=== PATIENT | male | born 1940 | race Caucasian/White ===

== ENCOUNTER 2018-01-15 20:20 | Inpatient (IN) ==
[2018-01-15] MEDS ORDERED: LIDOCAINE JEL 2% 1 TUBE 30GM TOPICAL ONE (20:27)
--- NOTE | 2018-01-15 20:41 | Emergency Department Note ---
Male Urogenital HPI - General Chief complaint: Urogenital-Male Stated complaint: catheter problem Time Seen by Provider: 01/15/18 20:39 Source: patient Mode of arrival: wheelchair Limitations: no limitations - History of Present Illness HPI Narrative: This patient has cystoscopy yesterday this morning he was plugged up with blood in his catheter and Dr. Jama irrigated him for an hour. He cleared up at this evening he is plugged up again. Patient has been taking Xarelto which he did not stop. Dr. Jama is asked us to put in a three-way catheter and admit him to the hospital for Dr. Jama. - Related Data Home Medications Medication Instructions Recorded Confirmed albuterol sulfate HFA 90 180 mcg INHALATION Q4H PRN g 09/13/14 01/15/18 mcg/actuation aerosol inhaler ascorbic acid (vitamin C) ER 500 500 mg PO BID cap 09/13/14 01/15/18 mg capsule,extended release trazodone 100 mg tablet 100 mg PO QDAY PRN tab 09/13/14 01/15/18 alendronate 70 mg tablet 70 mg PO QWEEK 07/28/17 01/15/18 furosemide 20 mg tablet 20 mg PO QDAY 07/28/17 01/15/18 atorvastatin 80 mg tablet 80 mg PO QDAY 11/24/17 01/15/18 metoprolol succinate ER 100 mg 25 mg PO QDAY 11/24/17 01/15/18 tablet,extended release 24 hr rivaroxaban 20 mg tablet 20 mg PO QDAY 11/24/17 01/15/18 Albuterol Sulfate [Proair Hfa] 8.5 gm IH DAILY 01/07/18 01/15/18 Previous Rx's Medication Instructions Recorded terazosin 2 mg capsule 2 mg PO QDAY #90 cap 08/18/17 levothyroxine 112 mcg capsule 112 mcg PO QDAY #90 cap 08/25/17 fosinopril 40 mg tablet 20 mg PO QDAY #45 tab 12/31/17 omeprazole 20 mg capsule,delayed 20 mg PO QDAY #60 cap 12/31/17 release Allergies Allergy/AdvReac Type Severity Reaction Status Date / Time No Known Drug Allergies Allergy Unknown Unknown Verified 01/15/18 20:23 Review of Systems All systems ED: reviewed and negative except as stated. Past Medical History - Past Medical History PMFSH Narrative: Medical History (Last Reviewed 01/15/18 @ 10:01 by Silvia Shoemaker CMA) History of tobacco use (Acute) Spinal stenosis of lumbar region (Acute) Shoulder pain, left (Acute 05/26/14) Chronic renal insufficiency (Acute) Renal calculi (Acute) Peripheral vascular disease (Acute) Osteoporosis (Acute) Mitral valve disorder (Acute) Leg pain (Acute 05/26/14) Hypothyroidism (acquired) (Acute) Hypertension (Acute) Hyperlipemia (Acute) Gastroesophageal reflux (Acute) Edema (Acute) Degenerative joint disease (Acute) Coronary atherosclerosis (Acute) CAD (coronary artery disease) (Acute) Bladder neck obstruction (Acute) Past Surgical History (Last Reviewed 01/15/18 @ 10:01 by Silvia Shoemaker [facility]) Nail avulsion of toe (Acute) History of total right knee replacement (Acute) History of shoulder surgery (Acute) History of open heart surgery (Acute) History of inguinal hernia repair (Acute) History of carpal tunnel repair (Acute) History of coronary artery bypass graft x 3 (Acute) History of arthroscopy of left knee (Acute) Family History (Last Reviewed 01/15/18 @ 10:01 by Silvia Shoemaker CMA) Mother Malignant neoplasm of uterus - Social History smoking status: Current some day smoker Alcohol use: Reports: Occasionally Drug use: Reports: none Physical Exam Limitations: no limitations General appearance: alert, in no apparent distress Head: atraumatic Eye: Present: normal appearance Abdominal: Present: soft, distention, tenderness Abdominal tenderness: Present: suprapubic, mild Neurological: Present: alert Psychiatric: Present: normal affect, normal mood Skin: Present: warm, dry, intact Course Vital Signs Temperature 97.5 F 01/15/18 20:21 Pulse Rate 118 H 01/15/18 20:21 Respiratory Rate 18 01/15/18 20:21 Blood Pressure 84/54 01/15/18 20:21 Pulse Oximetry (%) 96 01/15/18 20:21 Temperature 97.5 F 01/15/18 20:21 Pulse Rate 118 H 01/15/18 20:21 Respiratory Rate 18 01/15/18 20:21 Blood Pressure 84/54 01/15/18 20:21 Pulse Oximetry (%) 96 01/15/18 20:21 Disposition Pt seen by BEHAVIORIST/PA only: No Clinical Impression: Acute retention of urine Disposition: Xfer As Outpt/Obs ([facility]) Condition: Good Referrals: Raudel Murphy MD [Primary Care Provider] - Time of Disposition: 20:41
[2018-01-15 22:15] LABS: Basophils # (Auto) 0 K/mcL (0.0-0.3); Basophils % (Auto) 0.1 % (0.0-2.0); Eosinophils # (Auto) 0.1 K/mcL (0.0-0.7); Eosinophils % (Auto) 0.6 % (0.0-7.0); Granulocytes % (Auto) 83.8 % (38.0-78.0); Lymphocytes # (Auto) 0.9 K/mcL (1.5-4.8); Lymphocytes % (Auto) 9.1 % (15.5-49.0); Mean Cell Volume 93.8 fL (80.0-100.0); Mean Corpuscular HGB Conc 32.8 g/dL (31.0-36.0); Mean Corpuscular Hemoglobin 30.7 pg (26.0-34.0); Monocytes # (Auto) 0.7 K/mcL (0.1-0.9); Monocytes % (Auto) 6.4 % (1.0-12.0); Platelet Count 199 K/mcL (140-440); RBC 2.85 M/mcL (4.50-5.90); Red Cell Distribution Width 19.4 % (11.5-14.5)
[2018-01-15] MEDS: LACTATED RINGERS 1,000 ML IV SCH (22:25)
[2018-01-16] MEDS ORDERED: FUROSEMIDE 20 MG/2 ML VIAL IV ONE (01:29)
[2018-01-16] MEDS ORDERED: 0.9 % SODIUM CHLORIDE 250 ML IV SCH ×2 (02:00→10:50)
[2018-01-16] MEDS: LACTATED RINGERS 1,000 ML IV SCH ×2 (08:57→16:44)
[2018-01-16] MEDS ORDERED: traZODone HCL 100 MG TABLET PO PRN (09:43)
[2018-01-16] MEDS ORDERED: ALBUTEROL SULFATE INHALATION PRN (09:43)
[2018-01-16] MEDS ORDERED: ALBUTEROL SULFATE 1 PUFF INHALER INH PRN (09:55)
[2018-01-16 10:19] LABS: Basophils # (Auto) 0 K/mcL (0.0-0.3); Basophils % (Auto) 0.2 % (0.0-2.0); Eosinophils # (Auto) 0.1 K/mcL (0.0-0.7); Eosinophils % (Auto) 2.1 % (0.0-7.0); Granulocytes % (Auto) 78.4 % (38.0-78.0); Lymphocytes # (Auto) 0.9 K/mcL (1.5-4.8); Lymphocytes % (Auto) 12.7 % (15.5-49.0); Mean Cell Volume 92.5 fL (80.0-100.0); Mean Corpuscular Hemoglobin 30.5 pg (26.0-34.0); Monocytes # (Auto) 0.5 K/mcL (0.1-0.9); Monocytes % (Auto) 6.6 % (1.0-12.0); Platelet Count 158 K/mcL (140-440); RBC 2.83 M/mcL (4.50-5.90); Red Cell Distribution Width 18.5 % (11.5-14.5)
[2018-01-16] MEDS ORDERED: LACTATED RINGERS 1,000 ML IV ONE (11:13)
[2018-01-16] MEDS ORDERED: LACTATED RINGERS 500 ML IV ONE ×2 (11:19→18:44)
--- NOTE | 2018-01-16 11:22 | History and Physical Report ---
DATE OF ADMISSION: 01/15/2018 HISTORY OF PRESENT ILLNESS: Mr. Randle is a 77-year-old gentleman who has been admitted to the hospital recently for urinary sepsis. It was noted that he had stones in his kidney and also in his bladder. On 01/14, he was taken to the operating room where the stones were removed and ureteral stent was placed. He did have bleeding afterwards because he was on Xarelto. The next day he did clot off his catheter which was left in and we irrigated this copiously. Last night, he was again having clots, was seen in the emergency room and Dr. Rowe kindly admitted the patient for observation. The patient states that he is having some pain. It mostly is because of the bleeding. We did irrigate him copiously the day before and his urine was clear. There is no evidence of prostate cancer. He is on Xarelto because of atrial fibrillation. PAST MEDICAL HISTORY: Significant for spinal stenosis, shoulder pain, renal insufficiency, kidney stones, osteoporosis, mitral valve with repair, hypertension, edema, coronary artery disease. PAST SURGICAL HISTORY: Total knee replacement, shoulder surgery, mitral valve repair, carpal tunnel repair and a 3-vessel CABG. FAMILY HISTORY: Positive for cancer. SOCIAL HISTORY: Does smoke, no alcohol. CURRENT MEDICATIONS: Albuterol, Fosamax, Lipitor, fosinopril, Lasix, omeprazole, Xarelto and terazosin. ALLERGIES: None. REVIEW OF SYSTEMS: CARDIAC: Denies any current chest pain. RESPIRATORY: No wheezing, coughing but does have asthma. PSYCHOLOGICAL: No depression or mood swings. The rest of a 12-point review of systems is negative. PHYSICAL EXAMINATION: GENERAL: This is a pleasant gentleman in slight distress. VITAL SIGNS: As listed per nurse's notes. HEENT: Atraumatic, normocephalic. Extraocular movements are intact. Pupils equal, reactive to light and accommodation. No thyromegaly is noted. NECK: Supple. Trachea is in the midline. HEART: Does have irregular rhythm. LUNGS: Clear to auscultation. ABDOMEN: Soft, nontender. GENITOURINARY: Scrotum without lesion. Epididymides without cysts. Testes normal size and consistency. Meatus is at the end of his penis. Penis is circumcised without plaques. Prostate 40 grams, asymmetrical. Seminal vesicles are nontender. Anus and perineum are normal. Rectum has good sphincter tone. LYMPHATIC: No adenopathy in neck or groin. SKIN: Without rashes, lesions, ulcers. PSYCHOLOGICAL: Alert and oriented x3. IMPRESSION: 1. Clot retention. This is probably secondary to Xarelto. He has been on continuous irrigation and his bladder is clearing. I have instructed the nurses to irrigate every 2 hours and then to watch his continuous bladder irrigation. 2. Decreased hematocrit. This is secondary to his bleeding. He did receive 2 units of blood and would continue to watch this. 3. Decreased blood pressure. This may be secondary to anemia. He is physically stable, but his diastolics are in the 60s to 70s at times. We will continue hydration. I have gone over this with the patient and he understands. We will follow up as an observation. HUE:moira Job ID: [id number] Doc ID: [id number] Tejas Jama MD
--- NOTE | 2018-01-16 11:48 | Internal Medicine Consult Note ---
Medical - CN: [facility] - Data of Consult Consult date: 01/16/18 Requesting Physician: Tejas Jama Primary Care Provider: Raudel Murphy Family Provider: Raudel Murphy - Consult Narrative History of present illness: Mr. Randle is a 77 year old M With a recent history of sepsis from urinary tract infection found to have nephrolithiasis as well as bladder stones. On the he had a cystoscopy with removal of the stones and ureteral stents placed. did have bleeding afterwards which is expected, and patient also noted to be on Xarelto. The following day he clotted off his catheter and that was irrigated with resolution. However the last night he began have more clots which blocked his catheter again and thus patient was admitted after three-way catheter for bladder irrigation was placed. He has had significant to gross hematuria. Since admission was noted to be hypotensive and tachycardic. He did get several units of blood over the past 24 hours. 2 more scheduled today. Does complain of some dizziness on occasion but says that is not unusual for him and denies any chest pain or shortness of breath. Review of Systems: Occasional dizziness hematuria. denies headache/fever/chills/nausea/vomiting/ chest or abdominal pain/cough/dyspnea/diarrhea. Remaining 10 point review of systems reviewed negative. CC: Tejas Jama Medical - CN: [facility] Medical history: Medical History (Last Reviewed 01/15/18 @ 10:01 by Silvia Shoemaker BAGGAGEMAN) History of tobacco use (Acute) Spinal stenosis of lumbar region (Acute) Shoulder pain, left (Acute 05/26/14) Chronic renal insufficiency (Acute) Renal calculi (Acute) Peripheral vascular disease (Acute) Osteoporosis (Acute) Mitral valve disorder (Acute) Leg pain (Acute 05/26/14) Hypothyroidism (acquired) (Acute) Hypertension (Acute) Hyperlipemia (Acute) Gastroesophageal reflux (Acute) Edema (Acute) Degenerative joint disease (Acute) Coronary atherosclerosis (Acute) CAD (coronary artery disease) (Acute) Bladder neck obstruction (Acute) CKD stage III Tobacco abuse Atrial flutter CAD with CABG in 1991 Hypertension next line BPH Hypothyroidism GERD Past Surgical History (Last Reviewed 01/15/18 @ 10:01 by Silvia Shoemaker, BAGGAGEMAN) Nail avulsion of toe (Acute) History of total right knee replacement (Acute) History of shoulder surgery (Acute) History of open heart surgery (Acute) History of inguinal hernia repair (Acute) History of carpal tunnel repair (Acute) History of coronary artery bypass graft x 3 (Acute) History of arthroscopy of left knee (Acute) Family History (Last Reviewed 01/15/18 @ 10:01 by Silvia Shoemaker CMA) Mother Malignant neoplasm of uterus Social History (Last Updated 01/15/18 @ 12:02 by Tejas Jama MD) Quit smoking 3-4 months ago 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 alcohol 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 Medical - CN: Meds Home Medications Medication Instructions Recorded Confirmed Type albuterol sulfate HFA 90 180 mcg INHALATION Q4H PRN g 09/13/14 01/15/18 History mcg/actuation aerosol inhaler ascorbic acid (vitamin C) ER 500 500 mg PO BID cap 09/13/14 01/15/18 History mg capsule,extended release trazodone 100 mg tablet 100 mg PO QDAY PRN tab 09/13/14 01/15/18 History alendronate 70 mg tablet 70 mg PO QWEEK 07/28/17 01/15/18 History furosemide 20 mg tablet 20 mg PO QDAY 07/28/17 01/15/18 History terazosin 2 mg capsule 2 mg PO QDAY #90 cap 08/18/17 01/15/18 Rx levothyroxine 112 mcg capsule 112 mcg PO QDAY #90 cap 08/25/17 01/15/18 Rx atorvastatin 80 mg tablet 80 mg PO QDAY 11/24/17 01/15/18 History metoprolol succinate ER 100 mg 25 mg PO QDAY 11/24/17 01/15/18 History tablet,extended release 24 hr rivaroxaban 20 mg tablet 20 mg PO QDAY 11/24/17 01/15/18 History fosinopril 40 mg tablet 20 mg PO QDAY #45 tab 12/31/17 01/15/18 Rx omeprazole 20 mg capsule,delayed 20 mg PO QDAY #60 cap 12/31/17 01/15/18 Rx release Albuterol Sulfate [Proair Hfa] 8.5 gm IH DAILY 01/07/18 01/15/18 History Allergies Allergy/AdvReac Type Severity Reaction Status Date / Time No Known Drug Allergies Allergy Unknown Unknown Verified 01/15/18 20:23 Medical - CN: Exam - Constitutional Vitals: Temp Pulse Resp BP Pulse Ox 99.1 F H 114 H 20 92/54 94 01/16/18 10:20 01/16/18 10:20 01/16/18 11:34 01/16/18 11:34 01/16/18 11:34 Exam: General: Alert, Awake, No acute Distress HEENT: EOMI, pupils equal round reactive light, normocephalic atraumatic CV: Regular at this time, 2/6 sm, normal s1/s2 Pulm: Clear b/l, no wheezing/rhonchi/rales Abd: soft, nontender, +BS x4 Ext: no clubbing/cyanosis/edema Neuro: Alert, no focal deficits, moves all extremities Skin: warm/dry Medical - CN: Result - Labs CBC & Chem 7: 01/16/18 09:30 Labs: Short CBC 01/15/18 01/16/18 Range/Units 21:21 09:30 WBC 10.3 6.8 (4.5-11.0) K/mcL Hgb 8.8 L 8.6 L (13.5-16.5) g/dL Hct 26.7 L 26.2 L (41.0-55.0) % Plt Count 199 158 (140-440) K/mcL Medical - CN: A/P - Narrative A/P Narrative: A: *Hypertension/tachycardia: Secondary to volume loss, hemorrhagic: *Gross hematuria: Status post cystoscopy for nephrolithiasis and bladder stones *Acute blood loss anemia: -2 units PRBCs given so far *Atrial flutter: Started on Xarelto in the recent past and is also on Toprol *CAD with history of CABG in 1991 *CKD stage III *Hypertension: Is on VONDA inhibitor and Toprol *Hypothyroidism: Continue levothyroxine P: -Bladder irrigation per Dr. Jama -Lactated Ringer bolus -2 units of PRBCs already ordered -Monitor H&H -Hold blood pressure medications for low BP at this time -Xarelto held -ppx:scd
[2018-01-16 13:03] LABS: Blood Urea Nitrogen 56 mg/dl (8-23)
[2018-01-16] MEDS ORDERED: DEXAMETHASONE 10 MG/ML VIAL IV ONE (18:18)
[2018-01-16 19:18] LABS: Basophils # (Auto) 0 K/mcL (0.0-0.3); Basophils % (Auto) 0 % (0.0-2.0); Eosinophils # (Auto) 0.2 K/mcL (0.0-0.7); Eosinophils % (Auto) 2.8 % (0.0-7.0); Granulocytes % (Auto) 70.2 % (38.0-78.0); Lymphocytes # (Auto) 1.4 K/mcL (1.5-4.8); Lymphocytes % (Auto) 18.9 % (15.5-49.0); Mean Cell Volume 92.1 fL (80.0-100.0); Mean Corpuscular HGB Conc 34.1 g/dL (31.0-36.0); Mean Corpuscular Hemoglobin 31.4 pg (26.0-34.0); Monocytes # (Auto) 0.6 K/mcL (0.1-0.9); Monocytes % (Auto) 8.1 % (1.0-12.0); Platelet Count 157 K/mcL (140-440); RBC 3.37 M/mcL (4.50-5.90)
[2018-01-16 19:45] LABS: ALT/SGPT < 5 U/l (0-40); Albumin/Globulin Ratio 0.9 (1.0-2.3); Alkaline Phosphatase 57 U/L (39-117); Bilirubin,Direct < 0.2 mg/dL (0.0-0.3); Blood Urea Nitrogen 55 mg/dl (8-23); Gamma Glutamyl Transpeptidase 14 U/L (8-61); Uric Acid 9.3 mg/dL (2.5-8.0)
[2018-01-16] MEDS ORDERED: ALBUMIN HUMAN 12.5 GM/50 ML BAG IV ONE ×2 (20:03→21:25)
[2018-01-16] MEDS: ATORVASTATIN 20 MG TABLET PO SCH (20:17)
[2018-01-16] MEDS: TAMSULOSIN 0.4 MG CAPSULE PO SCH (20:18)
[2018-01-16] MEDS: CIPROFLOXACIN 500 MG TABLET PO SCH (20:18)
[2018-01-17] MEDS: LACTATED RINGERS 1,000 ML IV SCH ×4 (00:34→21:38)
[2018-01-17] MEDS: ONDANSETRON 4 MG/2 ML VIAL IV PRN (01:00)
[2018-01-17 05:44] LABS: Basophils # (Auto) 0 K/mcL (0.0-0.3); Basophils % (Auto) 0 % (0.0-2.0); Eosinophils # (Auto) 0 K/mcL (0.0-0.7); Eosinophils % (Auto) 0.1 % (0.0-7.0); Granulocytes % (Auto) 91.1 % (38.0-78.0); Lymphocytes # (Auto) 0.4 K/mcL (1.5-4.8); Lymphocytes % (Auto) 5.5 % (15.5-49.0); Mean Cell Volume 93.4 fL (80.0-100.0); Mean Corpuscular HGB Conc 33.1 g/dL (31.0-36.0); Mean Corpuscular Hemoglobin 30.9 pg (26.0-34.0); Monocytes # (Auto) 0.3 K/mcL (0.1-0.9); Monocytes % (Auto) 3.3 % (1.0-12.0); Platelet Count 150 K/mcL (140-440); RBC 3.19 M/mcL (4.50-5.90); Red Cell Distribution Width 18.1 % (11.5-14.5)
[2018-01-17 06:29] LABS: Blood Urea Nitrogen 56 mg/dl (8-23)
[2018-01-17] MEDS ORDERED: COSYNTROPIN 0.25 MG VIAL IV ONE (07:07)
--- NOTE | 2018-01-17 07:12 | Internal Med Progress Note ---
Medical - PN: Subj Patient information: Note initiated : 01/17/18 at 7:00 am Service Date, if different from initiated Date: [] Patient: Abhi Randle a 77 y/o M admitted on 01/15/18 for catheter problem. Chief Complaint: [] Interval history: Mr. Randle is a 77 year old M With a recent history of sepsis from urinary tract infection found to have nephrolithiasis as well as bladder stones. On the he had a cystoscopy with removal of the stones and ureteral stents placed. did have bleeding afterwards which is expected, and patient also noted to be on Xarelto. The following day he clotted off his catheter and that was irrigated with resolution. However the last night he began have more clots which blocked his catheter again and thus patient was admitted after three-way catheter for bladder irrigation was placed. He has had significant to gross hematuria. Since admission was noted to be hypotensive and tachycardic. He did get several units of blood over the past 24 hours. 2 more scheduled today. Does complain of some dizziness on occasion but says that is not unusual for him and denies any chest pain or shortness of breath. 01/17 No issues overnight, no new complaints. Better blood pressure overnight. Morning cortisol found to be mildly low, ACTH stimulation test pending. Review of Systems: denies headache/fever/chills/nausea/vomiting/chest or abdominal pain/cough/ dyspnea/diarrhea. Otherwise see above. - Constitutional Vitals: Vital Signs Temp Pulse Resp BP Pulse Ox 98.2 F 112 H 18 97/57 92 01/17/18 03:53 01/17/18 03:53 01/17/18 03:53 01/17/18 03:53 01/17/18 03:53 Period Temp Pulse Resp BP Sys/Sagastume Pulse Ox Last 24 Hr 97.9 F-99.8 F 107-116 18-22 64-100/31-64 91-95 Intake and Output 01/16/18 01/17/18 01/17/18 21:59 05:59 13:59 Intake Total 38624 / 32278 25810 / 22286 Output Total 73681 / 25284 86019 / 78229 Balance -475 / -475 -592 / -592 Weight 98.883 kg Intake & Output: Intake & Output 01/16/18 01/17/1801/17/18 21:59 05:59 13:59 Intake Total 13247 / 35032 79409 / 34345 Output Total / 09208 75506 / 50780 Balance -475 / -475 -592 / -592 Weight 98.883 kg Intake: IV 833 / 833 Lactated Ringers 1,000 ml @ 100 783 / 783 mls/hr IV .Q10H [facility] Rx#: [id number] Oral 350 / 350 600 / 600 Blood Product 600 / 600 CBI Fluid 19306 / 31656 91829 / 91285 Output: CBI Fluid / 67980 88062 / 37010 Other: Urine Appearance Small Blood Clots Small Blood Clots Uretheral (Virgen) Small Blood Clots Small Blood Clots Urine Color Dark Red Bright Red Bright Red Florin Blood Tinged Uretheral (Virgen) Florin Florin Urine Odor Normal Uretheral (Virgen) Normal Net CBI 0 125 Exam: General: Alert, Awake, No acute Distress HEENT: EOMI, neck supple CV: Regular at this time, 2/6 sm, normal s1/s2 Pulm: Clear b/l, no wheezing/rhonchi/rales Abd: soft, nontender, +BS x4 Ext: no clubbing/cyanosis/edema Neuro: Alert, no focal deficits, moves all extremities Skin: warm/dry Medical - PN: Obj Da - Labs CBC & Chem 7: 01/17/18 04:24 01/17/18 04:24 Labs: Abnormal Lab Results 01/17/18 01/17/18 01/17/18 04:24 04:24 04:24 RBC 3.19 L Hgb 9.9 L Hct 29.8 L RDW 18.1 H Gran % 91.1 H Lymph % (Auto) 5.5 L Gran # Lymph # (Auto) 0.4 L Potassium 5.2 H BUN 56 H Creatinine 2.5 H Glucose 138 H Uric Acid Calcium Phosphorus Albumin Albumin/Globulin Ratio Cortisol AM Sample 5.0 L 01/16/18 01/16/18 01/16/18 18:22 18:22 11:41 RBC 3.37 L Hgb 10.6 L Hct 31.0 L RDW 18.0 H Gran % Lymph % (Auto) Gran # Lymph # (Auto) 1.4 L Potassium BUN 55 H 56 H Creatinine 2.7 H 3.0 H Glucose 111 H Uric Acid 9.3 H Calcium 8.4 L Phosphorus 4.7 H Albumin 3.0 L Albumin/Globulin Ratio 0.9 L Cortisol AM Sample 01/16/18 01/15/18 09:30 21:21 RBC 2.83 L 2.85 L Hgb 8.6 L 8.8 L Hct 26.2 L 26.7 L RDW 18.5 H 19.4 H Gran % 78.4 H 83.8 H Lymph % (Auto) 12.7 L 9.1 L Gran # 8.7 H Lymph # (Auto) 0.9 L 0.9 L Potassium BUN Creatinine Glucose Uric Acid Calcium Phosphorus Albumin Albumin/Globulin Ratio Cortisol AM Sample Meds: Medications Albuterol Sulfate (Ventolin) 1 puff INH Q4HP PRN PRN Reason: Shortness Of Breath Alendronate Sodium (Fosamax) 70 mg PO QWEEK [facility] Atorvastatin Calcium (Lipitor) 80 mg PO [facility] Last Admin: 01/16/18 20:17 Dose: 80 mg Ciprofloxacin (Cipro) 500 mg PO BID [facility] Last Admin: 01/16/18 20:18 Dose: 500 mg Lactated Ringer's (Lactated Ringers) 1,000 mls @ 100 mls/hr IV .Q10H [facility] Last Admin: 01/17/18 05:25 Dose: Not Given Levothyroxine Sodium (Synthroid) 112 mcg PO QAMAC [facility] Morphine Sulfate (Morphine) 2 - 4 mg IV Q2HP PRN PRN Reason: PAIN LEVEL > 6 Omeprazole (Prilosec) 20 mg PO QAMAC [facility] Ondansetron HCl (Zofran) 4 mg IV Q4HP PRN PRN Reason: Nausea And Vomiting Last Admin: 01/17/18 01:00 Dose: 4 mg Pneumococcal Polyvalent Vaccine (Pneumovax 23) 0.5 ml IM .ONCE ONE Stop: 01/17/18 10:01 Tamsulosin HCl (Flomax) 0.4 mg PO [facility] Last Admin: 01/16/18 20:18 Dose: 0.4 mg Trazodone HCl (Desyrel) 100 mg PO HSP PRN PRN Reason: insomnia Medical - PN: A/P - Time Spent With Patient Total time spent is greater than 50% in coordination of care (as documented) at patient's floor/unit and/or counseling patient: - Narrative A/P Narrative: A: *Hypotension/tachycardia: Secondary to volume loss, hemorrhagic. +/- ?adrenal insufficiency: -cortisol mild low - *Gross hematuria: Status post cystoscopy for nephrolithiasis and bladder stones *Acute blood loss anemia: -4 PRBCs given over first 24 hours, stable at this time *Atrial flutter: Started on Xarelto in the recent past and is also on Toprol *CAD with history of CABG in 1991 *LARRY on CKD stage III: likely ATN from hypotension -improving *Hypertension: Is on VONDA inhibitor and Toprol *Hypothyroidism: Continue levothyroxine P: -Bladder irrigation per Dr. Jama -IVF's -Monitor H&H and renal fxn -Hold blood pressure medications for low BP at this time -ACTH stim test -Xarelto held -cont levothyroxine -ppx:scd Medical - PN: Qual - Stroke Symptom Onset Unknown: No - VTE Deep Vein Thrombosis/Pulmonary Embolism Present on Admission: No
[2018-01-17] MEDS: OMEPRAZOLE 20 MG CAPSULE PO SCH (07:38)
[2018-01-17] MEDS: LEVOTHYROXINE SODIUM 112 MCG TABLET PO SCH (07:39)
--- NOTE | 2018-01-17 09:39 | General Surgery Progress Note ---
Subjective Patient reports: feels better Narrative: Note initiated : 01/17/18 at 9:37 am Service Date, if different from initiated Date: [] Patient: Abhi Randle 77 y/o M admitted on 01/15/18 for catheter problem. Chief Complaint: [] hematuria patient improved hct stable, appreciate help by hospitalist and nurses. irrigated and is now clot free. will remove catheter to day and observe. Objective Temp Pulse Resp BP Pulse Ox 98.6 F 112 H 14 109/66 94 01/17/18 07:50 01/17/18 08:00 01/17/18 08:00 01/17/18 07:50 01/17/18 07:50 - Additional Data Intake & Output - Last 24 hours: Intake & Output 01/15/18 01/16/18 01/17/18 01/18/18 05:59 05:59 05:59 05:59 Intake Total 40064 / 13009 59544 / 66168 Output Total 58379 / 64864 60425 / 03061 3650 / 3650 Balance -1735 / -1735 308 / 308 -3640 / -3640 Weight 205 lb 8 oz 218 lb - Labs 01/17/18 04:24 01/17/18 04:24 Diabetes panel 01/16/18 01/16/18 01/17/18 Range/Units 11:41 18:22 04:24 Sodium 138 138 138 (133-145) mmol/L Potassium 4.9 4.9 5.2 H (3.3-5.1) mmol/L Chloride 100 100 100 (96-108) mmol/L Carbon Dioxide 27 24 25 (22-30) mmol/L BUN 56 H 55 H 56 H (8-23) mg/dl Creatinine 3.0 H 2.7 H 2.5 H (0.7-1.2) mg/dl Glucose 89 111 H 138 H (70-105) mg/dL Calcium 8.4 L 8.6 8.7 (8.6-10.4) mg/dl AST 12 (0-37) U/l ALT < 5 (0-40) U/l Alkaline Phosphatase 57 (39-117) U/L Total Protein 6.2 (5.9-8.4) gm/dL Albumin 3.0 L (3.2-5.2) gm/dL Triglycerides 93 (<150) mg/dl Thyroid panel 01/17/18 Range/Units 07:21 TSH 4.48 (0.27-5.01) uIU/ml Calcium panel 01/16/18 01/16/18 01/17/18 Range/Units 11:41 18:22 04:24 Calcium 8.4 L 8.6 8.7 (8.6-10.4) mg/dl Phosphorus 4.7 H (2.7-4.5) mg/dL Albumin 3.0 L (3.2-5.2) gm/dL Pituitary panel 01/16/18 01/16/18 01/17/18 Range/Units 11:41 18:22 04:24 Sodium 138 138 138 (133-145) mmol/L Potassium 4.9 4.9 5.2 H (3.3-5.1) mmol/L Chloride 100 100 100 (96-108) mmol/L Carbon Dioxide 27 24 25 (22-30) mmol/L BUN 56 H 55 H 56 H (8-23) mg/dl Creatinine 3.0 H 2.7 H 2.5 H (0.7-1.2) mg/dl Glucose 89 111 H 138 H (70-105) mg/dL Calcium 8.4 L 8.6 8.7 (8.6-10.4) mg/dl TSH (0.27-5.01) uIU/ml 01/17/18 Range/Units 07:21 Sodium (133-145) mmol/L Potassium (3.3-5.1) mmol/L Chloride (96-108) mmol/L Carbon Dioxide (22-30) mmol/L BUN (8-23) mg/dl Creatinine (0.7-1.2) mg/dl Glucose (70-105) mg/dL Calcium (8.6-10.4) mg/dl TSH 4.48 (0.27-5.01) uIU/ml Adrenal panel 01/16/18 01/16/18 01/17/18 Range/Units 11:41 18:22 04:24 Sodium 138 138 138 (133-145) mmol/L Potassium 4.9 4.9 5.2 H (3.3-5.1) mmol/L Chloride 100 100 100 (96-108) mmol/L Carbon Dioxide 27 24 25 (22-30) mmol/L BUN 56 H 55 H 56 H (8-23) mg/dl Creatinine 3.0 H 2.7 H 2.5 H (0.7-1.2) mg/dl Glucose 89 111 H 138 H (70-105) mg/dL Calcium 8.4 L 8.6 8.7 (8.6-10.4) mg/dl Total Bilirubin 0.5 (0.0-1.0) mg/dL AST 12 (0-37) U/l ALT < 5 (0-40) U/l Alkaline Phosphatase 57 (39-117) U/L Total Protein 6.2 (5.9-8.4) gm/dL Albumin 3.0 L (3.2-5.2) gm/dL Assessment and Plan - Time Spent With Patient Total time spent is greater than 50% in coordination of care (as documented) at patient's floor/unit and/or counseling patient:
[2018-01-17] MEDS: CIPROFLOXACIN 500 MG TABLET PO SCH ×2 (09:50→20:45)
[2018-01-17] MEDS ORDERED: PNEUMOCOCCAL 23-VAL P-SAC VAC 0.5 ML VIAL IM ONE (10:00)
[2018-01-17] MEDS: TAMSULOSIN 0.4 MG CAPSULE PO SCH (20:45)
[2018-01-17] MEDS: ATORVASTATIN 20 MG TABLET PO SCH (20:45)
[2018-01-17] MEDS ORDERED: BISACODYL 10 MG SUPP.RECT PR PRN (23:32)
[2018-01-17] MEDS ORDERED: BISACODYL 10 MG SUPP.RECT PR ONE (23:45)
[2018-01-18] MEDS: ONDANSETRON 4 MG/2 ML VIAL IV PRN (00:51)
[2018-01-18 06:01] LABS: ALT/SGPT < 5 U/l (0-40); Albumin 3.1 gm/dL (3.2-5.2); Albumin/Globulin Ratio 1.2 (1.0-2.3); Alkaline Phosphatase 44 U/L (39-117); Bilirubin,Direct < 0.2 mg/dL (0.0-0.3); Blood Urea Nitrogen 46 mg/dl (8-23); Gamma Glutamyl Transpeptidase 12 U/L (8-61); Uric Acid 8.1 mg/dL (2.5-8.0)
--- NOTE | 2018-01-18 06:59 | Internal Med Progress Note ---
Medical - PN: Subj Patient information: Note initiated : 01/18/18 at 6:54 am Service Date, if different from initiated Date: [] Patient: Abhi Randle a 77 y/o M admitted on 01/17/18 for catheter problem. Chief Complaint: [] Interval history: Mr. Randle is a 77 year old M With a recent history of sepsis from urinary tract infection found to have nephrolithiasis as well as bladder stones. On the he had a cystoscopy with removal of the stones and ureteral stents placed. did have bleeding afterwards which is expected, and patient also noted to be on Xarelto. The following day he clotted off his catheter and that was irrigated with resolution. However the last night he began have more clots which blocked his catheter again and thus patient was admitted after three-way catheter for bladder irrigation was placed. He has had significant to gross hematuria. Since admission was noted to be hypotensive and tachycardic. He did get several units of blood over the past 24 hours. 2 more scheduled today. Does complain of some dizziness on occasion but says that is not unusual for him and denies any chest pain or shortness of breath. 01/17 No issues overnight, no new complaints. Better blood pressure overnight. Morning cortisol found to be mildly low, ACTH stimulation test pending. 01/18 Was straight cathed several times overnight shift. Patient this morning says he will typically go up to 10 hours anyway before he urinates. He otherwise feels better no new complaints. Review of Systems: denies dizzy/lightheadedness/headache/fever/chills/nausea/vomiting/chest or abdominal pain/cough/dyspnea/diarrhea. Otherwise see above. - Constitutional Vitals: Vital Signs Temp Pulse Resp BP Pulse Ox 98.1 F 112 H 18 102/62 94 01/18/18 03:02 01/18/18 03:02 01/18/18 03:02 01/18/18 03:02 01/18/18 03:02 Period Temp Pulse Resp BP Sys/Sagastume Pulse Ox Last 24 Hr 98.1 F-99.3 F 111-113 12-19 92-109/52-66 93-95 Intake and Output 01/17/18 01/18/18 01/18/18 21:59 05:59 13:59 Intake Total 1340 / 1340 200 / 200 Output Total 550 / 550 1100 / 1100 Balance 790 / 790 -900 / -900 Weight 97.976 kg Intake & Output: Intake & Output 01/17/18 01/18/18 01/18/18 21:59 05:59 13:59 Intake Total 1340 / 1340 200 / 200 Output Total 550 / 550 1100 / 1100 Balance 790 / 790 -900 / -900 Weight 97.976 kg Intake: IV 1000 / 1000 Lactated Ringers 1,000 ml @ 100 1000 / 1000 mls/hr IV .Q10H [facility] Rx#: [id number] Oral 340 / 340 200 / 200 Output: Urine Catheter Amount 550 / 550 1100 / 1100 Straight 550 / 550 1100 / 1100 Other: Meal Dinner Percent of Meal Consumed 25% Feeding Ability Independent Urine Appearance Straight Small Blood Clots Small Blood Clots Urine Color Straight Dark Red Dark Red Urine Odor Straight Strong Stool Size Small Moderate Stool Color Brown Brown Stool Consistency Formed Formed # Bowel Movements 1 1 Exam: General: Alert, Awake, No acute Distress HEENT: EOMI, neck supple CV: Regular at this time, 1/6 sm, normal s1/s2 Pulm: Clear b/l, no wheezing/rhonchi/rales Abd: soft, nontender, +BS x4 Ext: no clubbing/cyanosis, trace b/l LE edema Neuro: Alert, no focal deficits, moves all extremities Skin: warm/dry Medical - PN: Obj Da - Labs CBC & Chem 7: 01/18/18 04:40 01/18/18 04:40 Labs: Abnormal Lab Results 01/18/18 01/18/18 01/17/18 04:40 04:40 04:24 RBC Hgb 9.0 L Hct 27.1 L RDW Gran % Lymph % (Auto) Gran # Lymph # (Auto) Potassium BUN 46 H Creatinine 1.7 H Glucose Uric Acid 8.1 H Calcium 8.3 L Phosphorus 2.5 L Total Protein 5.7 L Albumin 3.1 L Albumin/Globulin Ratio Cortisol AM Sample 5.0 L 01/17/18 01/17/18 01/16/18 04:24 04:24 18:22 RBC 3.19 L Hgb 9.9 L Hct 29.8 L RDW 18.1 H Gran % 91.1 H Lymph % (Auto) 5.5 L Gran # Lymph # (Auto) 0.4 L Potassium 5.2 H BUN 56 H 55 H Creatinine 2.5 H 2.7 H Glucose 138 H 111 H Uric Acid 9.3 H Calcium Phosphorus 4.7 H Total Protein Albumin 3.0 L Albumin/Globulin Ratio 0.9 L Cortisol AM Sample 01/16/18 01/16/18 01/16/18 18:22 11:41 09:30 RBC 3.37 L 2.83 L Hgb 10.6 L 8.6 L Hct 31.0 L 26.2 L RDW 18.0 H 18.5 H Gran % 78.4 H Lymph % (Auto) 12.7 L Gran # Lymph # (Auto) 1.4 L 0.9 L Potassium BUN 56 H Creatinine 3.0 H Glucose Uric Acid Calcium 8.4 L Phosphorus Total Protein Albumin Albumin/Globulin Ratio Cortisol AM Sample 01/15/18 21:21 RBC 2.85 L Hgb 8.8 L Hct 26.7 L RDW 19.4 H Gran % 83.8 H Lymph % (Auto) 9.1 L Gran # 8.7 H Lymph # (Auto) 0.9 L Potassium BUN Creatinine Glucose Uric Acid Calcium Phosphorus Total Protein Albumin Albumin/Globulin Ratio Cortisol AM Sample Meds: Medications Albuterol Sulfate (Ventolin) 1 puff INH Q4HP PRN PRN Reason: Shortness Of Breath Alendronate Sodium (Fosamax) 70 mg PO QWEEK [facility] Atorvastatin Calcium (Lipitor) 80 mg PO [facility] Last Admin: 01/17/18 20:45 Dose: 80 mg Bisacodyl (Dulcolax) 10 mg [place] Q2-3DAYS PRN PRN Reason: Constipation Ciprofloxacin (Cipro) 500 mg PO BID [facility] Last Admin: 01/17/18 20:45 Dose: 500 mg Docusate Sodium (Colace) 100 mg PO BID [facility] Lactated Ringer's (Lactated Ringers) 1,000 mls @ 100 mls/hr IV .Q10H [facility] Last Admin: 01/17/18 21:38 Dose: 100 mls/hr Levothyroxine Sodium (Synthroid) 112 mcg PO [facility] Last Admin: 01/17/18 07:39 Dose: 112 mcg Morphine Sulfate (Morphine) 2 - 4 mg IV Q2HP PRN PRN Reason: PAIN LEVEL > 6 Omeprazole (Prilosec) 20 mg PO [facility] Last Admin: 01/17/18 07:38 Dose: 20 mg Ondansetron HCl (Zofran) 4 mg IV Q4HP PRN PRN Reason: Nausea And Vomiting Last Admin: 01/18/18 00:51 Dose: 4 mg Tamsulosin HCl (Flomax) 0.4 mg PO HS [facility] Last Admin: 01/17/18 20:45 Dose: 0.4 mg Trazodone HCl (Desyrel) 100 mg PO HSP PRN PRN Reason: insomnia Medical - PN: A/P - Time Spent With Patient Total time spent is greater than 50% in coordination of care (as documented) at patient's floor/unit and/or counseling patient: - Narrative A/P Narrative: A: *Hypotension/tachycardia: Secondary to volume loss, hemorrhagic: -cortisol mild low but good response to acth stim test, no adrenal suppression -Improved *Gross hematuria: Status post cystoscopy for nephrolithiasis and bladder stones *Acute blood loss anemia: -4 PRBCs given over first 24 hours, stable at this time -9.0<9.9< *Atrial flutter: Started on Xarelto in the recent past and is also on Toprol *CAD w/CABG in 1991: *LARRY on CKD stage III: likely ATN from hypotension -1.7<<3.0, improved *Hypertension: Is on VONDA inhibitor and Toprol *Hypothyroidism: Continue levothyroxine P: - per Dr. Jama -IVF's -Monitor H&H -Monitor Renal fxn -restart toprol lower dose and hold ACEI upon d/c, f/u BP's -Xarelto held -cont levothyroxine -ppx:scd Medical - PN: Qual - Stroke Symptom Onset Unknown: No - VTE Deep Vein Thrombosis/Pulmonary Embolism Present on Admission: No
[2018-01-18] MEDS: LEVOTHYROXINE SODIUM 112 MCG TABLET PO SCH (07:19)
[2018-01-18] MEDS: OMEPRAZOLE 20 MG CAPSULE PO SCH (07:19)
--- NOTE | 2018-01-18 07:24 | General Surgery Progress Note ---
Subjective Patient reports: feels better Narrative: Note initiated : 01/18/18 at 7:21 am Service Date, if different from initiated Date: [] Patient: Abhi Randle 77 y/o M admitted on 01/17/18 for catheter problem. Chief Complaint: hematuria Catheter removed yesterday and was unable to urinate. straight cath X2. no discomfort. HCT stable will change catheter to prn. increase flomax. Objective Temp Pulse Resp BP Pulse Ox 98.1 F 112 H 18 102/62 94 01/18/18 03:02 01/18/18 03:02 01/18/18 03:02 01/18/18 03:02 01/18/18 03:02 - Additional Data Intake & Output - Last 24 hours: Intake & Output 01/16/18 01/17/18 01/18/18 01/19/18 05:59 05:59 05:59 05:59 Intake Total 04162 / 95848 27665 / 32034 5550 / 5550 Output Total 00400 / 63652 13479 / 80625 94451 / 01006 Balance -1735 / -1735 308 / 308 -7700 / -7700 Weight 205 lb 8 oz 218 lb 216 lb - Labs 01/18/18 04:40 01/18/18 04:40 Diabetes panel 01/18/18 Range/Units 04:40 Sodium 142 (133-145) mmol/L Potassium 4.4 (3.3-5.1) mmol/L Chloride 105 (96-108) mmol/L Carbon Dioxide 28 (22-30) mmol/L BUN 46 H (8-23) mg/dl Creatinine 1.7 H (0.7-1.2) mg/dl Glucose 94 (70-105) mg/dL Calcium 8.3 L (8.6-10.4) mg/dl AST 10 (0-37) U/l ALT < 5 (0-40) U/l Alkaline Phosphatase 44 (39-117) U/L Total Protein 5.7 L (5.9-8.4) gm/dL Albumin 3.1 L (3.2-5.2) gm/dL Triglycerides 55 (<150) mg/dl Thyroid panel 01/17/18 Range/Units 07:21 TSH 4.48 (0.27-5.01) uIU/ml Calcium panel 01/18/18 Range/Units 04:40 Calcium 8.3 L (8.6-10.4) mg/dl Phosphorus 2.5 L (2.7-4.5) mg/dL Albumin 3.1 L (3.2-5.2) gm/dL Pituitary panel 01/17/18 01/18/18 Range/Units 07:21 04:40 Sodium 142 (133-145) mmol/L Potassium 4.4 (3.3-5.1) mmol/L Chloride 105 (96-108) mmol/L Carbon Dioxide 28 (22-30) mmol/L BUN 46 H (8-23) mg/dl Creatinine 1.7 H (0.7-1.2) mg/dl Glucose 94 (70-105) mg/dL Calcium 8.3 L (8.6-10.4) mg/dl TSH 4.48 (0.27-5.01) uIU/ml Adrenal panel 01/17/18 01/17/18 01/18/18 Range/Units 09:04 10:00 04:40 Sodium 142 (133-145) mmol/L Potassium 4.4 (3.3-5.1) mmol/L Chloride 105 (96-108) mmol/L Carbon Dioxide 28 (22-30) mmol/L BUN 46 H (8-23) mg/dl Creatinine 1.7 H (0.7-1.2) mg/dl Glucose 94 (70-105) mg/dL Calcium 8.3 L (8.6-10.4) mg/dl Total Bilirubin 0.4 (0.0-1.0) mg/dL AST 10 (0-37) U/l ALT < 5 (0-40) U/l Alkaline Phosphatase 44 (39-117) U/L Total Protein 5.7 L (5.9-8.4) gm/dL Albumin 3.1 L (3.2-5.2) gm/dL Cortisol Resp 30 Min 23.7 ug/dl Cortisol Resp 60 Min 29.7 ug/dl Assessment and Plan - Time Spent With Patient Total time spent is greater than 50% in coordination of care (as documented) at patient's floor/unit and/or counseling patient:
[2018-01-18] MEDS: METOPROLOL SUCCINATE 25 MG TAB.XL.24H PO SCH (09:58)
[2018-01-18] MEDS: CIPROFLOXACIN 500 MG TABLET PO SCH ×2 (09:59→20:06)
[2018-01-18] MEDS: TAMSULOSIN 0.4 MG CAPSULE PO SCH ×2 (10:00→20:05)
[2018-01-18] MEDS: DOCUSATE SODIUM 100 MG CAPSULE PO SCH ×2 (10:00→20:06)
[2018-01-18] MEDS: LACTATED RINGERS 1,000 ML IV SCH ×2 (10:01→20:09)
[2018-01-18] MEDS: ATORVASTATIN 20 MG TABLET PO SCH (20:06)
[2018-01-19] MEDS: LACTATED RINGERS 1,000 ML IV SCH (05:47)
--- NOTE | 2018-01-19 06:51 | Internal Med Progress Note ---
Medical - PN: Subj Patient information: Note initiated : 01/19/18 at 6:48 am Service Date, if different from initiated Date: [] Patient: Abhi Randle a 77 y/o M admitted on 01/17/18 for Catheter Problem. Chief Complaint: [] Interval history: Mr. Randle is a 77 year old M With a recent history of sepsis from urinary tract infection found to have nephrolithiasis as well as bladder stones. On the he had a cystoscopy with removal of the stones and ureteral stents placed. did have bleeding afterwards which is expected, and patient also noted to be on Xarelto. The following day he clotted off his catheter and that was irrigated with resolution. However the last night he began have more clots which blocked his catheter again and thus patient was admitted after three-way catheter for bladder irrigation was placed. He has had significant to gross hematuria. Since admission was noted to be hypotensive and tachycardic. He did get several units of blood over the past 24 hours. 2 more scheduled today. Does complain of some dizziness on occasion but says that is not unusual for him and denies any chest pain or shortness of breath. 01/17 No issues overnight, no new complaints. Better blood pressure overnight. Morning cortisol found to be mildly low, ACTH stimulation test pending. 01/18 Was straight cathed several times overnight shift. Patient this morning says he will typically go up to 10 hours anyway before he urinates. He otherwise feels better no new complaints. 01/19 Has upset stomach this morning and having bladder spasms, feels feverish/ nauseous. bladder scanned for 800+ this AM, Ruth being placed. Review of Systems: denies dizzy/lightheadedness/headache/chills/vomiting/chest or abdominal pain/ cough/dyspnea/diarrhea. Otherwise see above. - Constitutional Vitals: Vital Signs Temp Pulse Resp BP Pulse Ox 98.2 F 116 H 20 137/69 96 01/19/18 04:43 01/19/18 04:43 01/19/18 04:43 01/19/18 04:43 01/18/18 23:13 Period Temp Pulse Resp BP Sys/Sagastume Pulse Ox Last 24 Hr 97.9 F-98.6 F 110-116 18-20 99-137/60-69 95-96 Intake and Output 01/18/18 01/19/18 01/19/18 21:59 05:59 13:59 Intake Total 1168 / 1168 1113 / 1113 Output Total 700 / 700 Balance 1143 / 1143 413 / 413 Weight 98.203 kg Intake & Output: Intake & Output 01/18/18 01/19/18 01/19/18 21:59 05:59 13:59 Intake Total 1168 / 1168 1113 / 1113 Output Total 700 / 700 Balance 1143 / 1143 413 / 413 Weight 98.203 kg Intake: IV 1000 / 1000 963 / 963 Lactated Ringers 1,000 ml @ 100 1000 / 1000 963 / 963 mls/hr IV .Q10H [facility] Rx#: [id number] Oral 168 / 168 150 / 150 Output: Urine Catheter Amount 700 / 700 Straight 700 / 700 Void Amount 0 / 0 Other: Meal Ice Cream Percent of Meal Consumed 75% Feeding Ability Independent Urine Appearance Hematuria Straight Hematuria Urine Color Straight Red Brown Dark Red Stool Size Small Stool Color Brown Stool Consistency Formed # Bowel Movements 1 Exam: General: Alert, Awake, No acute Distress HEENT: EOMI, neck supple CV: Regular at this time, 1/6 sm, normal s1/s2 Pulm: Clear b/l, no wheezing/rhonchi/rales Abd: soft, nontender, +BS x4 Ext: no clubbing/cyanosis, trace b/l LE edema Neuro: Alert, no focal deficits, moves all extremities Skin: warm/dry Medical - PN: Obj Da - Labs CBC & Chem 7: 01/18/18 04:40 01/18/18 04:40 Labs: Abnormal Lab Results 01/18/18 01/18/18 01/17/18 04:40 04:40 04:24 RBC Hgb 9.0 L Hct 27.1 L RDW Gran % Lymph % (Auto) Lymph # (Auto) Potassium BUN 46 H Creatinine 1.7 H Glucose Uric Acid 8.1 H Calcium 8.3 L Phosphorus 2.5 L Total Protein 5.7 L Albumin 3.1 L Albumin/Globulin Ratio Cortisol AM Sample 5.0 L 01/17/18 01/17/18 01/16/18 04:24 04:24 18:22 RBC 3.19 L Hgb 9.9 L Hct 29.8 L RDW 18.1 H Gran % 91.1 H Lymph % (Auto) 5.5 L Lymph # (Auto) 0.4 L Potassium 5.2 H BUN 56 H 55 H Creatinine 2.5 H 2.7 H Glucose 138 H 111 H Uric Acid 9.3 H Calcium Phosphorus 4.7 H Total Protein Albumin 3.0 L Albumin/Globulin Ratio 0.9 L Cortisol AM Sample 01/16/18 01/16/18 01/16/18 18:22 11:41 09:30 RBC 3.37 L 2.83 L Hgb 10.6 L 8.6 L Hct 31.0 L 26.2 L RDW 18.0 H 18.5 H Gran % 78.4 H Lymph % (Auto) 12.7 L Lymph # (Auto) 1.4 L 0.9 L Potassium BUN 56 H Creatinine 3.0 H Glucose Uric Acid Calcium 8.4 L Phosphorus Total Protein Albumin Albumin/Globulin Ratio Cortisol AM Sample Meds: Medications Albuterol Sulfate (Ventolin) 1 puff INH Q4HP PRN PRN Reason: Shortness Of Breath Alendronate Sodium (Fosamax) 70 mg PO QWEEK [facility] Atorvastatin Calcium (Lipitor) 80 mg PO HS [facility] Last Admin: 01/18/18 20:06 Dose: 80 mg Bisacodyl (Dulcolax) 10 mg [place] Q2-3DAYS PRN PRN Reason: Constipation Ciprofloxacin (Cipro) 500 mg PO BID [facility] Last Admin: 01/18/18 20:06 Dose: 500 mg Docusate Sodium (Colace) 100 mg PO BID [facility] Last Admin: 01/18/18 20:06 Dose: 100 mg Lactated Ringer's (Lactated Ringers) 1,000 mls @ 100 mls/hr IV .Q10H [facility] Last Admin: 01/19/18 05:47 Dose: 100 mls/hr Levothyroxine Sodium (Synthroid) 112 mcg PO QAMAC [facility] Last Admin: 01/18/18 07:19 Dose: 112 mcg Metoprolol Succinate (Toprol Xl) 12.5 mg PO DAILY [facility] Last Admin: 01/18/18 09:58 Dose: 12.5 mg Morphine Sulfate (Morphine) 2 - 4 mg IV Q2HP PRN PRN Reason: PAIN LEVEL > 6 Last Admin: 01/18/18 22:40 Dose: 2 mg Omeprazole (Prilosec) 20 mg PO QAMAC [facility] Last Admin: 01/18/18 07:19 Dose: 20 mg Ondansetron HCl (Zofran) 4 mg IV Q4HP PRN PRN Reason: Nausea And Vomiting Last Admin: 01/18/18 00:51 Dose: 4 mg Tamsulosin HCl (Flomax) 0.4 mg PO BID [facility] Last Admin: 01/18/18 20:05 Dose: 0.4 mg Trazodone HCl (Desyrel) 100 mg PO HSP PRN PRN Reason: insomnia Medical - PN: A/P - Time Spent With Patient Total time spent is greater than 50% in coordination of care (as documented) at patient's floor/unit and/or counseling patient: - Narrative A/P Narrative: A: *Hypotension/tachycardia: Secondary to volume loss, hemorrhagic: Improved -cortisol mild low but good response to acth stim test, no adrenal suppression -Improved *Gross hematuria: Status post cystoscopy for nephrolithiasis and bladder stones -unable to void w/o ruth *Acute blood loss anemia: -4 PRBCs given over first 24 hours, stable at this time -<9.0<9.9< *Atrial flutter: Started on Xarelto in the recent past and is also on Toprol *CAD w/CABG in 1991: *LARRY on CKD stage III: likely ATN from hypotension -<1.7<<3.0, improved *Hypertension: Is on VONDA inhibitor and Toprol *Hypothyroidism: Continue levothyroxine P: - per Dr. Jama, ruth being placed back in -IVF's -Monitor H&H -Monitor Renal fxn -restarted at toprol lower dose and hold ACEI upon d/c for low BP's -Xarelto held -cont levothyroxine -ppx:scd Medical - PN: Qual - Stroke Symptom Onset Unknown: No - VTE Deep Vein Thrombosis/Pulmonary Embolism Present on Admission: No
[2018-01-19] MEDS: OMEPRAZOLE 20 MG CAPSULE PO SCH (07:31)
[2018-01-19] MEDS: LEVOTHYROXINE SODIUM 112 MCG TABLET PO SCH (07:31)
[2018-01-19 07:56] LABS: Blood Urea Nitrogen 35 mg/dl (8-23)
[2018-01-19] MEDS: CIPROFLOXACIN 500 MG TABLET PO SCH (09:17)
[2018-01-19] MEDS: DOCUSATE SODIUM 100 MG CAPSULE PO SCH (09:17)
[2018-01-19] MEDS: METOPROLOL SUCCINATE 25 MG TAB.XL.24H PO SCH (09:17)
[2018-01-19] MEDS: TAMSULOSIN 0.4 MG CAPSULE PO SCH (09:17)
--- NOTE | 2018-01-19 12:34 | General Surgery Progress Note ---
Subjective Patient reports: feels better Narrative: Note initiated : 01/19/18 at 12:33 pm Service Date, if different from initiated Date: [] Patient: Abhi Randle 77 y/o M admitted on 01/17/18 for Catheter Problem. Chief Complaint: [] PATIENT STILL UNABLE TO URINATE. MAGANA CATHETER PLACED. WILL D/C TO HOME AND SCHEDULE SURGERY OF . Objective Temp Pulse Resp BP Pulse Ox 98.6 F 107 H 20 112/80 96 01/19/18 09:25 01/19/18 07:25 01/19/18 07:25 01/19/18 07:22 01/19/18 07:25 - Additional Data Intake & Output - Last 24 hours: Intake & Output 01/17/18 01/18/18 01/19/18 01/20/18 05:59 05:59 05:59 05:59 Intake Total 37479 / 75774 5550 / 5550 3731 / 3731 400 / 400 Output Total 19070 / 65844 35808 / 59025 1400 / 1400 800 / 800 Balance 308 / 308 -7700 / -7700 2331 / 2331 -400 / -400 Weight 218 lb 216 lb 216 lb 8 oz - Labs 01/19/18 08:05 01/19/18 07:13 Diabetes panel 01/19/18 Range/Units 07:13 Sodium 141 (133-145) mmol/L Potassium 5.1 (3.3-5.1) mmol/L Chloride 105 (96-108) mmol/L Carbon Dioxide 26 (22-30) mmol/L BUN 35 H (8-23) mg/dl Creatinine 1.5 H (0.7-1.2) mg/dl Glucose 83 (70-105) mg/dL Calcium 8.4 L (8.6-10.4) mg/dl Calcium panel 01/19/18 Range/Units 07:13 Calcium 8.4 L (8.6-10.4) mg/dl Pituitary panel 01/19/18 Range/Units 07:13 Sodium 141 (133-145) mmol/L Potassium 5.1 (3.3-5.1) mmol/L Chloride 105 (96-108) mmol/L Carbon Dioxide 26 (22-30) mmol/L BUN 35 H (8-23) mg/dl Creatinine 1.5 H (0.7-1.2) mg/dl Glucose 83 (70-105) mg/dL Calcium 8.4 L (8.6-10.4) mg/dl Adrenal panel 01/19/18 Range/Units 07:13 Sodium 141 (133-145) mmol/L Potassium 5.1 (3.3-5.1) mmol/L Chloride 105 (96-108) mmol/L Carbon Dioxide 26 (22-30) mmol/L BUN 35 H (8-23) mg/dl Creatinine 1.5 H (0.7-1.2) mg/dl Glucose 83 (70-105) mg/dL Calcium 8.4 L (8.6-10.4) mg/dl Assessment and Plan - Time Spent With Patient Total time spent is greater than 50% in coordination of care (as documented) at patient's floor/unit and/or counseling patient:
--- NOTE | 2018-01-19 12:36 | Discharge Plan ---
Discharge Plan - Patient/Caregiver Discharge Instructions Activity: increase activity as tolerated Diet: Regular Diet - Follow up Plan Follow up with: Raudel Murphy MD [Primary Care Provider] - Disposition: Home, Self-Care Prognosis: Good Rehab Potential: Good Overall status at discharge: patient is back to baseline
--- NOTE | 2018-01-19 13:20 | Discharge Summary ---
DATE OF ADMISSION: 01/17/2018 DATE OF DISCHARGE: 01/19/18 PREOPERATIVE DIAGNOSIS: Hematuria. POSTOPERATIVE DIAGNOSIS: Hypotension, anemia and BPH with obstruction. SURGEON: Tejas Jama MD CONSULTING PHYSICIAN: Kiran Angelo DO HISTORY OF PRESENT ILLNESS: The patient is a 77-year-old gentleman who I operated on last on 01/14/2018. This was for bladder stones and also for renal stones. A stent was placed and postoperatively he had a jemma course. He had hematuria, had to be irrigated in the office copiously and then went home. That afternoon he was having more pain and the catheter was clotted off. He was seen in the emergency room and was admitted for clot retention. HOSPITAL COURSE: The patient was irrigated throughout this hospital stay and his urine did clear. One day prior to discharge we removed his catheter and he has not been able to urinate. He has tried multiple times and is still in retention. His urine is bloody, but this is all old blood and he is not forming clots. His Xarelto has been stopped. Therefore, because he is not able to urinate and is currently off his Xarelto, we have decided to do surgery and this will be scheduled in the future. Because of low blood pressure, Dr. Angelo was consulted and I appreciate his help. We held all his blood pressure medications and with transfusions he did get back into a normal range of his blood pressure. He did receive a total of 4 units of packed red blood cells. He was otherwise stable throughout the course. He was able to have a bowel movement. At this time, this patient is ready for discharge to home. He does have a Virgen catheter in place and we will schedule him for surgery on to do a photovaporization of the prostate. He is on Cipro for an antibiotic. We are holding his Xarelto as mentioned above. Otherwise, he is doing well and will follow up with surgery. HUE:[email or web address] Job ID: [id number] Doc ID: [id number] Tejas Jama MD [facility]
[2018-01-23] MEDS ORDERED: ALENDRONATE SODIUM 70 MG TABLET PO SCH (09:00)
== END 2018-01-19 15:00 | disposition home or self-care (01) ==
LOC: MEDSUR 20:20 → ED 20:20 → MEDSUR 22:11
CPT/HCPCS: 99220; 99231; 99238; A4340; A4346; A6248; G0378; J0834; J1100; J2405; J7050; J7120; P9047

== ENCOUNTER 2020-11-06 08:27 | Inpatient (IN) ==
--- NOTE | 2020-11-06 08:57 | Emergency Department Note ---
Lower Extremity Injury HPI General Chief Complaint: Extremity Injury, Lower Stated Complaint: right leg swelling Time Seen by Provider: 11/06/20 08:30 Source: patient, family, RN notes reviewed, old records reviewed and other (Sen at Dr Lauren MCKAY) Mode of arrival: EMS Limitations: no limitations History of Present Illness HPI Narrative: Narrative: 80-year-old male according to caregivers fell 2 weeks ago onto his right calf. Over the last 3 days has been having increasing swelling erythema redness and tenderness to palpation of his right calf. Denies any fevers or chills complains of increasing pain pain with range of motion pain with transfers. Has chronic stasis changes to bilateral lower extremities MD complaint: leg injury Onset (ago): week(s) (2) Type of Injury: unknown Place: home Severity: moderate Improves with: immobilization Worsens with: weight bearing, movement and palpation Context: fall Associated symptoms: Reports swelling; Denies snap/pop sensation, tingling, unable to bear weight, ambulatory and locking Treatments prior to arrival: heat therapy Related Data Home Medications Medication Instructions Recorded Confirmed albuterol sulfate 90 mcg/actuation 180 mcg INHALATION Q4H PRN g 09/13/14 10/26/20 aerosol inhaler ascorbic acid (vitamin C) 500 mg 500 mg PO BID cap 09/13/14 10/26/20 capsule,extended release trazodone 100 mg tablet 100 mg PO QDAY PRN tab 09/13/14 10/26/20 furosemide 20 mg tablet 20 mg PO QDAY 07/28/17 10/26/20 atorvastatin 80 mg tablet 40 mg PO QDAY tab 05/25/18 10/26/20 digoxin 125 mcg (0.125 mg) tablet 0.125 mg PO QDAY 05/25/18 10/26/20 fosinopril 20 mg tablet 10 mg PO QDAY tab 05/25/18 10/26/20 metoprolol succinate 25 mg 50 mg PO QDAY tab 05/25/18 10/26/20 tablet,extended release 24 hr omeprazole 20 mg capsule,delayed 20 mg PO BID cap 05/25/18 10/26/20 release rivaroxaban 15 mg tablet 15 mg PO QDAY tab 05/25/18 10/26/20 gabapentin 300 mg capsule 300 mg PO QHS 08/28/20 10/26/20 Previous Rx's Medication Instructions Recorded terazosin 2 mg capsule 2 mg PO QDAY #90 cap 08/18/17 levothyroxine 112 mcg capsule 112 mcg PO QDAY #90 cap 08/25/17 metformin 500 mg tablet,extended 500 mg PO QDAY #90 tab 01/05/20 release 24 hr Bilateral knee high velcro #1 ea 08/28/20 compression stockings Manual wheelchair #1 ea 10/26/20 cephalexin 750 mg capsule 500 mg PO TID 7 Days #21 cap 11/02/20 Allergies Allergy/AdvReac Type Severity Reaction Status Date / Time No Known Drug Allergies Allergy Unknown Unknown Verified 11/06/20 08:30 Review of Systems ROS ROS Narrative: Narrative: All systems ED: reviewed and negative except as stated. [facility] Narrative Patient History Narrative: Narrative: Medical/Surgical/Family History All Active Problems (Updated 11/06/20 @ 11:52 by Jack Cartagena MD) Hematoma of right lower leg (Acute) Acute dehydration (Acute) Lower extremity weakness (Acute) Weight gain (Acute) Diarrhea (Acute) Senile purpura (Acute) Purpura (Acute) Toe pain, left (Acute) Sprain of toe, fifth, left (Acute) Acute chest wall pain (Acute) Cough (Acute) Lab test positive for detection of COVID-19 virus (Acute) Intermittent diarrhea (Acute) DMII (diabetes mellitus, type 2) (Acute) [place]-forme dermatosis (Acute) Atrial fibrillation (Acute) High risk medication use (Acute) Anemia (Acute) Hematuria (Acute) Stasis dermatitis of both legs (Chronic) History of tobacco use (Acute) Spinal stenosis of lumbar region (Acute) Shoulder pain, left (Acute 05/26/14) Chronic renal insufficiency (Acute) Renal calculi (Acute) Peripheral vascular disease (Acute) Osteoporosis (Acute) Mitral valve disorder (Acute) Leg pain (Acute 05/26/14) Hypothyroidism (acquired) (Acute) Hypertension (Acute) Hyperlipemia (Acute) Gastroesophageal reflux (Acute) Edema (Acute) Degenerative joint disease (Acute) Coronary atherosclerosis (Acute) CAD (coronary artery disease) (Acute) Bladder neck obstruction (Acute) Medical History Acute renal failure Acute retention of urine Atrial fibrillation Bladder neck obstruction CAD (coronary artery disease) Post CABG Chronic renal insufficiency 02/02/2014 [facility] Coronary atherosclerosis Post CABG Degenerative joint disease Osteoarthrosis NOS 02/02/2014 [facility] Diarrhea DMII (diabetes mellitus, type 2) Edema Gastroesophageal reflux High risk medication use History of tobacco use 02/13/2012- [facility] Hyperlipemia Hypertension Essential Hypothyroidism (acquired) Intermittent diarrhea Leg pain (05/26/14) Leg Lower extremity weakness Mitral valve disorder With Repair Osteoporosis Peripheral vascular disease Unspecified Purpura Renal calculi Rhabdomyolysis Senile purpura Sepsis Shoulder pain, left (05/26/14) Left Spinal stenosis of lumbar region Lumbar Spine Sprain of toe, fifth, left [place]-forme dermatosis Toe pain, left Weight gain Surgical History History of arthroscopy of left knee History of carpal tunnel repair Bilateral History of coronary artery bypass graft x 3 3 Vessel History of inguinal hernia repair History of open heart surgery Mitral Valve Repair History of shoulder surgery Bilateral, rt redo 4 months History of total right knee replacement Nail avulsion of toe Family History Mother Malignant neoplasm of uterus Social History Smoking Status: Current every day smoker Alcohol Intake Frequency: does not drink Substance Use: does not use Exam Narrative Narrative: Narrative: General Limitations: no limitations General appearance: Present alert and in no apparent distress Head Head: Present atraumatic and normocephalic Eye Eye: Present normal appearance, PERRL and EOMI; Absent scleral icterus and conjunctival injection ENT ENT: Present normal oropharynx and mucous membranes dry Neck Neck: Present normal inspection, full ROM and trachea midline; Absent lymp hadenopathy and thyromegaly Chest Chest: Present normal inspection and symmetric chest wall rise Respiratory Respiratory: Present wheezes; Absent respiratory distress, stridor, accessory muscle use and prolonged expiratory phase Cardiovascular Cardiovascular: Present regular rate, normal rhythm and systolic murmur; Absent diastolic murmur Adbominal Abdominal: Present soft; Absent distention, tenderness, guarding, rebound, rigidity, organomegaly and mass Extremities Extremities: Present tenderness, pedal edema, pretibial edema, calf tenderness (Right calf with marked swelling erythema and tenderness palpation with a large hematoma on the lateral surface of the right) and cyanosis; Absent normal capillary refill Back Back: Absent CVA tenderness (R), CVA tenderness (L) and spinous process tenderness Neurological Neurological: Present alert and oriented X3 Psychiatric Psychiatric: Present normal affect and normal mood Skin Skin: Present warm (WNL) and dry Course Vital Signs Vital signs: Vital Signs Temperature 97.7 F 11/06/20 08:28 Pulse Rate 99 H 11/06/20 08:28 Respiratory Rate 16 11/06/20 08:28 Blood Pressure 83/44 11/06/20 08:28 Pulse Oximetry (%) 91 11/06/20 08:28 Temperature 97.7 F 11/06/20 08:28 Pulse Rate 84 11/06/20 10:27 Respiratory Rate 16 11/06/20 09:05 Blood Pressure 96/59 11/06/20 11:38 Pulse Oximetry (%) 93 11/06/20 11:38 MDM MDM Narrative Medical decision making narrative: Narrative: 80-year-old male with a large hematoma erythematous area. CT scan shows a large subcutaneous hematoma. I did not feel this patient would benefit from a I&D in the emergency and I think he should have this done in the OR. I discussed patient with Dr. Scottie Yung of general surgery who graciously agreed to evaluate patient in the emergency department. Differential Diagnosis Differential Diagnosis: Hematoma, abscess, cellulitis, DVT, Medical Records Medical records reviewed: Yes I reviewed the patient's medical records. Lab Data Lab results reviewed: Yes I reviewed the patient's lab results. Result diagrams: 11/06/20 10:24 11/06/20 09:08 Labs: Lab Results 11/06/20 11/06/20 11/06/20 Range/Units 09:08 10:10 10:24 WBC 9.0 (4.5-11.0) K/mcL RBC 3.14 L (4.50-5.90) M/mcL Hgb 9.9 L (13.5-16.5) g/dL Hct 31.7 L (41.0-55.0) % MCV 101.0 H (80.0-100.0) fL MCH 31.5 (26.0-34.0) pg MCHC 31.2 (31.0-36.0) g/dL RDW 14.4 (11.5-14.5) % Plt Count 169 (140-440) K/mcL MPV 11.1 H (7.4-10.4) fL Neut % (Auto) 76.5 (38.0-78.0) % Lymph % (Auto) 8.5 L (15.0-49.0) % Lane % (Auto) 10.6 (1.0-12.0) % Eos % (Auto) 4.2 (0.0-7.0) % Baso % (Auto) 0.2 (0.0-2.0) % Lymph # (Auto) 0.76 L (1.50-4.80) K/mcL Lane # (Auto) 0.95 H (0.10-0.90) K/mcL Eos # (Auto) 0.38 (0.00-0.70) K/mcL Baso # (Auto) 0.02 (0.00-0.20) K/mcL Absolute Neutrophils 6.85 (1.80-8.00) K/mcL Sodium 140 (133-145) mmol/L Potassium 4.2 (3.3-5.1) mmol/L Chloride 100 (96-108) mmol/L Carbon Dioxide 29 (22-30) mmol/L Anion Gap 11.0 (8.0-16.0) BUN 44 H (8-23) mg/dL Creatinine 2.9 H (0.7-1.2) mg/dL POC Creatinine 3.3 H (0.6-1.2) mg/dL GFR Calculation 19 Glucose 100 (70-105) mg/dL Calcium 8.8 (8.6-10.4) mg/dL Total Bilirubin 0.7 (0.1-1.0) mg/dL AST 12 (<40) U/L ALT 7 (<40) U/L Alkaline Phosphatase 71 (39-117) U/L Total Protein 6.4 (5.9-8.4) gm/dL Albumin 3.4 (3.2-5.2) gm/dL Globulin 3.0 (2.2-3.7) gm/dL Albumin/Globulin Ratio 1.1 (1.0-2.3) Urine Color Jonna Urine Appearance Cloudy A (Clear) Urine pH 5.0 (5.0-9.0) Ur Specific [place] 1.014 (1.000-1.035) Urine Protein Negative (Negative) mg/dL Urine Glucose (UA) Negative (Negative) mg/dL Urine Ketones Negative (Negative) mg/dL Urine Occult Blood 0.20 (Negative) mg/dL Urine Nitrate Negative (Negative) Urine Bilirubin Negative (Negative) mg/dL Urine Urobilinogen 2.0 A mg/dL Ur Leukocyte Esterase 250 A (Negative) /ug Urine RBC 87 H (0-3) /hpf Urine WBC 20 H (0-4) /hpf Ur Squamous Epith Cells 8 H (0-4) /hpf Ur Transition Epith Cell < 1 (0-2) /hpf Urine Bacteria Few A (0) /hpf Hyaline Casts 45 H (0-2) /lph Urine Mucus Mod A (None) /hpf Ur Culture Indicated? No Radiology Data Radiology results reviewed: Yes I reviewed the patient's radiology results. Radiology results narrative: Right lower extremity CT IMPRESSION: 1. Findings consistent with soft tissue hematoma superficial to the musculature of the lateral aspects of the right calf 2. No soft tissue gas bubbles to indicate abscess 3. Deep musculature appears intact. Interpreted and Authenticated by: Da Shanks 11/06/20 Pulse Oximetry Data Pulse Ox %: 93 Interpretation: 93 within normal limits for this patient Discharge Plan Patient/Caregiver Discharge Instructions Pt seen by DIETITIAN/PA only: No Clinical Impression: Hematoma of right lower leg Activity: resume usual activities as tolerated Patient Disposition: Xfer As Inpt ([facility]) Follow up with: Raudel Murphy MD [Primary Care Provider] - Prescriptions: No Action levothyroxine 112 mcg capsule 112 mcg PO QDAY Qty: 90 RF: 1 metformin 500 mg tablet extended release 24 hr 500 mg PO QDAY Qty: 90 RF: 1 trazodone 100 mg tablet 100 mg PO QDAY PRN (Reason: insomnia) RF: 0 ascorbic acid (vitamin C) 500 mg capsule, extended release 500 mg PO BID RF: 0 albuterol sulfate 90 mcg/actuation HFA aerosol inhaler 180 mcg INHALATION Q4H PRN (Reason: shortness of breath) RF: 0 terazosin 2 mg capsule 2 mg PO QDAY Qty: 90 RF: 1 furosemide [Lasix] 20 mg tablet 20 mg PO QDAY RF: 0 atorvastatin [Lipitor] 80 mg tablet 40 mg PO QDAY RF: 0 metoprolol succinate 25 mg tablet extended release 24 hr 50 mg PO QDAY RF: 0 digoxin 125 mcg tablet 0.125 mg PO QDAY RF: 0 fosinopril 20 mg tablet 10 mg PO QDAY RF: 0 omeprazole 20 mg capsule,delayed release(DR/EC) 20 mg PO BID RF: 0 rivaroxaban 15 mg tablet 15 mg PO QDAY RF: 0 gabapentin 300 mg capsule 300 mg PO QHS RF: 0 (DME) Bilateral knee high velcro compression stockings See Rx Instructions .Route .MEDSUPPLY Qty: 1 RF: 0 (DME) Manual wheelchair See Rx Instructions .Route .MEDSUPPLY Qty: 1 RF: 0 cephalexin [Keflex] 750 mg capsule 500 mg PO TID 7 Days Qty: 21 RF: 0
--- NOTE | 2020-11-06 09:15 | XRay Report ---
INDICATION: Pain and swelling TECHNIQUE: AP and lateral right tibia and fibula COMPARISON: None. FINDINGS: Surgical clips in the soft tissues of the right calf consistent with previous vascular surgery. Previous right total knee arthroplasty. There is vascular calcification consistent with atherosclerotic disease. No soft tissue gas. Degenerative joint disease in the right tibiotalar joint. There is flattening of the right talus and degenerative disease in the subtalar joints. No acute fracture. No cortical destruction or periosteal new bone formation. No evidence for osteomyelitis. IMPRESSION: 1. Postsurgical change and degenerative joint disease as above 2. Atherosclerotic disease consistent with diabetes 3. No acute abnormality. No soft tissue gas. No acute fracture or evidence for osteomyelitis Interpreted and Authenticated by: Da Shanks 11/06/20
[2020-11-06 09:26] LABS: POC Creatinine 3.3 mg/dL (0.6-1.2)
--- NOTE | 2020-11-06 10:11 | Cat Scan Report ---
INDICATION: Swelling TECHNIQUE: Axial noncontrast enhanced images through the right leg. Sagittal and coronal reformatted images. Intravenous contrast material was not administered. COMPARISON: Previous right tibia and fibula dated 11/06/2020. Previous right lower extremity ultrasound dated 11/02/2020 FINDINGS: Previous right total knee arthroplasty. No evidence for significant infection or loosening. There is degenerative disease at the tibiotalar joint. There is no acute fracture. No lytic lesion. No evidence for osteomyelitis. There is a crescentic shaped soft tissue abnormality superficial to the musculature of the right leg. This measures approximately 10 cm in AP dimension, 2 cm in mediolateral dimension, and 9 cm in craniocaudal dimension.. This is homogeneous with TIANA values of approximately 70. This probably represents a hematoma. There is no deep fluid collection. No focal intramuscular abnormality. There is mild associated subcutaneous edema. No soft tissue gas bubbles. Appearance is not considered typical for abscess. IMPRESSION: 1. Findings consistent with soft tissue hematoma superficial to the musculature of the lateral aspects of the right calf 2. No soft tissue gas bubbles to indicate abscess 3. Deep musculature appears intact. Interpreted and Authenticated by: Da Shanks 11/06/20
[2020-11-06 10:28] LABS: ALT/SGPT 7 U/L (<40); AST/SGOT 12 U/L (<40); Albumin 3.4 gm/dL (3.2-5.2); Albumin/Globulin Ratio 1.1 (1.0-2.3); Alkaline Phosphatase 71 U/L (39-117); Bilirubin,Total 0.7 mg/dL (0.1-1.0); Blood Urea Nitrogen 44 mg/dL (8-23); Calcium 8.8 mg/dL (8.6-10.4); Carbon Dioxide 29 mmol/L (22-30); Chloride 100 mmol/L (96-108); Glomerular Filtration Rate 19; Glucose 100 mg/dL (70-105)
[2020-11-06] MEDS ORDERED: 0.9 % SODIUM CHLORIDE 500 ML IV ONE ×2 (10:28→16:09)
[2020-11-06 10:58] LABS: Appearance,Urine CLOUDY (Clear); Bacteria,Urine FEW /hpf (0); Bilirubin,Urine Negative (Negative); Color,Urine AMBER; Culture Indicated,Urine No; Glucose,Urine (UA) Negative (Negative); Ketones,Urine Negative (Negative); Leukocyte Esterase,Urine 250 /ug (Negative); Mucus,Urine MOD /hpf; Nitrate,Urine Negative (Negative); Protein,Urine Negative (Negative); Specific Gravity,Urine 1.014 (1.000-1.035); Urine Hyaline Cast 45 /lph (0-2); Urine RBC 87 /hpf (0-3); Urine Squamous Epithelial Cell 8 /hpf (0-4); Urine Transitional Epi Cells < 1 /hpf (0-2); Urine WBC 20 /hpf (0-4)
[2020-11-06 11:12] LABS: Basophils # (Auto) 0.02 K/mcL (0.00-0.20); Basophils % (Auto) 0.2 % (0.0-2.0); Eosinophils # (Auto) 0.38 K/mcL (0.00-0.70); Eosinophils % (Auto) 4.2 % (0.0-7.0); Hematocrit 31.7 % (41.0-55.0); Hemoglobin 9.9 g/dL (13.5-16.5); Lymphocytes # (Auto) 0.76 K/mcL (1.50-4.80); Lymphocytes % (Auto) 8.5 % (15.0-49.0); Mean Corpuscular HGB Conc 31.2 g/dL (31.0-36.0); Mean Platelet Volume 11.1 fL (7.4-10.4); Monocytes # (Auto) 0.95 K/mcL (0.10-0.90); Monocytes % (Auto) 10.6 % (1.0-12.0); Neutrophils % (Auto) 76.5 % (38.0-78.0); Platelet Count 169 K/mcL (140-440); RBC 3.14 M/mcL (4.50-5.90); Red Cell Distribution Width 14.4 % (11.5-14.5)
[2020-11-06] MEDS ORDERED: ONDANSETRON 4 MG/2 ML VIAL IV PRN (13:37)
[2020-11-06] MEDS ORDERED: HYDROmorphone 0.5 MG/0.5 ML SYRINGE IV PRN (13:42)
[2020-11-06] MEDS ORDERED: 0.9 % SODIUM CHLORIDE 1,000 ML IV SCH (13:45)
[2020-11-06] MEDS ORDERED: PIPERACILLIN SODIUM/TAZOBACTAM 3.375 GM in DEXTROSE 5% IN WATER 50 ML IV SCH (13:45)
[2020-11-06] MEDS ORDERED: DEXTROSE 31 GM ORAL.SUSP PO PRN (13:46)
[2020-11-06] MEDS ORDERED: DEXTROSE 50% 50 ML VIAL IV PRN (13:46)
[2020-11-06] MEDS ORDERED: oxyCODONE HCL 5 MG TABLET PO PRN (13:52)
[2020-11-06] MEDS ORDERED: VANCOMYCIN 1,000 MG in 0.9 % SODIUM CHLORIDE 250 ML IV SCH (14:00)
--- NOTE | 2020-11-06 14:11 | XRay Report ---
INDICATION: preop evaluation TECHNIQUE: AP portable upright chest x-ray COMPARISON: Previous examinations dated 10/14/2020, 01/30/2020, 12/03/2017 FINDINGS:Previous median sternotomy. 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 No focal pulmonary parenchymal infiltrate or mass Heart, vascular: There is cardiomegaly, unchanged. Pulmonary vascularity is normal. No pulmonary edema or pulmonary congestion Mediastinum, nikki:No mediastinal widening. No hilar mass Pleura:No pleural fluid. No pleural-based mass or calcification Skeletal:Negative. Findings consistent with bilateral Ras procedure. There is an anchor in the left humeral head from rotator cuff repair IMPRESSION: 1. Previous chest surgery with prosthetic cardiac valve. Cardiomegaly without congestive heart failure. This is unchanged 2. No acute abnormality Interpreted and Authenticated by: Da Shanks 11/06/20
[2020-11-06] MEDS ORDERED: VANCOMYCIN PER PHARMACY IV SCH (14:15)
[2020-11-06] MEDS ORDERED: ALBUTEROL SULFATE 200 PUFF INHALER INH PRN (14:32)
--- NOTE | 2020-11-06 14:32 | General Surg History&Physical ---
HPI History of Present Illness Patient information: Note initiated : 11/06/20 at 2:17 pm Service Date, if different from initiated Date: [] Patient: Abhi Randle 80 y/o M admitted on for Rt Leg Swelling. Chief Complaint: [] Chief complaint: swelling of right lower extremity History of present illness: Mr. Randle is a 80 year old M who was admitted with major cellulitis and possible hematoma or infected hematoma of the right lower extremity. Patient fell 2 weeks ago at home and injured his right leg. He did not have immediate swelling however he is on rivaroxaban. He noted increased swelling redness and pain over the past 3 days and now has constant pain and diffuse redness and swelling of the entire leg. He has a history of chronic edema due to stasis changes of both legs. After the fall he had x-rays of the b [place] structure of his legs and he had ultrasound which did not reveal any evidence of DVT and no evidence of fracture. Patient states that he has not been febrile. Constitutional Constitutional: Present fatigue, frequent falls, malaise, weakness and weight gain EENT Ears: Present decreased hearing Nose, mouth and throat: Present abnormal hearing, disequilibrium and dizziness Cardiovascular Cardiovascular: Present leg edema, lightheadedness and pedal edema; Absent chest pain and claudication Respiratory Respiratory: Absent wheezing Gastrointestinal Gastrointestinal: Present change in bowel habits, diarrhea and fecal incontinence; Absent abdominal pain and cramping Genitourinary Genitourinary: change in urinary stream, difficulty urinating, urinary hesitancy and urinary urgency Musculoskeletal Musculoskeletal: Present abnormal gait, arthralgias, muscle weakness and myalgias Neurological Neurological: Present abnormal gait, abnormal hearing, dizziness, focal weakness and frequent falls Psychiatric Psychiatric: Present depression Endocrine Endocrine: Present fatigue Hematologic/Lymphatic Hematologic/Lymphatic: Present easy bleeding and easy bruising; Absent lymphadenopathy Allergic/Immunologic Allergic/Immunologic: Absent tongue swelling, throat swelling, uticaria, wheezing and lip swelling PFSH PFSH All Active Problems (Updated 11/06/20 @ 11:52 by Jack Cartagena MD) Hematoma of right lower leg (Acute) Acute dehydration (Acute) Lower extremity weakness (Acute) Weight gain (Acute) Diarrhea (Acute) Senile purpura (Acute) Purpura (Acute) Toe pain, left (Acute) Sprain of toe, fifth, left (Acute) Acute chest wall pain (Acute) Cough (Acute) Lab test positive for detection of COVID-19 virus (Acute) Intermittent diarrhea (Acute) DMII (diabetes mellitus, type 2) (Acute) [place]-forme dermatosis (Acute) Atrial fibrillation (Acute) High risk medication use (Acute) Anemia (Acute) Hematuria (Acute) Stasis dermatitis of both legs (Chronic) History of tobacco use (Acute) Spinal stenosis of lumbar region (Acute) Shoulder pain, left (Acute 05/26/14) Chronic renal insufficiency (Acute) Renal calculi (Acute) Peripheral vascular disease (Acute) Osteoporosis (Acute) Mitral valve disorder (Acute) Leg pain (Acute 05/26/14) Hypothyroidism (acquired) (Acute) Hypertension (Acute) Hyperlipemia (Acute) Gastroesophageal reflux (Acute) Edema (Acute) Degenerative joint disease (Acute) Coronary atherosclerosis (Acute) CAD (coronary artery disease) (Acute) Bladder neck obstruction (Acute) Medical History Acute renal failure Acute retention of urine Atrial fibrillation Bladder neck obstruction CAD (coronary artery disease) Post CABG Chronic renal insufficiency 02/02/2014 [facility] H&P Coronary atherosclerosis Post CABG Degenerative joint disease Osteoarthrosis NOS 02/02/2014 [facility] H&P Diarrhea DMII (diabetes mellitus, type 2) Edema Gastroesophageal reflux High risk medication use History of tobacco use 02/13/2012- Pipe Hyperlipemia Hypertension Essential Hypothyroidism (acquired) Intermittent diarrhea Leg pain (05/26/14) Leg Lower extremity weakness Mitral valve disorder With Repair Osteoporosis Peripheral vascular disease Unspecified Purpura Renal calculi Rhabdomyolysis Senile purpura Sepsis Shoulder pain, left (05/26/14) Left Spinal stenosis of lumbar region Lumbar Spine Sprain of toe, fifth, left [place]-forme dermatosis Toe pain, left Weight gain Surgical History History of arthroscopy of left knee History of carpal tunnel repair Bilateral History of coronary artery bypass graft x 3 3 Vessel History of inguinal hernia repair History of open heart surgery Mitral Valve Repair History of shoulder surgery Bilateral, rt redo 4 months History of total right knee replacement Nail avulsion of toe Family History Mother Malignant neoplasm of uterus Social History household members: other marital status: education level: high school occupational status: retired other: 3 Children/ 4 Grandchildren alcohol intake frequency: does not drink substance use type: does not use MEDS/ALLERGIES Home Medications and Allergies Home Medications Medication Instructions Recorded Confirmed Type albuterol sulfate 90 mcg/actuation 180 mcg INHALATION Q4H PRN g 09/13/14 10/26/20 History aerosol inhaler ascorbic acid (vitamin C) 500 mg 500 mg PO BID cap 09/13/14 10/26/20 History capsule,extended release trazodone 100 mg tablet 100 mg PO QDAY PRN tab 09/13/14 10/26/20 History furosemide 20 mg tablet 20 mg PO QDAY 07/28/17 10/26/20 History terazosin 2 mg capsule 2 mg PO QDAY #90 cap 08/18/17 10/26/20 Rx levothyroxine 112 mcg capsule 112 mcg PO QDAY #90 cap 08/25/17 10/26/20 Rx atorvastatin 80 mg tablet 40 mg PO QDAY tab 05/25/18 10/26/20 History digoxin 125 mcg (0.125 mg) tablet 0.125 mg PO QDAY 05/25/18 10/26/20 History fosinopril 20 mg tablet 10 mg PO QDAY tab 05/25/18 10/26/20 History metoprolol succinate 25 mg 50 mg PO QDAY tab 05/25/18 10/26/20 History tablet,extended release 24 hr omeprazole 20 mg capsule,delayed 20 mg PO BID cap 05/25/18 10/26/20 History release rivaroxaban 15 mg tablet 15 mg PO QDAY tab 05/25/18 10/26/20 History metformin 500 mg tablet,extended 500 mg PO QDAY #90 tab 01/05/20 10/26/20 Rx release 24 hr Bilateral knee high velcro #1 ea 08/28/20 10/26/20 Rx compression stockings gabapentin 300 mg capsule 300 mg PO QHS 08/28/20 10/26/20 History Manual wheelchair #1 ea 10/26/20 10/26/20 Rx cephalexin 750 mg capsule 500 mg PO TID 7 Days #21 cap 11/02/20 11/02/20 Rx Allergies Allergy/AdvReac Type Severity Reaction Status Date / Time No Known Drug Allergies Allergy Unknown Unknown Verified 11/06/20 08:30 Physical Examination Vital Signs Vital signs: Temp Pulse Resp BP Pulse Ox 97.7 F 72 16 95/81 90 11/06/20 08:28 11/06/20 13:15 11/06/20 13:15 11/06/20 13:30 11/06/20 13:30 General physical appearance General physical exam: no distress, moderate pain, chronically ill and obese Eyes Eye exam: PERRL and normal ocular movement ENT ENT exam: normal mucosa, decreased hearing, poor prison and dentures Head Head exam IM: Present atraumatic, normal inspection and normocephalic Neck Neck exam: no masses, no bruits, trachea midline, no lymphadenopathy and no venous distension Cardiovascular Cardiovascular exam IM: Present normal rate and rhythm, RRR, +S1 and +S2; Absent JVD Respiratory Respiratory exam: normal expansion, normal respiratory effort and clear to auscultation Abdomen Abdomen: Present soft, non tender and bowel sounds (present); Absent guarding Integumentary Integumentary: Present no rash, no growths and no abnormal pigmentation Neurologic Neurologic: Present normal coordination, normal sensation, disoriented and other (Patient has altered speech) Musculoskeletal Musculoskeletal: Present normal gait and normal posture Psychiatric Psychiatric: Present oriented to time, oriented to person, oriented to place, speech is normal and memory intact Results Labs Result diagrams: 11/06/20 10:24 11/06/20 09:08 Labs: Abnormal lab results 11/06/20 11/06/20 11/06/20 Range/Units 09:08 10:10 10:24 RBC 3.14 L (4.50-5.90) M/mcL Hgb 9.9 L (13.5-16.5) g/dL Hct 31.7 L (41.0-55.0) % MCV 101.0 H (80.0-100.0) fL MPV 11.1 H (7.4-10.4) fL Lymph % (Auto) 8.5 L (15.0-49.0) % Lymph # (Auto) 0.76 L (1.50-4.80) K/mcL [place] # (Auto) 0.95 H (0.10-0.90) K/mcL BUN 44 H (8-23) mg/dL Creatinine 2.9 H (0.7-1.2) mg/dL POC Creatinine 3.3 H (0.6-1.2) mg/dL Urine Appearance Cloudy A (Clear) Urine Urobilinogen 2.0 A mg/dL Ur Leukocyte Esterase 250 A (Negative) /ug Urine RBC 87 H (0-3) /hpf Urine WBC 20 H (0-4) /hpf Ur Squamous Epith Cells 8 H (0-4) /hpf Urine Bacteria Few A (0) /hpf Hyaline Casts 45 H (0-2) /lph Urine Mucus Mod A (None) /hpf Diabetes panel 11/06/20 Range/Units 09:08 Sodium 140 (133-145) mmol/L Potassium 4.2 (3.3-5.1) mmol/L Chloride 100 (96-108) mmol/L Carbon Dioxide 29 (22-30) mmol/L BUN 44 H (8-23) mg/dL Creatinine 2.9 H (0.7-1.2) mg/dL Glucose 100 (70-105) mg/dL Calcium 8.8 (8.6-10.4) mg/dL AST 12 (<40) U/L ALT 7 (<40) U/L Alkaline Phosphatase 71 (39-117) U/L Total Protein 6.4 (5.9-8.4) gm/dL Albumin 3.4 (3.2-5.2) gm/dL Calcium panel 11/06/20 Range/Units 09:08 Calcium 8.8 (8.6-10.4) mg/dL Albumin 3.4 (3.2-5.2) gm/dL Pituitary panel 11/06/20 Range/Units 09:08 Sodium 140 (133-145) mmol/L Potassium 4.2 (3.3-5.1) mmol/L Chloride 100 (96-108) mmol/L Carbon Dioxide 29 (22-30) mmol/L BUN 44 H (8-23) mg/dL Creatinine 2.9 H (0.7-1.2) mg/dL Glucose 100 (70-105) mg/dL Calcium 8.8 (8.6-10.4) mg/dL Adrenal panel 11/06/20 Range/Units 09:08 Sodium 140 (133-145) mmol/L Potassium 4.2 (3.3-5.1) mmol/L Chloride 100 (96-108) mmol/L Carbon Dioxide 29 (22-30) mmol/L BUN 44 H (8-23) mg/dL Creatinine 2.9 H (0.7-1.2) mg/dL Glucose 100 (70-105) mg/dL Calcium 8.8 (8.6-10.4) mg/dL Total Bilirubin 0.7 (0.1-1.0) mg/dL AST 12 (<40) U/L ALT 7 (<40) U/L Alkaline Phosphatase 71 (39-117) U/L Total Protein 6.4 (5.9-8.4) gm/dL Albumin 3.4 (3.2-5.2) gm/dL All other labs normal. A/P Assessment and plan (1) Hematoma of right lower leg: Status: Acute (2) DMII (diabetes mellitus, type 2): Status: Acute (3) Atrial fibrillation: Status: Acute (4) Stasis dermatitis of both legs: Status: Chronic (5) Gastroesophageal reflux: Status: Acute Narrative A/P Narrative: Zosyn 3.375 g IV every 6 Vancomycin to be dosed by pharmacy Hold anticoagulants Consented for drainage of possible infected hematoma right lower extremity in the morning Time Spent With Patient Time: Total time spent is greater than 50% in coordination of care (as documented) at patient's floor/unit and/or counseling patient:
[2020-11-06] MEDS: 0.9 % SODIUM CHLORIDE 10 ML SYRINGE IV SCH ×2 (14:58→20:36)
[2020-11-06] MEDS ORDERED: VANCOMYCIN 1,500 MG in 0.9 % SODIUM CHLORIDE 500 ML IV ONE (15:00)
[2020-11-06] MEDS: PIPERACILLIN SODIUM/TAZOBACTAM 2.25 GM in DEXTROSE 5% IN WATER 50 ML IV SCH ×2 (15:12→19:18)
[2020-11-06] MEDS ORDERED: ALBUMIN HUMAN 25 GM/100 ML BAG IV ONE (16:07)
[2020-11-06] MEDS: 0.9 % SODIUM CHLORIDE 1,000 ML IV SCH (17:00)
--- NOTE | 2020-11-06 17:34 | EKG ---
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 Measurements Intervals [place] Rate: 95 P: [place]: QRS: 83 QRSD: 104 T: -8 QT: 336 QTc: 423 Interpretive Statements A-FLUTTER W/ PREDOM 2:1 AV BLOCK, A-RATE 205 CONSIDER RVH W/ SECONDARY REPOL ABNORMALITY BORDERLINE ST DEPRESSION, KIRAN-LATERAL LEADS Since previous ECG of 10-14-2020, ST DEPRESSION Electronically Signed On 11-06-2020 17:34:10 PDT by Luke Raygoza M.D. /store/[email or web address]/[id number]
[2020-11-06] MEDS: INSULIN LISPRO 1 UNIT/0.01 ML UNIT SQ SCH ×2 (17:41→20:36)
[2020-11-06] MEDS ORDERED: GABAPENTIN 300 MG CAPSULE PO SCH (21:00)
[2020-11-06] MEDS ORDERED: SENNOSIDES 1 TABLET PO SCH (21:00)
[2020-11-06] MEDS ORDERED: traZODone HCL 100 MG TABLET PO PRN (21:00)
[2020-11-06] MEDS ORDERED: ZOLPIDEM 5 MG TABLET PO PRN (21:00)
[2020-11-06] MEDS: DOCUSATE SODIUM 100 MG CAPSULE PO SCH (21:25)
[2020-11-07] MEDS: PIPERACILLIN SODIUM/TAZOBACTAM 2.25 GM in DEXTROSE 5% IN WATER 50 ML IV SCH ×5 (00:22→17:41)
[2020-11-07] MEDS: 0.9 % SODIUM CHLORIDE 1,000 ML IV SCH ×2 (03:56→10:42)
[2020-11-07] MEDS: 0.9 % SODIUM CHLORIDE 10 ML SYRINGE IV SCH ×3 (05:42→21:40)
[2020-11-07 06:44] LABS: Hematocrit 28.8 % (41.0-55.0); Mean Cell Volume 101.8 fL (80.0-100.0); Mean Corpuscular HGB Conc 31.3 g/dL (31.0-36.0); Mean Platelet Volume 10.9 fL (7.4-10.4); Platelet Count 153 K/mcL (140-440); RBC 2.83 M/mcL (4.50-5.90); Red Cell Distribution Width 14.2 % (11.5-14.5); WBC 7.4 K/mcL (4.5-11.0)
[2020-11-07 06:53] LABS: Vancomycin,Random 12.2 ug/mL
[2020-11-07 06:53] LABS: Digoxin 1.6 ng/mL
[2020-11-07 07:10] LABS: ALT/SGPT 7 U/L (<40); AST/SGOT 13 U/L (<40); Alkaline Phosphatase 68 U/L (39-117); Bilirubin,Direct 0.4 mg/dL (<0.3); Bilirubin,Total 0.8 mg/dL (0.1-1.0); Blood Urea Nitrogen 44 mg/dL (8-23); Calcium 8.5 mg/dL (8.6-10.4); Carbon Dioxide 23 mmol/L (22-30); Chloride 102 mmol/L (96-108); Globulin 2.9 gm/dL (2.2-3.7); Glomerular Filtration Rate 26; Glucose 79 mg/dL (70-105); Lactate Dehydrogenase 186 U/L (135-225); Phosphorous 3.5 mg/dL (2.5-4.5); Triglycerides 88 mg/dL (<150); Uric Acid 9.2 mg/dL (2.5-8.0)
[2020-11-07] MEDS ORDERED: PANTOPRAZOLE 40 MG TABLET PO SCH (07:30)
[2020-11-07] MEDS ORDERED: LEVOTHYROXINE SODIUM 112 MCG TABLET PO SCH (07:30)
[2020-11-07] MEDS: INSULIN LISPRO 1 UNIT/0.01 ML UNIT SQ SCH ×4 (07:51→21:10)
[2020-11-07] MEDS ORDERED: IPRATROPIUM/ALBUTEROL 3 ML AMPUL.NEB NEB PRN ×3 (07:53→13:52)
[2020-11-07 08:34] LABS: Band Neutrophils % 3 % (0-10); Eosinophils % (Manual) 3 % (0-7); Lymphocytes % 16 % (15-49); Monocytes % (Manual) 9 % (1-12); Platelet Estimate NORMAL (Normal); RBC Morphology NORMAL (Normal); Segmented Neutrophils % 69 % (38-78)
[2020-11-07] MEDS ORDERED: LISINOPRIL 5 MG TABLET PO SCH (09:00)
[2020-11-07] MEDS ORDERED: METOPROLOL SUCCINATE 25 MG TAB.XL.24H PO SCH (09:00)
[2020-11-07] MEDS ORDERED: TERAZOSIN 1 MG CAPSULE PO SCH (09:00)
[2020-11-07] MEDS: DOCUSATE SODIUM 100 MG CAPSULE PO SCH ×2 (10:42→21:10)
[2020-11-07 10:50] LABS: INR 1.3 (0.9-1.1); Prothrombin Time 17.3 sec (11.9-14.5)
[2020-11-07] MEDS ORDERED: KETAMINE 50 MG/ML Syringe (ANEST) ONE (11:54)
[2020-11-07] MEDS ORDERED: MAGNESIUM SULFATE 2 GM/50 ML BAG IV ONE (11:54)
[2020-11-07] MEDS ORDERED: GLYCOPYRROLATE 0.2 MG/ML VIAL IV ONE (11:54)
[2020-11-07] MEDS ORDERED: LIDOCAINE HCL/PF 100 MG/5 ML SYRINGE IV ONE (11:54)
[2020-11-07] MEDS ORDERED: fentaNYL 100 MCG/2 ML VIAL IV ONE ×2 (11:54→12:35)
[2020-11-07] MEDS ORDERED: PROPOFOL 200 MG/20 ML VIAL IV ONE (11:54)
[2020-11-07] MEDS ORDERED: ONDANSETRON 4 MG/2 ML VIAL ONE (11:54)
[2020-11-07] MEDS ORDERED: DEXAMETHASONE 10 MG/ML VIAL ONE (11:54)
[2020-11-07] MEDS ORDERED: VANCOMYCIN 1,000 MG in 0.9 % SODIUM CHLORIDE 250 ML IV ONE ×2 (12:00→14:00)
[2020-11-07] MEDS ORDERED: NALOXONE HCL 0.4 MG/ML VIAL IV PRN ×2 (12:25→13:52)
[2020-11-07] MEDS ORDERED: ACETAMINOPHEN 1,000 MG/100 ML BAG IV ONE (12:25)
[2020-11-07] MEDS ORDERED: LACTATED RINGERS 250 ML IV PRN (12:25)
[2020-11-07] MEDS ORDERED: METOPROLOL TARTRATE 5 MG/5 ML VIAL IV PRN ×4 (12:25→13:52)
[2020-11-07] MEDS ORDERED: MEPERIDINE 25 MG/ML VIAL IV PRN ×2 (12:25→13:52)
[2020-11-07] MEDS ORDERED: diphenhydrAMINE 50 MG/ML VIAL IV PRN ×2 (12:25→13:52)
[2020-11-07] MEDS ORDERED: PROMETHAZINE 25 MG/ML VIAL IV PRN ×2 (12:25→13:52)
[2020-11-07] MEDS ORDERED: ONDANSETRON 4 MG/2 ML VIAL IV PRN ×3 (12:25→13:52)
--- NOTE | 2020-11-07 12:25 | Brief Operative Note ---
Brief Operative Note Date of procedure: 11/07/20 Pre-op diagnosis: hematoma right leg with cellulitis Post-op diagnosis: other (hematoma right leg with cellulitis) Procedure: drainage and evacuation of hematoma right calf Grafts/Implants: No (packed with aquacel gauze) Anesthesia: GLMA Findings: thick hematoma of right calf with prabable purulence Complications: other Complications Description: patient had SVT WITH HR OF 180 DURING PROCEDURE Surgeon: Paige Yung Specimens Removed/Pathology: other (LIQUIFIED CLOT) Condition: other (UNSTABLE ) Disposition: PACU
[2020-11-07] MEDS ORDERED: LACTATED RINGERS 1,000 ML IV SCH (12:30)
[2020-11-07] MEDS: fentaNYL 100 MCG/2 ML VIAL IV PRN ×4 (12:33→13:18)
--- NOTE | 2020-11-07 12:57 | EKG ---
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 Measurements Intervals [place] Rate: 95 P: 237 MA: 192 QRS: 86 QRSD: 104 T: -84 QT: 304 QTc: 382 Interpretive Statements POSSIBLE ATRIAL ARRHYTHMIA, A-RATE 203 BORDERLINE RIGHT AXIS DEVIATION REPOL ABNRM SUGGESTS ISCHEMIA, DIFFUSE LEADS Since previous ECG of 11-06-2020, 1433, PROBABLE A-FLUTTER, ABNORMAL ECG Electronically Signed On 11-07-2020 12:57:07 PDT by Luke Raygoza M.D. /store/[email or web address]/[id number]
[2020-11-07] MEDS ORDERED: GABAPENTIN 300 MG CAPSULE PO ONE (13:14)
--- NOTE | 2020-11-07 13:16 | Internal Medicine Consult Note ---
HPI Data of Consult Consult date: 11/07/20 Primary Care Provider: Raudel Murphy MD Consult Narrative Patient Information: Note initiated : 11/07/20 at 1:13 pm Service Date, if different from initiated Date: [] Patient: Abhi Randle 80 y/o M admitted on 11/06/20 for Rt Leg Swelling. Chief Complaint: [] cc:: CC: Paige Yung MD Patient presented to the ED yesterday for right leg swelling pain after a fall several weeks ago. Work-up revealed what was felt to be a infected hematoma. Over the past 3 days has become increasingly red and painful and swollen. Blood pressures have been soft since he arrived in the ED and systolics in the 80s. Looks like he is commonly a low will looking at old in the 80s and 90s looking at old blood pressure trends. May need oxygen upon discharge t patient had an I&D today and during the episode his heart rate went to 180 and he had a drop in blood pressure. He was given IV esmolol which resolved the tachycardia. Patient is now in the PACU and denies any chest pain shortness of breath. Systolic blood pressure in around 100. Heart rate 90. Review of Systems: denies headache/fever/chills/nausea/vomiting/chest or abdominal pain/cough/dyspnea/diarrhea. Otherwise see above. PFSH PFSH All Active Problems (Updated 11/06/20 @ 11:52 by Jack Cartagena MD) Hematoma of right lower leg (Acute) Acute dehydration (Acute) Lower extremity weakness (Acute) Weight gain (Acute) Diarrhea (Acute) Senile purpura (Acute) Purpura (Acute) Toe pain, left (Acute) Sprain of toe, fifth, left (Acute) Acute chest wall pain (Acute) Cough (Acute) Lab test positive for detection of COVID-19 virus (Acute) Intermittent diarrhea (Acute) DMII (diabetes mellitus, type 2) (Acute) [place]ra firma-forme dermatosis (Acute) Atrial fibrillation (Acute) High risk medication use (Acute) Anemia (Acute) Hematuria (Acute) Stasis dermatitis of both legs (Chronic) History of tobacco use (Acute) Spinal stenosis of lumbar region (Acute) Shoulder pain, left (Acute 05/26/14) Chronic renal insufficiency (Acute) Renal calculi (Acute) Peripheral vascular disease (Acute) Osteoporosis (Acute) Mitral valve disorder (Acute) Leg pain (Acute 05/26/14) Hypothyroidism (acquired) (Acute) Hypertension (Acute) Hyperlipemia (Acute) Gastroesophageal reflux (Acute) Edema (Acute) Degenerative joint disease (Acute) Coronary atherosclerosis (Acute) CAD (coronary artery disease) (Acute) Bladder neck obstruction (Acute) Medical History Acute renal failure Acute retention of urine Atrial fibrillation Bladder neck obstruction CAD (coronary artery disease) Post CABG Chronic renal insufficiency 02/02/2014 [facility] H&P Coronary atherosclerosis Post CABG Degenerative joint disease Osteoarthrosis NOS 02/02/2014 [facility] H&P Diarrhea DMII (diabetes mellitus, type 2) Edema Gastroesophageal reflux High risk medication use History of tobacco use 02/13/2012- Pipe Hyperlipemia Hypertension Essential Hypothyroidism (acquired) Intermittent diarrhea Leg pain (05/26/14) Leg Lower extremity weakness Mitral valve disorder With Repair Osteoporosis Peripheral vascular disease Unspecified Purpura Renal calculi Rhabdomyolysis Senile purpura Sepsis Shoulder pain, left (05/26/14) Left Spinal stenosis of lumbar region Lumbar Spine Sprain of toe, fifth, left [place]ra firma-forme dermatosis Toe pain, left Weight gain Surgical History History of arthroscopy of left knee History of carpal tunnel repair Bilateral History of coronary artery bypass graft x 3 3 Vessel History of inguinal hernia repair History of open heart surgery Mitral Valve Repair History of shoulder surgery Bilateral, rt redo 4 months History of total right knee replacement Nail avulsion of toe Family History Mother Malignant neoplasm of uterus Social History household members: other marital status: education level: high school occupational status: retired other: 3 Children/ 4 Grandchildren alcohol intake frequency: does not drink substance use type: does not use MEDS/ALLERGIES Home Medications and Allergies Home Medications Medication Instructions Recorded Confirmed Type albuterol sulfate 90 mcg/actuation 180 mcg INHALATION Q4H PRN g 09/13/14 11/07/20 History aerosol inhaler ascorbic acid (vitamin C) 500 mg 500 mg PO BID cap 09/13/14 11/07/20 History capsule,extended release trazodone 100 mg tablet 100 mg PO QDAY PRN tab 09/13/14 11/07/20 History furosemide 20 mg tablet 20 mg PO QDAY 07/28/17 11/07/20 History terazosin 2 mg capsule 2 mg PO QDAY #90 cap 08/18/17 11/07/20 Rx levothyroxine 112 mcg capsule 112 mcg PO QDAY #90 cap 08/25/17 11/07/20 Rx atorvastatin 80 mg tablet 40 mg PO QDAY tab 05/25/18 11/07/20 History digoxin 125 mcg (0.125 mg) tablet 0.125 mg PO QDAY 05/25/18 11/07/20 History fosinopril 20 mg tablet 10 mg PO QDAY tab 05/25/18 11/07/20 History metoprolol succinate 25 mg 50 mg PO QDAY tab 05/25/18 11/07/20 History tablet,extended release 24 hr omeprazole 20 mg capsule,delayed 20 mg PO BID cap 05/25/18 11/07/20 History release rivaroxaban 15 mg tablet 15 mg PO QDAY tab 05/25/18 11/07/20 History metformin 500 mg tablet,extended 500 mg PO QDAY #90 tab 01/05/20 11/07/20 Rx release 24 hr Bilateral knee high velcro #1 ea 08/28/20 11/06/20 Rx compression stockings gabapentin 300 mg capsule 300 mg PO QHS 08/28/20 11/07/20 History Manual wheelchair #1 ea 10/26/20 11/07/20 Rx cephalexin 750 mg capsule 500 mg PO TID 7 Days #21 cap 11/02/20 11/07/20 Rx Allergies Allergy/AdvReac Type Severity Reaction Status Date / Time No Known Drug Allergies Allergy Unknown Unknown Verified 11/06/20 08:30 EXAM Constitutional Vitals: Temp Pulse Resp BP Pulse Ox 98.5 F 95 H 16 85/46 99 11/07/20 12:56 11/07/20 07:43 11/07/20 07:43 11/07/20 07:43 11/07/20 07:43 Exam: General: Alert, Awake, No acute Distress Eyes/N/T: EOMI, Head/Neck: neck supple, n CV: Mildly tacky but regular, No murmurs, normal s1/s2 Pulm: Clear b/l, no wheezing/rhonchi/rales Abd: soft, nontender, +BS x4 Ext: no clubbing/cyanosis/edema. RLE in dressings Neuro: Alert, no focal deficits, moves all extremities, Skin: warm/dry DATA Data Completed and Pending Labs: Labs from last 24 hours 11/07/20 11/07/20 11/07/20 12:51 08:14 05:47 WBC RBC Hgb Hct MCV MCH MCHC RDW Plt Count MPV Seg Neutrophils % Band Neutrophils % Lymphocytes % Monocytes % (Manual) Eosinophils % (Manual) Platelet Estimate RBC Morphology PT 17.3 H INR 1.3 H Sodium Potassium Chloride Carbon Dioxide Anion Gap BUN Creatinine GFR Calculation Glucose Uric Acid Calcium Phosphorus Magnesium Total Bilirubin Direct Bilirubin GGT AST ALT Alkaline Phosphatase Lactate Dehydrogenase Troponin T Pending C-Reactive Protein Total Protein Albumin Globulin Albumin/Globulin Ratio Triglycerides Random Vancomycin 12.2 Digoxin 11/07/20 11/07/20 11/07/20 05:47 05:47 05:46 WBC 7.4 RBC 2.83 L Hgb 9.0 L Hct 28.8 L MCV 101.8 H MCH 31.8 MCHC 31.3 RDW 14.2 Plt Count 153 MPV 10.9 H Seg Neutrophils % 69 Band Neutrophils % 3 Lymphocytes % 16 Monocytes % (Manual) 9 Eosinophils % (Manual) 3 Platelet Estimate Normal RBC Morphology Normal PT INR Sodium 139 Potassium 4.7 Chloride 102 Carbon Dioxide 23 Anion Gap 14.0 BUN 44 H Creatinine 2.3 H GFR Calculation 26 Glucose 79 Uric Acid 9.2 H Calcium 8.5 L Phosphorus 3.5 Magnesium 1.6 Total Bilirubin 0.8 Direct Bilirubin 0.4 H GGT 21 AST 13 ALT 7 Alkaline Phosphatase 68 Lactate Dehydrogenase 186 Troponin T C-Reactive Protein Total Protein 5.9 Albumin 3.0 L Globulin 2.9 Albumin/Globulin Ratio 1.0 Triglycerides 88 Random Vancomycin Digoxin 1.6 11/06/20 09:08 WBC RBC Hgb Hct MCV MCH MCHC RDW Plt Count MPV Seg Neutrophils % Band Neutrophils % Lymphocytes % Monocytes % (Manual) Eosinophils % (Manual) Platelet Estimate RBC Morphology PT INR Sodium Potassium Chloride Carbon Dioxide Anion Gap BUN Creatinine GFR Calculation Glucose Uric Acid Calcium Phosphorus Magnesium Total Bilirubin Direct Bilirubin GGT AST ALT Alkaline Phosphatase Lactate Dehydrogenase Troponin T C-Reactive Protein 6.80 H Total Protein Albumin Globulin Albumin/Globulin Ratio Triglycerides Random Vancomycin Digoxin A/P Narrative A/P Narrative: A: *Aflutter w/RVR vs SVT: -pt takes digoxin and toprol at home *infected RLE hematoma w/cellulitis: *Hypotension: pt typically runs low per BP reading history *CAD w/CABG in 1991: *h/o dCHF: *CKD IV: *Anemia, chronic: *HTN: on BB/ACEI/lasix *Hypothyroidism: Continue levothyroxine *DM: *GERD: P: -monitor in pcu tonight -restart home metoprolol, cont digoxin. hold ACEI/lasix for low bp for now -abx per surgery -d/c ivf soon given h/o chf, monitor i/o's -holding xaralto for hematoma -SSI - -pt/ot -ppx: scd to left leg / home ppi Time Spent With Patient Time: Total time spent is greater than 50% in coordination of care (as documented) at patient's floor/unit and/or counseling patient:
[2020-11-07] MEDS ORDERED: VANCOMYCIN PER PHARMACY IV SCH (13:52)
[2020-11-07] MEDS ORDERED: DEXTROSE 50% 50 ML VIAL IV PRN (13:52)
[2020-11-07] MEDS ORDERED: DEXTROSE 31 GM ORAL.SUSP PO PRN (13:52)
[2020-11-07] MEDS ORDERED: HYDROmorphone 0.5 MG/0.5 ML SYRINGE IV PRN (13:52)
[2020-11-07] MEDS ORDERED: traZODone HCL 100 MG TABLET PO PRN (13:52)
[2020-11-07] MEDS ORDERED: oxyCODONE HCL 5 MG TABLET PO PRN (13:52)
[2020-11-07] MEDS ORDERED: ALBUTEROL SULFATE 200 PUFF INHALER INH PRN (13:52)
[2020-11-07] MEDS ORDERED: 0.9 % SODIUM CHLORIDE 1,000 ML IV SCH (13:52)
[2020-11-07] MEDS ORDERED: fentaNYL 100 MCG/2 ML VIAL IV PRN (13:52)
[2020-11-07] MEDS ORDERED: DIGOXIN 125 MCG TABLET PO SCH ×2 (14:00)
[2020-11-07] MEDS ORDERED: POLYETHYLENE GLYCOL 3350 17 GM PACKET PO PRN (17:37)
[2020-11-07] MEDS ORDERED: SENNOSIDES 1 TABLET PO SCH (21:00)
[2020-11-07] MEDS ORDERED: METOPROLOL TARTRATE 25 MG TABLET PO SCH (21:00)
[2020-11-07] MEDS ORDERED: GABAPENTIN 300 MG CAPSULE PO SCH (21:00)
[2020-11-07] MEDS: GABAPENTIN 300 MG CAPSULE PO SCH (21:40)
[2020-11-08] MEDS: PIPERACILLIN SODIUM/TAZOBACTAM 2.25 GM in DEXTROSE 5% IN WATER 50 ML IV SCH ×5 (00:34→23:52)
[2020-11-08] MEDS: 0.9 % SODIUM CHLORIDE 10 ML SYRINGE IV SCH ×3 (05:43→21:08)
[2020-11-08 07:08] LABS: Vancomycin,Random 15.3 ug/mL
[2020-11-08] MEDS ORDERED: PANTOPRAZOLE 40 MG TABLET PO SCH (07:30)
[2020-11-08] MEDS ORDERED: LEVOTHYROXINE SODIUM 112 MCG TABLET PO SCH (07:30)
[2020-11-08] MEDS: INSULIN LISPRO 1 UNIT/0.01 ML UNIT SQ SCH ×4 (07:49→21:07)
--- NOTE | 2020-11-08 08:08 | Internal Med Progress Note ---
SUBJECTIVE Subjective Patient information: Note initiated : 11/08/20 at 8:04 am Service Date, if different from initiated Date: [] Patient: Abhi Randle 80 y/o M admitted on 11/06/20 for Rt Leg Swelling. Chief Complaint: [] Interval history: Patient presented to the ED yesterday for right leg swelling pain after a fall several weeks ago. Work-up revealed what was felt to be a infected hematoma. Over the past 3 days has become increasingly red and painful and swollen. Blood pressures have been soft since he arrived in the ED and systolics in the 80s. Looks like he is commonly a low will looking at old in the 80s and 90s looking at old blood pressure trends. May need oxygen upon discharge t patient had an I&D today and during the episode his heart rate went to 180 and he had a drop in blood pressure. He was given IV esmolol which resolved the tachycardia. Patient is now in the PACU and denies any chest pain shortness of breath. Systolic blood pressure in around 100. Heart rate 90. 8/5 Patient feeling a lot better today. Heart rate stable. No new complaints overnight events. Review of Systems: denies headache/fever/chills/nausea/vomiting/chest or abdominal pain/cough/dyspnea/diarrhea. Otherwise see above. Constitutional Vitals: Vital Signs Temp Pulse Resp BP Pulse Ox 97.7 F 97 H 17 97/62 94 11/08/20 07:00 11/08/20 07:00 11/08/20 07:00 11/08/20 07:00 11/08/20 07:00 Period Temp Pulse Resp BP Sys/Sagastume Pulse Ox Last 24 Hr 97.3 F-99.1 F 29-98 9-31 79-136/50-117 76-99 Intake and Output 11/07/20 11/08/20 11/08/20 21:59 05:59 13:59 Intake Total 410 50 50 Output Total 100 650 Balance 310 -600 50 Weight 106.413 kg Intake & Output: Intake & Output 11/07/20 11/08/20 11/08/20 21:59 05:59 13:59 Intake Total 410 50 50 Output Total 100 650 Balance 310 -600 50 Weight 106.413 kg Intake: IV 350 50 50 Zosyn 2.25 gm In Dextrose 5% in 100 50 50 Water 50 ml @ 100 mls/hr IV Q6H [facility] Rx#:[id number] Vancomycin 1,000 mg In Sodium 250 Chloride 0.9% 250 ml @ 250 mls/ hr IV ONCE@1400 [facility] Rx#: [id number] Oral 60 Output: Urine Catheter Amount 0 Void Amount 100 650 Other: Meal Dinner Percent of Meal Consumed 50% Feeding Ability Assist with Tray Set Up Urine Appearance Clear Urine Color Bright Yellow Light Jonna Urine Odor Normal Normal Exam: General: Alert, Awake, No acute Distress Eyes/N/T: EOMI, Head/Neck: neck supple, CV: Mildly tacky but regular with occasional irregularity, No murmurs, Pulm: Clear b/l, no wheezing/rhonchi/rales Abd: soft, nontender, +BS x4 Ext: no clubbing/cyanosis/edema. RLE in dressings Neuro: Alert, no focal deficits, moves all extremities, Skin: warm/dry OBJ DATA Labs CBC & Chem 7: 11/08/20 08:31 11/07/20 05:47 Labs: Abnormal Lab Results 11/07/20 11/07/20 11/07/20 12:51 08:14 05:47 RBC Hgb Hct MCV MPV Lymph % (Auto) Lymph # (Auto) [place] # (Auto) PT 17.3 H INR 1.3 H BUN 44 H Creatinine 2.3 H POC Creatinine Uric Acid 9.2 H Calcium 8.5 L Direct Bilirubin 0.4 H Troponin T 0.06 H* C-Reactive Protein Albumin 3.0 L Urine Appearance Urine Urobilinogen Ur Leukocyte Esterase Urine RBC Urine WBC Ur Squamous Epith Cells Urine Bacteria Hyaline Casts Urine Mucus 11/07/20 11/06/20 11/06/20 05:47 10:24 10:10 RBC 2.83 L 3.14 L Hgb 9.0 L 9.9 L Hct 28.8 L 31.7 L MCV 101.8 H 101.0 H MPV 10.9 H 11.1 H Lymph % (Auto) 8.5 L Lymph # (Auto) 0.76 L [place] # (Auto) 0.95 H PT INR BUN Creatinine POC Creatinine Uric Acid Calcium Direct Bilirubin Troponin T C-Reactive Protein Albumin Urine Appearance Cloudy A Urine Urobilinogen 2.0 A Ur Leukocyte Esterase 250 A Urine RBC 87 H Urine WBC 20 H Ur Squamous Epith Cells 8 H Urine Bacteria Few A Hyaline Casts 45 H Urine Mucus Mod A 11/06/20 11/06/20 09:08 09:08 RBC Hgb Hct MCV MPV Lymph % (Auto) Lymph # (Auto) [place] # (Auto) PT INR BUN 44 H Creatinine 2.9 H POC Creatinine 3.3 H Uric Acid Calcium Direct Bilirubin Troponin T C-Reactive Protein 6.80 H Albumin Urine Appearance Urine Urobilinogen Ur Leukocyte Esterase Urine RBC Urine WBC Ur Squamous Epith Cells Urine Bacteria Hyaline Casts Urine Mucus Meds: Medications Albuterol Sulfate (Albuterol Sulfate 200 Puff Inhaler) 1 puff INH Q4HP PRN PRN Reason: shortness of breath Dextrose (Dextrose 50% 50 Ml Vial) 0 ml IV UD PRN PRN Reason: Hypoglycemia Diagnostic Test (Pha) (Accu-Chek 1 Each Strip) 1 each [facility] Last Admin: 11/08/20 07:49 Dose: 1 each Documented by: Digoxin (Digoxin 125 Mcg Tablet) 125 mcg PO DAILY@1400 [facility] Last Admin: 11/07/20 14:36 Dose: 125 mcg Documented by: Docusate Sodium (Docusate Sodium 100 Mg Capsule) 100 mg PO BID [facility] Last Admin: 11/07/20 21:10 Dose: Not Given Documented by: Gabapentin (Gabapentin 300 Mg Capsule) 300 mg PO BID [facility] Last Admin: 11/07/20 21:40 Dose: 300 mg Documented by: Glucose (Dextrose 31 Gm Oral.Susp) 15 gm PO PRN PRN PRN Reason: Hypoglycemia Hydromorphone HCl (Hydromorphone 0.5 Mg/0.5 Ml Syringe) 0.5 mg IV Q2HP PRN; Protocol PRN Reason: Per Pain Protocol Piperacillin Sod/Tazobactam (Sod 2.25 gm/ Dextrose) 50 mls @ 100 mls/hr IV Q6H [facility] Last Infusion: 11/08/20 06:18 Dose: Infused Documented by: Insulin Human Lispro (Insulin Lispro 1 Unit/0.01 Ml Unit) 0 unit SQ [facility]; Protocol Last Admin: 11/08/20 07:49 Dose: Not Given Documented by: Levothyroxine Sodium (Levothyroxine Sodium 112 Mcg Tablet) 112 mcg PO QACOX [facility] Metoprolol Tartrate (Metoprolol Tartrate 5 Mg/5 Ml Vial) 5 mg IV Q2HP PRN PRN Reason: Tachyarrhythmias HR>110 Metoprolol Tartrate (Metoprolol Tartrate 25 Mg Tablet) 12.5 mg PO BID [facility] Last Admin: 11/07/20 21:40 Dose: 12.5 mg Documented by: Ondansetron HCl (Ondansetron 4 Mg/2 Ml Vial) 4 mg IV Q6HP PRN PRN Reason: Nausea And Vomiting Oxycodone HCl (Oxycodone Hcl 5 Mg Tablet) 10 mg PO Q4HP PRN; Protocol PRN Reason: Per Pain Protocol Pantoprazole Sodium (Pantoprazole 40 Mg Tablet) 40 mg PO QAMAC [facility] Last Admin: 11/08/20 07:49 Dose: 40 mg Documented by: Polyethylene Glycol (Polyethylene Glycol 3350 17 Gm Packet) 17 gm PO DAILYP PRN PRN Reason: Constipation Senna (Sennosides 1 Tablet) 2 tab PO HS [facility] Last Admin: 11/07/20 21:10 Dose: Not Given Documented by: Sodium Chloride (0.9 % Sodium Chloride 10 Ml Syringe) 10 ml IV Q8 [facility] Last Admin: 11/08/20 05:43 Dose: 10 ml Documented by: Terazosin HCl (Terazosin 1 Mg Capsule) 2 mg PO QDAY [facility] Trazodone HCl (Trazodone Hcl 100 Mg Tablet) 100 mg PO HSP PRN PRN Reason: Insomnia Vancomycin HCl (Vancomycin Per Pharmacy) 1 order IV UD [facility] A/P Narrative A/P Narrative: A: *Aflutter w/RVR vs SVT: stable -pt takes digoxin and toprol at home *infected RLE hematoma w/cellulitis: *Hypotension: pt typically runs low per BP reading history and per pt *CAD w/CABG in 1991: *h/o dCHF: *CKD IV: *Anemia, chronic: *HTN: on BB/ACEI/lasix *Hypothyroidism: Continue levothyroxine *DM: *GERD: P: -restarted home metoprolol, cont digoxin. hold ACEI/lasix for low bp (chronically low) for now -abx per surgery -holding xaralto for hematoma -SSI --pt/ot -ppx: scd to left leg / home ppi Time Spent With Patient Time: Total time spent is greater than 50% in coordination of care (as documented) at patient's floor/unit and/or counseling patient: QUALITY VTE Deep Vein Thrombosis/Pulmonary Embolism Present on Admission: No
[2020-11-08] MEDS ORDERED: METOPROLOL TARTRATE 25 MG TABLET PO SCH (09:00)
[2020-11-08] MEDS ORDERED: TERAZOSIN 1 MG CAPSULE PO SCH (09:00)
--- NOTE | 2020-11-08 09:07 | XRay Report ---
INDICATION: hypoxia, h/o diastolic chf TECHNIQUE: AP portable semiupright chest x-ray COMPARISON: Previous chest x-rays dated 11/06/2020, 10/14/2020, 01/30/2020 FINDINGS:Previous median sternotomy. 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 Small focus of pneumonia is possible Heart, vascular:There is generalized cardiomegaly. Pulmonary vascularity is prominent. There is peribronchial thickening and probable interstitial edema. Mediastinum, nikki:No mediastinal widening. No hilar mass Pleura:No definite pleural effusion Skeletal:Negative. IMPRESSION: 1. Cardiomegaly and probable interstitial pulmonary edema 2. Mild left basilar parenchymal infiltrate. This may be volume loss or pneumonia Interpreted and Authenticated by: Da Shanks 11/08/20
[2020-11-08 09:08] LABS: Basophils # (Auto) 0.01 K/mcL (0.00-0.20); Basophils % (Auto) 0.1 % (0.0-2.0); Eosinophils # (Auto) 0 K/mcL (0.00-0.70); Eosinophils % (Auto) 0 % (0.0-7.0); Hemoglobin 9.2 g/dL (13.5-16.5); Lymphocytes # (Auto) 0.96 K/mcL (1.50-4.80); Lymphocytes % (Auto) 9.9 % (15.0-49.0); Mean Cell Volume 100.3 fL (80.0-100.0); Mean Corpuscular HGB Conc 31.7 g/dL (31.0-36.0); Mean Platelet Volume 11.1 fL (7.4-10.4); Monocytes # (Auto) 0.76 K/mcL (0.10-0.90); Monocytes % (Auto) 7.9 % (1.0-12.0); Neutrophils % (Auto) 82.1 % (38.0-78.0); Platelet Count 166 K/mcL (140-440); RBC 2.89 M/mcL (4.50-5.90); Red Cell Distribution Width 13.6 % (11.5-14.5); WBC 9.7 K/mcL (4.5-11.0)
[2020-11-08] MEDS: DOCUSATE SODIUM 100 MG CAPSULE PO SCH ×2 (09:19→21:06)
[2020-11-08] MEDS: GABAPENTIN 300 MG CAPSULE PO SCH ×2 (09:20→21:06)
[2020-11-08 09:32] LABS: ALT/SGPT 9 U/L (<40); AST/SGOT 13 U/L (<40); Albumin 3.3 gm/dL (3.2-5.2); Albumin/Globulin Ratio 1.1 (1.0-2.3); Alkaline Phosphatase 70 U/L (39-117); Bilirubin,Direct 0.3 mg/dL (<0.3); Bilirubin,Total 0.7 mg/dL (0.1-1.0); Blood Urea Nitrogen 41 mg/dL (8-23); Calcium 8.3 mg/dL (8.6-10.4); Carbon Dioxide 26 mmol/L (22-30); Chloride 104 mmol/L (96-108); Glomerular Filtration Rate 37; Glucose 105 mg/dL (70-105); Lactate Dehydrogenase 217 U/L (135-225); Phosphorous 2.8 mg/dL (2.5-4.5); Triglycerides 70 mg/dL (<150); Uric Acid 7.8 mg/dL (2.5-8.0)
[2020-11-08] MEDS ORDERED: SODIUM POLYSTYRENE SULFONATE 15 GM/60 ML SUSPENSION PO ONE (10:00)
[2020-11-08] MEDS ORDERED: VANCOMYCIN 750 MG in 0.9 % SODIUM CHLORIDE 250 ML IV ONE (11:00)
[2020-11-08] MEDS ORDERED: KETAMINE 50 MG/ML Syringe (ANEST) ONE (11:07)
[2020-11-08] MEDS ORDERED: DEXTROSE 50% 50 ML VIAL IV PRN (11:07)
[2020-11-08] MEDS ORDERED: DEXAMETHASONE 10 MG/ML VIAL ONE (11:07)
[2020-11-08] MEDS ORDERED: LIDOCAINE HCL/PF 100 MG/5 ML SYRINGE IV ONE (11:07)
[2020-11-08] MEDS ORDERED: PROPOFOL 200 MG/20 ML VIAL IV ONE (11:07)
[2020-11-08] MEDS ORDERED: METOPROLOL TARTRATE 5 MG/5 ML VIAL IV PRN (11:07)
[2020-11-08] MEDS ORDERED: POLYETHYLENE GLYCOL 3350 17 GM PACKET PO PRN (11:07)
[2020-11-08] MEDS ORDERED: ONDANSETRON 4 MG/2 ML VIAL IV PRN (11:07)
[2020-11-08] MEDS ORDERED: DEXTROSE 31 GM ORAL.SUSP PO PRN (11:07)
[2020-11-08] MEDS ORDERED: ALBUTEROL SULFATE 200 PUFF INHALER INH PRN (11:07)
[2020-11-08] MEDS ORDERED: ONDANSETRON 4 MG/2 ML VIAL ONE (11:07)
[2020-11-08] MEDS ORDERED: VANCOMYCIN PER PHARMACY IV SCH (11:07)
[2020-11-08] MEDS ORDERED: MAGNESIUM SULFATE 2 GM/50 ML BAG IV ONE (11:07)
--- NOTE | 2020-11-08 12:40 | General Surgery Progress Note ---
SUBJECTIVE Subjective Patient information: Note initiated : 11/08/20 at 12:35 pm Service Date, if different from initiated Date: [] Patient: Abhi Randle 80 y/o M admitted on 11/06/20 for Rt Leg Swelling. Chief Complaint: [] Principal diagnosis: Hematoma right lower extremity Interval history: Patient is clinically stable. He did not have any arrhythmias last evening. He has not had any chest pain or shortness of breath. The lower extremity edema is improved. Constitutional Vitals: Vital Signs Temp Pulse Resp BP Pulse Ox 98.3 F 100 H 20 105/66 94 11/08/20 10:51 11/08/20 10:51 11/08/20 10:51 11/08/20 10:51 11/08/20 10:51 Period Temp Pulse Resp BP Sys/Sagastume Pulse Ox Last 24 Hr 97.3 F-98.7 F 29-100 9-31 79-136/50-117 76-99 Intake and Output 11/07/20 11/08/20 11/08/20 21:59 05:59 13:59 Intake Total 410 50 300 Output Total 100 650 Balance 310 -600 300 Weight 234 lb 9.6 oz 236 lb 6 oz Patient Weight 11/09/20 05:59 Weight 236 lb 6 oz Intake & Output: Intake & Output 11/07/20 11/08/20 11/08/20 21:59 05:59 13:59 Intake Total 410 50 300 Output Total 100 650 Balance 310 -600 300 Weight 234 lb 9.6 oz 236 lb 6 oz Intake: IV 350 50 50 Zosyn 2.25 gm In Dextrose 5% in 100 50 50 Water 50 ml @ 100 mls/hr IV Q6H [facility] Rx#:[id number] Vancomycin 1,000 mg In Sodium 250 Chloride 0.9% 250 ml @ 250 mls/ hr IV ONCE@1400 [facility] Rx#: [id number] Oral 60 250 Output: Urine Catheter Amount 0 Void Amount 100 650 Other: Meal Dinner Breakfast Percent of Meal Consumed 50% 100% Feeding Ability Assist with Tray Set Up Assist with Tray Set Up Urine Appearance Clear Urine Color Bright Yellow Light Jonna Urine Odor Normal Normal Eye Eye exam: Present EOMI Pupils: Present normal accommodation and PERRL ENT Additional comments: Poor dentition Neck Neck exam: Present full ROM and normal inspection; Absent tenderness Respiratory Respiratory exam: Present normal respiratory exam and CTAB; Absent rales, rhonchi and wheezes Cardiovascular Cardiovascular exam: Present normal rate and rhythm, +S1 and +S2; Absent tachycardia GI/Abdominal GI/Abdominal exam: Present normal bowel sounds and soft Extremities Exam Extremities exam: Present calf tenderness, joint swelling, pedal edema and tenderness Neurological Exam Neurological exam: Present abnormal gait (Needs 1-2 person assist and front wheel walker for ambulation) and alert Psychiatric Psychiatric exam: Present anxious Skin Additional comments: Moderately severe stasis edema and dermatitis bilateral lower extremities A/P Assessment and plan (1) Hematoma of right lower leg: Status: Acute (2) DMII (diabetes mellitus, type 2): Status: Acute (3) Atrial fibrillation: Status: Acute (4) Stasis dermatitis of both legs: Status: Chronic (5) Gastroesophageal reflux: Status: Acute Narrative A/P Narrative: Continue IV antibiotics Out of bed with assistance as needed Physical therapy and Occupational Therapy evaluation Consideration for transfer to correction facility post discharge Time Spent With Patient Time: Total time spent is greater than 50% in coordination of care (as documented) at patient's floor/unit and/or counseling patient:
[2020-11-08 13:06] LABS: Digoxin 1.4 ng/mL
[2020-11-08] MEDS ORDERED: DIGOXIN 125 MCG TABLET PO SCH (14:00)
[2020-11-08] MEDS: HYDROmorphone 0.5 MG/0.5 ML SYRINGE IV PRN (19:27)
[2020-11-08] MEDS: SENNOSIDES 1 TABLET PO SCH (21:06)
[2020-11-08] MEDS: METOPROLOL TARTRATE 25 MG TABLET PO SCH (21:08)
[2020-11-09] MEDS: oxyCODONE HCL 5 MG TABLET PO PRN ×2 (02:55→10:58)
[2020-11-09] MEDS: PIPERACILLIN SODIUM/TAZOBACTAM 2.25 GM in DEXTROSE 5% IN WATER 50 ML IV SCH ×3 (05:36→17:49)
[2020-11-09] MEDS: 0.9 % SODIUM CHLORIDE 10 ML SYRINGE IV SCH ×3 (05:39→21:50)
[2020-11-09 07:18] LABS: Basophils # (Auto) 0.03 K/mcL (0.00-0.20); Basophils % (Auto) 0.3 % (0.0-2.0); Eosinophils # (Auto) 0.15 K/mcL (0.00-0.70); Eosinophils % (Auto) 1.6 % (0.0-7.0); Hematocrit 28.2 % (41.0-55.0); Hemoglobin 8.5 g/dL (13.5-16.5); Lymphocytes # (Auto) 2.28 K/mcL (1.50-4.80); Mean Cell Volume 103.7 fL (80.0-100.0); Mean Corpuscular HGB Conc 30.1 g/dL (31.0-36.0); Mean Platelet Volume 11.2 fL (7.4-10.4); Monocytes # (Auto) 0.86 K/mcL (0.10-0.90); Monocytes % (Auto) 9.1 % (1.0-12.0); Platelet Count 174 K/mcL (140-440); RBC 2.72 M/mcL (4.50-5.90); WBC 9.5 K/mcL (4.5-11.0)
[2020-11-09 07:19] LABS: Vancomycin,Random 14.7 ug/mL
[2020-11-09 07:20] LABS: Digoxin 0.8 ng/mL
[2020-11-09] MEDS: INSULIN LISPRO 1 UNIT/0.01 ML UNIT SQ SCH ×4 (07:48→21:49)
[2020-11-09] MEDS: LEVOTHYROXINE SODIUM 112 MCG TABLET PO SCH (07:50)
[2020-11-09] MEDS: PANTOPRAZOLE 40 MG TABLET PO SCH (07:50)
--- NOTE | 2020-11-09 08:19 | Internal Med Progress Note ---
SUBJECTIVE Subjective Patient information: Note initiated : 11/09/20 at 8:17 am Service Date, if different from initiated Date: [] Patient: Abhi Randle 80 y/o M admitted on 11/06/20 for Rt Leg Swelling. Chief Complaint: [] Principal diagnosis: Hematoma right lower extremity Interval history: Patient presented to the ED yesterday for right leg swelling pain after a fall several weeks ago. Work-up revealed what was felt to be a infected hematoma. Over the past 3 days has become increasingly red and painful and swollen. Blood pressures have been soft since he arrived in the ED and systolics in the 80s. Looks like he is commonly a low will looking at old in the 80s and 90s looking at old blood pressure trends. May need oxygen upon discharge t patient had an I&D today and during the episode his heart rate went to 180 and he had a drop in blood pressure. He was given IV esmolol which resolved the tachycardia. Patient is now in the PACU and denies any chest pain shortness of breath. Systolic blood pressure in around 100. Heart rate 90. 8/5 Patient feeling a lot better today. Heart rate stable. No new complaints overnight events. 8/6 Feels well. No new complaints. No dizziness or lightheadedness. Heart rate stable. Review of Systems: denies headache/fever/chills/nausea/vomiting/chest or abdominal pain/cough/dyspnea/diarrhea. Otherwise see above. Constitutional Vitals: Vital Signs Temp Pulse Resp BP Pulse Ox 98.2 F 104 H 18 80/50 91 11/09/20 06:59 11/09/20 06:59 11/09/20 06:59 11/09/20 06:59 11/09/20 06:59 Period Temp Pulse Resp BP Sys/Sagastume Pulse Ox Last 24 Hr 97.0 F-98.7 F 61-105 16-26 80-108/48-69 91-97 Intake and Output 11/08/20 11/09/20 11/09/20 21:59 05:59 13:59 Intake Total 770 300 50 Output Total 500 150 280 Balance 270 150 -230 Weight 112.491 kg Intake & Output: Intake & Output 11/08/20 11/09/20 11/09/20 21:59 05:59 13:59 Intake Total 770 300 50 Output Total 500 150 280 Balance 270 150 -230 Weight 112.491 kg Intake: IV 50 50 50 Zosyn 2.25 gm In Dextrose 5% in 50 50 50 Water 50 ml @ 100 mls/hr IV Q6H [facility] Rx#:[id number] Oral 720 250 Output: Void Amount 500 150 280 Other: Meal Lunch Percent of Meal Consumed 100% Feeding Ability Assist with Tray Set Up Urine Appearance Clear Urine Color Bright Yellow Dark Yellow Dark Yellow Urine Odor Strong Normal Exam: General: Alert, Awake, No acute Distress Eyes/N/T: EOMI, Head/Neck: neck supple, CV: regular, No murmurs, Pulm: Clear b/l, no wheezing/rhonchi/rales Abd: soft, nontender, +BS x4 Ext: no clubbing/cyanosis/edema. RLE in dressings Neuro: Alert, no focal deficits, moves all extremities, Skin: warm/dry OBJ DATA Labs CBC & Chem 7: 11/09/20 05:16 11/08/20 08:31 Labs: Abnormal Lab Results 11/09/20 11/08/20 11/08/20 05:16 08:31 08:31 RBC 2.72 L 2.89 L Hgb 8.5 L 9.2 L Hct 28.2 L 29.0 L MCV 103.7 H 100.3 H MCHC 30.1 L MPV 11.2 H 11.1 H Neut % (Auto) 82.1 H Lymph % (Auto) 9.9 L Lymph # (Auto) 0.96 L [place] # (Auto) PT INR Potassium 5.2 H BUN 41 H Creatinine 1.7 H POC Creatinine Uric Acid Calcium 8.3 L Direct Bilirubin 0.3 H Troponin T C-Reactive Protein Albumin Urine Appearance Urine Urobilinogen Ur Leukocyte Esterase Urine RBC Urine WBC Ur Squamous Epith Cells Urine Bacteria Hyaline Casts Urine Mucus 11/07/20 11/07/20 11/07/20 12:51 08:14 05:47 RBC Hgb Hct MCV MCHC MPV Neut % (Auto) Lymph % (Auto) Lymph # (Auto) [place] # (Auto) PT 17.3 H INR 1.3 H Potassium BUN 44 H Creatinine 2.3 H POC Creatinine Uric Acid 9.2 H Calcium 8.5 L Direct Bilirubin 0.4 H Troponin T 0.06 H* C-Reactive Protein Albumin 3.0 L Urine Appearance Urine Urobilinogen Ur Leukocyte Esterase Urine RBC Urine WBC Ur Squamous Epith Cells Urine Bacteria Hyaline Casts Urine Mucus 11/07/20 11/06/20 11/06/20 05:47 10:24 10:10 RBC 2.83 L 3.14 L Hgb 9.0 L 9.9 L Hct 28.8 L 31.7 L MCV 101.8 H 101.0 H MCHC MPV 10.9 H 11.1 H Neut % (Auto) Lymph % (Auto) 8.5 L Lymph # (Auto) 0.76 L [place] # (Auto) 0.95 H PT INR Potassium BUN Creatinine POC Creatinine Uric Acid Calcium Direct Bilirubin Troponin T C-Reactive Protein Albumin Urine Appearance Cloudy A Urine Urobilinogen 2.0 A Ur Leukocyte Esterase 250 A Urine RBC 87 H Urine WBC 20 H Ur Squamous Epith Cells 8 H Urine Bacteria Few A Hyaline Casts 45 H Urine Mucus Mod A 11/06/20 11/06/20 09:08 09:08 RBC Hgb Hct MCV MCHC MPV Neut % (Auto) Lymph % (Auto) Lymph # (Auto) [place] # (Auto) PT INR Potassium BUN 44 H Creatinine 2.9 H POC Creatinine 3.3 H Uric Acid Calcium Direct Bilirubin Troponin T C-Reactive Protein 6.80 H Albumin Urine Appearance Urine Urobilinogen Ur Leukocyte Esterase Urine RBC Urine WBC Ur Squamous Epith Cells Urine Bacteria Hyaline Casts Urine Mucus Meds: Medications Albuterol Sulfate (Albuterol Sulfate 200 Puff Inhaler) 1 puff INH Q4HP PRN PRN Reason: shortness of breath Dextrose (Dextrose 50% 50 Ml Vial) 0 ml IV UD PRN PRN Reason: Hypoglycemia Diagnostic Test (Pha) (Accu-Chek 1 Each Strip) 1 each FS [facility] Last Admin: 11/09/20 07:43 Dose: 1 each Documented by: Digoxin (Digoxin 125 Mcg Tablet) 125 mcg PO DAILY@1400 [facility] Docusate Sodium (Docusate Sodium 100 Mg Capsule) 100 mg PO BID [facility] Last Admin: 11/08/20 21:06 Dose: 100 mg Documented by: Gabapentin (Gabapentin 300 Mg Capsule) 300 mg PO BID [facility] Last Admin: 11/08/20 21:06 Dose: 300 mg Documented by: Glucose (Dextrose 31 Gm Oral.Susp) 15 gm PO PRN PRN PRN Reason: Hypoglycemia Hydromorphone HCl (Hydromorphone 0.5 Mg/0.5 Ml Syringe) 0.5 mg IV Q2HP PRN; Protocol PRN Reason: Per Pain Protocol Last Admin: 11/08/20 19:27 Dose: 0.5 mg Documented by: Piperacillin Sod/Tazobactam (Sod 2.25 gm/ Dextrose) 50 mls @ 100 mls/hr IV Q6H [facility] Last Infusion: 11/09/20 06:10 Dose: Infused Documented by: Vancomycin HCl 1,000 mg/ (Sodium Chloride) 250 mls @ 250 mls/hr IV ONCE ONE Stop: 11/09/20 10:59 Insulin Human Lispro (Insulin Lispro 1 Unit/0.01 Ml Unit) 0 unit SQ [facility]; Protocol Last Admin: 11/09/20 07:48 Dose: Not Given Documented by: Levothyroxine Sodium (Levothyroxine Sodium 112 Mcg Tablet) 112 mcg PO [facility] Last Admin: 11/09/20 07:50 Dose: 112 mcg Documented by: Metoprolol Tartrate (Metoprolol Tartrate 25 Mg Tablet) 25 mg PO BID [facility] Last Admin: 11/08/20 21:08 Dose: Not Given Documented by: Metoprolol Tartrate (Metoprolol Tartrate 5 Mg/5 Ml Vial) 5 mg IV Q2HP PRN PRN Reason: Tachyarrhythmias HR>110 Ondansetron HCl (Ondansetron 4 Mg/2 Ml Vial) 4 mg IV Q6HP PRN PRN Reason: Nausea And Vomiting Oxycodone HCl (Oxycodone Hcl 5 Mg Tablet) 10 mg PO Q4HP PRN; Protocol PRN Reason: Per Pain Protocol Last Admin: 11/09/20 02:55 Dose: 10 mg Documented by: Pantoprazole Sodium ([facility] 40 Mg [facility]) [facility] Admin: 11/09/20 07:50 Dose: 40 mg Documented by: Polyethylene Glycol (Polyethylene Glycol 3350 17 Gm Packet) 17 gm PO DAILYP PRN PRN Reason: Constipation Senna (Sennosides 1 Tablet) 2 tab PO HS [facility] Last Admin: 11/08/20 21:06 Dose: 2 tab Documented by: Sodium Chloride (0.9 % Sodium Chloride 10 Ml Syringe) 10 ml IV Q8 [facility] Last Admin: 11/09/20 05:39 Dose: 10 ml Documented by: Terazosin HCl (Terazosin 1 Mg Capsule) 2 mg PO QDAY [facility] Trazodone HCl (Trazodone Hcl 100 Mg Tablet) 100 mg PO HSP PRN PRN Reason: Insomnia Vancomycin HCl (Vancomycin Per Pharmacy) 1 order IV UD [facility] A/P Narrative A/P Narrative: A: *Aflutter w/RVR vs SVT: stable -pt takes digoxin and toprol at home *infected RLE hematoma w/cellulitis: *Hypotension: pt typically runs low per BP reading history and per pt *CAD w/CABG in 1991: *h/o dCHF: *CKD IV: *Anemia, acute on chronic from blood loss - hematoma: *HTN: on BB/ACEI/lasix *Hypothyroidism: Continue levothyroxine *DM: *GERD: P: -cont lopressor, cont digoxin. hold ACEI/lasix for low bp (chronically low) and do not restart -abx per surgery -holding xaralto for hematoma/anemia -SSI -pt/ot -ppx: scd to left leg / home ppi Time Spent With Patient Time: Total time spent is greater than 50% in coordination of care (as documented) at patient's floor/unit and/or counseling patient: QUALITY VTE Deep Vein Thrombosis/Pulmonary Embolism Present on Admission: No
[2020-11-09] MEDS ORDERED: VANCOMYCIN 1,000 MG in 0.9 % SODIUM CHLORIDE 250 ML IV ONE (10:00)
[2020-11-09] MEDS: METOPROLOL TARTRATE 25 MG TABLET PO SCH ×2 (10:48→21:52)
[2020-11-09] MEDS: TERAZOSIN 1 MG CAPSULE PO SCH (10:49)
[2020-11-09] MEDS: DOCUSATE SODIUM 100 MG CAPSULE PO SCH ×2 (10:56→21:52)
[2020-11-09] MEDS: GABAPENTIN 300 MG CAPSULE PO SCH ×2 (10:56→21:52)
--- NOTE | 2020-11-09 12:06 | General Surgery Progress Note ---
SUBJECTIVE Subjective Patient information: Note initiated : 11/09/20 at 12:02 pm Service Date, if different from initiated Date: [] Patient: Abhi Randle 80 y/o M admitted on 11/06/20 for Rt Leg Swelling. Chief Complaint: [] Principal diagnosis: Hematoma right lower extremity Interval history: Patient is clinically stable. He did have some drop in his blood pressure in the 80s systolic range during the night but this is normal for him. His metoprolol has been withheld for the time being. He has been afebrile. His white blood count is 9.5 and hemoglobin 8.5. His leg edema is improved and the inflammatory changes are improved. The incision looks good. Constitutional Vitals: Vital Signs Temp Pulse Resp BP Pulse Ox 98.9 F 104 H 20 97/54 94 11/09/20 11:50 11/09/20 11:50 11/09/20 11:50 11/09/20 11:50 11/09/20 11:50 Period Temp Pulse Resp BP Sys/Sagastume Pulse Ox Last 24 Hr 97.7 F-98.9 F 77-105 16-20 80-97/48-57 91-95 Intake and Output 11/08/20 11/09/20 11/09/20 21:59 05:59 13:59 Intake Total 770 300 530 Output Total 500 150 280 Balance 270 150 250 Weight 248 lb Intake & Output: Intake & Output 11/08/20 11/09/20 11/09/20 21:59 05:59 13:59 Intake Total 770 300 530 Output Total 500 150 280 Balance 270 150 250 Weight 248 lb Intake: IV 50 50 50 Zosyn 2.25 gm In Dextrose 5% in 50 50 50 Water 50 ml @ 100 mls/hr IV Q6H [facility] Rx#:[id number] Oral 720 250 480 Output: Void Amount 500 150 280 Other: Meal Lunch Breakfast Percent of Meal Consumed 100% 25% Feeding Ability Assist with Tray Set Up Independent Urine Appearance Clear Urine Color Bright Yellow Dark Yellow Dark Yellow Urine Odor Strong Normal ENT Additional comments: Poor dentition Neck Neck exam: Present full ROM and normal inspection; Absent tenderness Respiratory Respiratory exam: Present normal respiratory exam and CTAB; Absent rales, rhonchi and wheezes Cardiovascular Cardiovascular exam: Present normal rate and rhythm, +S1 and +S2; Absent tachycardia GI/Abdominal GI/Abdominal exam: Present normal bowel sounds and soft Extremities Exam Extremities exam: Present calf tenderness, joint swelling, pedal edema and tenderness Neurological Exam Neurological exam: Present abnormal gait (Needs 1-2 person assist and front wheel walker for ambulation) and alert Psychiatric Psychiatric exam: Present anxious A/P Assessment and plan (1) Hematoma of right lower leg: Status: Acute (2) DMII (diabetes mellitus, type 2): Status: Acute (3) Atrial fibrillation: Status: Acute (4) 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
[2020-11-09] MEDS: DIGOXIN 125 MCG TABLET PO SCH (16:40)
[2020-11-09] MEDS: SENNOSIDES 1 TABLET PO SCH (21:51)
[2020-11-10] MEDS: PIPERACILLIN SODIUM/TAZOBACTAM 2.25 GM in DEXTROSE 5% IN WATER 50 ML IV SCH ×4 (00:29→17:50)
[2020-11-10] MEDS: traZODone HCL 100 MG TABLET PO PRN ×2 (02:53→22:51)
[2020-11-10] MEDS: 0.9 % SODIUM CHLORIDE 10 ML SYRINGE IV SCH ×3 (04:15→20:34)
[2020-11-10 07:06] LABS: Basophils # (Auto) 0.02 K/mcL (0.00-0.20); Basophils % (Auto) 0.2 % (0.0-2.0); Eosinophils # (Auto) 0.32 K/mcL (0.00-0.70); Eosinophils % (Auto) 3.4 % (0.0-7.0); Hematocrit 31.6 % (41.0-55.0); Hemoglobin 9.6 g/dL (13.5-16.5); Lymphocytes # (Auto) 2.25 K/mcL (1.50-4.80); Mean Cell Volume 102.6 fL (80.0-100.0); Mean Corpuscular HGB Conc 30.4 g/dL (31.0-36.0); Mean Platelet Volume 10.8 fL (7.4-10.4); Monocytes # (Auto) 0.95 K/mcL (0.10-0.90); Monocytes % (Auto) 10.1 % (1.0-12.0); Neutrophils % (Auto) 62.3 % (38.0-78.0); Platelet Count 179 K/mcL (140-440); RBC 3.08 M/mcL (4.50-5.90); Red Cell Distribution Width 14.1 % (11.5-14.5); WBC 9.4 K/mcL (4.5-11.0)
[2020-11-10] MEDS: LEVOTHYROXINE SODIUM 112 MCG TABLET PO SCH (07:18)
[2020-11-10] MEDS: PANTOPRAZOLE 40 MG TABLET PO SCH (07:18)
[2020-11-10] MEDS: INSULIN LISPRO 1 UNIT/0.01 ML UNIT SQ SCH ×4 (07:23→20:29)
--- NOTE | 2020-11-10 07:56 | Internal Med Progress Note ---
SUBJECTIVE Subjective Patient information: Note initiated : 11/10/20 at 7:55 am Service Date, if different from initiated Date: [] Patient: Abhi Randle 80 y/o M admitted on 11/06/20 for Rt Leg Swelling. Chief Complaint: [] Principal diagnosis: Hematoma right lower extremity Interval history: Patient presented to the ED yesterday for right leg swelling pain after a fall several weeks ago. Work-up revealed what was felt to be a infected hematoma. Over the past 3 days has become increasingly red and painful and swollen. Blood pressures have been soft since he arrived in the ED and systolics in the 80s. Looks like he is commonly a low will looking at old in the 80s and 90s looking at old blood pressure trends. May need oxygen upon discharge t patient had an I&D today and during the episode his heart rate went to 180 and he had a drop in blood pressure. He was given IV esmolol which resolved the tachycardia. Patient is now in the PACU and denies any chest pain shortness of breath. Systolic blood pressure in around 100. Heart rate 90. 8/5 Patient feeling a lot better today. Heart rate stable. No new complaints overnight events. 8/6 Feels well. No new complaints. No dizziness or lightheadedness. Heart rate stable. 8/7 Feeling well. No new complaints. H&H stable. Awaiting chemistry panel. Review of Systems: denies headache/fever/chills/nausea/vomiting/chest or abdominal pain/cough/dy spnea/diarrhea. Otherwise see above. Constitutional Vitals: Vital Signs Temp Pulse Resp BP Pulse Ox 98.7 F 108 H 18 121/73 92 11/10/20 03:14 11/10/20 07:27 11/10/20 03:14 11/10/20 03:14 11/10/20 03:14 Period Temp Pulse Resp BP Sys/Sagastume Pulse Ox Last 24 Hr 98.3 F-98.9 F 57-108 16-20 94-125/54-75 91-95 Intake and Output 11/09/20 11/10/20 11/10/20 21:59 05:59 13:59 Intake Total 100 530 Output Total 176 250 500 Balance -76 280 -500 Weight 113.086 kg Intake & Output: Intake & Output 11/09/20 11/10/20 11/10/20 21:59 05:59 13:59 Intake Total 100 530 Output Total 176 250 500 Balance -76 280 -500 Weight 113.086 kg Intake: IV 100 50 Zosyn 2.25 gm In Dextrose 5% in 100 50 Water 50 ml @ 100 mls/hr IV Q6H [facility] Rx#:[id number] Oral 480 Output: Void Amount 175 250 500 # of times incontinent of urine 1 Other: Meal Lunch Percent of Meal Consumed 0% Urine Appearance Clear Clear Urine Color Bright Yellow Dark Yellow Dark Yellow Urine Odor Strong # Voids 1 Exam: General: Alert, Awake, No acute Distress Eyes/N/T: EOMI, Head/Neck: neck supple, CV: regular with irregularity, 2/6 SM, Pulm: Clear b/l, no wheezing/rhonchi/rales Abd: soft, nontender, +BS x4 Ext: no clubbing/cyanosis/edema. RLE in dressings Neuro: Alert, no focal deficits, moves all extremities, Skin: warm/dry OBJ DATA Labs CBC & Chem 7: 11/10/20 05:17 11/08/20 08:31 Labs: Abnormal Lab Results 11/10/20 11/09/20 11/08/20 05:17 05:16 08:31 RBC 3.08 L 2.72 L 2.89 L Hgb 9.6 L 8.5 L 9.2 L Hct 31.6 L 28.2 L 29.0 L MCV 102.6 H 103.7 H 100.3 H MCHC 30.4 L 30.1 L MPV 10.8 H 11.2 H 11.1 H Neut % (Auto) 82.1 H Lymph % (Auto) 9.9 L Lymph # (Auto) 0.96 L Cherry # (Auto) 0.95 H PT INR Potassium BUN Creatinine Calcium Direct Bilirubin Troponin T 11/08/20 11/07/20 11/07/20 08:31 12:51 08:14 RBC Hgb Hct MCV MCHC MPV Neut % (Auto) Lymph % (Auto) Lymph # (Auto) Cherry # (Auto) PT 17.3 H INR 1.3 H Potassium 5.2 H BUN 41 H Creatinine 1.7 H Calcium 8.3 L Direct Bilirubin 0.3 H Troponin T 0.06 H* Meds: Medications Albuterol Sulfate (Albuterol Sulfate 200 Puff Inhaler) 1 puff INH Q4HP PRN PRN Reason: shortness of breath Dextrose (Dextrose 50% 50 Ml Vial) 0 ml IV UD PRN PRN Reason: Hypoglycemia Diagnostic Test (Pha) (Accu-Chek 1 Each Strip) 1 each FS [facility] Last Admin: 11/10/20 07:22 Dose: 1 each Documented by: Digoxin (Digoxin 125 Mcg Tablet) 125 mcg PO DAILY@1400 [facility] Last Admin: 11/09/20 16:40 Dose: Not Given Documented by: Docusate Sodium (Docusate Sodium 100 Mg Capsule) 100 mg PO BID [facility] Last Admin: 11/09/20 21:52 Dose: 100 mg Documented by: Gabapentin (Gabapentin 300 Mg Capsule) 300 mg PO BID [facility] Last Admin: 11/09/20 21:52 Dose: 300 mg Documented by: Glucose (Dextrose 31 Gm Oral.Susp) 15 gm PO PRN PRN PRN Reason: Hypoglycemia Hydromorphone HCl (Hydromorphone 0.5 Mg/0.5 Ml Syringe) 0.5 mg IV Q2HP PRN; Protocol PRN Reason: Per Pain Protocol Last Admin: 11/08/20 19:27 Dose: 0.5 mg Documented by: Piperacillin Sod/Tazobactam (Sod 2.25 gm/ Dextrose) 50 mls @ 100 mls/hr IV Q6H [facility] Last Admin: 11/10/20 05:52 Dose: 100 mls/hr Documented by: Insulin Human Lispro (Insulin Lispro 1 Unit/0.01 Ml Unit) 0 unit SQ [facility]; Protocol Last Admin: 11/10/20 07:23 Dose: Not Given Documented by: Levothyroxine Sodium (Levothyroxine Sodium 112 Mcg Tablet) [facility] Last Admin: 11/10/20 07:18 Dose: 112 mcg Documented by: Metoprolol Tartrate (Metoprolol Tartrate 25 Mg Tablet) 25 mg PO BID [facility] Last Admin: 11/09/20 21:52 Dose: 25 mg Documented by: Metoprolol Tartrate (Metoprolol Tartrate 5 Mg/5 Ml Vial) 5 mg IV Q2HP PRN PRN Reason: Tachyarrhythmias HR>110 Ondansetron HCl (Ondansetron 4 Mg/2 Ml Vial) 4 mg IV Q6HP PRN PRN Reason: Nausea And Vomiting Oxycodone HCl (Oxycodone Hcl 5 Mg Tablet) 10 mg PO Q4HP PRN; Protocol PRN Reason: Per Pain Protocol Last Admin: 11/09/20 10:58 Dose: 10 mg Documented by: Pantoprazole Sodium (Pantoprazole 40 Mg Tablet) 40 mg PO QAMAC [facility] Last Admin: 11/10/20 07:18 Dose: 40 mg Documented by: Polyethylene Glycol (Polyethylene Glycol 3350 17 Gm Packet) 17 gm PO DAILYP PRN PRN Reason: Constipation Last Admin: 11/09/20 17:05 Dose: 17 gm Documented by: Senna (Sennosides 1 Tablet) 2 tab PO HS [facility] Last Admin: 11/09/20 21:51 Dose: 2 tab Documented by: Sodium Chloride (0.9 % Sodium Chloride 10 Ml Syringe) 10 ml IV Q8 [facility] Last Admin: 11/10/20 04:15 Dose: 10 ml Documented by: Terazosin HCl (Terazosin 1 Mg Capsule) 2 mg PO QDAY [facility] Last Admin: 11/09/20 10:49 Dose: Not Given Documented by: Trazodone HCl (Trazodone Hcl 100 Mg Tablet) 100 mg PO HSP PRN PRN Reason: Insomnia Last Admin: 11/10/20 02:53 Dose: 100 mg Documented by: Vancomycin HCl (Vancomycin Per Pharmacy) 1 order IV UD [facility] A/P Narrative A/P Narrative: A: *Aflutter w/RVR vs SVT: stable -pt takes digoxin and toprol at home *infected RLE hematoma w/cellulitis: *Hypotension: pt typically runs low per BP reading history and per pt -improved *CAD w/CABG in 1991: *h/o dCHF: *CKD IV: *Anemia, acute on chronic from blood loss - hematoma: stable *HTN: on BB/ACEI/lasix *Hypothyroidism: Continue levothyroxine *DM: *GERD: P: -cont lopressor, cont digoxin. hold ACEI/lasix for low bp (chronically low), restart depending on BP prior to d/c -abx per surgery -xaralto for hematoma/anemia -SSI -pt/ot -ppx: scd to left leg / home ppi Time Spent With Patient Time: Total time spent is greater than 50% in coordination of care (as documented) at patient's floor/unit and/or counseling patient: QUALITY VTE Deep Vein Thrombosis/Pulmonary Embolism Present on Admission: No
[2020-11-10] MEDS: GABAPENTIN 300 MG CAPSULE PO SCH ×2 (08:43→20:35)
[2020-11-10] MEDS: TERAZOSIN 1 MG CAPSULE PO SCH (08:43)
[2020-11-10] MEDS: DOCUSATE SODIUM 100 MG CAPSULE PO SCH ×2 (08:43→20:35)
[2020-11-10] MEDS: METOPROLOL TARTRATE 25 MG TABLET PO SCH ×2 (08:43→20:35)
[2020-11-10 10:42] LABS: Blood Urea Nitrogen 32 mg/dL (8-23); Calcium 8.9 mg/dL (8.6-10.4); Carbon Dioxide 28 mmol/L (22-30); Chloride 106 mmol/L (96-108); Glomerular Filtration Rate 40; Glucose 87 mg/dL (70-105)
--- NOTE | 2020-11-10 11:13 | General Surgery Progress Note ---
SUBJECTIVE Subjective Patient information: Note initiated : 11/10/20 at 11:08 am Service Date, if different from initiated Date: [] Patient: Abhi Randle 80 y/o M admitted on 11/06/20 for Rt Leg Swelling. Chief Complaint: [] Principal diagnosis: Hematoma right lower extremity Interval history: Patient continues to do well. He is intermittently confused but this is his baseline. He is afebrile. White blood count is normal at 9.4. Hematocrit is stable. He denies chest pain or palpitations. The pain in his leg is improved Constitutional Vitals: Vital Signs Temp Pulse Resp BP Pulse Ox 97.0 F 108 H 20 121/67 94 11/10/20 07:57 11/10/20 07:57 11/10/20 07:57 11/10/20 07:57 11/10/20 07:57 Period Temp Pulse Resp BP Sys/Sagastume Pulse Ox Last 24 Hr 97.0 F-98.9 F 57-108 16-20 97-125/54-75 92-95 Intake and Output 11/09/20 11/10/20 11/10/20 21:59 05:59 13:59 Intake Total 100 530 Output Total 176 250 875 Balance -76 280 -875 Weight 249 lb 5 oz Intake & Output: Intake & Output 11/09/20 11/10/20 11/10/20 21:59 05:59 13:59 Intake Total 100 530 Output Total 176 250 875 Balance -76 280 -875 Weight 249 lb 5 oz Intake: IV 100 50 Zosyn 2.25 gm In Dextrose 5% in 100 50 Water 50 ml @ 100 mls/hr IV Q6H [facility] Rx#:[id number] Oral 480 Output: Void Amount 175 250 875 # of times incontinent of urine 1 Other: Meal Lunch Percent of Meal Consumed 0% Urine Appearance Clear Clear Urine Color Bright Yellow Dark Yellow Bright Yellow Urine Odor Strong Normal # Voids 1 ENT Additional comments: Poor dentition Neck Neck exam: Present full ROM and normal inspection; Absent tenderness Respiratory Respiratory exam: Present normal respiratory exam and CTAB; Absent rales, rhonchi and wheezes Cardiovascular Cardiovascular exam: Present normal rate and rhythm, +S1 and +S2; Absent tachycardia GI/Abdominal GI/Abdominal exam: Present normal bowel sounds and soft Extremities Exam Extremities exam: Present calf tenderness, joint swelling, pedal edema and tenderness Neurological Exam Neurological exam: Present abnormal gait (Needs 1-2 person assist and front wheel walker for ambulation) and alert Psychiatric Psychiatric exam: Present anxious A/P Assessment and plan (1) Hematoma of right lower leg: Status: Acute (2) Lower extremity weakness: Status: Acute (3) DMII (diabetes mellitus, type 2): Status: Acute (4) Atrial fibrillation: Status: Acute Narrative A/P Narrative: Discontinue vancomycin since cultures are negative Continue Zosyn Plan for transfer to [facility] hopefully on Thursday Time Spent With Patient Time: Total time spent is greater than 50% in coordination of care (as documented) at patient's floor/unit and/or counseling patient:
[2020-11-10] MEDS: DIGOXIN 125 MCG TABLET PO SCH (17:08)
[2020-11-10] MEDS: SENNOSIDES 1 TABLET PO SCH (20:35)
[2020-11-10] MEDS: oxyCODONE HCL 5 MG TABLET PO PRN (22:51)
[2020-11-11] MEDS: PIPERACILLIN SODIUM/TAZOBACTAM 2.25 GM in DEXTROSE 5% IN WATER 50 ML IV SCH ×4 (00:33→18:08)
[2020-11-11] MEDS: HYDROmorphone 0.5 MG/0.5 ML SYRINGE IV PRN (00:34)
[2020-11-11] MEDS: 0.9 % SODIUM CHLORIDE 10 ML SYRINGE IV SCH ×3 (05:33→20:48)
[2020-11-11] MEDS: LEVOTHYROXINE SODIUM 112 MCG TABLET PO SCH (07:15)
[2020-11-11] MEDS: PANTOPRAZOLE 40 MG TABLET PO SCH (07:15)
[2020-11-11] MEDS: INSULIN LISPRO 1 UNIT/0.01 ML UNIT SQ SCH ×4 (07:18→20:09)
[2020-11-11] MEDS: METOPROLOL TARTRATE 25 MG TABLET PO SCH ×2 (07:59→20:02)
[2020-11-11] MEDS: TERAZOSIN 1 MG CAPSULE PO SCH (07:59)
[2020-11-11] MEDS: DOCUSATE SODIUM 100 MG CAPSULE PO SCH ×2 (07:59→20:02)
[2020-11-11] MEDS: GABAPENTIN 300 MG CAPSULE PO SCH ×2 (07:59→20:03)
--- NOTE | 2020-11-11 08:21 | Internal Med Progress Note ---
SUBJECTIVE Subjective Patient information: Note initiated : 11/11/20 at 8:17 am Service Date, if different from initiated Date: [] Patient: Abhi Randle 80 y/o M admitted on 11/06/20 for Rt Leg Swelling. Chief Complaint: [] Principal diagnosis: Hematoma right lower extremity Interval history: Patient presented to the ED yesterday for right leg swelling pain after a fall several weeks ago. Work-up revealed what was felt to be a infected hematoma. Over the past 3 days has become increasingly red and painful and swollen. Blood pressures have been soft since he arrived in the ED and systolics in the 80s. Looks like he is commonly a low will looking at old in the 80s and 90s looking at old blood pressure trends. May need oxygen upon discharge t patient had an I&D today and during the episode his heart rate went to 180 and he had a drop in blood pressure. He was given IV esmolol which resolved the tachycardia. Patient is now in the PACU and denies any chest pain shortness of breath. Systolic blood pressure in around 100. Heart rate 90. 8/5 Patient feeling a lot better today. Heart rate stable. No new complaints overnight events. 8/6 Feels well. No new complaints. No dizziness or lightheadedness. Heart rate stable. 8/7 Feeling well. No new complaints. H&H stable. Awaiting chemistry panel. 11/11 No pains or complaints. Confusion overnight per nurse. Answering questions appropriately this morning to me. Review of Systems: denies headache/fever/chills/nausea/vomiting/chest or abdominal pain/cough/dyspnea/diarrhea. Otherwise see above. Constitutional Vitals: Vital Signs Temp Pulse Resp BP Pulse Ox 97.5 F 98 H 18 104/63 92 11/11/20 07:34 11/11/20 07:34 11/11/20 07:34 11/11/20 07:34 11/11/20 07:34 Period Temp Pulse Resp BP Sys/Sagastume Pulse Ox Last 24 Hr 97.5 F-100.0 F 95-107 18-20 104-145/62-74 91-94 Intake and Output 11/10/20 11/11/20 11/11/20 21:59 05:59 13:59 Intake Total 410 530 50 Output Total 903 550 Balance -493 -20 50 Weight 106.095 kg Intake & Output: Intake & Output 11/10/20 11/11/20 11/11/20 21:59 05:59 13:59 Intake Total 410 530 50 Output Total 903 550 Balance -493 -20 50 Weight 106.095 kg Intake: IV 50 50 50 Zosyn 2.25 gm In Dextrose 5% in 50 50 50 Water 50 ml @ 100 mls/hr IV Q6H [facility] Rx#:[id number] Oral 360 480 Output: Void Amount 900 550 # of times incontinent of urine 3 Other: Meal Dinner Percent of Meal Consumed 25% Feeding Ability Independent Urine Appearance Clear Urine Color Dark Yellow Dark Yellow Urine Odor Strong Strong Stool Size Large Stool Color Brown Stool Consistency Formed # Voids 2 # of times incontinent of 1 Bowels Exam: General: Alert, Awake, No acute Distress Eyes/N/T: EOMI, Head/Neck: neck supple, CV: regular with irregularity, 2/6 SM, Pulm: Clear b/l, no wheezing/rhonchi/rales Abd: soft, nontender, +BS x4 Ext: no clubbing/cyanosis/edema. RLE in dressings Neuro: Alert, no focal deficits, moves all extremities, Skin: warm/dry OBJ DATA Labs CBC & Chem 7: 11/10/20 05:17 11/10/20 05:17 Labs: Abnormal Lab Results 11/10/20 11/10/20 11/09/20 05:17 05:17 05:16 RBC 3.08 L 2.72 L Hgb 9.6 L 8.5 L Hct 31.6 L 28.2 L MCV 102.6 H 103.7 H MCHC 30.4 L 30.1 L MPV 10.8 H 11.2 H Neut % (Auto) Lymph % (Auto) Lymph # (Auto) Lynn # (Auto) 0.95 H Potassium Anion Gap 7.0 L BUN 32 H Creatinine 1.6 H Calcium Direct Bilirubin 11/08/20 11/08/20 08:31 08:31 RBC 2.89 L Hgb 9.2 L Hct 29.0 L MCV 100.3 H MCHC MPV 11.1 H Neut % (Auto) 82.1 H Lymph % (Auto) 9.9 L Lymph # (Auto) 0.96 L Lynn # (Auto) Potassium 5.2 H Anion Gap BUN 41 H Creatinine 1.7 H Calcium 8.3 L Direct Bilirubin 0.3 H Meds: Medications Albuterol Sulfate (Albuterol Sulfate 200 Puff Inhaler) 1 puff INH Q4HP PRN PRN Reason: shortness of breath Dextrose (Dextrose 50% 50 Ml Vial) 0 ml IV UD PRN PRN Reason: Hypoglycemia Diagnostic Test (Pha) (Accu-Chek 1 Each Strip) 1 each FS [facility] Last Admin: 11/11/20 07:18 Dose: 1 each Documented by: Digoxin (Digoxin 125 Mcg Tablet) 125 mcg PO DAILY@1400 [facility] Last Admin: 11/10/20 17:08 Dose: 125 mcg Documented by: Docusate Sodium (Docusate Sodium 100 Mg Capsule) 100 mg PO BID [facility] Last Admin: 11/11/20 07:59 Dose: 100 mg Documented by: Gabapentin (Gabapentin 300 Mg Capsule) 300 mg PO BID [facility] Last Admin: 11/11/20 07:59 Dose: 300 mg Documented by: Glucose (Dextrose 31 Gm Oral.Susp) 15 gm PO PRN PRN PRN Reason: Hypoglycemia Hydromorphone HCl (Hydromorphone 0.5 Mg/0.5 Ml Syringe) 0.5 mg IV Q2HP PRN; Protocol PRN Reason: Per Pain Protocol Last Admin: 11/11/20 00:34 Dose: 0.5 mg Documented by: Piperacillin Sod/Tazobactam (Sod 2.25 gm/ Dextrose) 50 mls @ 100 mls/hr IV Q6H [facility] Last Infusion: 11/11/20 06:09 Dose: Infused Documented by: Insulin Human Lispro (Insulin Lispro 1 Unit/0.01 Ml Unit) 0 unit SQ [facility]; Protocol Last Admin: 11/11/20 07:18 Dose: Not Given Documented by: Levothyroxine Sodium (Levothyroxine Sodium 112 Mcg Tablet) 112 mcg PO QAMAC [facility] Last Admin: 11/11/20 07:15 Dose: 112 mcg Documented by: Metoprolol Tartrate (Metoprolol Tartrate 25 Mg Tablet) 25 mg PO BID [facility] Last Admin: 11/11/20 07:59 Dose: 25 mg Documented by: Metoprolol Tartrate (Metoprolol Tartrate 5 Mg/5 Ml Vial) 5 mg IV Q2HP PRN PRN Reason: Tachyarrhythmias HR>110 Ondansetron HCl (Ondansetron 4 Mg/2 Ml Vial) 4 mg IV Q6HP PRN PRN Reason: Nausea And Vomiting Oxycodone HCl (Oxycodone Hcl 5 Mg Tablet) 10 mg PO Q4HP PRN; Protocol PRN Reason: Per Pain Protocol Last Admin: 11/10/20 22:51 Dose: 10 mg Documented by: Pantoprazole Sodium (Pantoprazole 40 Mg Tablet) 40 mg PO QAMAC [facility] Last Admin: 11/11/20 07:15 Dose: 40 mg Documented by: Polyethylene Glycol (Polyethylene Glycol 3350 17 Gm Packet) 17 gm PO DAILYP PRN PRN Reason: Constipation Last Admin: 11/09/20 17:05 Dose: 17 gm Documented by: Senna (Sennosides 1 Tablet) 2 tab PO HS [facility] Last Admin: 11/10/20 20:35 Dose: 2 tab Documented by: Sodium Chloride (0.9 % Sodium Chloride 10 Ml Syringe) 10 ml IV Q8 [facility] Last Admin: 11/11/20 05:33 Dose: 10 ml Documented by: Terazosin HCl (Terazosin 1 Mg Capsule) 2 mg PO QDAY [facility] Last Admin: 11/11/20 07:59 Dose: 2 mg Documented by: Trazodone HCl (Trazodone Hcl 100 Mg Tablet) 100 mg PO HSP PRN PRN Reason: Insomnia Last Admin: 11/10/20 22:51 Dose: 100 mg Documented by: A/P Narrative A/P Narrative: A: *Aflutter w/RVR vs SVT episode (no strips) intraop: stable -pt takes digoxin and toprol at home *infected RLE hematoma w/cellulitis: *Hypotension: pt typically runs low per BP reading history and per pt -improved *CAD w/CABG in 1991: *h/o dCHF: *CKD IV: *Anemia, acute on chronic from blood loss - hematoma: stable *HTN: on BB/ACEI/lasix *Hypothyroidism: Continue levothyroxine *DM: *GERD: P: -cont lopressor, cont digoxin. hold ACEI/lasix for low bp (chronically low), restart upon d/c if BP increases enough otherwise hold -abx per surgery -xaralto for hematoma/anemia -SSI -pt/ot -ppx: scd to left leg / home ppi Time Spent With Patient Time: Total time spent is greater than 50% in coordination of care (as documented) at patient's floor/unit and/or counseling patient: QUALITY VTE Deep Vein Thrombosis/Pulmonary Embolism Present on Admission: No
[2020-11-11 10:10] LABS: Basophils # (Auto) 0.03 K/mcL (0.00-0.20); Basophils % (Auto) 0.3 % (0.0-2.0); Eosinophils % (Auto) 3.5 % (0.0-7.0); Hematocrit 28.8 % (41.0-55.0); Hemoglobin 9.2 g/dL (13.5-16.5); Lymphocytes # (Auto) 2.19 K/mcL (1.50-4.80); Lymphocytes % (Auto) 25.4 % (15.0-49.0); Mean Corpuscular HGB Conc 31.9 g/dL (31.0-36.0); Mean Platelet Volume 11.4 fL (7.4-10.4); Monocytes # (Auto) 0.88 K/mcL (0.10-0.90); Monocytes % (Auto) 10.2 % (1.0-12.0); Neutrophils % (Auto) 60.6 % (38.0-78.0); Platelet Count 172 K/mcL (140-440); RBC 2.97 M/mcL (4.50-5.90); Red Cell Distribution Width 13.9 % (11.5-14.5); WBC 8.6 K/mcL (4.5-11.0)
--- NOTE | 2020-11-11 11:41 | General Surgery Progress Note ---
SUBJECTIVE Subjective Patient information: Note initiated : 11/11/20 at 11:36 am Service Date, if different from initiated Date: [] Patient: Abhi Randle 80 y/o M admitted on 11/06/20 for Rt Leg Swelling. Chief Complaint: [] Principal diagnosis: Hematoma right lower extremity Interval history: Patient continues to do well. He has less pain. There is decreased drainage from his leg incision. Edema of his extremities is significantly improved. White blood count 8.6, hemoglobin 9.2, hematocrit 28.8. Patient does not have any chest pain or shortness of breath. Discussed with him the plan to close his incision tomorrow with placement of the percutaneous drain to facilitate healing. Constitutional Vitals: Vital Signs Temp Pulse Resp BP Pulse Ox 97.5 F 98 H 18 104/63 92 11/11/20 07:34 11/11/20 07:34 11/11/20 07:34 11/11/20 07:34 11/11/20 07:34 Period Temp Pulse Resp BP Sys/Sagastume Pulse Ox Last 24 Hr 97.5 F-100.0 F 95-107 18-20 104-145/62-74 91-94 Intake and Output 11/10/20 11/11/20 11/11/20 21:59 05:59 13:59 Intake Total 410 530 170 Output Total 903 550 1 Balance -493 -20 169 Weight 233 lb 14.4 oz Intake & Output: Intake & Output 11/10/20 11/11/20 11/11/20 21:59 05:59 13:59 Intake Total 410 530 170 Output Total 903 550 1 Balance -493 -20 169 Weight 233 lb 14.4 oz Intake: IV 50 50 50 Zosyn 2.25 gm In Dextrose 5% in 50 50 50 Water 50 ml @ 100 mls/hr IV Q6H [facility] Rx#:[id number] Oral 360 480 120 Output: Void Amount 900 550 # of times incontinent of urine 3 1 Other: Meal Dinner Breakfast Percent of Meal Consumed 25% 100% Feeding Ability Independent Independent Urine Appearance Clear Urine Color Dark Yellow Dark Yellow Urine Odor Strong Strong Stool Size Large Smear Stool Color Brown Brown Stool Consistency Formed # Voids 2 1 # Bowel Movements 1 # of times incontinent of 1 Bowels Head Head exam: Present atraumatic, normal inspection and normocephalic Eye Eye exam: Present EOMI and PERRL Pupils: Present normal accommodation ENT Additional comments: Poor dentition Neck Neck exam: Present full ROM and normal inspection; Absent tenderness Respiratory Respiratory exam: Present normal respiratory exam and CTAB; Absent rales, rhonchi and wheezes Cardiovascular Cardiovascular exam: Present normal rate and rhythm, +S1 and +S2; Absent tachycardia GI/Abdominal GI/Abdominal exam: Present normal bowel sounds and soft Extremities Exam Extremities exam: Present calf tenderness, joint swelling, pedal edema and tenderness Additional comments: Incision lateral aspect of calf, right side is clean without significant drainage; edema and induration is significantly improved Neurological Exam Neurological exam: Present abnormal gait (Needs 1-2 person assist and front wheel walker for ambulation) and alert Psychiatric Psychiatric exam: Present flat affect Skin Additional comments: Moderately severe stasis edema and dermatitis bilateral lower extremities A/P Assessment and plan (1) Hematoma of right lower leg: Status: Acute (2) Lower extremity weakness: Status: Acute (3) DMII (diabetes mellitus, type 2): Status: Acute (4) Atrial fibrillation: Status: Acute Narrative A/P Narrative: Patient is clinically improved. Will make plans for secondary closure of his right leg wound in the morning Time Spent With Patient Time: Total time spent is greater than 50% in coordination of care (as documented) at patient's floor/unit and/or counseling patient:
[2020-11-11] MEDS: DIGOXIN 125 MCG TABLET PO SCH (15:14)
[2020-11-11] MEDS: oxyCODONE HCL 5 MG TABLET PO PRN (19:19)
[2020-11-11] MEDS: SENNOSIDES 1 TABLET PO SCH (20:02)
[2020-11-12] MEDS: PIPERACILLIN SODIUM/TAZOBACTAM 2.25 GM in DEXTROSE 5% IN WATER 50 ML IV SCH ×5 (00:07→21:01)
[2020-11-12] MEDS: oxyCODONE HCL 5 MG TABLET PO PRN (00:13)
[2020-11-12] MEDS: traZODone HCL 100 MG TABLET PO PRN ×2 (00:14→22:15)
[2020-11-12] MEDS: 0.9 % SODIUM CHLORIDE 10 ML SYRINGE IV SCH ×3 (05:52→21:45)
[2020-11-12] MEDS: GABAPENTIN 300 MG CAPSULE PO SCH ×2 (08:35→20:56)
[2020-11-12] MEDS: PANTOPRAZOLE 40 MG TABLET PO SCH (08:35)
[2020-11-12] MEDS: LEVOTHYROXINE SODIUM 112 MCG TABLET PO SCH (08:35)
[2020-11-12] MEDS: INSULIN LISPRO 1 UNIT/0.01 ML UNIT SQ SCH ×4 (09:04→21:01)
[2020-11-12] MEDS: DOCUSATE SODIUM 100 MG CAPSULE PO SCH ×2 (09:05→22:16)
[2020-11-12] MEDS: METOPROLOL TARTRATE 25 MG TABLET PO SCH ×2 (09:48→20:56)
[2020-11-12] MEDS: TERAZOSIN 1 MG CAPSULE PO SCH (09:49)
[2020-11-12] MEDS: HYDROmorphone 0.5 MG/0.5 ML SYRINGE IV PRN (11:21)
[2020-11-12] MEDS ORDERED: DEXAMETHASONE 10 MG/ML VIAL ONE ×2 (11:55→13:55)
[2020-11-12] MEDS ORDERED: KETAMINE 50 MG/ML Syringe (ANEST) ONE ×2 (11:55→13:55)
[2020-11-12] MEDS ORDERED: PHENYLephrine 1 MG/10 ML SYRINGE (ANEST) ONE (11:55)
[2020-11-12] MEDS ORDERED: ESMOLOL 100 MG/10 ML VIAL IV ONE (11:55)
[2020-11-12] MEDS ORDERED: fentaNYL 100 MCG/2 ML VIAL IV ONE (11:55)
[2020-11-12] MEDS ORDERED: ONDANSETRON 4 MG/2 ML VIAL ONE ×2 (11:55→13:55)
[2020-11-12] MEDS ORDERED: MAGNESIUM SULFATE 2 GM/50 ML BAG IV ONE ×2 (11:55→13:55)
[2020-11-12] MEDS ORDERED: LIDOCAINE HCL/PF 100 MG/5 ML SYRINGE IV ONE ×2 (11:55→13:55)
[2020-11-12] MEDS ORDERED: SCOPOLAMINE 1 PATCH PATCH TOPICAL PRN (12:00)
[2020-11-12] MEDS ORDERED: IPRATROPIUM/ALBUTEROL 3 ML AMPUL.NEB NEB PRN ×2 (12:00→12:50)
[2020-11-12] MEDS ORDERED: GENTAMICIN SULFATE 800 MG/20 ML VIAL IR ONE (12:20)
[2020-11-12] MEDS ORDERED: VANCOMYCIN 1 GM VIAL TOPICAL SCH (12:30)
--- NOTE | 2020-11-12 12:39 | Brief Operative Note ---
Brief Operative Note Date of procedure: 11/12/20 Pre-op diagnosis: infected hematoma right calf Post-op diagnosis: other (infected hematoma right leg ) Procedure: secondary closure of surgical incision of right calf 10 cm with drain Grafts/Implants: No (immanuel drain x1) Anesthesia: GLMA Complications: none Surgeon: Paige Yung Estimated blood loss (cc): 10 Specimens Removed/Pathology: none sent Condition: stable Disposition: PACU
[2020-11-12] MEDS ORDERED: VANCOMYCIN 1 GM VIAL TOPICAL ONE ×2 (12:45→13:55)
[2020-11-12] MEDS ORDERED: ePHEDrine 50 MG/ML AMPUL IV PRN (12:50)
[2020-11-12] MEDS ORDERED: MEPERIDINE 25 MG/ML VIAL IV PRN (12:50)
[2020-11-12] MEDS ORDERED: METHOCARBAMOL 1,000 MG/10 ML VIAL IV PRN (12:50)
[2020-11-12] MEDS ORDERED: diphenhydrAMINE 50 MG/ML VIAL IV PRN ×2 (12:50→18:37)
[2020-11-12] MEDS ORDERED: ATROPINE SULFATE 0.4 MG/ML VIAL IV PRN (12:50)
[2020-11-12] MEDS ORDERED: NALOXONE HCL 0.4 MG/ML VIAL IV PRN (12:50)
[2020-11-12] MEDS ORDERED: fentaNYL 100 MCG/2 ML VIAL IV PRN (12:50)
[2020-11-12] MEDS ORDERED: FLUMAZENIL 0.1 MG/ML ML IV PRN (12:50)
[2020-11-12] MEDS ORDERED: LACTATED RINGERS 1,000 ML IV SCH (13:00)
[2020-11-12] MEDS ORDERED: PROPOFOL 200 MG/20 ML VIAL IV ONE (13:55)
[2020-11-12] MEDS ORDERED: METOPROLOL TARTRATE 5 MG/5 ML VIAL IV PRN (13:55)
[2020-11-12] MEDS ORDERED: DEXTROSE 50% 50 ML VIAL IV PRN (13:55)
[2020-11-12] MEDS ORDERED: ONDANSETRON 4 MG/2 ML VIAL IV PRN (13:55)
[2020-11-12] MEDS ORDERED: ALBUTEROL SULFATE 200 PUFF INHALER INH PRN (13:55)
[2020-11-12] MEDS ORDERED: oxyCODONE HCL 5 MG TABLET PO PRN (13:55)
[2020-11-12] MEDS ORDERED: DEXTROSE 31 GM ORAL.SUSP PO PRN (13:55)
[2020-11-12] MEDS ORDERED: POLYETHYLENE GLYCOL 3350 17 GM PACKET PO PRN (13:55)
[2020-11-12] MEDS ORDERED: HYDROmorphone 0.5 MG/0.5 ML SYRINGE IV PRN (13:55)
[2020-11-12] MEDS: DIGOXIN 125 MCG TABLET PO SCH (15:44)
--- NOTE | 2020-11-12 16:09 | Operative Note ---
DATE OF OPERATION: 11/12/2020 PREOPERATIVE DIAGNOSIS: Infected hematoma, right calf. POSTOPERATIVE DIAGNOSIS: Infected hematoma, right calf. PROCEDURE: Secondary closure of surgical incision of right calf 10 cm with drain placement. SURGEON: Paige Yung M.D. FINDINGS: The patient had inflammatory granulation tissue with some organizing hematoma, but otherwise the wound appeared to be clean. DESCRIPTION OF PROCEDURE: The wound was copiously irrigated with vancomycin-gentamicin solution. A #7 Deon drain was placed in the deep subcutaneous tissue along the fascia. Subcutaneous tissue was closed with 2-0 Monocryl. The skin was closed with interrupted [id number] sutures of 2-0 Prolene. The drain was secured with 2-0 nylon. The patient tolerated the procedure well. Sterile dressing was placed. He was awakened, transferred to a bed, and taken to the postanesthetic care unit in satisfactory condition. LCS:bertha Job ID: [id number] Doc ID: [id number] Paige Yung M.D.
--- NOTE | 2020-11-12 17:10 | Internal Med Progress Note ---
SUBJECTIVE Subjective Patient information: Note initiated : 11/12/20 at 5:04 pm Service Date, if different from initiated Date: [] Patient: Abhi Randle 80 y/o M admitted on 11/06/20 for Rt Leg Swelling. Chief Complaint: [infected hematoma, right calf] Interval history: Patient presented to the ED yesterday for right leg swelling pain after a fall several weeks ago. Work-up revealed what was felt to be a infected hematoma. Over the past 3 days has become increasingly red and painful and swollen. Blood pressures have been soft since he arrived in the ED and systolics in the 80s. Looks like he is commonly a low will looking at old in the 80s and 90s looking at old blood pressure trends. May need oxygen upon discharge t patient had an I&D today and during the episode his heart rate went to 180 and he had a drop in blood pressure. He was given IV esmolol which resolved the tachycardia. Patient is now in the PACU and denies any chest pain shortness of breath. Systolic blood pressure in around 100. Heart rate 90. 8/5 Patient feeling a lot better today. Heart rate stable. No new complaints overnight events. 8/6 Feels well. No new complaints. No dizziness or lightheadedness. Heart rate stable. 8/7 Feeling well. No new complaints. H&H stable. Awaiting chemistry panel. 11/11 No pains or complaints. Confusion overnight per nurse. Answering questions appropriately this morning to me. 11/12: s/p secondary closure of the right knee with LAURYN drain placement by Dr. Yung earlier today. Afebrile overnight. Cannot get further subjective due to clinical situations. Principal diagnosis: Hematoma right lower extremity Constitutional Vitals: Vital Signs Temp Pulse Resp BP Pulse Ox 36.8 C 95 H 18 122/74 99 11/12/20 12:46 11/12/20 13:32 11/12/20 13:31 11/12/20 13:31 11/12/20 14:10 Period Temp Pulse Resp BP Sys/Sagastume Pulse Ox Last 24 Hr 36.7 C-37.5 C 94-105 9-34 84-122/51-79 89-100 Intake and Output 11/12/20 11/12/20 11/12/20 05:59 13:59 21:59 Intake Total 50 980 Output Total 300 360 300 Balance -250 620 -300 Weight 113.625 kg Patient Weight 11/13/20 05:59 Weight 113.625 kg Intake & Output: Intake & Output 11/12/20 11/12/20 11/12/20 05:59 13:59 21:59 Intake Total 50 980 Output Total 300 360 300 Balance -250 620 -300 Weight 113.625 kg Intake: IV 50 100 Zosyn 2.25 gm In Dextrose 5% in 50 100 Water 50 ml @ 100 mls/hr IV Q6H COUNTS INCLUDE 234 BEDS AT THE [facility] Rx#:[id number] Oral 480 IV - Manual Only 400 Output: Void Amount 300 360 300 Other: Urine Appearance Clear Urine Color Dark Yellow Bright Yellow Urine Odor Strong General appearance: cooperative and no acute distress Head Head exam: Present atraumatic and normocephalic Eye Eye exam: Present EOMI and PERRL ENT ENT exam: Present mucous membranes moist, normal exam and normal external ear exam Neck Neck exam: Present normal inspection; Absent lymphadenopathy, tenderness and thyromegaly Respiratory Respiratory exam: Absent accessory muscle use, respiratory distress and wheezes Cardiovascular Cardiovascular exam: Present normal rate and rhythm and irregular rhythm; Absent JVD GI/Abdominal GI/Abdominal exam: Present normal bowel sounds and soft; Absent organomegaly and tenderness Rectal Rectal exam: Present deferred Extremities Exam Extremities exam: Present normal capillary refill; Absent full ROM, normal inspection and tenderness Additional comments: Right knee covered by surgical wound with LAURYN drain in place Neurological Exam Neurological exam: Present alert, CN II-XII intact and oriented X3; Absent motor sensory deficit Psychiatric Psychiatric exam: Present normal affect and normal mood; Absent anxious and depressed Skin Skin exam: Present dry and intact OBJ DATA Labs CBC & Chem 7: 11/11/20 05:45 11/10/20 05:17 Labs: Abnormal Lab Results 11/11/20 11/10/20 11/10/20 05:45 05:17 05:17 RBC 2.97 L 3.08 L Hgb 9.2 L 9.6 L Hct 28.8 L 31.6 L MCV 102.6 H MCHC 30.4 L MPV 11.4 H 10.8 H Yuba # (Auto) 0.95 H Anion Gap 7.0 L BUN 32 H Creatinine 1.6 H Meds: Medications Albuterol Sulfate (Albuterol Sulfate 200 Puff Inhaler) 1 puff INH Q4HP PRN PRN Reason: shortness of breath Dextrose (Dextrose 50% 50 Ml Vial) 0 ml IV UD PRN PRN Reason: Hypoglycemia Diagnostic Test (Pha) (Accu-Chek 1 Each Strip) 1 each FS ACHS COUNTS INCLUDE 234 BEDS AT THE [facility] Digoxin (Digoxin 125 Mcg Tablet) 125 mcg PO DAILY@1400 COUNTS INCLUDE 234 BEDS AT THE [facility] Last Admin: 11/12/20 15:44 Dose: 125 mcg Documented by: Docusate Sodium (Docusate Sodium 100 Mg Capsule) 100 mg PO BID [facility] Gabapentin (Gabapentin 300 Mg Capsule) 300 mg PO BID [facility] Glucose (Dextrose 31 Gm Oral.Susp) 15 gm PO PRN PRN PRN Reason: Hypoglycemia Hydromorphone HCl (Hydromorphone 0.5 Mg/0.5 Ml Syringe) 0.5 mg IV Q2HP PRN; Protocol PRN Reason: Per Pain Protocol Piperacillin Sod/Tazobactam (Sod 2.25 gm/ Dextrose) 50 mls @ 100 mls/hr IV Q6H COUNTS INCLUDE 234 BEDS AT THE [facility] Insulin Human Lispro (Insulin Lispro 1 Unit/0.01 Ml Unit) 0 unit SQ ACHS COUNTS INCLUDE 234 BEDS AT THE [facility]; Protocol Levothyroxine Sodium (Levothyroxine Sodium 112 Mcg Tablet) 112 mcg PO QAMAC [facility] Metoprolol Tartrate (Metoprolol Tartrate 25 Mg Tablet) 25 mg PO BID [facility] Metoprolol Tartrate (Metoprolol Tartrate 5 Mg/5 Ml Vial) 5 mg IV Q2HP PRN PRN Reason: Tachyarrhythmias HR>110 Ondansetron HCl (Ondansetron 4 Mg/2 Ml Vial) 4 mg IV Q6HP PRN PRN Reason: Nausea And Vomiting Oxycodone HCl (Oxycodone Hcl 5 Mg Tablet) 10 mg PO Q4HP PRN; Protocol PRN Reason: Per Pain Protocol Pantoprazole Sodium (Pantoprazole 40 Mg Tablet) 40 mg PO QAMAC COUNTS INCLUDE 234 BEDS AT THE [facility] Polyethylene Glycol (Polyethylene Glycol 3350 17 Gm Packet) 17 gm PO DAILYP PRN PRN Reason: Constipation Senna (Sennosides 1 Tablet) 2 tab PO HS COUNTS INCLUDE 234 BEDS AT THE [facility] Sodium Chloride (0.9 % Sodium Chloride 10 Ml Syringe) 10 ml IV Q8 COUNTS INCLUDE 234 BEDS AT THE [facility] Last Admin: 11/12/20 15:47 Dose: 10 ml Documented by: Terazosin HCl (Terazosin 1 Mg Capsule) 2 mg PO QDAY [facility] Trazodone HCl (Trazodone Hcl 100 Mg Tablet) 100 mg PO HSP PRN PRN Reason: Insomnia A/P Assessment and plan (1) DMII (diabetes mellitus, type 2): Status: Acute (2) Hypothyroidism (acquired): Status: Acute (3) Hypertension: Status: Acute Comment: Essential (4) Hyperlipemia: Status: Acute (5) Gastroesophageal reflux: Status: Acute (6) CAD (coronary artery disease): Status: Acute Comment: Post CABG (7) Chronic renal insufficiency: Status: Acute Comment: 02/02/2014 [facility] H&P (8) Anemia: Status: Acute (9) Atrial fibrillation: Status: Acute Narrative A/P Narrative: Assessment and Plans: 1. Atrial fibrillation: Metoprolol tartrate 25mg PO BID Digoxin [id number] score of 5 Will resume Xarelto when cleared by surgery Dr. Yung 2. Infected hematoma of the right knee: s/p secondary closure and LAURYN drain placement by Dr. Dilshad Mancera Planning to discharge to SNF when cleared by Dr. Yung 3. Hypothyroidism: Continue thyroid replacement therapy 4. T2DM: Euglycemic currently Continue insulin therapy 5. GERD: Continue oral PPI GI ppx: Continue oral PPI DVT ppx: Will resume Xarelto when cleared by surgery Dr. Yung Code status: Full Prognosis: guarded Disposition: inpatient med surg; pending SNF placement Time Spent With Patient Time: Total time spent is greater than 50% in coordination of care (as documented) at patient's floor/unit and/or counseling patient: Total time spent with greater than 50% in coordination of care (as documented) at patient's floor/unit and/or counseling patient:: 15 - 24 minutes QUALITY VTE Deep Vein Thrombosis/Pulmonary Embolism Present on Admission: No
[2020-11-12] MEDS: SENNOSIDES 1 TABLET PO SCH (22:16)
[2020-11-13] MEDS: PIPERACILLIN SODIUM/TAZOBACTAM 2.25 GM in DEXTROSE 5% IN WATER 50 ML IV SCH ×4 (00:49→17:47)
[2020-11-13] MEDS: 0.9 % SODIUM CHLORIDE 10 ML SYRINGE IV SCH ×3 (06:16→18:30)
[2020-11-13] MEDS: INSULIN LISPRO 1 UNIT/0.01 ML UNIT SQ SCH ×4 (07:57→20:56)
[2020-11-13] MEDS: PANTOPRAZOLE 40 MG TABLET PO SCH (07:58)
[2020-11-13] MEDS: LEVOTHYROXINE SODIUM 112 MCG TABLET PO SCH (07:58)
[2020-11-13] MEDS: TERAZOSIN 1 MG CAPSULE PO SCH (08:58)
[2020-11-13] MEDS: GABAPENTIN 300 MG CAPSULE PO SCH ×2 (08:58→20:56)
[2020-11-13] MEDS: DOCUSATE SODIUM 100 MG CAPSULE PO SCH ×2 (08:59→20:56)
[2020-11-13] MEDS: METOPROLOL TARTRATE 25 MG TABLET PO SCH ×2 (08:59→20:56)
--- NOTE | 2020-11-13 11:39 | Internal Med Progress Note ---
SUBJECTIVE Subjective Patient information: Note initiated : 11/13/20 at 11:35 am Service Date, if different from initiated Date: [] Patient: Abhi Randle 80 y/o M admitted on 11/06/20 for Rt Leg Swelling. Chief Complaint: [right knee hematoma infection] Interval history: Patient presented to the ED yesterday for right leg swelling pain after a fall several weeks ago. Work-up revealed what was felt to be a infected hematoma. Over the past 3 days has become increasingly red and painful and swollen. Blood pressures have been soft since he arrived in the ED and systolics in the 80s. Looks like he is commonly a low will looking at old in the 80s and 90s looking at old blood pressure trends. May need oxygen upon discharge t patient had an I&D today and during the episode his heart rate went to 180 and he had a drop in blood pressure. He was given IV esmolol which resolved the tachycardia. Patient is now in the PACU and denies any chest pain shortness of breath. Systolic blood pressure in around 100. Heart rate 90. 8/5 Patient feeling a lot better today. Heart rate stable. No new complaints overnight events. 8/ Feels well. No new complaints. No dizziness or lightheadedness. Heart rate stable. 8/ Feeling well. No new complaints. H&H stable. Awaiting chemistry panel. 11/11 No pains or complaints. Confusion overnight per nurse. Answering questions appropriately this morning to me. 11/12: s/p secondary closure of the right knee with LAURYN drain placement by Dr. Yung earlier today. Afebrile overnight. Cannot get further subjective due to clinical situations. 11/13: Afebrile overnight. Cannot get further subjective due to clinical situations. Principal diagnosis: Hematoma right lower extremity Constitutional Vitals: Vital Signs Temp Pulse Resp BP Pulse Ox 36.4 C 100 H 18 115/68 90 11/13/20 08:00 11/13/20 08:00 11/13/20 08:00 11/13/20 08:00 11/13/20 08:00 Period Temp Pulse Resp BP Sys/Sagastume Pulse Ox Last 24 Hr 36.1 C-36.8 C 67-100 9-34 84-122/51-79 89-100 Intake and Output 11/12/20 11/13/20 11/13/20 21:59 05:59 13:59 Intake Total 50 287 50 Output Total 300 701 Balance -250 -414 50 Weight 113.852 kg Intake & Output: Intake & Output 11/12/20 11/13/20 11/13/20 21:59 05:59 13:59 Intake Total 50 287 50 Output Total 300 701 Balance -250 -414 50 Weight 113.852 kg Intake: Nourishment/Supplement quantity 237 (ml) IV 50 50 50 Zosyn 2.25 gm In Dextrose 5% in 50 50 50 Water 50 ml @ 100 mls/hr IV Q6H [facility] Rx#:[id number] Output: Void Amount 300 700 # of times incontinent of urine 1 Other: Meal Nourishment/Supplement Percent of Meal Consumed 100% Nourishment/Supplement name Glucerna Urine Appearance Clear Urine Color Dark Yellow Dark Yellow Urine Odor Strong General appearance: cooperative and no acute distress Head Head exam: Present atraumatic and normocephalic Eye Eye exam: Present EOMI and PERRL ENT ENT exam: Present mucous membranes moist, normal exam and normal external ear exam Neck Neck exam: Present normal inspection; Absent lymphadenopathy, tenderness and thyromegaly Respiratory Respiratory exam: Absent accessory muscle use, respiratory distress and wheezes Cardiovascular Cardiovascular exam: Present irregular rhythm; Absent JVD GI/Abdominal GI/Abdominal exam: Present normal bowel sounds and soft; Absent organomegaly and tenderness Rectal Rectal exam: Present deferred Extremities Exam Extremities exam: Present full ROM, normal capillary refill and normal inspe ction; Absent tenderness Additional comments: Right knee wrapped with surgical dressing with LAURYN drain in place Neurological Exam Neurological exam: Present alert, CN II-XII intact and oriented X3; Absent motor sensory deficit Psychiatric Psychiatric exam: Present normal affect and normal mood; Absent anxious and depressed Skin Skin exam: Present dry and intact OBJ DATA Labs CBC & Chem 7: 11/11/20 05:45 11/10/20 05:17 Labs: Abnormal Lab Results 11/11/20 05:45 RBC 2.97 L Hgb 9.2 L Hct 28.8 L MPV 11.4 H Meds: Medications Albuterol Sulfate (Albuterol Sulfate 200 Puff Inhaler) 1 puff INH Q4HP PRN PRN Reason: shortness of breath Dextrose (Dextrose 50% 50 Ml Vial) 0 ml IV UD PRN PRN Reason: Hypoglycemia Diagnostic Test (Pha) (Accu-Chek 1 Each Strip) 1 each FS [facility] Last Admin: 11/13/20 07:56 Dose: 1 each Documented by: Digoxin (Digoxin 125 Mcg Tablet) 125 mcg PO DAILY@1400 [facility] Last Admin: 11/12/20 15:44 Dose: 125 mcg Documented by: Diphenhydramine HCl (Diphenhydramine 50 Mg/Ml Vial) 50 mg IV Q4HP PRN PRN Reason: Agitation Docusate Sodium (Docusate Sodium 100 Mg Capsule) 100 mg PO BID [facility] Last Admin: 11/13/20 08:59 Dose: 100 mg Documented by: Gabapentin (Gabapentin 300 Mg Capsule) 300 mg PO BID [facility] Last Admin: 11/13/20 08:58 Dose: 300 mg Documented by: Glucose (Dextrose 31 Gm Oral.Susp) 15 gm PO PRN PRN PRN Reason: Hypoglycemia Hydromorphone HCl (Hydromorphone 0.5 Mg/0.5 Ml Syringe) 0.5 mg IV Q2HP PRN; Protocol PRN Reason: Per Pain Protocol Piperacillin Sod/Tazobactam (Sod 2.25 gm/ Dextrose) 50 mls @ 100 mls/hr IV Q6H [facility] Last Infusion: 11/13/20 09:03 Dose: Infused Documented by: Insulin Human Lispro (Insulin Lispro 1 Unit/0.01 Ml Unit) 0 unit SQ [facility]; Protocol Last Admin: 11/13/20 07:57 Dose: Not Given Documented by: Levothyroxine Sodium (Levothyroxine Sodium 112 Mcg Tablet) 112 mcg PO QAMAC [facility] Last Admin: 11/13/20 07:58 Dose: 112 mcg Documented by: Metoprolol Tartrate (Metoprolol Tartrate 25 Mg Tablet) 25 mg PO BID [facility] Last Admin: 11/13/20 08:59 Dose: 25 mg Documented by: Metoprolol Tartrate (Metoprolol Tartrate 5 Mg/5 Ml Vial) 5 mg IV Q2HP PRN PRN Reason: Tachyarrhythmias HR>110 Ondansetron HCl (Ondansetron 4 Mg/2 Ml Vial) 4 mg IV Q6HP PRN PRN Reason: Nausea And Vomiting Oxycodone HCl (Oxycodone Hcl 5 Mg Tablet) 10 mg PO Q4HP PRN; Protocol PRN Reason: Per Pain Protocol Pantoprazole Sodium (Pantoprazole 40 Mg Tablet) 40 mg PO QAMAC [facility] Last Admin: 11/13/20 07:58 Dose: 40 mg Documented by: Polyethylene Glycol (Polyethylene Glycol 3350 17 Gm Packet) 17 gm PO DAILYP PRN PRN Reason: Constipation Senna (Sennosides 1 Tablet) 2 tab PO HS [facility] Last Admin: 11/12/20 22:16 Dose: Not Given Documented by: Sodium Chloride (0.9 % Sodium Chloride 10 Ml Syringe) 10 ml IV Q8 [facility] Last Admin: 11/13/20 06:16 Dose: 10 ml Documented by: Terazosin HCl (Terazosin 1 Mg Capsule) 2 mg PO QDAY [facility] Last Admin: 11/13/20 08:58 Dose: 2 mg Documented by: Trazodone HCl (Trazodone Hcl 100 Mg Tablet) 100 mg PO HSP PRN PRN Reason: Insomnia Last Admin: 11/12/20 22:15 Dose: 100 mg Documented by: A/P Assessment and plan (1) DMII (diabetes mellitus, type 2): Status: Acute (2) Hypothyroidism (acquired): Status: Acute (3) Hypertension: Status: Acute Comment: Essential (4) Hyperlipemia: Status: Acute (5) Gastroesophageal reflux: Status: Acute (6) CAD (coronary artery disease): Status: Acute Comment: Post CABG (7) Chronic renal insufficiency: Status: Acute Comment: 02/02/2014 [facility] H&P (8) Anemia: Status: Acute (9) Atrial fibrillation: Status: Acute Narrative A/P Narrative: Assessment and Plans: 1. Atrial fibrillation: Metoprolol tartrate 25mg PO BID Digoxin [id number] score of 5 Will resume Xarelto when cleared by surgery Dr. Yung 2. Infected hematoma of the right knee: s/p secondary closure and LAURYN drain placement by Dr. Dilshad aMncera Planning to discharge to SNF, tentatively on 11/14 3. Hypothyroidism: Continue thyroid replacement therapy 4. T2DM: Euglycemic currently Continue insulin therapy 5. GERD: Continue oral PPI GI ppx: Continue oral PPI DVT ppx: Will resume Xarelto when cleared by surgery Dr. Yung Code status: Full Prognosis: guarded Disposition: inpatient med surg; pending SNF placement, , tentatively on 11/14 Time Spent With Patient Time: Total time spent is greater than 50% in coordination of care (as documented) at patient's floor/unit and/or counseling patient: QUALITY VTE Deep Vein Thrombosis/Pulmonary Embolism Present on Admission: No
--- NOTE | 2020-11-13 13:51 | General Surgery Progress Note ---
SUBJECTIVE Subjective Patient information: Note initiated : 11/13/20 at 1:44 pm Service Date, if different from initiated Date: [] Patient: Abhi Randle 80 y/o M admitted on 11/06/20 for Rt Leg Swelling. Chief Complaint: [] Principal diagnosis: Hematoma right lower extremity Interval history: Patient is doing well. He had some disorientation and agitation last evening but that has resolved. He is minimally alert at this time. His pain is controlled. He denies any chest discomfort or shortness of breath. He denies palpitations. Constitutional Vitals: Vital Signs Temp Pulse Resp BP Pulse Ox 97.5 F 100 H 18 115/68 90 11/13/20 08:00 11/13/20 08:00 11/13/20 08:00 11/13/20 08:00 11/13/20 08:00 Period Temp Pulse Resp BP Sys/Sagastume Pulse Ox Last 24 Hr 97.5 F-98.2 F 67-100 18-20 103-122/60-73 90-99 Intake and Output 11/12/20 11/13/20 11/13/20 21:59 05:59 13:59 Intake Total 50 287 100 Output Total 300 701 Balance -250 -414 100 Weight 251 lb Intake & Output: Intake & Output 11/12/20 11/13/20 11/13/20 21:59 05:59 13:59 Intake Total 50 287 100 Output Total 300 701 Balance -250 -414 100 Weight 251 lb Intake: Nourishment/Supplement quantity 237 (ml) IV 50 50 100 Zosyn 2.25 gm In Dextrose 5% in 50 50 100 Water 50 ml @ 100 mls/hr IV Q6H [facility] Rx#:[id number] Output: Void Amount 300 700 # of times incontinent of urine 1 Other: Meal Nourishment/Supplement Percent of Meal Consumed 100% Nourishment/Supplement name Glucerna Urine Appearance Clear Urine Color Dark Yellow Dark Yellow Urine Odor Strong Eye Eye exam: Present EOMI and PERRL Pupils: Present normal accommodation ENT Additional comments: Poor dentition Neck Neck exam: Present full ROM and normal inspection; Absent tenderness Respiratory Respiratory exam: Present normal respiratory exam and CTAB; Absent rales, rhonchi and wheezes Cardiovascular Cardiovascular exam: Present normal rate and rhythm, +S1 and +S2; Absent tachycardia GI/Abdominal GI/Abdominal exam: Present normal bowel sounds and soft Extremities Exam Extremities exam: Present calf tenderness, joint swelling, pedal edema and tenderness Additional comments: Incision lateral aspect of calf, right side is clean without significant drainage; edema and induration is significantly improved Neurological Exam Neurological exam: Present alert, CN II-XII intact and oriented X3; Absent motor sensory deficit Psychiatric Psychiatric exam: Present flat affect Skin Additional comments: Moderately severe stasis edema and dermatitis bilateral lower extremities A/P Assessment and plan (1) Hematoma of right lower leg: Status: Acute (2) DMII (diabetes mellitus, type 2): Status: Acute (3) Atrial fibrillation: Status: Acute (4) Hypertension: Status: Acute Comment: Essential (5) Gastroesophageal reflux: Status: Acute Narrative A/P Narrative: Patient is stable and will be discharged to care home facility in the morning. Drain will be left in place for 2weeks. Time Spent With Patient Time: Total time spent is greater than 50% in coordination of care (as documented) at patient's floor/unit and/or counseling patient:
--- NOTE | 2020-11-13 14:06 | Discharge Summary ---
Discharge Provider Provider Patient information: Note initiated : 11/13/20 at 1:54 pm Service Date, if different from initiated Date: [. 11/14/2020] Patient: Abhi Randle 80 y/o M admitted on 11/06/20 for Rt Leg Swelling. Chief Complaint: [] Date of admission: 11/06/20 14:48 Discharge date: 11/14/20 Primary care physician: Raudel Murphy MD Admitting clinician: Paige Yung Attending physician on admission: Paige Yung Consults: 11/06/20 11:01 Consult to Physician [CONS] Stat Comment: Consulting Provider: Paige Yung Reason For Exam: Physician to Consult 11/07/20 12:30 Consult to Physician [CONS] Routine Comment: H/O CAD WITH SVT AND HYPOTENSION DURING ANESTHESIA Consulting Provider: Kiran Angelo Reason For Exam: Physician to Consult Attending physician on discharge: Paige Yung Discharging clinician: Paige Yung COURSE Hospital Course Hospital course: 80-year-old male who was admitted with swelling and cellulitis of his right lower extremity. He had a fall about 3 days prior to admission and developed increasing pain and swelling. He was seen in the emergency room and was noted to have a large deep subcutaneous mass lesion of the lateral aspect of his right calf with associated swelling and edema. He had clinical evidence of cellulitis of the extremity. He underwent drainage and evacuation of what was stopped. To be an infected hematoma of the right calf on 07 November. He was treated with Zosyn and vancomycin. Cultures did not she had any growth so the vancomycin was discontinued. During the procedure for the initial patient developed operation supraventricular tachycardia with heart rate of 180. He had a prior history of atrial fibrillation and was on digoxin and metoprolol. Hospitalist service was consulted and they monitored him closely. He did have slight elevation of his troponin but no acute EKG changes. He was asymptomatic from a cardiac standpoint. That has been stable since the preoperative.. The patient also has type 2 diabetes which has been well controlled during this hospitalization. He was on Xarelto which was withheld but can now be restarted. His wound was closed on 12 November with placement of a 7 Deon drain. This will be continued for about 10 days and discontinued in the office. He had periods of intermittent mental confusion which cleared spontaneously. This may have been medication related. He is clinically stable at this time and is stable for discharge on 14 November 2020 Discharge diagnosis: Hematoma right calf Secondary discharge diagnosis: Cellulitis right lower extremity Atrial fibrillation with fast ventricular response Supraventricular tachycardia with hypotension Diabetes mellitus type 2 Long-term use of anticoagulant medication Hypertension Coronary artery disease Gastroesophageal reflux disease Peripheral vascular disease Reason for admission: Infected hematoma right lower extremity with cellulitis Procedures: Incision and evacuation of major hematoma right lower extremity Secondary closure of incision right lower extremity--- 10 cm Pertinent studies/significant findings: CT of lower extremities Complications: None Time Spent with Patient Time attestation: Total time spent providing and/or coordinating discharge services: Physical Examination Vital Signs Vital signs: Temp Pulse Resp BP Pulse Ox 97.5 F 100 H 18 115/68 90 11/13/20 08:00 11/13/20 08:00 11/13/20 08:00 11/13/20 08:00 11/13/20 08:00 General physical appearance General physical exam: well developed, well nourished, no distress, no pain, chronically ill and obese Eyes Eye exam: PERRL and normal ocular movement ENT ENT exam: normal mucosa, no hearing loss, no congestion and poor mcfp Head Head exam IM: Present atraumatic, normal inspection and normocephalic Neck Neck exam: no masses, no bruits, trachea midline, no lymphadenopathy and no venous distension Cardiovascular Cardiovascular exam IM: Present normal rate and rhythm, irregular rhythm, +S1 and +S2; Absent JVD Respiratory Respiratory exam: normal expansion, normal respiratory effort and clear to auscultation Abdomen Abdomen: Present soft and non tender; Absent organomegaly Integumentary Integumentary: Present no rash, no growths and other ( cellulitis and edema of bilateral lower extremities has significantly improved) Neurologic Neurologic: Present normal coordination, normal sensation, disoriented and other (Patient has altered speech) Musculoskeletal Musculoskeletal: Present normal gait, normal posture and other (Dressing on right lower extremity) Psychiatric Psychiatric: Present other (Patient is clinically alert at this time but he has episodes of disorientation) Discharge Plan Patient/Caregiver Discharge Instructions Activity: as per physical therapy and resume usual activities as tolerated Diet: Consistent Carbohydrate Instructions: Cellulitis (DC), Incision and Drainage (GEN) Prescriptions: New oxycodone-acetaminophen [Endocet] 10-325 mg Tablet 1 tab PO Q4H PRN (Reason: Pain) Qty: 30 RF: 0 Continued levothyroxine 112 mcg capsule 112 mcg PO QDAY Qty: 90 RF: 1 metformin 500 mg tablet extended release 24 hr 500 mg PO QDAY Qty: 90 RF: 1 trazodone 100 mg tablet 100 mg PO QDAY PRN (Reason: insomnia) RF: 0 ascorbic acid (vitamin C) 500 mg capsule, extended release 500 mg PO BID RF: 0 albuterol sulfate 90 mcg/actuation HFA aerosol inhaler 180 mcg INHALATION Q4H PRN (Reason: shortness of breath) RF: 0 terazosin 2 mg capsule 2 mg PO QDAY Qty: 90 RF: 1 furosemide [Lasix] 20 mg tablet 20 mg PO QDAY RF: 0 atorvastatin [Lipitor] 80 mg tablet 40 mg PO QDAY RF: 0 metoprolol succinate 25 mg tablet extended release 24 hr 50 mg PO QDAY RF: 0 digoxin 125 mcg tablet 0.125 mg PO QDAY RF: 0 fosinopril 20 mg tablet 10 mg PO QDAY RF: 0 omeprazole 20 mg capsule,delayed release(DR/EC) 20 mg PO BID RF: 0 rivaroxaban 15 mg tablet 15 mg PO QDAY RF: 0 gabapentin 300 mg capsule 300 mg PO QHS RF: 0 (DME) Bilateral knee high velcro compression stockings See Rx Instructions .Route .MEDSUPPLY Qty: 1 RF: 0 (DME) Transport Chair See Rx Instructions .Route .MEDSUPPLY Qty: 1 RF: 0 cephalexin [Keflex] 750 mg capsule 500 mg PO TID 7 Days Qty: 21 RF: 0 Other Ambulatory Orders: Wound Care/Dressings (Routine) Location: None Selected Ordered By: Paige Yung Follow Up Plan Follow up with: Paige Yung MD [Physician] - (Office appointment in 10 days, please call and schedule.) Raudel Murphy MD [Primary Care Provider] - (Please call and schedule a hospital follow up appointment.) Patient Disposition: Xfer SNF Plan of Treatment: Follow-up in the office in 10 days Prognosis: Good Rehab Potential: Good I certify that the patient requires SNF services: Yes Overall status at discharge: patient is not back to baseline Pending Pending Pending: Resuscitation Status Full Treatment Diet Consistent Carbohydrate Diet Start ThuNov 12 1510 Diagnostic Test (Pha) (Accu-Chek 1 Each Strip) 1 each FS ACHS [facility] Last Admin: 11/13/20 11:45 Dose: 1 each Documented by: Admin: 11/13/20 07:56 Dose: 1 each Documented by: Admin: 11/12/20 21:00 Dose: 1 each Documented by: Admin: 11/12/20 18:34 Dose: Not Given Documented by: [email or web address] Digoxin (Digoxin 125 Mcg Tablet) 125 mcg PO DAILY@1400 [facility] Last Admin: 11/12/20 15:44 Dose: 125 mcg Documented by: CAM Docusate Sodium (Docusate Sodium 100 Mg Capsule) 100 mg PO BID [facility] Last Admin: 11/13/20 08:59 Dose: 100 mg Documented by: Admin: 11/12/20 22:16 Dose: Not Given Documented by: JASON Gabapentin (Gabapentin 300 Mg Capsule) 300 mg PO BID [facility] Last Admin: 11/13/20 08:58 Dose: 300 mg Documented by: Admin: 11/12/20 20:56 Dose: 300 mg Documented by: JASON Piperacillin Sod/Tazobactam (Sod 2.25 gm/ Dextrose) 50 mls @ 100 mls/hr IV Q6H [facility] Last Infusion: 11/13/20 13:42 Dose: 0 mls/hr Documented by: Admin: 11/13/20 12:45 Dose: 100 mls/hr Documented by: Infusion: 11/13/20 09:03 Dose: 0 mls/hr Documented by: Admin: 11/13/20 06:15 Dose: 100 mls/hr Documented by: Infusion: 11/13/20 01:52 Dose: 0 mls/hr Documented by: Admin: 11/13/20 00:49 Dose: 100 mls/hr Documented by: Infusion: 11/12/20 21:31 Dose: 0 mls/hr Documented by: Admin: 11/12/20 21:01 Dose: 100 mls/hr Documented by: Admin: 11/12/20 20:13 Dose: Not Given Documented by: JASON Insulin Human Lispro (Insulin Lispro 1 Unit/0.01 Ml Unit) 0 unit SQ ACHS [facility]; Protocol Last Admin: 11/13/20 12:03 Dose: 2 unit Documented by: Admin: 11/13/20 07:57 Dose: Not Given Documented by: Admin: 11/12/20 21:01 Dose: Not Given Documented by: Admin: 11/12/20 18:35 Dose: Not Given Documented by: [email or web address] Levothyroxine Sodium (Levothyroxine Sodium 112 Mcg Tablet) [facility] Admin: 11/13/20 07:58 Dose: 112 mcg Documented by: CAM Metoprolol Tartrate (Metoprolol Tartrate 25 Mg Tablet) 25 mg PO BID [facility] Last Admin: 11/13/20 08:59 Dose: 25 mg Documented by: Admin: 11/12/20 20:56 Dose: 25 mg Documented by: JASON Pantoprazole Sodium (Pantoprazole 40 Mg Tablet) [facility] Admin: 11/13/20 07:58 Dose: 40 mg Documented by: CAM Senna (Sennosides 1 Tablet) 2 tab PO HS [facility] Last Admin: 11/12/20 22:16 Dose: Not Given Documented by: JASON Sodium Chloride (0.9 % Sodium Chloride 10 Ml Syringe) 10 ml IV Q8 [facility] Last Admin: 11/13/20 13:39 Dose: 10 ml Documented by: Admin: 11/13/20 06:16 Dose: 10 ml Documented by: Admin: 11/12/20 21:45 Dose: 10 ml Documented by: Admin: 11/12/20 15:47 Dose: 10 ml Documented by: CAM Terazosin HCl (Terazosin 1 Mg Capsule) 2 mg PO QDAY [facility] Last Admin: 11/13/20 08:58 Dose: 2 mg Documented by: CAM Trazodone HCl (Trazodone Hcl 100 Mg Tablet) 100 mg PO HSP PRN PRN Reason: Insomnia Last Admin: 11/12/20 22:15 Dose: 100 mg Documented by: JASON Shift Summary 11/12/20 16:27 Shift Summary by Jonathan Contreras pt was alert, oriented to person, showed forgetfulness and altered mental status after came back from surgery at 1400. pt was on 2L oxygen via NC, O2 sat was 99%, pt then took his oxygen off and refuse to put back. pt void 410ml by urinal during this shift. VONDA wrap at the surgical site, LAURYN drain on right calf with serosanguineous drainage, pt state "leave me alone" when checking his situation at 1620, he refused PRN pain medication but showed very sensitive to touch. Initialized on 11/12/20 16:27 - END OF NOTE
[2020-11-13] MEDS: DIGOXIN 125 MCG TABLET PO SCH (14:38)
[2020-11-13] MEDS: SENNOSIDES 1 TABLET PO SCH (20:59)
[2020-11-13] MEDS: traZODone HCL 100 MG TABLET PO PRN (21:03)
[2020-11-14] MEDS: 0.9 % SODIUM CHLORIDE 10 ML SYRINGE IV SCH ×5 (00:05→13:52)
[2020-11-14] MEDS: PIPERACILLIN SODIUM/TAZOBACTAM 2.25 GM in DEXTROSE 5% IN WATER 50 ML IV SCH ×3 (00:10→13:48)
[2020-11-14 07:29] LABS: Basophils # (Auto) 0.03 K/mcL (0.00-0.20); Basophils % (Auto) 0.4 % (0.0-2.0); Eosinophils # (Auto) 0.14 K/mcL (0.00-0.70); Eosinophils % (Auto) 1.7 % (0.0-7.0); Hematocrit 28.8 % (41.0-55.0); Lymphocytes # (Auto) 2.41 K/mcL (1.50-4.80); Lymphocytes % (Auto) 29.6 % (15.0-49.0); Mean Cell Volume 101.1 fL (80.0-100.0); Mean Corpuscular HGB Conc 31.3 g/dL (31.0-36.0); Mean Platelet Volume 10.3 fL (7.4-10.4); Monocytes % (Auto) 7.4 % (1.0-12.0); Neutrophils % (Auto) 60.9 % (38.0-78.0); Platelet Count 184 K/mcL (140-440); RBC 2.85 M/mcL (4.50-5.90); Red Cell Distribution Width 13.7 % (11.5-14.5); WBC 8.1 K/mcL (4.5-11.0)
[2020-11-14 07:50] LABS: ALT/SGPT 7 U/L (<40); AST/SGOT 11 U/L (<40); Alkaline Phosphatase 62 U/L (39-117); Bilirubin,Direct 0.3 mg/dL (<0.3); Bilirubin,Total 0.5 mg/dL (0.1-1.0); Blood Urea Nitrogen 21 mg/dL (8-23); Calcium 8.9 mg/dL (8.6-10.4); Carbon Dioxide 26 mmol/L (22-30); Chloride 104 mmol/L (96-108); Globulin 3.1 gm/dL (2.2-3.7); Glomerular Filtration Rate 62; Glucose 79 mg/dL (70-105); Lactate Dehydrogenase 187 U/L (135-225); Phosphorous 2.5 mg/dL (2.5-4.5); Triglycerides 109 mg/dL (<150); Uric Acid 4.3 mg/dL (2.5-8.0)
[2020-11-14] MEDS: GABAPENTIN 300 MG CAPSULE PO SCH (08:09)
[2020-11-14] MEDS: PANTOPRAZOLE 40 MG TABLET PO SCH (08:09)
[2020-11-14] MEDS: DOCUSATE SODIUM 100 MG CAPSULE PO SCH (08:10)
[2020-11-14] MEDS: LEVOTHYROXINE SODIUM 112 MCG TABLET PO SCH (08:10)
[2020-11-14] MEDS: INSULIN LISPRO 1 UNIT/0.01 ML UNIT SQ SCH ×2 (08:11→13:48)
[2020-11-14] MEDS: DIGOXIN 125 MCG TABLET PO SCH (13:48)
[2020-11-14] MEDS: TERAZOSIN 1 MG CAPSULE PO SCH (13:50)
[2020-11-14] MEDS: METOPROLOL TARTRATE 25 MG TABLET PO SCH (13:50)
--- NOTE | 2020-12-26 14:33 | Operative Note ---
DATE OF OPERATION: 11/07/2020 PREOPERATIVE DIAGNOSIS: Hematoma, right leg with cellulitis. POSTOPERATIVE DIAGNOSIS: Hematoma, right leg with cellulitis. PROCEDURE: Drainage and evacuation of hematoma, right calf. SURGEON: Paige Yung M.D. FINDINGS: A thick hematoma with partially-liquified clot right calf with a suggestion of the purulence. DESCRIPTION OF PROCEDURE: Under general anesthesia, the patient's right lower extremity was prepped and draped in a sterile field. During the initiation of the procedure, the patient developed supraventricular tachycardia with a heart rate of 180. This was treated appropriately by Anesthesia, and he reverted to sinus rhythm with a stable blood pressure. The leg was prepped and draped in a sterile field. Incision was made over the large, bulging hematoma lateral aspect of the right calf. In the deep subcutaneous tissue, a partially-liquified, organizing clot was encountered. The incision was extended and then using compression all of the liquified clot was removed. Some was sent for culture and sensitivity. Copious irrigation of the large cavity was carried out. This was continued until the fluid was slightly pink-tinged. Large forceps were used to explore the area to make sure that no clot was remaining. Once this was thoroughly evacuated, the cavity was packed with multiple sheets of Aquacel AG gauze. A compression dressing of 4 x 4s, Kerlix, and Coban was placed. The patient was awakened, extubated, and transferred to the postanesthetic care unit. LCS:bertha Job ID: [id number] Doc ID: [id number] Paige Yung M.D.
== END 2020-11-14 14:15 | DRG 580 ==
LOC: ED 08:27 → MEDSUR 14:44 → ICU 11-07 13:44 → MEDSUR 11-08 10:25
PROVIDERS: ADMIT Family Medicine Adult Medicine; ATTEND Family Medicine Adult Medicine

== ENCOUNTER 2021-05-27 07:45 | Inpatient (IN) ==
[2021-05-27] MEDS ORDERED: 0.9 % SODIUM CHLORIDE 1,000 ML IV ONE ×3 (08:06→09:12)
[2021-05-27] MEDS ORDERED: cefTRIAXone 2 GM in DEXTROSE 5% IN WATER 50 ML IV ONE (08:06)
--- NOTE | 2021-05-27 08:13 | Emergency Department Note ---
HPI General Chief complaint: Syncope Stated complaint: syncopal episode Time Seen by Provider: 05/27/21 07:47 Source: patient Mode of arrival: EMS Limitations: altered mental status History of Present Illness HPI Narrative: Narrative: 81 yo M w/ h/o CKD, DM2, AF, CAD s/p CABG, HTN, HLD, p/w syncope and hypotension . Little information is available but per EMS they were called out for syncope that developed when pt was on the toilet. They found him to be altered and hypotensive w/ SBP in the 60s. They started IVF and transported him here for further evaluation. Pt is awake but sluggish to respond to questions. He denies CP or SOB, but does report some abd pain. However further details are not forthcoming. When asked if he would want resuscitation and life saving interventions he responded "it would be nice". Related Data Home Medications Medication Instructions Recorded Confirmed albuterol sulfate 90 mcg/actuation 180 mcg INHALATION Q4H PRN g 09/13/14 05/27/21 aerosol inhaler ascorbic acid (vitamin C) 500 mg 500 mg PO BID cap 09/13/14 05/27/21 capsule,extended release trazodone 100 mg tablet 100 mg PO QDAY PRN tab 09/13/14 05/27/21 furosemide 20 mg tablet (Lasix) 20 mg PO QDAY 07/28/17 05/27/21 atorvastatin 80 mg tablet (Lipitor) 220 mg PO QDAY tab 05/25/18 05/27/21 digoxin 125 mcg (0.125 mg) tablet 0.125 mg PO QDAY 05/25/18 05/27/21 fosinopril 20 mg tablet 10 mg PO QDAY tab 05/25/18 05/27/21 metoprolol succinate 25 mg 50 mg PO QDAY tab 05/25/18 05/27/21 tablet,extended release 24 hr omeprazole 20 mg capsule,delayed 20 mg PO BID cap 05/25/18 05/27/21 release rivaroxaban 15 mg tablet 15 mg PO QDAY tab 05/25/18 05/27/21 gabapentin 300 mg capsule 300 mg PO QHS 08/28/20 05/27/21 Previous Rx's Medication Instructions Recorded terazosin 2 mg capsule 2 mg PO QDAY #90 cap 08/18/17 metformin 500 mg tablet,extended 500 mg PO QDAY #90 tab 01/05/20 release 24 hr Bilateral knee high velcro #1 ea 08/28/20 compression stockings Transport Chair #1 ea 11/21/20 levothyroxine 125 mcg capsule 112 mcg PO QDAY #90 cap 11/28/20 Allergies Allergy/AdvReac Type Severity Reaction Status Date / Time No Known Drug Allergies Allergy Unknown Unknown Verified 04/19/21 13:45 Review of Systems ROS ROS Narrative: Narrative: Limitations: ROS unobtainable due to patients medical condition [facility] Narrative Patient History Narrative: Narrative: Medical/Surgical/Family History All Active Problems (Updated 05/27/21 @ 14:06 by Indra Cruz MD) Anemia of chronic renal failure, stage 2 (mild) (Acute) Troponin level elevated (Acute) Chronic kidney disease (CKD) stage G2/A1, mildly decreased glomerular filtration rate (GFR) between 60-89 mL/min/1.73 square meter and albuminuria creatinine ratio less than 30 mg/g (Acute) Stage 2 acute kidney injury (Acute) Septic shock (Acute) Syncope (Acute) Sepsis (Acute) COVID-19 (Acute) Hypovolemic shock (Acute) Acute kidney injury (Acute) Annual physical exam (Acute) Medicare annual wellness visit, initial (Acute) Hematoma of right lower leg (Acute) Acute dehydration (Acute) Lower extremity weakness (Acute) Weight gain (Acute) Diarrhea (Acute) Senile purpura (Acute) Purpura (Acute) Toe pain, left (Acute) Sprain of toe, fifth, left (Acute) Acute chest wall pain (Acute) Cough (Acute) Lab test positive for detection of COVID-19 virus (Acute) Intermittent diarrhea (Acute) DMII (diabetes mellitus, type 2) (Acute) [place]ma-forme dermatosis (Acute) Atrial fibrillation (Acute) High risk medication use (Acute) Anemia (Acute) Hematuria (Acute) Stasis dermatitis of both legs (Chronic) History of tobacco use (Acute) Spinal stenosis of lumbar region (Acute) Shoulder pain, left (Acute 05/26/14) Chronic renal insufficiency (Acute) Renal calculi (Acute) Peripheral vascular disease (Acute) Osteoporosis (Acute) Mitral valve disorder (Acute) Leg pain (Acute 05/26/14) Hypothyroidism (acquired) (Acute) Hypertension (Acute) Hyperlipemia (Acute) Gastroesophageal reflux (Acute) Edema (Acute) Degenerative joint disease (Acute) Coronary atherosclerosis (Acute) CAD (coronary artery disease) (Acute) Bladder neck obstruction (Acute) Medical History Acute kidney injury Acute renal failure Acute retention of urine Annual physical exam Atrial fibrillation Bladder neck obstruction CAD (coronary artery disease) Post CABG Chronic renal insufficiency 02/02/2014 [facility] H&P Coronary atherosclerosis Post CABG Degenerative joint disease Osteoarthrosis NOS 02/02/2014 [facility] H&P Diarrhea DMII (diabetes mellitus, type 2) Edema Gastroesophageal reflux High risk medication use History of tobacco use 02/13/2012- [facility] Hyperlipemia Hypertension Essential Hypothyroidism (acquired) Intermittent diarrhea Leg pain (05/26/14) Leg Lower extremity weakness Medicare annual wellness visit, initial Mitral valve disorder With Repair Osteoporosis Peripheral vascular disease Unspecified Purpura Renal calculi Rhabdomyolysis Senile purpura Sepsis Shoulder pain, left (05/26/14) Left Spinal stenosis of lumbar region Lumbar Spine Sprain of toe, fifth, left [place]ra firma-forme dermatosis Toe pain, left Weight gain Surgical History History of arthroscopy of left knee History of carpal tunnel repair Bilateral History of coronary artery bypass graft x 3 3 Vessel History of evacuation of hematoma 11/07/2020-drainage and evacuation of hematoma right calf History of inguinal hernia repair History of open heart surgery Mitral Valve Repair History of shoulder surgery Bilateral, rt redo 4 months History of surgery 11/12/2020-secondary closure of surgical incisiona of right calf with drain placement History of total right knee replacement Nail avulsion of toe Family History Mother Malignant neoplasm of uterus Social History Smoking Status: Current every day smoker Alcohol Intake Frequency: does not drink Substance Use: does not use Exam Narrative Narrative: Narrative: General Limitations: altered mental status General appearance: Present alert and other (drowsy but arousable, ill appearing) Head Head: Present atraumatic and normocephalic Eye Eye: Present other (squeezes his eyes shut when attempting examination) ENT ENT: Present normal oropharynx and mucous membranes dry Chest Chest: Present normal inspection and symmetric chest wall rise Respiratory Respiratory: Present normal lung sounds bilaterally; Absent accessory muscle use or decreased breath sounds Cardiovascular Cardiovascular: Present regular rate, normal rhythm, +S1, +S2 and other (2+ B/L radial pulses. 1+ B/L DP pulses. Extremities WWP. CR 2 sec B/L great toes); Absent systolic murmur or diastolic murmur Adbominal Abdominal: Present soft, tenderness (diffuse) and normal bowel sounds; Absent distention, guarding, rebound or rigidity Extremities Extremities: Absent pedal edema Neurological Neurological: Present alert and other (knows the year, doesn't respond to location or month) Skin Skin: Present warm (WNL) and dry Course Vital Signs Vital signs: Vital Signs Temperature 97.3 F 05/27/21 07:50 Pulse Rate 103 H 05/27/21 07:50 Respiratory Rate 16 05/27/21 07:50 Blood Pressure 59/47 05/27/21 07:50 Pulse Oximetry (%) 89 L 05/27/21 07:50 Temperature 97.3 F 05/27/21 07:50 Pulse Rate 100 H 05/27/21 15:44 Respiratory Rate 23 H 05/27/21 15:44 Blood Pressure 106/58 05/27/21 15:44 Pulse Oximetry (%) 93 05/27/21 15:44 MDM MDM Narrative Medical decision making narrative: Narrative: 81 yo M w/ h/o CKD, DM2, AF, CAD s/p CABG, HTN, HLD, p/w syncope and hypotension. DDx - sepsis, hemorrhagic shock, CVA, seizure, aortic pathology, pericardial tamponade, ACS, PE, PTX, peritonitis, metabolic/electrolyte d/o, endocrine d/o, arrhythmia, substance abuse/medication effect 08:12. Pt arrives hypotensive and altered but maintaining airway, GCS 13 (confusion, eyes closed). SBP in the high 50s w/ HR in the low 100s. Mild hypoxia noted (88% RA) and he was started on 2L NC. FS 140. Bedside US shows no PTX, no pericardial effusion/tamponade, no RV dilation (however cardiac views very limited), no abd free fluid, normal caliber aorta but limited visualization cannot r/o flap, collapsing IVC w/ deep inspiration. We are starting IVF via pressure bag and this is improving his BP up to the 70s now, MAP nearly 65. EKG shows no ischemia, no arrhythmia other than his known AF w/ mild tachycardia, which seems compensatory. Rate and rhythm control are not indicated. Strong dale spicion of sepsis, will start empiric abx. Will send broad labs and check CTA chest/abd/pelvis out of an abundance of caution. NFD noted, CVA including SAH unlikely, CT head not indicated at this point. 08:25. Pts BP trending back down to SBP 60s, MAP in the high 50s. Will start levophed at this point and run peripherally, hopefully will be able to titrate off once further IVF are in. Pt has PIV x3, no need for central line immediately. Pts leave specialist has arrived and notes that pt has been in his usual state of health other than some occasional vague c/o abd pain over the past few days. He has not had F/C, CP/SOB, N/V/D. Manager Materials Management noted him to be too quiet in the bathroom this AM and found him slumped over. He reports pt was unresponsive for about 5 minutes. The presentation doesn't really suggest opiates but will give narcan empirically. 08:46. COVID+. Will start decadron given hypoxia. Will continue w/ W/U as planned however. 09:29. Have d/w radiology. Dr Esqueda wishes to proceed w/ CT chest/abd/pelvis w/o contrast for now d/t pts POC Cr. If pt fails to improve he would then be open to CTA. Will order this now. Currently pt is normotensive on levo at 10mcg/min. 10:45. Pts mental status has improved and SBP is up to 130. Will have RNs begin titrating levo down. He and leave specialist have consented verbally to a central line but will hold off for now and see if we can titrate off levo entirely. Labs thus far are unremarkable other than elevated BUN and Cr. The ratio is about 15. Could be a combination of pre-renal and intrinsic. CT w/o contrast negative for any clear pathology. 11:51. Pts BP dropped shortly after titrating levo down. Have increased back to 10 and placed central line. Pt adamantly refuses ruth and even straight cath. At this point his evaluation is suggestive of sepsis although w/ an unclear source. COVID19 is present as well but does not likely explain his hypotension. He has had some liquid diarrhea x2 in the ED and this could contribute to his hypovolemic state although if it was dehydration alone I would expect a better response to IVF. We have NS running at 150/hr at this point. I see no evidence of bleeding, CVA, seizure. Aortic pathology seems less likely at this point. Troponin is 0.05, and EKG shows no ischemia. Doubt ACS. Cardiogenic shock is also not likely based on bedside US, lack of pulmonary edema. PE is less likely w/ no increased WOB, no SOB. PTX not seen on imaging. No surgical process on imaging albeit limited by lack of contrast. CMP shows no serious abnormality other than BUN and Cr elevation. No risk factors for adrenal crisis. TSH is high and T4 is low but T4 is only minimally low, doubt that this explains presentaion. Will admit to hospitalist at this point. 12:58. Have d/w Dr Cruz who accepts pt for admission. Lab Data Result diagrams: 05/27/21 08:50 05/27/21 08:50 Labs: Lab Results 05/27/21 05/27/21 05/27/21 Range/Units 08:06 08:13 08:50 WBC 9.0 (4.5-11.0) K/mcL RBC 3.77 L (4.63-6.08) M/mcL Hgb 11.9 L (13.7-17.5) g/dL Hct 36.8 L (40.1-51.0) % MCV 97.6 (80.0-100.0) fL MCH 31.6 (26.0-34.0) pg MCHC 32.3 (31.0-36.0) g/dL RDW 14.6 H (11.5-14.5) % Plt Count 216 (140-440) K/mcL MPV 9.9 (7.4-10.4) fL Neut % (Auto) 61.2 (38.0-78.0) % Lymph % (Auto) 27.5 (15.5-49.0) % [place]ancock % (Auto) 7.0 (1.0-12.0) % Eos % (Auto) 3.9 (0.0-7.0) % Baso % (Auto) 0.4 (0.0-2.0) % Lymph # (Auto) 2.46 (1.50-4.80) K/mcL [place] # (Auto) 0.63 (0.10-0.90) K/mcL Eos # (Auto) 0.35 (0.00-0.70) K/mcL Baso # (Auto) 0.04 (0.00-0.30) K/mcL Absolute Neutrophils 5.47 (1.80-8.00) K/mcL VBG Lactic Acid (0.5-2.0) mmol/L Sodium (133-145) mmol/L Potassium (3.3-5.1) mmol/L Chloride (96-108) mmol/L Carbon Dioxide (22-30) mmol/L Anion Gap (8.0-16.0) BUN (8-23) mg/dL Creatinine (0.7-1.2) mg/dL POC Creatinine (0.6-1.2) mg/dL GFR Calculation Glucose (70-105) mg/dL Calcium (8.6-10.4) mg/dL Total Bilirubin (0.1-1.0) mg/dL AST (<40) U/L ALT (<40) U/L Alkaline Phosphatase (39-117) U/L Total Creatine Kinase (24-195) U/L CK-MB (CK-2) (<6.7) ng/mL Troponin T 0.05 H* (<0.03) ng/mL Total Protein (5.9-8.4) gm/dL Albumin (3.2-5.2) gm/dL Globulin (2.2-3.7) gm/dL Albumin/Globulin Ratio (1.0-2.3) TSH (0.27-5.01) uIU/mL Thyroxine (T4) (5.0-12.0) ug/dl Urine Color Urine Appearance (Clear) Urine pH (5.0-9.0) Ur Specific [place] (1.000-1.035) Urine Protein (Negative) mg/dL Urine Glucose (UA) (Negative) mg/dL Urine Ketones (Negative) mg/dL Urine Occult Blood (Negative) michelle/mcL Urine Nitrate (Negative) Urine Bilirubin (Negative) mg/dL Urine Urobilinogen mg/dL Ur Leukocyte Esterase (Negative) /uL Urine RBC (0-3) /hpf Urine WBC (0-4) /hpf Ur Squamous Epith Cells (0-4) /hpf Ur Transition Epith Cell (0-2) /hpf Urine Bacteria (0) /hpf Hyaline Casts (0-2) /lph Urine Mucus (None) /hpf Ur Culture Indicated? Digoxin < 0.3 ng/mL 05/27/21 05/27/21 Range/Units 08:50 12:25 WBC (4.5-11.0) K/mcL RBC (4.63-6.08) M/mcL Hgb (13.7-17.5) g/dL Hct (40.1-51.0) % MCV (80.0-100.0) fL MCH (26.0-34.0) pg MCHC (31.0-36.0) g/dL RDW (11.5-14.5) % Plt Count (140-440) K/mcL MPV (7.4-10.4) fL Neut % (Auto) (38.0-78.0) % Lymph % (Auto) (15.5-49.0) % Hancock % (Auto) (1.0-12.0) % Eos % (Auto) (0.0-7.0) % Baso % (Auto) (0.0-2.0) % Lymph # (Auto) (1.50-4.80) K/mcL Hancock # (Auto) (0.10-0.90) K/mcL Eos # (Auto) (0.00-0.70) K/mcL Baso # (Auto) (0.00-0.30) K/mcL Absolute Neutrophils (1.80-8.00) K/mcL VBG Lactic Acid 1.8 (0.5-2.0) mmol/L Sodium 140 (133-145) mmol/L Potassium 3.9 (3.3-5.1) mmol/L Chloride 102 (96-108) mmol/L Carbon Dioxide 21 L (22-30) mmol/L Anion Gap 17.0 H (8.0-16.0) BUN 38 H (8-23) mg/dL Creatinine 2.5 H (0.7-1.2) mg/dL POC Creatinine 2.3 H (0.6-1.2) mg/dL GFR Calculation 23 Glucose 126 H (70-105) mg/dL Calcium 9.7 (8.6-10.4) mg/dL Total Bilirubin 0.3 (0.1-1.0) mg/dL AST 15 (<40) U/L ALT 11 (<40) U/L Alkaline Phosphatase 61 (39-117) U/L Total Creatine Kinase 71 (24-195) U/L CK-MB (CK-2) 3.1 (<6.7) ng/mL Troponin T (<0.03) ng/mL Total Protein 6.6 (5.9-8.4) gm/dL Albumin 3.3 (3.2-5.2) gm/dL Globulin 3.3 (2.2-3.7) gm/dL Albumin/Globulin Ratio 1.0 (1.0-2.3) TSH 28.35 H (0.27-5.01) uIU/mL Thyroxine (T4) 3.3 L (5.0-12.0) ug/dl Urine Color Yellow Urine Appearance Slightly cloudy A (Clear) Urine pH 5.5 (5.0-9.0) Ur Specific [place] 1.025 (1.000-1.035) Urine Protein 30 mg/dl A (Negative) mg/dL Urine Glucose (UA) Negative (Negative) mg/dL Urine Ketones Trace A (Negative) mg/dL Urine Occult Blood Small A (Negative) michelle/mcL Urine Nitrate Positive A (Negative) Urine Bilirubin Negative (Negative) mg/dL Urine Urobilinogen Normal mg/dL Ur Leukocyte Esterase Moderate A (Negative) /uL Urine RBC 14 H (0-3) /hpf Urine WBC > 182 H (0-4) /hpf Ur Squamous Epith Cells 4 (0-4) /hpf Ur Transition Epith Cell < 1 (0-2) /hpf Urine Bacteria Many A (0) /hpf Hyaline Casts 13 H (0-2) /lph Urine Mucus Few A (None) /hpf Ur Culture Indicated? yes Digoxin ng/mL ED POC Tests ED POC Tests: YEHUDA - Influenza A Negative YEHUDA - Influenza B Negative YEHUDA - SARS Antigen Positive EKG Data EKG #1: EKG attestation: Yes I reviewed and interpreted this EKG. and Yes There are no EKG findings of acute coronary syndrome EKG results narrative: A fib vs a flutter w/ 2:1. More likely A fib. Normal QRS, QT/QTc intervals No STEMI Similar to previous EKG Procedures Other Procedure: Central line placement I explained the R/B/A to pt and his leave specialist and they gave verbal consent for the procedure. The pt was prepped and draped in the usual sterile manner. I used US to visualize the R IJ (having identified it as the best site using pre-procedure US). I gave 4ml lidocaine 1% w/o epi, aspirating before injecting, and using US to ensure I was properly placed. I then infiltrated the skin as well. I then used US to visualize the central line needle moving through the SQ tissue to the IJ. I entered the IJ and had return of venous blood. I then threaded the wire through the needle. I then visualized the wire in the center of the IJ using transverse and longitudinal views. I then nicked the skin (x3, there was initially some resistance) and dilated. I then placed the catheter over the wire and withdrew the wire. All ports flushed and aspirated well. There was no ectopy. I sutured the line in place, having placed a biopatch already, and the RN then placed the dressing. Pt tolerated procedure well w/o complication. CC TIME Critical Care Time Attestation: Approximately 110 minutes of critical care time was used in order to assess and manage the high probability of imminent or life threatening deterioration to cardiovascular, pulmonary, renal system which required my highest level of preparedness and interventions with frequent patient assessments. This time is excluding time spent on separately billable procedures. Discharge Plan Patient/Caregiver Discharge Instructions Pt seen by CAMPAIGN ANALYST/PA only: No Clinical Impression: Syncope, Sepsis, COVID-19, Hypovolemic shock Patient Disposition: Xfer As Inpt ([facility]) Condition: Critical Follow up with: Raudel Murphy MD [Primary Care Provider] - Prescriptions: No Action metformin 500 mg tablet extended release 24 hr 500 mg PO QDAY Qty: 90 [place] [place] Chair See Rx Instructions .Route .MEDSUPPLY Qty: 1 0RF Rx Instructions: As directed trazodone 100 mg tablet 100 mg PO QDAY PRN (Reason: insomnia) 0RF Label Comments: At bedtime ascorbic acid (vitamin C) 500 mg capsule, extended release 500 mg PO BID 0RF albuterol sulfate 90 mcg/actuation HFA aerosol inhaler 180 mcg INHALATION Q4H PRN (Reason: shortness of breath) 0RF Rx Instructions: administer with spacer terazosin 2 mg capsule 2 mg PO QDAY Qty: 90 1RF furosemide [Lasix] 20 mg tablet 20 mg PO QDAY 0RF atorvastatin [Lipitor] 80 mg tablet 220 mg PO QDAY 0RF metoprolol succinate 25 mg tablet extended release 24 hr 50 mg PO QDAY 0RF digoxin 125 mcg tablet 0.125 mg PO QDAY 0RF fosinopril 20 mg tablet 10 mg PO QDAY 0RF omeprazole 20 mg capsule,delayed release(DR/EC) 20 mg PO BID 0RF rivaroxaban 15 mg tablet 15 mg PO QDAY 0RF gabapentin 300 mg capsule 300 mg PO QHS 0RF (DME) Bilateral knee high velcro compression stockings See Rx Instructions .Route .MEDSUPPLY Qty: 1 0RF Rx Instructions: As directed levothyroxine 125 mcg capsule 112 mcg PO QDAY Qty: 90 1RF
[2021-05-27] MEDS ORDERED: NALOXONE HCL 0.4 MG/ML VIAL IV ONE (08:24)
[2021-05-27] MEDS ORDERED: DEXAMETHASONE 10 MG/ML VIAL IV ONE (08:46)
[2021-05-27] MEDS: NOREPINEPHRINE BITARTRATE 8 MG in 0.9 % SODIUM CHLORIDE 242 ML IV SCH (08:52)
[2021-05-27 09:04] LABS: POC Creatinine 2.3 mg/dL (0.6-1.2)
[2021-05-27 09:49] LABS: Basophils # (Auto) 0.04 K/mcL (0.00-0.30); Basophils % (Auto) 0.4 % (0.0-2.0); Eosinophils # (Auto) 0.35 K/mcL (0.00-0.70); Eosinophils % (Auto) 3.9 % (0.0-7.0); Hematocrit 36.8 % (40.1-51.0); Hemoglobin 11.9 g/dL (13.7-17.5); Lymphocytes # (Auto) 2.46 K/mcL (1.50-4.80); Lymphocytes % (Auto) 27.5 % (15.5-49.0); Mean Cell Volume 97.6 fL (80.0-100.0); Mean Corpuscular HGB Conc 32.3 g/dL (31.0-36.0); Mean Platelet Volume 9.9 fL (7.4-10.4); Monocytes # (Auto) 0.63 K/mcL (0.10-0.90); Neutrophils % (Auto) 61.2 % (38.0-78.0); Platelet Count 216 K/mcL (140-440); RBC 3.77 M/mcL (4.63-6.08); Red Cell Distribution Width 14.6 % (11.5-14.5)
[2021-05-27 10:18] LABS: Digoxin < 0.3 ng/mL
[2021-05-27] MEDS: 0.9 % SODIUM CHLORIDE 250 ML IV SCH (10:27)
--- NOTE | 2021-05-27 10:28 | Cat Scan Report ---
CLINICAL INFORMATION: Hypotension and abdominal and chest pain evaluate for aortic aneurysm rupture COMPARISON: Chest CT without contrast 05/14/2016 and noncontrast abdomen and pelvic CT 12/03/2017 TECHNIQUE: 0.625 mm helical slices were obtained from the lung apices through the subtrochanteric regions of the femurs. Following reconstruction, 2.5 mm sagittal, coronal and axial reformatted images were processed and reviewed at multiple windows and levels. 7 mm MIP reconstructions were obtained through the lungs to optimize nodule detection.The exam was performed using radiation dose optimization techniques including, but not limited to, automated exposure control, adjustment of the mA and/or kV according to patient size and use of iterative reconstruction technique. FINDINGS: Pulmonary parenchymal windows show subsegmental atelectasis in both posterior lower lobes. There are no infiltrates.. Pleural spaces are unremarkable-no effusions. Mediastinal windows show the heart is moderately enlarged with heavy calcific plaque in the coronary arteries and coronary bypass grafts.. Mitral valve prostheses noted. Calcification in the region aortic valve. The thoracic and abdominal aorta are normal in diameter with scattered calcific plaque. There is no evidence of aneurysmal enlargement, dissection or periaortic hemorrhage. There is no adenopathy in the mediastinal, hilar or axillary region. The pulmonary arteries are normal in diameter. Moderate mucus within trachea and the right bronchus. Right and left bronchi and the lobar bronchi are diminutive as previously seen. Esophagus is grossly normal. Thyroid is diminutive. Abdominal images show the gallbladder is surgically absent. The noncontrasted liver, both adrenal glands, spleen, and pancreas are normal in size and figuration attenuation without focal lesion. 8 mm nonobstructing stone is seen within the inferior calyx of the right kidney. Bilateral renal cysts are stable. There is no free air, free fluid or adenopathy. Pelvic images show mild prostate enlargement with prostatic calcifications as previously seen. There is mild wall thickening of the urinary bladder suggesting chronic bladder outlet narrowing. The stomach, small bowel, panics region and large bowel grossly normal. Bone window show grade 1 L4-5 spondylolisthesis with large broad disc protrusion and facet arthropathy resulting in severe central canal bilateral lateral recess and IV foraminal narrowing. There is impingement of the exiting L4 and descending L5 nerve roots. At L2-3 moderate broad disc protrusion and facet arthropathy result in moderate central canal and severe bilateral lateral recess IV foraminal narrowing. There are no focal osseous lesions. IMPRESSION: 1. The noncontrast thoracic and abdominal aorta are normal in diameter with scattered atherosclerotic plaque. There is no evidence of periaortic hemorrhage, dissection or aneurysm. 2. Heavy calcific plaque in the coronary arteries and coronary bypass grafts. Mitral valve prostheses. 3. Minor bibasilar atelectasis. No evidence of covid pneumonia. 4. 8 mm nonobstructing stone inferior calyx right kidney stable scattered cysts in both kidneys stable. 5. Mild prostate enlargement with calcification-stable. 6. At L4-5: Grade 1 spondylolisthesis broad disc protrusion with severe facet hypertrophy resulting in severe central canal, bilateral lateral recess and bilateral IV foraminal narrowing. There is impingement of the exiting L4 and L5 nerve roots. No change Interpreted and Authenticated by: Da Allen 05/27/21
[2021-05-27 10:41] LABS: ALT/SGPT 11 U/L (<40); AST/SGOT 15 U/L (<40); Albumin 3.3 gm/dL (3.2-5.2); Alkaline Phosphatase 61 U/L (39-117); Bilirubin,Total 0.3 mg/dL (0.1-1.0); Blood Urea Nitrogen 38 mg/dL (8-23); Calcium 9.7 mg/dL (8.6-10.4); Carbon Dioxide 21 mmol/L (22-30); Chloride 102 mmol/L (96-108); Creatine Kinase 71 U/L (24-195); Creatine Kinase MB 3.1 ng/mL (<6.7); Globulin 3.3 gm/dL (2.2-3.7); Glomerular Filtration Rate 23; Glucose 126 mg/dL (70-105); T4 (Thyroxine) 3.3 ug/dl (5.0-12.0); Thyroid Stimulating Hormone 28.35 uIU/mL (0.27-5.01)
--- NOTE | 2021-05-27 12:20 | XRay Report ---
CLINICAL INFORMATION: Central line placement COMPARISON: 11/08/2020 TECHNIQUE: Portable FINDINGS: The heart is mildly enlarged but unchanged. Mitral valve annuloplasty remains in stable position. Sternotomy changes noted. The mediastinum is otherwise normal. The pulmonary vessels are mildly distended. No edema. Lungs are clear. No effusions. Right IJ central line has been placed tip overlies the SVC azygos junction. IMPRESSION: Borderline CHF. New right IJ line in satisfactory position without pneumothorax or other complication. Interpreted and Authenticated by: Da Allen 05/27/21
--- NOTE | 2021-05-27 12:41 | EKG ---
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
[2021-05-27] MEDS ORDERED: ALBUTEROL SULFATE 200 PUFF INHALER INH PRN (13:27)
--- NOTE | 2021-05-27 13:45 | Internal Med History&Physical ---
HPI History of Present Illness Patient information: Note initiated : 05/27/21 at 1:43 pm Service Date, if different from initiated Date: [] Patient: Abhi Randle 81 y/o M admitted on for Syncopal Episode. Chief Complaint: [syncope] Chief complaint: syncope History of present illness: Mr. Randle is a 81 year old M multiple past medical history including atrial fibrillation's on Xarelto, CAD, type 2 diabetes mellitus, essential hypertension, mixed dyslipidemia, chronic kidney disease stage II, hypothyroidism on thyroid replacement therapy, GERD, presenting with syncope. History limited by the patient's clinical situation as well as the lack of any family or caregiver at the bedside. Patient does not remember what happened but it was reported that earlier today patient's had a syncopal episode when he was in the bathroom. In addition, it was reported that the housekeeper child care noted that patient is took longer than usual in the bathroom and he went in and saw the patient passed out for about 5 minutes before consciousness was regained. EMS was called and sent patient to our ED for further evaluations. Patient is currently denies any symptoms or complaints such as dizziness, lightheadedness, vertigo, chest pain, shortness of breath, or headaches. He denies any confusions or lethargy. He denies any limb shaking, tongue biting, or incontinence's. He is complaining of productive cough with brown sputum. He denies any urinary symptoms such as dysuria or change in urinary frequency or urgency. Currently denies any diarrhea or abdominal pain. He was tested positive for Covid pneumonia in the ED. Vital signs initially showing severe hypertension's with systolic blood pressure in the 50s as well as oxygen desaturating to the high 80s on room air. As a result, fluid boluses as well as supplemental oxygen therapy were initiated. Patient was subsequently titrated off the oxygen's. After 4 L of IV fluid boluses was given, he was being placed on central line with initiations of pressor Levophed. Labs remarkable for lack of leukocytosis with WBC 9.0. Serum lactic acid pending. Procalcitonin level also pending. Urinalysis pending. Serum troponin 0 0.05. TSH severely elevated to 28.35. T4 depressed at 3.3. Again, patient was being tested positive for Covid pneumonia.CT chest abdomen pelvis without contrast did not show any acute pathologies. CT of the chest did not show any infiltrates. Constitutional Constitutional: Absent chills, excessive sweating, fatigue, fever(s) or weakness EENT Eyes: Absent blurry vision, change in vision, loss of vision or other visual disturbances Ears: Absent decreased hearing or tinnitus Nose, mouth and throat: Absent abnormal hearing, dry mouth, headache(s), nasal congestion or sore throat Cardiovascular Cardiovascular: Absent chest pain, chest pain at rest, edema, irregular heart rhythm or palpatations Respiratory Respiratory: Absent cough, dyspnea or wheezing Gastrointestinal Gastrointestinal: Absent abdominal pain, constipation, diarrhea, nausea or vomiting Musculoskeletal Musculoskeletal: Absent back pain, deformity, limited range of motion, muscle cramps, muscle weakness or numbness Integumentary Integumentary: Absent lesions, rash or wounds Neurological Neurological: Absent focal weakness, headache(s) or numbness Psychiatric Psychiatric: Absent anxiety, depression or hallucinations PFSH PFSH All Active Problems (Updated 05/27/21 @ 14:06 by Indra Cruz MD) Anemia of chronic renal failure, stage 2 (mild) (Acute) Troponin level elevated (Acute) Chronic kidney disease (CKD) stage G2/A1, mildly decreased glomerular filtration rate (GFR) between 60-89 mL/min/1.73 square meter and albuminuria creatinine ratio less than 30 mg/g (Acute) Stage 2 acute kidney injury (Acute) Septic shock (Acute) Syncope (Acute) Sepsis (Acute) COVID-19 (Acute) Hypovolemic shock (Acute) Acute kidney injury (Acute) Annual physical exam (Acute) Medicare annual wellness visit, initial (Acute) Hematoma of right lower leg (Acute) Acute dehydration (Acute) Lower extremity weakness (Acute) Weight gain (Acute) Diarrhea (Acute) Senile purpura (Acute) Purpura (Acute) Toe pain, left (Acute) Sprain of toe, fifth, left (Acute) Acute chest wall pain (Acute) Cough (Acute) Lab test positive for detection of COVID-19 virus (Acute) Intermittent diarrhea (Acute) DMII (diabetes mellitus, type 2) (Acute) [place]-forme dermatosis (Acute) Atrial fibrillation (Acute) High risk medication use (Acute) Anemia (Acute) Hematuria (Acute) Stasis dermatitis of both legs (Chronic) History of tobacco use (Acute) Spinal stenosis of lumbar region (Acute) Shoulder pain, left (Acute 05/26/14) Chronic renal insufficiency (Acute) Renal calculi (Acute) Peripheral vascular disease (Acute) Osteoporosis (Acute) Mitral valve disorder (Acute) Leg pain (Acute 05/26/14) Hypothyroidism (acquired) (Acute) Hypertension (Acute) Hyperlipemia (Acute) Gastroesophageal reflux (Acute) Edema (Acute) Degenerative joint disease (Acute) Coronary atherosclerosis (Acute) CAD (coronary artery disease) (Acute) Bladder neck obstruction (Acute) Medical History Acute kidney injury Acute renal failure Acute retention of urine Annual physical exam Atrial fibrillation Bladder neck obstruction CAD (coronary artery disease) Post CABG Chronic renal insufficiency 02/02/2014 [facility] H&P Coronary atherosclerosis Post CABG Degenerative joint disease Osteoarthrosis NOS 02/02/2014 [facility] H&P Diarrhea DMII (diabetes mellitus, type 2) Edema Gastroesophageal reflux High risk medication use History of tobacco use 02/13/2012- Pipe Hyperlipemia Hypertension Essential Hypothyroidism (acquired) Intermittent diarrhea Leg pain (05/26/14) Leg Lower extremity weakness Medicare annual wellness visit, initial Mitral valve disorder With Repair Osteoporosis Peripheral vascular disease Unspecified Purpura Renal calculi Rhabdomyolysis Senile purpura Sepsis Shoulder pain, left (05/26/14) Left Spinal stenosis of lumbar region Lumbar Spine Sprain of toe, fifth, left [place]-forme dermatosis Toe pain, left Weight gain Surgical History History of arthroscopy of left knee History of carpal tunnel repair Bilateral History of coronary artery bypass graft x 3 3 Vessel History of evacuation of hematoma 11/07/2020-drainage and evacuation of hematoma right calf History of inguinal hernia repair History of open heart surgery Mitral Valve Repair History of shoulder surgery Bilateral, rt redo 4 months History of surgery 11/12/2020-secondary closure of surgical incisiona of right calf with drain placement History of total right knee replacement Nail avulsion of toe Family History Mother Malignant neoplasm of uterus Social History (Updated 12/12/20 @ 09:57 by Fallon Randhawa CMA) household members: other marital status: education level: high school occupational status: retired smoking status: Current every day smoker tobacco type: pipe other: a few pipefulls per day alcohol intake frequency: does not drink substance use type: does not use MEDS/ALLERGIES Home Medications and Allergies Home Medications Medication Instructions Recorded Confirmed Type albuterol sulfate 90 mcg/actuation 180 mcg INHALATION Q4H PRN g 09/13/14 05/27/21 History aerosol inhaler ascorbic acid (vitamin C) 500 mg 500 mg PO BID cap 09/13/14 05/27/21 History capsule,extended release trazodone 100 mg tablet 100 mg PO QDAY PRN tab 09/13/14 05/27/21 History furosemide 20 mg tablet (Lasix) 20 mg PO QDAY 07/28/17 05/27/21 History terazosin 2 mg capsule 2 mg PO QDAY #90 cap 08/18/17 05/27/21 Rx atorvastatin 80 mg tablet (Lipitor) 220 mg PO QDAY tab 05/25/18 05/27/21 History digoxin 125 mcg (0.125 mg) tablet 0.125 mg PO QDAY 05/25/18 05/27/21 History fosinopril 20 mg tablet 10 mg PO QDAY tab 05/25/18 05/27/21 History metoprolol succinate 25 mg 50 mg PO QDAY tab 05/25/18 05/27/21 History tablet,extended release 24 hr omeprazole 20 mg capsule,delayed 20 mg PO BID cap 05/25/18 05/27/21 History release rivaroxaban 15 mg tablet 15 mg PO QDAY tab 05/25/18 05/27/21 History metformin 500 mg tablet,extended 500 mg PO QDAY #90 tab 01/05/20 05/27/21 Rx release 24 hr Bilateral knee high velcro #1 ea 08/28/20 05/27/21 Rx compression stockings gabapentin 300 mg capsule 300 mg PO QHS 08/28/20 05/27/21 History Transport Chair #1 ea 11/21/20 05/27/21 Rx levothyroxine 125 mcg capsule 112 mcg PO QDAY #90 cap 11/28/20 05/27/21 Rx Allergies Allergy/AdvReac Type Severity Reaction Status Date / Time No Known Drug Allergies Allergy Unknown Unknown Verified 04/19/21 13:45 EXAM Constitutional Vitals: Temp Pulse Resp BP Pulse Ox 36.3 C 68 12 119/60 95 05/27/21 07:50 05/27/21 13:11 05/27/21 13:11 05/27/21 13:11 05/27/21 13:11 General appearance: cooperative, no acute distress and obese Head Head exam: Present atraumatic and normocephalic Eye Eye exam: Present EOMI and PERRL ENT ENT exam: Present mucous membranes moist, normal exam and normal external ear exam Neck Neck exam: Present normal inspection; Absent lymphadenopathy, tenderness or thyromegaly Respiratory Respiratory exam: Absent accessory muscle use, respiratory distress or wheezes Cardiovascular Cardiovascular exam: Present irregular rhythm and systolic murmur; Absent JVD GI/Abdominal GI/Abdominal exam: Present normal bowel sounds and soft; Absent organomegaly or tenderness Rectal Rectal exam: Present deferred Extremities Exam Extremities exam: Present full ROM, normal capillary refill and normal inspection; Absent tenderness Neurological Exam Neurological exam: Present alert, CN II-XII intact and oriented X3; Absent motor sensory deficit Psychiatric Psychiatric exam: Present normal affect and normal mood; Absent anxious or depressed Skin Skin exam: Present dry and intact DATA Data Completed and Pending Labs: Labs from last 24 hours 05/27/21 05/27/21 05/27/21 12:25 08:50 08:50 WBC 9.0 RBC 3.77 L Hgb 11.9 L Hct 36.8 L MCV 97.6 MCH 31.6 MCHC 32.3 RDW 14.6 H Plt Count 216 MPV 9.9 Neut % (Auto) 61.2 Lymph % (Auto) 27.5 [place] % (Auto) 7.0 Eos % (Auto) 3.9 Baso % (Auto) 0.4 Lymph # (Auto) 2.46 [place] # (Auto) 0.63 Eos # (Auto) 0.35 Baso # (Auto) 0.04 Absolute Neutrophils 5.47 VBG Lactic Acid 1.8 Sodium 140 Potassium 3.9 Chloride 102 Carbon Dioxide 21 L Anion Gap 17.0 H BUN 38 H Creatinine 2.5 H POC Creatinine 2.3 H GFR Calculation 23 Glucose 126 H Calcium 9.7 Total Bilirubin 0.3 AST 15 ALT 11 Alkaline Phosphatase 61 Total Creatine Kinase 71 CK-MB (CK-2) 3.1 Troponin T Total Protein 6.6 Albumin 3.3 Globulin 3.3 Albumin/Globulin Ratio 1.0 TSH 28.35 H Thyroxine (T4) 3.3 L Urine Color Pending Urine Appearance Pending Urine pH Pending Ur Specific [place] Pending Urine Protein Pending Urine Glucose (UA) Pending Urine Ketones Pending Urine Occult Blood Pending Urine Nitrate Pending Urine Bilirubin Pending Urine Urobilinogen Pending Ur Leukocyte Esterase Pending Digoxin 05/27/21 05/27/21 08:13 08:06 WBC RBC Hgb Hct MCV MCH MCHC RDW Plt Count MPV Neut % (Auto) Lymph % (Auto) [place] % (Auto) Eos % (Auto) Baso % (Auto) Lymph # (Auto) [place] # (Auto) Eos # (Auto) Baso # (Auto) Absolute Neutrophils VBG Lactic Acid Sodium Potassium Chloride Carbon Dioxide Anion Gap BUN Creatinine POC Creatinine GFR Calculation Glucose Calcium Total Bilirubin AST ALT Alkaline Phosphatase Total Creatine Kinase CK-MB (CK-2) Troponin T 0.05 H* Total Protein Albumin Globulin Albumin/Globulin Ratio TSH Thyroxine (T4) Urine Color Urine Appearance Urine pH Ur Specific [place] Urine Protein Urine Glucose (UA) Urine Ketones Urine Occult Blood Urine Nitrate Urine Bilirubin Urine Urobilinogen Ur Leukocyte Esterase Digoxin < 0.3 A/P Assessment and plan (1) Syncope: Status: Acute (2) Septic shock: Status: Acute (3) COVID-19: Status: Acute (4) Stage 2 acute kidney injury: Status: Acute (5) Hypovolemic shock: Status: Acute (6) DMII (diabetes mellitus, type 2): Status: Acute (7) Atrial fibrillation: Status: Acute (8) Chronic kidney disease (CKD) stage G2/A1, mildly decreased glomerular filtration rate (GFR) between 60-89 mL/min/1.73 square meter and albuminuria creatinine ratio less than 30 mg/g: Status: Acute (9) Hypothyroidism (acquired): Status: Acute (10) Hypertension: Status: Acute Comment: Essential (11) Hyperlipemia: Status: Acute (12) Gastroesophageal reflux: Status: Acute (13) CAD (coronary artery disease): Status: Acute Comment: Post CABG (14) Troponin level elevated: Status: Acute (15) Anemia of chronic renal failure, stage 2 (mild): Status: Acute Narrative A/P Narrative: Assessment and Plans: 1. Syncope: DDx: Hypothyroidism vs septic shock vs hypovolumic shock Admit to inpatient ICU with cardiac monitoring 2D echocardiogram Bilateral carotid Doppler US Physical therapy Occupational therapy TSH 28, T3/4 depressed Will double Synthroid from 112mcg to 250mcg PO daily Repeat TSH/T3/T4 in 6 week Lactic acid Procalcitonin level UA with reflexive urine culture Blood culture Sputum culture cbc w/ auto diff in the morning to trend WBC Vancomycin per pharmacy (okay to d/c when MRSA screen negative) Zosyn s/p 30cc/kg IV fluid boluses in the ED, to be followed by NS@100cc/hr Levophed drip titrate to achieve MAP>=65mmHg Hold oral antihypertensives from home 2. Essential HTN: Hold oral antihypertensives from home given low blood pressure and Pressor is running 3. Mixed dyslipidemia: Continue statin therapy 4. T2DM: HgA1c 6.3 Hold Metformin SSI AC HS Accu Chek AC HS Hypoglycemia protocol Diabetic diet 5. Hypothyroidism, suspect clinical hypothyroid still: TSH 28, T3/4 depressed Will double Synthroid from 112mcg to 250mcg PO daily Repeat TSH/T3/T4 in 6 week 6. Asymptomatic CoVID infection: Isolation: airborne and contact Room air No CoVID specific treatment for now 7. Atrial fibrillation: Hold Metoprolol for now given low blood pressure Continue Digoxin Xarelto 8. Elevated troponin level: Likely type 2 demand ischemic Serial troponin trending 9. GERD: Continue oral PPI from home regimen 10. Stage 2 LARRY on CKDII with associated anemia: Avoid nephrotoxic agents s/p 30cc/kg IV fluid boluses in the ED, to be followed by NS@100cc/hr CMP in the morning to trend kidney functions cbc w/ auto diff in the morning to trend H/H GI ppx: oral PPI from home regimen DVT ppx: Xarelto Code status: Full Prognosis: extremely guarded Disposition: Inpatient ICU Critical Care Time: 1hr Time Spent With Patient Time: Total time spent is greater than 50% in coordination of care (as documented) at patient's floor/unit and/or counseling patient: Total time spent with greater than 50% in coordination of care (as documented) at patient's floor/unit and/or counseling patient:: Greater than 35 minutes
[2021-05-27 14:42] LABS: Appearance,Urine Slightly Cloudy (Clear); Bacteria,Urine MANY /hpf (0); Bilirubin,Urine Negative (Negative); Color,Urine Yellow; Culture Indicated,Urine yes; Glucose,Urine (UA) Negative (Negative); Ketones,Urine Trace mg/dL (Negative); Leukocyte Esterase,Urine Moderate /uL (Negative); Mucus,Urine FEW /hpf; Nitrate,Urine Positive (Negative); PH,Urine 5.5 (5.0-9.0); Specific Gravity,Urine 1.025 (1.000-1.035); Urine Blood Small ery/mcL (Negative); Urine Hyaline Cast 13 /lph (0-2); Urine RBC 14 /hpf (0-3); Urine Squamous Epithelial Cell 4 /hpf (0-4); Urine Transitional Epi Cells < 1 /hpf (0-2); Urine WBC > 182 /hpf (0-4); Urobilinogen,Urine Normal
[2021-05-27] MEDS ORDERED: VANCOMYCIN PER PHARMACY IV SCH (17:15)
[2021-05-27] MEDS ORDERED: ACETAMINOPHEN 325 MG TABLET PO PRN (17:15)
[2021-05-27] MEDS ORDERED: DEXTROSE 31 GM ORAL.SUSP PO PRN (17:15)
[2021-05-27] MEDS ORDERED: DEXTROSE 50% 50 ML VIAL IV PRN (17:15)
[2021-05-27] MEDS ORDERED: IPRATROPIUM/ALBUTEROL 3 ML AMPUL.NEB NEB PRN (17:15)
[2021-05-27] MEDS ORDERED: SENNOSIDES 8.8 MG/5 ML ML PT PRN (17:15)
[2021-05-27] MEDS ORDERED: ONDANSETRON 4 MG/2 ML VIAL IV PRN (17:15)
[2021-05-27] MEDS: 0.9 % SODIUM CHLORIDE 10 ML SYRINGE IV SCH ×2 (17:27→20:50)
[2021-05-27] MEDS: OMEPRAZOLE 20 MG CAPSULE PO SCH (17:27)
[2021-05-27] MEDS: INSULIN LISPRO 1 UNIT/0.01 ML UNIT SQ SCH ×2 (17:29→21:04)
[2021-05-27] MEDS: 0.9 % SODIUM CHLORIDE 1,000 ML IV SCH (17:30)
[2021-05-27] MEDS: PIPERACILLIN SODIUM/TAZOBACTAM 2.25 GM in DEXTROSE 5% IN WATER 50 ML IV SCH (17:52)
[2021-05-27] MEDS ORDERED: VANCOMYCIN 1,500 MG in 0.9 % SODIUM CHLORIDE 500 ML IV ONE (19:00)
[2021-05-27] MEDS: ASCORBIC ACID 500 MG TABLET PO SCH (20:50)
[2021-05-27] MEDS: GABAPENTIN 300 MG CAPSULE PO SCH (20:50)
[2021-05-27] MEDS: DOCUSATE SODIUM 100 MG CAPSULE PO SCH (20:50)
[2021-05-28] MEDS: PIPERACILLIN SODIUM/TAZOBACTAM 2.25 GM in DEXTROSE 5% IN WATER 50 ML IV SCH ×4 (00:18→16:59)
[2021-05-28] MEDS: 0.9 % SODIUM CHLORIDE 250 ML IV SCH ×3 (00:19→20:51)
--- NOTE | 2021-05-28 03:02 | Ultrasound Report ---
CLINICAL INFORMATION: Syncope COMPARISON: None. TECHNIQUE: Spectral Doppler velocity measurements were obtained in the proximal, mid and distal common and internal carotid, both vertebral and proximal external carotid arteries bilaterally. Supplemental color and power Doppler imaging was also obtained to optimize stenosis detection. In reporting, any internal carotid stenosis was indirectly quantified comparing the distal internal carotid velocity. For ratio comparison, the internal carotid artery, at the level of stenosis, was utilized in the numerator and the normal distal internal carotid artery velocity was utilized as the denominator. Velocities are validated with angiographic measurements extrapolated from diameter data - as defined by the Society of Radiologists in Ultrasound Consensus Conference .Radiology 2003; 229; 340 - 346. FINDINGS: See worksheet by the technologist for velocities in PACS IMPRESSION: 1. 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 2. Left common and internal broad arteries are patent. Slight acceleration in systolic velocities in the common carotid artery due to tortuosity. 50% stenosis left external carotid artery. 3. Antegrade flow present left vertebral artery. Right vertebral artery was inaccessible Please correlate with CTA CT Angiography or MRA MR Angiography if surgery is contemplated. Interpreted and Authenticated by: Da Allen 05/28/21
[2021-05-28] MEDS: NOREPINEPHRINE BITARTRATE 8 MG in 0.9 % SODIUM CHLORIDE 242 ML IV SCH ×2 (05:02→11:20)
[2021-05-28] MEDS: 0.9 % SODIUM CHLORIDE 1,000 ML IV SCH (05:07)
[2021-05-28 07:04] LABS: Basophils # (Auto) 0.01 K/mcL (0.00-0.30); Basophils % (Auto) 0.1 % (0.0-2.0); Eosinophils # (Auto) 0.01 K/mcL (0.00-0.70); Eosinophils % (Auto) 0.1 % (0.0-7.0); Hematocrit 32.8 % (40.1-51.0); Hemoglobin 10.7 g/dL (13.7-17.5); Lymphocytes # (Auto) 1.05 K/mcL (1.50-4.80); Mean Cell Volume 96.2 fL (80.0-100.0); Mean Corpuscular HGB Conc 32.6 g/dL (31.0-36.0); Mean Platelet Volume 9.7 fL (7.4-10.4); Monocytes # (Auto) 0.54 K/mcL (0.10-0.90); Monocytes % (Auto) 4.6 % (1.0-12.0); Neutrophils % (Auto) 86.2 % (38.0-78.0); Platelet Count 189 K/mcL (140-440); RBC 3.41 M/mcL (4.63-6.08); Red Cell Distribution Width 14.5 % (11.5-14.5); WBC 11.7 K/mcL (4.5-11.0)
[2021-05-28 07:18] LABS: Vancomycin,Random 10.4 ug/mL
[2021-05-28] MEDS: OMEPRAZOLE 20 MG CAPSULE PO SCH ×2 (07:21→17:01)
[2021-05-28] MEDS: LEVOTHYROXINE 125 MCG TABLET PO SCH (07:21)
[2021-05-28 07:26] LABS: ALT/SGPT 9 U/L (<40); AST/SGOT 10 U/L (<40); Albumin/Globulin Ratio 1.1 (1.0-2.3); Alkaline Phosphatase 47 U/L (39-117); Bilirubin,Total 0.2 mg/dL (0.1-1.0); Blood Urea Nitrogen 26 mg/dL (8-23); Calcium 8.4 mg/dL (8.6-10.4); Carbon Dioxide 21 mmol/L (22-30); Chloride 106 mmol/L (96-108); Globulin 2.8 gm/dL (2.2-3.7); Glomerular Filtration Rate 46; Glucose 105 mg/dL (70-105); Phosphorous 2.5 mg/dL (2.5-4.5)
[2021-05-28] MEDS: INSULIN LISPRO 1 UNIT/0.01 ML UNIT SQ SCH ×4 (07:47→20:51)
[2021-05-28] MEDS: 0.9 % SODIUM CHLORIDE 10 ML SYRINGE IV SCH ×4 (07:47→20:37)
[2021-05-28] MEDS ORDERED: MAGNESIUM SULFATE 2 GM/50 ML BAG IV ONE (08:39)
[2021-05-28] MEDS ORDERED: TERAZOSIN 1 MG CAPSULE PO SCH (09:00)
[2021-05-28] MEDS ORDERED: RIVAROXABAN 15 MG TABLET PO SCH (09:00)
[2021-05-28] MEDS ORDERED: ATORVASTATIN 80 MG PO SCH (09:00)
[2021-05-28] MEDS ORDERED: RIVAROXABAN 20 MG TABLET PO SCH (09:00)
--- NOTE | 2021-05-28 09:00 | Internal Med Progress Note ---
SUBJECTIVE Subjective Patient information: Note initiated : 05/28/21 at 8:52 am Service Date, if different from initiated Date: [] Patient: Abhi Randle 81 y/o M admitted on 05/27/21 for Syncopal Episode. Chief Complaint: [syncope] Principal diagnosis: UTI, hypothyroidism Interval history: Mr. Randle is a 81 year old M multiple past medical history including atrial fibrillation's on Xarelto, CAD, type 2 diabetes mellitus, essential hypertension, mixed dyslipidemia, chronic kidney disease stage II, hypothyroidism on thyroid replacement therapy, GERD, presenting with syncope. History limited by the patient's clinical situation as well as the lack of any family or caregiver at the bedside. Patient does not remember what happened but it was reported that earlier today patient's had a syncopal episode when he was in the bathroom. In addition, it was reported that the regular senior care provider noted that patient is took longer than usual in the bathroom and he went in and saw the patient passed out for about 5 minutes before consciousness was regained. EMS was called and sent patient to our ED for further evaluations. Patient is currently denies any symptoms or complaints such as dizziness, lightheadedness, vertigo, chest pain, shortness of breath, or headaches. He denies any confusions or lethargy. He denies any limb shaking, tongue biting, or incontinence's. He is complaining of productive cough with brown sputum. He denies any urinary symptoms such as dysuria or change in urinary frequency or urgency. Currently denies any diarrhea or abdominal pain. He was tested positive for Covid pneumonia in the ED. Vital signs initially showing severe hypertension's with systolic blood pressure in the 50s as well as oxygen desaturating to the high 80s on room air. As a result, fluid boluses as well as supplemental oxygen therapy were initiated. Patient was subsequently titrated off the oxygen's. After 4 L of IV fluid boluses was given, he was being placed on central line with initiations of pressor Levophed. Labs remarkable for lack of leukocytosis with WBC 9.0. Serum lactic acid pending. Procalcitonin level also pending. Urinalysis pending. Serum troponin 0 0.05. TSH severely elevated to 28.35. T4 depressed at 3.3. Again, patient was being tested positive for Covid pneumonia.CT chest abdomen pelvis without contrast did not show any acute pathologies. CT of the chest did not show any infiltrates. 05/28: Afebrile. Levophed drip was being switched off at 0500 this morning. Lactic acid 2.8, procalcitonin 0.12, Urine nitrate and leukocyte esterase elevated, suggesting UTI. On room air. 2D echocardiogram pending. Carotid US no hemodynamically significant stenosis. MRSA screen pending. Cultures no growth to date. Denies urinary symptoms. Denies SOB. Denies fever chills or sweating. Continue Vancomycin and Zosyn, can d/c Vancomycin when MRSA screen negative. Not treating for CoVID since asymptomatic. Constitutional Vitals: Vital Signs Temp Pulse Resp BP Pulse Ox 36.6 C 105 H 19 90/66 95 05/28/21 08:01 05/28/21 08:06 05/28/21 08:06 05/28/21 08:01 05/28/21 08:06 Period Temp Pulse Resp BP Sys/Sagastume Pulse Ox Last 24 Hr 36.6 C-37.0 C 64-135 5-38 76-144/45-103 91-100 Intake and Output 05/27/21 05/28/21 05/28/21 21:59 05:59 13:59 Intake Total 968 1317 50 Output Total 845 651 100 Balance 123 666 -50 Weight 102.512 kg Intake & Output: Intake & Output 05/27/21 05/28/21 05/28/21 21:59 05:59 13:59 Intake Total 968 1317 50 Output Total 845 651 100 Balance 123 666 -50 Weight 102.512 kg Intake: IV 728 1197 50 Sodium Chloride 0.9% 1,000 ml @ 1000 100 mls/hr IV .Q10H [facility] Rx#: [id number] Sodium Chloride 0.9% 250 ml @ 136 114 20 mls/hr IV .[id number] [facility] Rx#: [id number] Levophed 8 mg In Sodium 42 33 Chloride 0.9% 242 ml @ 10 MCG/ MIN 18.75 mls/hr IV Q14H [facility] Rx #:[id number] Zosyn 2.25 gm In Dextrose 5% in 50 50 50 Water 50 ml @ 100 mls/hr IV Q6H [facility] Rx#:[id number] Vancomycin 1,500 mg In Sodium 500 Chloride 0.9% 500 ml @ 333.3 mls/hr IV ONCE ONE Rx#: [id number] Oral 240 120 Output: Void Amount 845 650 100 # of times incontinent of urine 1 Other: Meal Nourishment/Supplement Percent of Meal Consumed 100% Feeding Ability Independent Urine Appearance Clear Clear Urine Color Bright Yellow Dark Yellow Urine Odor Normal Normal # Voids 1 Head Head exam: Present atraumatic and normal inspection Eye Eye exam: Present normal appearance ENT ENT exam: Present mucous membranes moist, normal exam and normal external ear exam Neck Neck exam: Present normal inspection Respiratory Respiratory exam: Present normal respiratory exam Cardiovascular Cardiovascular exam: Present irregular rhythm GI/Abdominal GI/Abdominal exam: Present normal bowel sounds Back Exam Back exam: Present normal inspection Neurological Exam Neurological exam: Present alert and oriented X3 Skin Skin exam: Present intact and warm OBJ DATA Labs CBC & Chem 7: 05/28/21 05:41 05/28/21 05:41 Labs: Abnormal Lab Results 05/28/21 05/28/21 05/27/21 05:41 05:41 17:34 WBC 11.7 H RBC 3.41 L Hgb 10.7 L Hct 32.8 L RDW Neut % (Auto) 86.2 H Lymph % (Auto) 9.0 L Lymph # (Auto) 1.05 L Absolute Neutrophils 10.10 H VBG Lactic Acid Carbon Dioxide 21 L Anion Gap BUN 26 H Creatinine 1.4 H POC Creatinine Glucose Calcium 8.4 L Magnesium 1.5 L Troponin T Total Protein 5.8 L Albumin 3.0 L Procalcitonin 0.12 H TSH Thyroxine (T4) Urine Appearance Urine Protein Urine Ketones Urine Occult Blood Urine Nitrate Ur Leukocyte Esterase Urine RBC Urine WBC Urine Bacteria Hyaline Casts Urine Mucus 05/27/21 05/27/21 05/27/21 17:34 12:25 08:50 WBC RBC Hgb Hct RDW Neut % (Auto) Lymph % (Auto) Lymph # (Auto) Absolute Neutrophils VBG Lactic Acid 2.8 H Carbon Dioxide 21 L Anion Gap 17.0 H BUN 38 H Creatinine 2.5 H POC Creatinine 2.3 H Glucose 126 H Calcium Magnesium Troponin T Total Protein Albumin Procalcitonin TSH 28.35 H Thyroxine (T4) 3.3 L Urine Appearance Slightly cloudy A Urine Protein 30 mg/dl A Urine Ketones Trace A Urine Occult Blood Small A Urine Nitrate Positive A Ur Leukocyte Esterase Moderate A Urine RBC 14 H Urine WBC > 182 H Urine Bacteria Many A Hyaline Casts 13 H Urine Mucus Few A 05/27/21 05/27/21 08:50 08:06 WBC RBC 3.77 L Hgb 11.9 L Hct 36.8 L RDW 14.6 H Neut % (Auto) Lymph % (Auto) Lymph # (Auto) Absolute Neutrophils VBG Lactic Acid Carbon Dioxide Anion Gap BUN Creatinine POC Creatinine Glucose Calcium Magnesium Troponin T 0.05 H* Total Protein Albumin Procalcitonin TSH Thyroxine (T4) Urine Appearance Urine Protein Urine Ketones Urine Occult Blood Urine Nitrate Ur Leukocyte Esterase Urine RBC Urine WBC Urine Bacteria Hyaline Casts Urine Mucus Meds: Medications Acetaminophen (Acetaminophen 325 Mg Tablet) 650 mg PO Q4-6HP PRN; Protocol PRN Reason: Per Pain Protocol/Fever > 101 Albuterol Sulfate (Albuterol Sulfate 200 Puff Inhaler) 1 puff INH Q4HP PRN PRN Reason: shortness of breath Albuterol/Ipratropium (Ipratropium/Albuterol 3 Ml Ampul.Neb) 3 ml NEB Q4HRT PRN PRN Reason: Wheezing Ascorbic Acid (Ascorbic Acid 500 Mg Tablet) 500 mg PO BID [facility] Last Admin: 05/27/21 20:50 Dose: 500 mg Documented by: Atorvastatin Calcium (Atorvastatin 40 Mg Tablet) 40 mg PO DAILY [facility] Calcium/Vitamin D (Calcium W/Vit D3 500 Mg Tablet) 500 mg PO BID [facility] Cyanocobalamin (Cyanocobalamin (Vitamin B-12) 500 Mcg Tablet) 500 mcg PO QDAY [facility] Dextrose (Dextrose 50% 50 Ml Vial) 0 ml IV UD PRN PRN Reason: Hypoglycemia Diagnostic Test (Pha) (Accu-Chek 1 Each Strip) 1 each FS ACHS [facility] Last Admin: 05/28/21 07:46 Dose: 1 each Documented by: Digoxin (Digoxin 125 Mcg Tablet) 125 mcg PO DAILY@1400 [facility] Docusate Sodium (Docusate Sodium 100 Mg Capsule) 100 mg PO BID [facility] Last Admin: 05/27/21 20:50 Dose: Not Given Documented by: Gabapentin (Gabapentin 300 Mg Capsule) 300 mg PO QHS [facility] Last Admin: 05/27/21 20:50 Dose: 300 mg Documented by: Glucose (Dextrose 31 Gm Oral.Susp) 15 gm PO PRN PRN PRN Reason: Hypoglycemia Norepinephrine Bitartrate 8 mg (/ Sodium Chloride) 250 mls @ 18.75 mls/hr IV Q14H [facility]; Protocol Last Titration: 05/28/21 05:05 Dose: 0 mcg/min, 0 mls/hr Documented by: Sodium Chloride (Sodium Chloride 0.9%) 250 mls @ 20 mls/hr IV .[id number] [facility] Last Infusion: 05/28/21 05:03 Dose: Infused Documented by: Piperacillin Sod/Tazobactam (Sod 2.25 gm/ Dextrose) 50 mls @ 100 mls/hr IV Q6H [facility]; Protocol Last Infusion: 05/28/21 06:42 Dose: Infused Documented by: Magnesium Sulfate (Magnesium Sulfate) 2 gm in 50 mls @ 25 mls/hr IV ONCE ONE Stop: 05/28/21 10:38 Insulin Human Lispro (Insulin Lispro 1 Unit/0.01 Ml Unit) 0 unit SQ ACHS [facility]; Protocol Last Admin: 05/28/21 07:47 Dose: Not Given Documented by: Levothyroxine Sodium (Levothyroxine 125 Mcg Tablet) 250 mcg PO QAMAC [facility] Last Admin: 05/28/21 07:21 Dose: 250 mcg Documented by: Omeprazole (Omeprazole 20 Mg Capsule) 20 mg PO BIDAC [facility] Last Admin: 05/28/21 07:21 Dose: 20 mg Documented by: Ondansetron HCl (Ondansetron 4 Mg/2 Ml Vial) 4 mg IV Q4-6HP PRN; Protocol PRN Reason: Nausea And Vomiting Rivaroxaban (Rivaroxaban 15 Mg Tablet) 15 mg PO QDAY [facility] Senna (Sennosides 8.8 Mg/5 Ml Ml) 8.8 mg PT DAILY PRN PRN Reason: Constipation Sodium Chloride (0.9 % Sodium Chloride 10 Ml Syringe) 10 ml IV Q8 [facility] Last Admin: 05/28/21 07:47 Dose: 10 ml Documented by: Terazosin HCl (Terazosin 1 Mg Capsule) 2 mg PO QDAY [facility] Trazodone HCl (Trazodone Hcl 100 Mg Tablet) 100 mg PO QDAY PRN PRN Reason: insomnia Vancomycin HCl (Vancomycin Per Pharmacy) 1 order IV UD [facility]; Protocol A/P Assessment and plan (1) Syncope: Status: Acute (2) Septic shock: Status: Acute (3) COVID-19: Status: Acute (4) Stage 2 acute kidney injury: Status: Acute (5) Hypovolemic shock: Status: Acute (6) DMII (diabetes mellitus, type 2): Status: Acute (7) Atrial fibrillation: Status: Acute (8) Chronic kidney disease (CKD) stage G2/A1, mildly decreased glomerular filtration rate (GFR) between 60-89 mL/min/1.73 square meter and albuminuria creatinine ratio less than 30 mg/g: Status: Acute (9) Hypothyroidism (acquired): Status: Acute (10) Hypertension: Status: Acute Comment: Essential (11) Hyperlipemia: Status: Acute (12) Gastroesophageal reflux: Status: Acute (13) CAD (coronary artery disease): Status: Acute Comment: Post CABG (14) Troponin level elevated: Status: Acute (15) Anemia of chronic renal failure, stage 2 (mild): Status: Acute (16) UTI (urinary tract infection): Status: Acute (17) Hypomagnesemia: Status: Acute Narrative A/P Narrative: Assessment and Plans: 1. Syncope: DDx: Hypothyroidism vs septic shock (UTI) vs hypovolumic shock Stays in inpatient ICU with cardiac monitoring 2D echocardiogram pending Bilateral carotid Doppler US no hemodynamically significant stenosis Physical therapy Occupational therapy TSH 28, T3/4 depressed Will double Synthroid from 112mcg to 250mcg PO daily Repeat TSH/T3/T4 in 6 week Serial lactic acid 2.8--> Procalcitonin level 0.12 UA with reflexive urine culture no growth to date Blood culture no growth to date Sputum culture no growth to date cbc w/ auto diff in the morning to trend WBC Vancomycin per pharmacy (okay to d/c when MRSA screen negative) Zosyn s/p 30cc/kg IV fluid boluses in the ED, now can saline lock Levophed drip titrate to achieve MAP>=65mmHg, now off Hold oral antihypertensives from home 2. Essential HTN: Hold oral antihypertensives from home given low blood pressure and Pressor is running 3. Mixed dyslipidemia: Continue statin therapy 4. T2DM: HgA1c 6.3 Hold Metformin SSI AC HS Accu Chek AC HS Hypoglycemia protocol Diabetic diet 5. Hypothyroidism, suspect clinical hypothyroid still: TSH 28, T3/4 depressed Will double Synthroid from 112mcg to 250mcg PO daily Repeat TSH/T3/T4 in 6 week 6. Asymptomatic CoVID infection: Isolation: airborne and contact Room air No CoVID specific treatment for now 7. Atrial fibrillation: Hold Metoprolol for now given low blood pressure Continue Digoxin Xarelto 8. Elevated troponin level: Likely type 2 demand ischemic Serial troponin trending 9. GERD: Continue oral PPI from home regimen 10. Stage 2 LARRY on CKDII with associated anemia: Avoid nephrotoxic agents s/p 30cc/kg IV fluid boluses in the ED, now can saline lock CMP in the morning to trend kidney functions cbc w/ auto diff in the morning to trend H/H 11. Hypomagnesium: Mg rider Repeat serum Mg in the morning and repeat replacement as needed GI ppx: oral PPI from home regimen DVT ppx: Xarelto Code status: Full Prognosis: extremely guarded Disposition: Inpatient ICU Critical Care Time: 1hr Time Spent With Patient Time: Total time spent is greater than 50% in coordination of care (as documented) at patient's floor/unit and/or counseling patient: Total time spent with greater than 50% in coordination of care (as documented) at patient's floor/unit and/or counseling patient:: Greater than 35 minutes
[2021-05-28] MEDS: DOCUSATE SODIUM 100 MG CAPSULE PO SCH ×2 (09:14→20:37)
[2021-05-28] MEDS: CYANOCOBALAMIN (VITAMIN B-12) 500 MCG TABLET PO SCH (10:18)
[2021-05-28] MEDS: ASCORBIC ACID 500 MG TABLET PO SCH ×2 (10:18→20:36)
[2021-05-28] MEDS: ATORVASTATIN 40 MG TABLET PO SCH (10:18)
[2021-05-28] MEDS: CALCIUM W/VIT D3 500 MG TABLET PO SCH ×2 (10:22→20:36)
[2021-05-28] MEDS: DIGOXIN 125 MCG TABLET PO SCH (13:34)
[2021-05-28] MEDS: RIVAROXABAN 15 MG TABLET PO SCH (17:14)
[2021-05-28] MEDS ORDERED: 0.9 % SODIUM CHLORIDE 10 ML SYRINGE IV PRN ×2 (19:54→19:56)
[2021-05-28] MEDS: traZODone HCL 100 MG TABLET PO PRN (20:36)
[2021-05-28] MEDS: TERAZOSIN 1 MG CAPSULE PO SCH (20:36)
[2021-05-28] MEDS: GABAPENTIN 300 MG CAPSULE PO SCH (20:36)
[2021-05-28] MEDS ORDERED: TERAZOSIN 2 MG PO SCH (21:00)
[2021-05-28] MEDS ORDERED: 0.9 % SODIUM CHLORIDE 10 ML SYRINGE IV SCH (21:00)
[2021-05-29] MEDS: PIPERACILLIN SODIUM/TAZOBACTAM 2.25 GM in DEXTROSE 5% IN WATER 50 ML IV SCH ×5 (00:07→23:27)
[2021-05-29] MEDS: NOREPINEPHRINE BITARTRATE 8 MG in 0.9 % SODIUM CHLORIDE 242 ML IV SCH (04:47)
[2021-05-29] MEDS: 0.9 % SODIUM CHLORIDE 10 ML SYRINGE IV SCH ×2 (05:36→08:07)
[2021-05-29 06:46] LABS: Basophils # (Auto) 0.04 K/mcL (0.00-0.30); Basophils % (Auto) 0.4 % (0.0-2.0); Eosinophils # (Auto) 0.32 K/mcL (0.00-0.70); Eosinophils % (Auto) 3.5 % (0.0-7.0); Hematocrit 35.7 % (40.1-51.0); Hemoglobin 10.7 g/dL (13.7-17.5); Lymphocytes # (Auto) 2.38 K/mcL (1.50-4.80); Lymphocytes % (Auto) 25.9 % (15.5-49.0); Mean Cell Volume 103.5 fL (80.0-100.0); Mean Platelet Volume 9.5 fL (7.4-10.4); Monocytes # (Auto) 0.56 K/mcL (0.10-0.90); Monocytes % (Auto) 6.1 % (1.0-12.0); Neutrophils % (Auto) 64.1 % (38.0-78.0); Platelet Count 168 K/mcL (140-440); RBC 3.45 M/mcL (4.63-6.08); WBC 9.2 K/mcL (4.5-11.0)
[2021-05-29 07:06] LABS: ALT/SGPT 9 U/L (<40); AST/SGOT 12 U/L (<40); Alkaline Phosphatase 48 U/L (39-117); Bilirubin,Total 0.2 mg/dL (0.1-1.0); Blood Urea Nitrogen 18 mg/dL (8-23); Calcium 8.6 mg/dL (8.6-10.4); Carbon Dioxide 23 mmol/L (22-30); Chloride 107 mmol/L (96-108); Globulin 2.9 gm/dL (2.2-3.7); Glomerular Filtration Rate 62; Glucose 87 mg/dL (70-105); Phosphorous 2.3 mg/dL (2.5-4.5)
[2021-05-29] MEDS: ASCORBIC ACID 500 MG TABLET PO SCH ×2 (07:40→20:19)
[2021-05-29] MEDS: OMEPRAZOLE 20 MG CAPSULE PO SCH ×2 (07:40→17:11)
[2021-05-29] MEDS: CYANOCOBALAMIN (VITAMIN B-12) 500 MCG TABLET PO SCH (07:40)
[2021-05-29] MEDS: LEVOTHYROXINE 125 MCG TABLET PO SCH (07:40)
[2021-05-29] MEDS: CALCIUM W/VIT D3 500 MG TABLET PO SCH ×2 (07:40→20:18)
[2021-05-29] MEDS: ATORVASTATIN 40 MG TABLET PO SCH (07:40)
[2021-05-29] MEDS: DOCUSATE SODIUM 100 MG CAPSULE PO SCH ×2 (07:41→19:20)
[2021-05-29] MEDS: INSULIN LISPRO 1 UNIT/0.01 ML UNIT SQ SCH ×4 (07:59→20:45)
[2021-05-29] MEDS: 0.9 % SODIUM CHLORIDE 250 ML IV SCH (11:24)
--- NOTE | 2021-05-29 12:00 | Internal Med Progress Note ---
SUBJECTIVE Subjective Patient information: Note initiated : 05/29/21 at 11:52 am Service Date, if different from initiated Date: [] Patient: Abhi Randle 81 y/o M admitted on 05/27/21 for Syncopal Episode. Chief Complaint: [] Principal diagnosis: UTI, hypothyroidism Interval history: Mr. Randle is a 81 year old M multiple past medical history including atrial fibrillation's on Xarelto, CAD, type 2 diabetes mellitus, essential hypertension, mixed dyslipidemia, chronic kidney disease stage II, hypothyroidism on thyroid replacement therapy, GERD, presenting with syncope. History limited by the patient's clinical situation as well as the lack of any family or caregiver at the bedside. Patient does not remember what happened but it was reported that earlier today patient's had a syncopal episode when he was in the bathroom. In addition, it was reported that the inspector health care facilities noted that patient is took longer than usual in the bathroom and he went in and saw the patient passed out for about 5 minutes before consciousness was regained. EMS was called and sent patient to our ED for further evaluations. Patient is currently denies any symptoms or complaints such as dizziness, lightheadedness, vertigo, chest pain, shortness of breath, or headaches. He denies any confusions or lethargy. He denies any limb shaking, tongue biting, or incontinence's. He is complaining of productive cough with brown sputum. He denies any urinary symptoms such as dysuria or change in urinary frequency or urgency. Currently denies any diarrhea or abdominal pain. He was tested positive for Covid pneumonia in the ED. Vital signs initially showing severe hypertension's with systolic blood pressure in the 50s as well as oxygen desaturating to the high 80s on room air. As a result, fluid boluses as well as supplemental oxygen therapy were initiated. Patient was subsequently titrated off the oxygen's. After 4 L of IV fluid boluses was given, he was being placed on central line with initiations of pressor Levophed. Labs remarkable for lack of leukocytosis with WBC 9.0. Serum lactic acid pending. Procalcitonin level also pending. Urinalysis pending. Serum troponin 0 0.05. TSH severely elevated to 28.35. T4 depressed at 3.3. Again, patient was being tested positive for Covid pneumonia.CT chest abdomen pelvis without contrast did not show any acute pathologies. CT of the chest did not show any infiltrates. 05/28: Afebrile. Levophed drip was being switched off at 0500 this morning. Lactic acid 2.8, procalcitonin 0.12, Urine nitrate and leukocyte esterase elevated, suggesting UTI. On room air. 2D echocardiogram pending. Carotid US no hemodynamically significant stenosis. MRSA screen pending. Cultures no growth to date. Denies urinary symptoms. Denies SOB. Denies fever chills or sweating. Continue Vancomycin and Zosyn, can d/c Vancomycin when MRSA screen negative. Not treating for CoVID since asymptomatic. 05/08: Afebrile overnight. On room air. Blood culture: gram positive cocci. Urine cu lture: gram negative bacillus. MRSA screen negative, Vancomycin discontinued. Continue Zosyn. Transfer from ICU to PCU. 2D echocardiogram pending. Not treating for CoVID since asymptomatic. Denies urinary symptoms. Denies SOB. Denies fever chills or sweating. Constitutional Vitals: Vital Signs Temp Pulse Resp BP Pulse Ox 36.6 C 70 15 94/60 94 05/29/21 08:01 05/29/21 10:17 05/29/21 10:17 05/29/21 10:01 05/29/21 10:17 Period Temp Pulse Resp BP Sys/Sagastume Pulse Ox Last 24 Hr 36.3 C-37.1 C 48-107 15-25 94-123/57-90 90-99 Intake and Output 05/28/21 05/29/21 05/29/21 21:59 05:59 13:59 Intake Total 350 50 650 Output Total 1175 527 125 Balance -825 -477 525 Weight 103.051 kg Intake & Output: Intake & Output 05/28/21 05/29/21 05/29/21 21:59 05:59 13:59 Intake Total 350 50 650 Output Total 1175 527 125 Balance -825 -477 525 Weight 103.051 kg Intake: IV 50 50 50 Levophed 8 mg In Sodium 0 Chloride 0.9% 242 ml @ 10 MCG/ MIN 18.75 mls/hr IV Q14H [facility] Rx #:[id number] Zosyn 2.25 gm In Dextrose 5% in 50 50 50 Water 50 ml @ 100 mls/hr IV Q6H [facility] Rx#:[id number] Oral 300 600 Output: Void Amount 1175 525 125 # of times incontinent of urine 2 Other: Meal Dinner Breakfast Percent of Meal Consumed 100% 100% Feeding Ability Assist with Tray Set Up Urine Appearance Clear Clear Clear Urine Color Pale Bright Yellow Bright Yellow Urine Odor Normal Normal # Voids 1 Head Head exam: Present atraumatic and normal inspection Eye Eye exam: Present normal appearance ENT ENT exam: Present mucous membranes moist, normal exam and normal external ear exam Neck Neck exam: Absent normal inspection Additional comments: Right IJ central line Respiratory Respiratory exam: Present normal respiratory exam Cardiovascular Cardiovascular exam: Present normal rate and rhythm GI/Abdominal GI/Abdominal exam: Present normal bowel sounds Back Exam Back exam: Present normal inspection Neurological Exam Neurological exam: Present alert and oriented X3 Skin Skin exam: Present intact and warm OBJ DATA Labs CBC & Chem 7: 05/29/21 05:30 05/29/21 05:35 Labs: Abnormal Lab Results 05/29/21 05/29/21 05/28/21 05:35 05:30 09:00 WBC RBC 3.45 L Hgb 10.7 L Hct 35.7 L MCV 103.5 H MCHC 30.0 L RDW 15.0 H Neut % (Auto) Lymph % (Auto) Lymph # (Auto) Absolute Neutrophils VBG Lactic Acid 2.1 H Carbon Dioxide Anion Gap BUN Creatinine POC Creatinine Glucose Calcium Phosphorus 2.3 L Magnesium Troponin T Total Protein Albumin 3.0 L Procalcitonin TSH Thyroxine (T4) Urine Appearance Urine Protein Urine Ketones Urine Occult Blood Urine Nitrate Ur Leukocyte Esterase Urine RBC Urine WBC Urine Bacteria Hyaline Casts Urine Mucus 05/28/21 05/28/21 05/27/21 05:41 05:41 17:34 WBC 11.7 H RBC 3.41 L Hgb 10.7 L Hct 32.8 L MCV MCHC RDW Neut % (Auto) 86.2 H Lymph % (Auto) 9.0 L Lymph # (Auto) 1.05 L Absolute Neutrophils 10.10 H VBG Lactic Acid Carbon Dioxide 21 L Anion Gap BUN 26 H Creatinine 1.4 H POC Creatinine Glucose Calcium 8.4 L Phosphorus Magnesium 1.5 L Troponin T Total Protein 5.8 L Albumin 3.0 L Procalcitonin 0.12 H TSH Thyroxine (T4) Urine Appearance Urine Protein Urine Ketones Urine Occult Blood Urine Nitrate Ur Leukocyte Esterase Urine RBC Urine WBC Urine Bacteria Hyaline Casts Urine Mucus 05/27/21 05/27/21 05/27/21 17:34 12:25 08:50 WBC RBC Hgb Hct MCV MCHC RDW Neut % (Auto) Lymph % (Auto) Lymph # (Auto) Absolute Neutrophils VBG Lactic Acid 2.8 H Carbon Dioxide 21 L Anion Gap 17.0 H BUN 38 H Creatinine 2.5 H POC Creatinine 2.3 H Glucose 126 H Calcium Phosphorus Magnesium Troponin T Total Protein Albumin Procalcitonin TSH 28.35 H Thyroxine (T4) 3.3 L Urine Appearance Slightly cloudy A Urine Protein 30 mg/dl A Urine Ketones Trace A Urine Occult Blood Small A Urine Nitrate Positive A Ur Leukocyte Esterase Moderate A Urine RBC 14 H Urine WBC > 182 H Urine Bacteria Many A Hyaline Casts 13 H Urine Mucus Few A 05/27/21 05/27/21 08:50 08:06 WBC RBC 3.77 L Hgb 11.9 L Hct 36.8 L MCV MCHC RDW 14.6 H Neut % (Auto) Lymph % (Auto) Lymph # (Auto) Absolute Neutrophils VBG Lactic Acid Carbon Dioxide Anion Gap BUN Creatinine POC Creatinine Glucose Calcium Phosphorus Magnesium Troponin T 0.05 H* Total Protein Albumin Procalcitonin TSH Thyroxine (T4) Urine Appearance Urine Protein Urine Ketones Urine Occult Blood Urine Nitrate Ur Leukocyte Esterase Urine RBC Urine WBC Urine Bacteria Hyaline Casts Urine Mucus Meds: Medications Acetaminophen (Acetaminophen 325 Mg Tablet) 650 mg PO Q4-6HP PRN; Protocol PRN Reason: Per Pain Protocol/Fever > 101 Albuterol Sulfate (Albuterol Sulfate 200 Puff Inhaler) 1 puff INH Q4HP PRN PRN Reason: shortness of breath Albuterol/Ipratropium (Ipratropium/Albuterol 3 Ml Ampul.Neb) 3 ml NEB Q4HRT PRN PRN Reason: Wheezing Ascorbic Acid (Ascorbic Acid 500 Mg Tablet) 500 mg PO BID [facility] Last Admin: 05/29/21 07:40 Dose: 500 mg Documented by: Atorvastatin Calcium (Atorvastatin 40 Mg Tablet) 40 mg PO DAILY [facility] Last Admin: 05/29/21 07:40 Dose: 40 mg Documented by: Calcium/Vitamin D (Calcium W/Vit D3 500 Mg Tablet) 500 mg PO BID [facility] Last Admin: 05/29/21 07:40 Dose: 500 mg Documented by: Cyanocobalamin (Cyanocobalamin (Vitamin B-12) 500 Mcg Tablet) 500 mcg PO QDAY [facility] Last Admin: 05/29/21 07:40 Dose: 500 mcg Documented by: Dextrose (Dextrose 50% 50 Ml Vial) 0 ml IV UD PRN PRN Reason: Hypoglycemia Diagnostic Test (Pha) (Accu-Chek 1 Each Strip) 1 each FS [facility] Last Admin: 05/29/21 11:30 Dose: 1 each Documented by: Digoxin (Digoxin 125 Mcg Tablet) 125 mcg PO DAILY@1400 [facility] Last Admin: 05/28/21 13:34 Dose: 125 mcg Documented by: Docusate Sodium (Docusate Sodium 100 Mg Capsule) 100 mg PO BID [facility] Last Admin: 05/29/21 07:41 Dose: Not Given Documented by: Gabapentin (Gabapentin 300 Mg Capsule) 300 mg PO QHS [facility] Last Admin: 05/28/21 20:36 Dose: 300 mg Documented by: Glucose (Dextrose 31 Gm Oral.Susp) 15 gm PO PRN PRN PRN Reason: Hypoglycemia Piperacillin Sod/Tazobactam (Sod 2.25 gm/ Dextrose) 50 mls @ 100 mls/hr IV Q6H [facility]; Protocol Last Admin: 05/29/21 11:23 Dose: 100 mls/hr Documented by: Insulin Human Lispro (Insulin Lispro 1 Unit/0.01 Ml Unit) 0 unit SQ [facility]; Protocol Last Admin: 05/29/21 11:30 Dose: Not Given Documented by: Levothyroxine Sodium (Levothyroxine 125 Mcg Tablet) 250 mcg PO QAMAC [facility] Last Admin: 05/29/21 07:40 Dose: 250 mcg Documented by: Metoprolol Succinate (Metoprolol Succinate 50 Mg Tab.Xl.24h) 50 mg PO QDAY [facility] Omeprazole (Omeprazole 20 Mg Capsule) 20 mg PO BIDAC [facility] Last Admin: 05/29/21 07:40 Dose: 20 mg Documented by: Ondansetron HCl (Ondansetron 4 Mg/2 Ml Vial) 4 mg IV Q4-6HP PRN; Protocol PRN Reason: Nausea And Vomiting Rivaroxaban (Rivaroxaban 15 Mg Tablet) 15 mg PO QPMCC [facility] Last Admin: 05/28/21 17:14 Dose: 15 mg Documented by: Senna (Sennosides 8.8 Mg/5 Ml Ml) 8.8 mg PT DAILY PRN PRN Reason: Constipation Sodium Chloride (0.9 % Sodium Chloride 10 Ml Syringe) 10 ml IV UD PRN PRN Reason: prn Last Admin: 05/29/21 05:35 Dose: 10 ml Documented by: Terazosin HCl (Terazosin 1 Mg Capsule) 2 mg PO HS [facility] Last Admin: 05/28/21 20:36 Dose: 2 mg Documented by: Trazodone HCl (Trazodone Hcl 100 Mg Tablet) 100 mg PO QDAY PRN PRN Reason: insomnia Last Admin: 05/28/21 20:36 Dose: 100 mg Documented by: A/P Assessment and plan (1) Syncope: Status: Acute (2) Septic shock: Status: Acute (3) COVID-19: Status: Acute (4) Stage 2 acute kidney injury: Status: Acute (5) Hypovolemic shock: Status: Acute (6) DMII (diabetes mellitus, type 2): Status: Acute (7) Atrial fibrillation: Status: Acute (8) Chronic kidney disease (CKD) stage G2/A1, mildly decreased glomerular filtration rate (GFR) between 60-89 mL/min/1.73 square meter and albuminuria creatinine ratio less than 30 mg/g: Status: Acute (9) Hypothyroidism (acquired): Status: Acute (10) Hypertension: Status: Acute Comment: Essential (11) Hyperlipemia: Status: Acute (12) Gastroesophageal reflux: Status: Acute (13) CAD (coronary artery disease): Status: Acute Comment: Post CABG (14) Troponin level elevated: Status: Acute (15) Anemia of chronic renal failure, stage 2 (mild): Status: Acute (16) UTI (urinary tract infection): Status: Acute (17) Hypomagnesemia: Status: Acute Narrative A/P Narrative: Assessment and Plans: 1. Syncope: DDx: Hypothyroidism vs septic shock (UTI) vs hypovolumic shock Transfer from ICU to PCU 2D echocardiogram pending Bilateral carotid Doppler US no hemodynamically significant stenosis Physical therapy Occupational therapy TSH 28, T3/4 depressed Will double Synthroid from 112mcg to 250mcg PO daily Repeat TSH/T3/T4 in 6 week Serial lactic acid 2.8--> Procalcitonin level 0.12 UA with reflexive urine culture gram negative baccilus Blood culture gram positive cocci Sputum culture no growth to date cbc w/ auto diff in the morning to trend WBC Vancomycin per pharmacy (okay to d/c when MRSA screen negative) Zosyn s/p 30cc/kg IV fluid boluses in the ED, now can saline lock Levophed drip titrate to achieve MAP>=65mmHg, now off Hold oral antihypertensives from home 2. Essential HTN: Been off pressors Resume Metoprolol for better heart rate control 3. Mixed dyslipidemia: Continue statin therapy 4. T2DM: HgA1c 6.3 Hold Metformin SSI AC HS Accu Chek AC HS Hypoglycemia protocol Diabetic diet 5. Hypothyroidism, suspect clinical hypothyroid still: TSH 28, T3/4 depressed Will double Synthroid from 112mcg to 250mcg PO daily Repeat TSH/T3/T4 in 6 week 6. Asymptomatic CoVID infection: Isolation: airborne and contact Room air No CoVID specific treatment for now 7. Atrial fibrillation: Resume Metoprolol for better heart rate control Continue Digoxin Xarelto 8. Elevated troponin level: Likely type 2 demand ischemic Serial troponin down trended 9. GERD: Continue oral PPI from home regimen 10. Stage 2 LARRY on CKDII with associated anemia: Avoid nephrotoxic agents s/p 30cc/kg IV fluid boluses in the ED, now can saline lock CMP in the morning to trend kidney functions cbc w/ auto diff in the morning to trend H/H 11. Hypomagnesium: Mg rider Repeat serum Mg in the morning and repeat replacement as needed GI ppx: oral PPI from home regimen DVT ppx: Xarelto Code status: Full Prognosis: guarded Disposition: Transfer from ICU to PCU Critical Care Time: 45min Time Spent With Patient Time: Total time spent is greater than 50% in coordination of care (as documented) at patient's floor/unit and/or counseling patient: Total time spent with greater than 50% in coordination of care (as documented) at patient's floor/unit and/or counseling patient:: Greater than 35 minutes
[2021-05-29] MEDS: DIGOXIN 125 MCG TABLET PO SCH (14:41)
[2021-05-29] MEDS: RIVAROXABAN 15 MG TABLET PO SCH (17:11)
[2021-05-29] MEDS: GABAPENTIN 300 MG CAPSULE PO SCH (20:18)
[2021-05-29] MEDS: TERAZOSIN 1 MG CAPSULE PO SCH (20:18)
[2021-05-29] MEDS: traZODone HCL 100 MG TABLET PO PRN (20:19)
[2021-05-30] MEDS: PIPERACILLIN SODIUM/TAZOBACTAM 2.25 GM in DEXTROSE 5% IN WATER 50 ML IV SCH ×2 (06:11→11:41)
[2021-05-30 07:06] LABS: Basophils # (Auto) 0.03 K/mcL (0.00-0.30); Basophils % (Auto) 0.3 % (0.0-2.0); Eosinophils # (Auto) 0.42 K/mcL (0.00-0.70); Eosinophils % (Auto) 4.6 % (0.0-7.0); Hematocrit 34.6 % (40.1-51.0); Mean Cell Volume 98.3 fL (80.0-100.0); Mean Corpuscular HGB Conc 31.8 g/dL (31.0-36.0); Mean Platelet Volume 9.5 fL (7.4-10.4); Monocytes # (Auto) 0.67 K/mcL (0.10-0.90); Monocytes % (Auto) 7.3 % (1.0-12.0); Neutrophils % (Auto) 64.8 % (38.0-78.0); Platelet Count 168 K/mcL (140-440); RBC 3.52 M/mcL (4.63-6.08); Red Cell Distribution Width 14.6 % (11.5-14.5); WBC 9.1 K/mcL (4.5-11.0)
[2021-05-30] MEDS: LEVOTHYROXINE 125 MCG TABLET PO SCH (07:38)
[2021-05-30] MEDS: OMEPRAZOLE 20 MG CAPSULE PO SCH (07:38)
[2021-05-30 07:51] LABS: ALT/SGPT 10 U/L (<40); AST/SGOT 13 U/L (<40); Alkaline Phosphatase 52 U/L (39-117); Bilirubin,Total 0.3 mg/dL (0.1-1.0); Blood Urea Nitrogen 15 mg/dL (8-23); Calcium 8.8 mg/dL (8.6-10.4); Carbon Dioxide 26 mmol/L (22-30); Chloride 108 mmol/L (96-108); Glomerular Filtration Rate 62; Glucose 75 mg/dL (70-105); Phosphorous 2.8 mg/dL (2.5-4.5)
[2021-05-30] MEDS: INSULIN LISPRO 1 UNIT/0.01 ML UNIT SQ SCH ×2 (07:58→12:08)
[2021-05-30] MEDS: CYANOCOBALAMIN (VITAMIN B-12) 500 MCG TABLET PO SCH (08:47)
[2021-05-30] MEDS: ATORVASTATIN 40 MG TABLET PO SCH (08:47)
[2021-05-30] MEDS: CALCIUM W/VIT D3 500 MG TABLET PO SCH (08:47)
[2021-05-30] MEDS: ASCORBIC ACID 500 MG TABLET PO SCH (08:47)
[2021-05-30] MEDS: DOCUSATE SODIUM 100 MG CAPSULE PO SCH (08:47)
[2021-05-30] MEDS ORDERED: METOPROLOL SUCCINATE 50 MG TAB.XL.24H PO SCH (09:00)
--- NOTE | 2021-05-30 10:52 | Discharge Summary ---
Discharge Provider Provider Patient information: Note initiated : 05/30/21 at 10:47 am Service Date, if different from initiated Date: [] Patient: Abhi Randle 81 y/o M admitted on 05/27/21 for Syncopal Episode. Chief Complaint: [] Date of admission: 05/27/21 17:10 Discharge date: 05/30/21 Primary care physician: Raudel Murphy MD Attending physician on admission: Indra Cruz Consults: 05/27/21 Consult to Physician [CONS] Stat Comment: Consulting Provider: Indra Cruz Reason For Exam: Physician to Consult Attending physician on discharge: Indra Cruz Discharge Meds Discharge Medications Home Medications albuterol sulfate 90 mcg/actuation aerosol inhaler 180 mcg INHALATION Q4H PRN g 09/13/14 [History Confirmed 05/28/21 Last Taken 11/06/20] ascorbic acid (vitamin C) 500 mg capsule,extended release 1,000 mg PO DAILY cap 09/13/14 [History Confirmed 05/28/21 Last Taken 11/06/20] trazodone 100 mg tablet 100 mg PO QDAY PRN tab 09/13/14 [History Confirmed 05/28/21 Last Taken 11/06/20] furosemide 20 mg tablet (Lasix) 20 mg PO QDAY 07/28/17 [History Confirmed 05/28/21 Last Taken 11/06/20] atorvastatin 80 mg tablet (Lipitor) 40 mg PO QDAY tab 05/25/18 [History Confirmed 05/28/21 Last Taken 11/06/20] digoxin 125 mcg (0.125 mg) tablet 0.125 mg PO QDAY 05/25/18 [History Confirmed 05/28/21 Last Taken 11/06/20] fosinopril 20 mg tablet 10 mg PO QDAY tab 05/25/18 [History Confirmed 05/28/21 Last Taken 11/06/20] omeprazole 20 mg capsule,delayed release 20 mg PO BID cap 05/25/18 [History Confirmed 05/28/21 Last Taken 11/06/20] Bilateral knee high velcro compression stockings #1 ea 08/28/20 [Rx Confirmed 05/28/21 Last Taken Unknown] gabapentin 300 mg capsule 300 mg PO BID 08/28/20 [History Confirmed 05/28/21 Last Taken 11/05/20] Transport Chair #1 ea 11/21/20 [Rx Confirmed 05/28/21 Last Taken Unknown] calcium carb-vit D3-minerals 600 mg calcium-400 unit tablet 1 tab PO BID 05/27/21 [History Confirmed 05/28/21 Last Taken Unknown] cyanocobalamin (vitamin B-12) 500 mcg tablet 500 mcg PO QDAY 05/27/21 [History Confirmed 05/28/21 Last Taken Unknown] metformin 500 mg tablet 250 mg PO BID 05/27/21 [History Confirmed 05/28/21 Last Taken Unknown] metoprolol succinate 50 mg tablet,extended release 24 hr 50 mg PO QDAY 05/27/21 [History Confirmed 05/28/21 Last Taken Unknown] rivaroxaban 20 mg tablet 20 mg PO QDAY 05/27/21 [History Confirmed 05/28/21 Last Taken Unknown] terazosin 2 mg tablet 2 mg PO QHS 05/27/21 [History Confirmed 05/28/21 Last Taken Unknown] amoxicillin 500 mg-potassium clavulanate 125 mg tablet (Augmentin) 1 tab PO BID #14 tab 05/30/21 [Rx Last Taken Unknown] levothyroxine 125 mcg tablet 250 mcg PO QAMAC #30 tab 05/30/21 [Rx Last Taken Unknown] COURSE Hospital Course Hospital course: Mr. Randle is a 81 year old M multiple past medical history including atrial fibrillation's on Xarelto, CAD, type 2 diabetes mellitus, essential hypertension, mixed dyslipidemia, chronic kidney disease stage II, hypothyroidism on thyroid replacement therapy, GERD, presenting with syncope. History limited by the patient's clinical situation as well as the lack of any family or caregiver at the bedside. Patient does not remember what happened but it was reported that earlier today patient's had a syncopal episode when he was in the bathroom. In addition, it was reported that the rn long term care noted that patient is took longer than usual in the bathroom and he went in and saw the patient passed out for about 5 minutes before consciousness was regained. EMS was called and sent patient to our ED for further evaluations. Patient is currently denies any symptoms or complaints such as dizziness, lightheadedness, vertigo, chest pain, shortness of breath, or headaches. He denies any confusions or lethargy. He denies any limb shaking, tongue biting, or incontinence's. He is complaining of productive cough with brown sputum. He denies any urinary symptoms such as dysuria or change in urinary frequency or urgency. Currently denies any diarrhea or abdominal pain. He was tested positive for Covid pneumonia in the ED. Vital signs initially showing severe hypertension's with systolic blood pressure in the 50s as well as oxygen desaturating to the high 80s on room air. As a result, fluid boluses as well as supplemental oxygen therapy were initiated. Patient was subsequently titrated off the oxygen's. After 4 L of IV fluid boluses was given, he was being placed on central line with initiations of pressor Levophed. Labs remarkable for lack of leukocytosis with WBC 9.0. Serum lactic acid pending. Procalcitonin level also pending. Urinalysis pending. Serum troponin 0 0.05. TSH severely elevated to 28.35. T4 depressed at 3.3. Again, patient was being tested positive for Covid pneumonia.CT chest abdomen pelvis without contrast did not show any acute pathologies. CT of the chest did not show any infiltrates. 05/28: Afebrile. Levophed drip was being switched off at 0500 this morning. Lactic acid 2.8, procalcitonin 0.12, Urine nitrate and leukocyte esterase elevated, suggesting UTI. On room air. 2D echocardiogram pending. Carotid US no hemodynamically significant stenosis. MRSA screen pending. Cultures no growth to date. Denies urinary symptoms. Denies SOB. Denies fever chills or sweating. Continue Vancomycin and Zosyn, can d/c Vancomycin when MRSA screen negative. Not treating for CoVID since asymptomatic. 05/29: Afebrile overnight. On room air. Blood culture: gram positive cocci. Urine culture: gram negative bacillus. MRSA screen negative, Vancomycin discontinued. Continue Zosyn. Transfer from ICU to PCU. 2D echocardiogram pending. Not treating for CoVID since asymptomatic. Denies urinary symptoms. Denies SOB. Denies fever chills or sweating. 05/30: Afebrile overnight. Urine culture: gram negative bacillus. Blood culture Micrococcus luteus 1 bottle 1 set, likely contaminate. 2D echocardiogram pending. Reached clinical stability. Decided to discharge home with Rx Augmentin and increased dose of Synthroid sent to pharmacy. 1-2 week PCP follow up appointment made for him. All questions were answered prior to patient being physically discharged. Discharge diagnosis: UTI, hypothyoridism Time Spent with Patient Time attestation: Total time spent providing and/or coordinating discharge services: Time spent: Greater than 30 minutes EXAM Constitutional Vitals: Temp Pulse Resp BP Pulse Ox 36.4 C 85 19 127/57 95 05/30/21 08:01 05/30/21 10:01 05/30/21 10:01 05/30/21 10:01 05/30/21 10:01 General appearance: cooperative and no acute distress Head Head exam: Present atraumatic and normocephalic Eye Eye exam: Present EOMI and PERRL ENT ENT exam: Present mucous membranes moist, normal exam and normal external ear exam Additional comments: Right IJ cental line Neck Neck exam: Present normal inspection; Absent lymphadenopathy, tenderness or thyromegaly Respiratory Respiratory exam: Absent accessory muscle use, respiratory distress or wheezes Cardiovascular Cardiovascular exam: Present normal rate and rhythm; Absent JVD GI/Abdominal GI/Abdominal exam: Present normal bowel sounds and soft; Absent organomegaly or tenderness Rectal Rectal exam: Present deferred Extremities Exam Extremities exam: Present full ROM, normal capillary refill and normal inspection; Absent tenderness Neurological Exam Neurological exam: Present alert, CN II-XII intact and oriented X3; Absent motor sensory deficit Psychiatric Psychiatric exam: Present normal affect and normal mood; Absent anxious or depressed Skin Skin exam: Present dry and intact Discharge Data Data Completed and Pending Labs on day of discharge: Labs from last 24 hours 05/30/21 05/30/21 05:17 05:17 WBC 9.1 RBC 3.52 L Hgb 11.0 L Hct 34.6 L MCV 98.3 MCH 31.3 MCHC 31.8 RDW 14.6 H Plt Count 168 MPV 9.5 Neut % (Auto) 64.8 Lymph % (Auto) 23.0 Heard % (Auto) 7.3 Eos % (Auto) 4.6 Baso % (Auto) 0.3 Lymph # (Auto) 2.10 Heard # (Auto) 0.67 Eos # (Auto) 0.42 Baso # (Auto) 0.03 Absolute Neutrophils 5.90 Sodium 141 Potassium 4.6 Chloride 108 Carbon Dioxide 26 Anion Gap 7.0 L BUN 15 Creatinine 1.1 GFR Calculation 62 Glucose 75 Calcium 8.8 Phosphorus 2.8 Magnesium 1.6 Total Bilirubin 0.3 AST 13 ALT 10 Alkaline Phosphatase 52 Total Protein 6.0 Albumin 3.0 L Globulin 3.0 Albumin/Globulin Ratio 1.0 Preliminary micro results at discharge 05/27/21 09:05 Blood Culture - Preliminary Blood 05/29/21 05:35 Blood Culture - Preliminary Blood 05/29/21 05:30 Blood Culture - Preliminary Blood 05/27/21 08:50 Blood Culture - Preliminary Blood Micrococcus luteus Discharge Plan Patient/Caregiver Discharge Instructions Activity: increase activity as tolerated Diet: Consistent Carbohydrate Prescriptions: New levothyroxine 125 mcg Tablet 250 mcg PO QAMAC Qty: 30 0RF amoxicillin-pot clavulanate [Augmentin] 500-125 mg tablet 1 tab PO BID Qty: 14 0RF Continued (DME) Transport Chair See Rx Instructions .Route .MEDSUPPLY Qty: 1 0RF Rx Instructions: As directed trazodone 100 mg tablet 100 mg PO QDAY PRN (Reason: insomnia) 0RF Label Comments: At bedtime ascorbic acid (vitamin C) 500 mg capsule, extended release 1,000 mg PO DAILY 0RF albuterol sulfate 90 mcg/actuation HFA aerosol inhaler 180 mcg INHALATION Q4H PRN (Reason: shortness of breath) 0RF Rx Instructions: administer with spacer furosemide [Lasix] 20 mg tablet 20 mg PO QDAY 0RF atorvastatin [Lipitor] 80 mg tablet 40 mg PO QDAY 0RF digoxin 125 mcg tablet 0.125 mg PO QDAY 0RF fosinopril 20 mg tablet 10 mg PO QDAY 0RF omeprazole 20 mg capsule,delayed release(DR/EC) 20 mg PO BID 0RF gabapentin 300 mg capsule 300 mg PO BID 0RF (DME) Bilateral knee high velcro compression stockings See Rx Instructions .Route .MEDSUPPLY Qty: 1 0RF Rx Instructions: As directed metoprolol succinate 50 mg Tablet Extended Release 24 Hr 50 mg PO QDAY 0RF terazosin 2 mg Tablet 2 mg PO QHS 0RF metformin 500 mg Tablet 250 mg PO BID 0RF cyanocobalamin (vitamin B-12) 500 mcg Tablet 500 mcg PO QDAY 0RF rivaroxaban 20 mg Tablet 20 mg PO QDAY 0RF Rx Instructions: must administer with evening meal calcium carbonate-vit D3-min 600 mg calcium- 400 unit Tablet 1 tab PO BID 0RF Discontinued levothyroxine 125 mcg Tablet 125 mcg PO QDAY 0RF Follow Up Plan Follow up with: Raudel Murphy MD [Primary Care Provider] - Patient Disposition: Home, Self-Care Prognosis: Critical Rehab Potential: Good I certify that the patient requires SNF services: No Overall status at discharge: patient is back to baseline Discharge Orders: Discharge Order (Routine); Ordered 05/30/21 Ordered By: Indra Cruz
[2021-05-30] MEDS: DIGOXIN 125 MCG TABLET PO SCH (13:38)
== END 2021-05-30 13:40 | disposition home or self-care (01) | DRG 871 ==
LOC: ED 07:45 → ICU 17:10
PROVIDERS: ADMIT Internal Medicine; ATTEND Internal Medicine

== ENCOUNTER 2021-12-26 16:38 | Inpatient (IN) ==
[2021-12-26] MEDS ORDERED: 0.9 % SODIUM CHLORIDE 1,000 ML IV ONE (16:45)
[2021-12-26 16:48] LABS: POC Calcium, Ionized 1.2 (1.16-1.32); POC Creatinine 2.3 (0.6-1.2); POC Potassium 3.9 (3.3-5.1)
--- NOTE | 2021-12-26 17:14 | Cat Scan Report ---
History: Increased weakness TECHNIQUE: The brain was imaged without contrast in axial plane at 2.5 mm intervals. Sagittal and coronal reformats were created. The radiation exposure was limited using dose reduction technology. FINDINGS: There is moderate cerebral atrophy predominantly involving the frontal and temporal lobes. There is milder involvement in the parietal lobes and cerebellum. This has progressed since prior head CT done on 12/03/17. There are subtle areas of decreased attenuation in the centrum semiovale in the frontal and parietal lobes consistent with age-related ischemia or degeneration. There is no evidence of an infarct. No hemorrhage or mass effect are present. The ventricles are normal in size allowing for atrophy. No abnormal extra-axial fluid collection is present. Moderate bilateral ethmoid sinusitis is present. This is worse today than it had been in 2018. There is also mild bilateral frontal sinusitis. The orbits are normal. No skull lesion is present. IMPRESSION: Cerebral atrophy which has progressed since 2018. No evidence of acute brain injury Moderate ethmoid and milder frontal sinusitis Gabriella Tillman was called with the report Interpreted and Authenticated by: Hector Redd 12/26/21
[2021-12-26 17:50] LABS: Free T4 (Free Thyroxine) < 0.10 ng/dL (0.93-1.70); Thyroid Stimulating Hormone > 100 uIU/mL (0.27-5.01)
--- NOTE | 2021-12-26 17:58 | Emergency Department Note ---
Weakness HPI General Chief complaint: Weakness Stated complaint: Weakness Time Seen by Provider: 12/26/21 16:45 Source: patient and family Mode of arrival: wheelchair Limitations: no limitations History of Present Illness HPI Narrative: 81-year-old male who functions independently at home with history of coronary a rtery disease, chronic anticoagulation with rivaroxaban, CKD stage II, hypertension, chronic lower extremity pain, peripheral vascular disease, GERD, hypothyroidism and new diagnosis of T2DM recently placed on metformin who presents with 24 hours of weakness. He lives with his son Dagoberto who is at the bedside to give most of his history. He states that his dad normally ambulates around with a walker or cane and does well. He notes that yesterday morning his father became acutely weak and sleeping frequently. His father is primarily responsible for his own medications and told his son that he had been out of his levothyroxine for 5 days. Otherwise there is no complaints of urinary discomf ort, changes in bowel habits, nausea or vomiting, abdominal pain, or lightheadedness dizziness. [id number] blood glucose is 77 on evaluation. Serum glucose is 61. Related Data Home Medications Medication Instructions Recorded Confirmed albuterol sulfate 90 mcg/actuation 180 mcg inhalation Q4H PRN 09/13/14 12/17/21 aerosol inhaler shortness of breath ascorbic acid (vitamin C) 500 mg 1,000 mg PO DAILY 09/13/14 12/17/21 capsule,extended release trazodone 100 mg tablet 100 mg PO QDAY PRN insomnia 09/13/14 12/17/21 furosemide 20 mg tablet (Lasix) 20 mg PO QDAY 07/28/17 12/17/21 atorvastatin 80 mg tablet (Lipitor) 40 mg PO QDAY 05/25/18 12/17/21 digoxin 125 mcg (0.125 mg) tablet 0.125 mg PO QDAY 05/25/18 12/17/21 fosinopril 20 mg tablet 10 mg PO QDAY 05/25/18 12/17/21 omeprazole 20 mg capsule,delayed 20 mg PO BID 05/25/18 12/17/21 release gabapentin 300 mg capsule 300 mg PO BID 08/28/20 12/17/21 calcium carb-vit D3-minerals 600 1 tab PO BID 05/27/21 12/17/21 mg calcium-400 unit tablet cyanocobalamin (vitamin B-12) 500 500 mcg PO QDAY 05/27/21 12/17/21 mcg tablet metformin 500 mg tablet 250 mg PO BID 05/27/21 12/17/21 metoprolol succinate 50 mg 50 mg PO QDAY 05/27/21 12/17/21 tablet,extended release 24 hr rivaroxaban 20 mg tablet 20 mg PO QDAY 05/27/21 12/17/21 terazosin 2 mg tablet 2 mg PO QHS 05/27/21 12/17/21 Previous Rx's Medication Instructions Recorded Transport Chair #1 ea 11/21/20 amoxicillin 500 mg-potassium 1 tab PO BID #14 tabs 05/30/21 clavulanate 125 mg tablet (Augmentin) levothyroxine 150 mcg tablet 150 mcg PO QDAY #90 tabs 12/24/21 Allergies Allergy/AdvReac Type Severity Reaction Status Date / Time No Known Drug Allergies Allergy Unknown Unknown Verified 12/26/21 16:38 Review of Systems ROS ROS Narrative: Narrative: All systems ED: reviewed and negative except as stated. [facility] Narrative Patient History Narrative: Narrative: Medical/Surgical/Family History All Active Problems (Updated 12/26/21 @ 19:56 by Gabriella Tillman PA-C) Hypothyroidism (Acute) Weakness (Acute) Acidosis, lactic (Acute) Acute urinary retention (Acute) Infectious colitis (Acute) Annual physical exam (Acute) Medicare annual wellness visit, subsequent (Acute) Abdominal pain (Acute) Acute UTI (Acute) Calculus of right kidney (Acute) Bilateral wheezing (Acute) Dehydration (Acute) Elevated TSH (Acute) Hospital discharge follow-up (Acute) Gram-positive cocci bacteremia (Acute) UTI (urinary tract infection) (Acute) Hypomagnesemia (Acute) Anemia of chronic renal failure, stage 2 (mild) (Acute) Troponin level elevated (Acute) Chronic kidney disease (CKD) stage G2/A1, mildly decreased glomerular filtration rate (GFR) between 60-89 mL/min/1.73 square meter and albuminuria creatinine ratio less than 30 mg/g (Acute) Stage 2 acute kidney injury (Acute) Septic shock (Acute) Syncope (Acute) Sepsis (Acute) COVID-19 (Acute) Hypovolemic shock (Acute) Acute kidney injury (Acute) Annual physical exam (Acute) Hematoma of right lower leg (Acute) Acute dehydration (Acute) Lower extremity weakness (Acute) Weight gain (Acute) Diarrhea (Acute) Senile purpura (Acute) Purpura (Acute) Toe pain, left (Acute) Sprain of toe, fifth, left (Acute) Acute chest wall pain (Acute) Cough (Acute) Lab test positive for detection of COVID-19 virus (Acute) Intermittent diarrhea (Acute) DMII (diabetes mellitus, type 2) (Acute) [place]ra firma-forme dermatosis (Acute) Atrial fibrillation (Acute) High risk medication use (Acute) Anemia (Acute) Hematuria (Acute) Stasis dermatitis of both legs (Chronic) History of tobacco use (Acute) Spinal stenosis of lumbar region (Acute) Shoulder pain, left (Acute 05/26/14) Chronic renal insufficiency (Acute) Renal calculi (Acute) Peripheral vascular disease (Acute) Osteoporosis (Acute) Mitral valve disorder (Acute) Leg pain (Acute 05/26/14) Hypothyroidism (acquired) (Acute) Hypertension (Acute) Hyperlipemia (Acute) Gastroesophageal reflux (Acute) Edema (Acute) Degenerative joint disease (Acute) Coronary atherosclerosis (Acute) CAD (coronary artery disease) (Acute) Bladder neck obstruction (Acute) Medical History Acute kidney injury Acute renal failure Acute retention of urine Annual physical exam Atrial fibrillation Bladder neck obstruction CAD (coronary artery disease) Post CABG Chronic renal insufficiency 02/02/2014 [facility] H&P Coronary atherosclerosis Post CABG Degenerative joint disease Osteoarthrosis NOS 02/02/2014 [facility] H&P Diarrhea DMII (diabetes mellitus, type 2) Edema Elevated TSH Gastroesophageal reflux High risk medication use History of tobacco use 02/13/2012- [facility] discharge follow-up Hyperlipemia Hypertension Essential Hypothyroidism (acquired) Intermittent diarrhea Leg pain (05/26/14) Leg Lower extremity weakness Medicare annual wellness visit, initial Medicare annual wellness visit, subsequent Mitral valve disorder With Repair Osteoporosis Peripheral vascular disease Unspecified Purpura Renal calculi Rhabdomyolysis Senile purpura Sepsis Shoulder pain, left (05/26/14) Left Spinal stenosis of lumbar region Lumbar Spine Sprain of toe, fifth, left [place]ra firma-forme dermatosis Toe pain, left Weight gain Surgical History History of arthroscopy of left knee History of carpal tunnel repair Bilateral History of coronary artery bypass graft x 3 3 Vessel History of evacuation of hematoma 11/07/2020-drainage and evacuation of hematoma right calf History of inguinal hernia repair History of open heart surgery Mitral Valve Repair History of shoulder surgery Bilateral, rt redo 4 months History of surgery 11/12/2020-secondary closure of surgical incisiona of right calf with drain placement History of total right knee replacement Nail avulsion of toe Family History Mother Malignant neoplasm of uterus Social History Smoking Status: Current every day smoker Alcohol Intake Frequency: does not drink Substance Use: does not use Exam Narrative Narrative: General: AOx3, NAD, nontoxic appearing. Somnolent, but arousable. Slurred speech but son says this is baseline. HEENT: PERRL, EOMI, normocephalic. Dry mucous membranes. Normal facies and dentures in place. Chest: Symmetric, no pain to palpation Respiratory: Lungs clear to auscultation bilaterally. No respiratory distress. Unlabored breathing. Heart: Regular rate and rhythm, no murmurs/clicks/rubs. Abdomen: Non-tender, Non distended, normal bowel tones. No organomegaly. Extremities: Warm and well perfused. Bilateral 1+ pitting edema. DP 2+ bilaterally. No venous stasis. Baseline pain to the left lateral foot and small toe, not ne. Neuro: No focal deficits. Cranial nerves II-XII grossly normal. Normal facial symmetry Skin: Warm dry, no rashes or lesions, no cyanosis. Psych: Normal mood and affect Heme/Lymph: No abnormal bruising General Limitations: no limitations Course Course Course Narrative: 81-year-old male presents for acute weakness Reevaluation(s) Reevaluation #1: Obtain basic labs, UA, TSH/T4 Establish IV give IV fluids Head CT without contrast to rule out intracranial bleeding or other pathology Reevaluation #2: Patient has a serum glucose of 61, will start D5 and have him drink some orange juice. Head CT shows increased atrophy changes, also increased ethmoid frontal sinusitis change from previous CT. No acute intracranial pathology. Reevaluation #3: Repeat [id number] blood glucose is 132. TSH is over 100 and free T4 is less than 0.10. Patient has been unable to produce a urine sample for me here. VBG with a lactic acid of 5.6 and normal pH, question if this is due to his metformin. He has already been given 1 L of LR and is almost finished with 1 L of D5 one half normal saline. The patient is unable to give me a urine sample but 350 cc is noted in the bladder on bladder scan. Patient is currently refusing catheterization to obtain UA. Additional Reevaluation(s): At this time the patient is significantly debilitated and has multiple abnormal laboratory findings. I have been unable to obtain a UA. I do not think the patient is safe for discharge home and I have reached out to the hospitalist for admission. Vital Signs Vital signs: Vital Signs Temperature 96.9 F L 12/26/21 16:39 Pulse Rate 103 H 12/26/21 16:39 Respiratory Rate 18 12/26/21 16:39 Blood Pressure 86/45 12/26/21 16:39 Pulse Oximetry (%) 97 12/26/21 16:39 Oxygen Delivery Method 12/26/21 16:39 Temperature 96.9 F L 12/26/21 16:39 Pulse Rate 96 H 12/26/21 19:34 Respiratory Rate 18 12/26/21 19:34 Blood Pressure 110/56 12/26/21 19:34 Pulse Oximetry (%) 95 12/26/21 19:34 Oxygen Delivery Method 12/26/21 16:39 MDM MDM Narrative Medical decision making narrative: Hypothyroidism Hypoglycemia Lactic acidosis Weakness Urinary retention The patient has been accepted for admission by the hospitalist service. Lab Data Result diagrams: 12/26/21 16:47 Labs: Lab Results 12/26/21 12/26/21 12/26/21 Range/Units 16:46 16:47 16:47 WBC 9.0 (4.5-11.0) K/mcL RBC 4.17 L (4.63-6.08) M/mcL Hgb 13.5 L (13.7-17.5) g/dL Hct 41.8 (40.1-51.0) % POC Hct 43.0 (41-55) MCV 100.2 H (80.0-100.0) fL MCH 32.4 (26.0-34.0) pg MCHC 32.3 (31.0-36.0) g/dL RDW 15.3 H (11.5-14.5) % Plt Count 182 (140-440) K/mcL MPV 9.8 (7.4-10.4) fL Immature Gran % (Auto) 0.8 H (0.0-0.5) % Neut % (Auto) 59.2 (38.0-78.0) % Lymph % (Auto) 28.3 (15.5-49.0) % Turner % (Auto) 7.5 (1.0-12.0) % Eos % (Auto) 3.8 (0.0-7.0) % Baso % (Auto) 0.4 (0.0-2.0) % Lymph # (Auto) 2.56 (1.50-4.80) K/mcL Turner # (Auto) 0.68 (0.10-0.90) K/mcL Eos # (Auto) 0.34 (0.00-0.70) K/mcL Baso # (Auto) 0.04 (0.00-0.30) K/mcL Immature Gran # 0.07 H (0.00-0.05) K/mcl Absolute Neutrophils 5.34 (1.80-8.00) K/mcL POC VBG pH (7.32-7.42) POC VBG pCO2 at Temp (41-51) POC VBG pO2 (25-40) POC VBG HCO3 (24-28) POC VBG Total CO2 (25-29) POC Venous O2 Sat (40-70) POC VBG Base Excess (-2-2) VBG Lactic Acid (0.5-2) POC Sodium 138 (133-145) POC Potassium 3.9 (3.3-5.1) POC Chloride 96 (96-108) POC Total CO2 30.0 (22-30) POC BUN 25 H (6-20) POC Creatinine 2.3 H (0.6-1.2) POC Glucose 61 L (70-105) POC WB Ioniz Calcium 1.20 (1.16-1.32) TSH > 100 H (0.27-5.01) uIU/mL Free T4 < 0.10 L (0.93-1.70) ng/dL 12/26/21 Range/Units 16:54 WBC (4.5-11.0) K/mcL RBC (4.63-6.08) M/mcL Hgb (13.7-17.5) g/dL Hct (40.1-51.0) % POC Hct (41-55) MCV (80.0-100.0) fL MCH (26.0-34.0) pg MCHC (31.0-36.0) g/dL RDW (11.5-14.5) % Plt Count (140-440) K/mcL MPV (7.4-10.4) fL Immature Gran % (Auto) (0.0-0.5) % Neut % (Auto) (38.0-78.0) % Lymph % (Auto) (15.5-49.0) % Turner % (Auto) (1.0-12.0) % Eos % (Auto) (0.0-7.0) % Baso % (Auto) (0.0-2.0) % Lymph # (Auto) (1.50-4.80) K/mcL Turner # (Auto) (0.10-0.90) K/mcL Eos # (Auto) (0.00-0.70) K/mcL Baso # (Auto) (0.00-0.30) K/mcL Immature Gran # (0.00-0.05) K/mcl Absolute Neutrophils (1.80-8.00) K/mcL POC VBG pH 7.35 (7.32-7.42) POC VBG pCO2 at Temp 57.4 H (41-51) POC VBG pO2 38 (25-40) POC VBG HCO3 31.7 H (24-28) POC VBG Total CO2 33.0 H (25-29) POC Venous O2 Sat 68.0 (40-70) POC VBG Base Excess 6.0 H* (-2-2) VBG Lactic Acid 5.6 H* (0.5-2) POC Sodium (133-145) POC Potassium (3.3-5.1) POC Chloride (96-108) POC Total CO2 (22-30) POC BUN (6-20) POC Creatinine (0.6-1.2) POC Glucose (70-105) POC WB Ioniz Calcium (1.16-1.32) TSH (0.27-5.01) uIU/mL Free T4 (0.93-1.70) ng/dL Discharge Plan Patient/Caregiver Discharge Instructions Pt seen by ELECTR[employer] EQUIPMENT TECHNICIAN/PA only: Yes Clinical Impression: Hypothyroidism, Weakness, Acidosis, lactic, Acute urinary retention Patient Disposition: Xfer As Inpt ([facility]) Follow up with: Raudel Murphy MD [Primary Care Provider] - Prescriptions: No Action (DME) Transport Chair See Rx Instructions .Route .MEDSUPPLY Qty: 1 0RF Rx Instructions: As directed levothyroxine 150 mcg tablet 150 mcg PO QDAY Qty: 90 0RF Rx Instructions: Recheck TSH lab in 2 months trazodone 100 mg tablet 100 mg PO QDAY PRN (Reason: insomnia) Label Comments: At bedtime ascorbic acid (vitamin C) 500 mg capsule, extended release 1,000 mg PO DAILY albuterol sulfate 90 mcg/actuation HFA aerosol inhaler 180 mcg INHALATION Q4H PRN (Reason: shortness of breath) Rx Instructions: administer with spacer furosemide [Lasix] 20 mg tablet 20 mg PO QDAY atorvastatin [Lipitor] 80 mg tablet 40 mg PO QDAY digoxin 125 mcg tablet 0.125 mg PO QDAY fosinopril 20 mg tablet 10 mg PO QDAY omeprazole 20 mg capsule,delayed release(DR/EC) 20 mg PO BID gabapentin 300 mg capsule 300 mg PO BID metoprolol succinate 50 mg Tablet Extended Release 24 Hr 50 mg PO QDAY terazosin 2 mg Tablet 2 mg PO QHS metformin 500 mg Tablet 250 mg PO BID cyanocobalamin (vitamin B-12) 500 mcg Tablet 500 mcg PO QDAY rivaroxaban 20 mg Tablet 20 mg PO QDAY Rx Instructions: must administer with evening meal calcium carbonate-vit D3-min 600 mg calcium- 400 unit Tablet 1 tab PO BID amoxicillin-pot clavulanate [Augmentin] 500-125 mg tablet 1 tab PO BID Qty: 14 0RF
[2021-12-26] MEDS ORDERED: DEXTROSE 5%-1/2NS 1,000 ML IV SCH (18:00)
[2021-12-26 19:24] LABS: Basophils # (Auto) 0.04 K/mcL (0.00-0.30); Basophils % (Auto) 0.4 % (0.0-2.0); Eosinophils # (Auto) 0.34 K/mcL (0.00-0.70); Eosinophils % (Auto) 3.8 % (0.0-7.0); Hematocrit 41.8 % (40.1-51.0); Hemoglobin 13.5 g/dL (13.7-17.5); Lymphocytes # (Auto) 2.56 K/mcL (1.50-4.80); Lymphocytes % (Auto) 28.3 % (15.5-49.0); Mean Cell Volume 100.2 fL (80.0-100.0); Mean Corpuscular HGB Conc 32.3 g/dL (31.0-36.0); Mean Platelet Volume 9.8 fL (7.4-10.4); Monocytes # (Auto) 0.68 K/mcL (0.10-0.90); Monocytes % (Auto) 7.5 % (1.0-12.0); Neutrophils % (Auto) 59.2 % (38.0-78.0); Platelet Count 182 K/mcL (140-440); RBC 4.17 M/mcL (4.63-6.08); Red Cell Distribution Width 15.3 % (11.5-14.5)
[2021-12-26] MEDS ORDERED: LEVOTHYROXINE 100 MCG VIAL IV ONE (19:52)
[2021-12-26] MEDS ORDERED: LIOTHYRONINE 5 MCG TABLET PO ONE ×2 (19:54→21:30)
--- NOTE | 2021-12-26 20:26 | Internal Med History&Physical ---
HPI History of Present Illness Patient information: Note initiated : 12/26/21 at 8:08 pm Service Date, if different from initiated Date: [] Patient: Abhi Randle 81 y/o M admitted on for Weakness. Chief Complaint: [] History of present illness: Mr. Randle is a 81 year old M Patient brought in by his son who says the patient has become significantly weak sleeping most of the day lately and especially this morning seems acutely weak. Patient is normally ambulatory with a walker. The patient is a poor historian. He denies any fever chills nausea vomiting. He thinks he has been out of his thyroid medication for 1 to 2 weeks. In the ER was noted to have a TSH >100 and a free T4 <0.10. Patient appears to be severely hypothyroid possibly borderline myxedema coma with a borderline low temperature, mild Hypercapnia of 57 by vbg, hypoglycemia of 61 on arrival, and depressed mental state. Heart rate and sodium are within normal limits. He also has nonpitting edema to the lower extremities. He also had several blood pressures in the ED with systolic of mid-80's. He admits to feeling severely weak and sleepy. He also had a lactate of 5.6 with a follow-up after fluids of 2.1. And acute on chronic kidney disease with a creatinine 2.3. Review of Systems: Pertinent positives as above. Denies headache/fever/chills/nausea/vomiting/chest or abdominal pain/cough/dyspnea/diarrhea. Remaining 10 point review of system reviewed neg ative PFSH PFSH All Active Problems (Updated 12/26/21 @ 19:56 by Gabriella Tillman PA-C) Hypothyroidism (Acute) Weakness (Acute) Acidosis, lactic (Acute) Acute urinary retention (Acute) Infectious colitis (Acute) Annual physical exam (Acute) Medicare annual wellness visit, subsequent (Acute) Abdominal pain (Acute) Acute UTI (Acute) Calculus of right kidney (Acute) Bilateral wheezing (Acute) Dehydration (Acute) Elevated TSH (Acute) Hospital discharge follow-up (Acute) Gram-positive cocci bacteremia (Acute) UTI (urinary tract infection) (Acute) Hypomagnesemia (Acute) Anemia of chronic renal failure, stage 2 (mild) (Acute) Troponin level elevated (Acute) Chronic kidney disease (CKD) stage G2/A1, mildly decreased glomerular filtration rate (GFR) between 60-89 mL/min/1.73 square meter and albuminuria creatinine ratio less than 30 mg/g (Acute) Stage 2 acute kidney injury (Acute) Septic shock (Acute) Syncope (Acute) Sepsis (Acute) COVID-19 (Acute) Hypovolemic shock (Acute) Acute kidney injury (Acute) Annual physical exam (Acute) Hematoma of right lower leg (Acute) Acute dehydration (Acute) Lower extremity weakness (Acute) Weight gain (Acute) Diarrhea (Acute) Senile purpura (Acute) Purpura (Acute) Toe pain, left (Acute) Sprain of toe, fifth, left (Acute) Acute chest wall pain (Acute) Cough (Acute) Lab test positive for detection of COVID-19 virus (Acute) Intermittent diarrhea (Acute) DMII (diabetes mellitus, type 2) (Acute) Terra firma-forme dermatosis (Acute) Atrial fibrillation (Acute) High risk medication use (Acute) Anemia (Acute) Hematuria (Acute) Stasis dermatitis of both legs (Chronic) History of tobacco use (Acute) Spinal stenosis of lumbar region (Acute) Shoulder pain, left (Acute 05/26/14) Chronic renal insufficiency (Acute) Renal calculi (Acute) Peripheral vascular disease (Acute) Osteoporosis (Acute) Mitral valve disorder (Acute) Leg pain (Acute 05/26/14) Hypothyroidism (acquired) (Acute) Hypertension (Acute) Hyperlipemia (Acute) Gastroesophageal reflux (Acute) Edema (Acute) Degenerative joint disease (Acute) Coronary atherosclerosis (Acute) CAD (coronary artery disease) (Acute) Bladder neck obstruction (Acute) Medical History Acute kidney injury Acute renal failure Acute retention of urine Annual physical exam Atrial fibrillation Bladder neck obstruction CAD (coronary artery disease) Post CABG Chronic renal insufficiency 02/02/2014 [facility] H&P Coronary atherosclerosis Post CABG Degenerative joint disease Osteoarthrosis NOS 02/02/2014 [facility] H&P Diarrhea DMII (diabetes mellitus, type 2) Edema Elevated TSH Gastroesophageal reflux High risk medication use History of tobacco use 02/13/2012[facility] follow-up Hyperlipemia Hypertension Essential Hypothyroidism (acquired) Intermittent diarrhea Leg pain (05/26/14) Leg Lower extremity weakness Medicare annual wellness visit, initial Medicare annual wellness visit, subsequent Mitral valve disorder With Repair Osteoporosis Peripheral vascular disease Unspecified Purpura Renal calculi Rhabdomyolysis Senile purpura Sepsis Shoulder pain, left (05/26/14) Left Spinal stenosis of lumbar region Lumbar Spine Sprain of toe, fifth, left Terra firma-forme dermatosis Toe pain, left Weight gain Surgical History History of arthroscopy of left knee History of carpal tunnel repair Bilateral History of coronary artery bypass graft x 3 3 Vessel History of evacuation of hematoma 11/07/2020-drainage and evacuation of hematoma right calf History of inguinal hernia repair History of open heart surgery Mitral Valve Repair History of shoulder surgery Bilateral, rt redo 4 months History of surgery 11/12/2020-secondary closure of surgical incisiona of right calf with drain placement History of total right knee replacement Nail avulsion of toe Family History Mother Malignant neoplasm of uterus Social History (Updated 12/12/20 @ 09:57 by Fallon Randhawa [facility]) household members: other marital status: education level: high school occupational status: retired smoking status: Current every day smoker tobacco type: pipe other: a few pipefulls per day alcohol intake frequency: does not drink substance use type: does not use MEDS/ALLERGIES Home Medications and Allergies Home Medications Medication Instructions Recorded Confirmed Type albuterol sulfate 90 mcg/actuation 180 mcg inhalation Q4H PRN 09/13/14 12/17/21 History aerosol inhaler shortness of breath ascorbic acid (vitamin C) 500 mg 1,000 mg PO DAILY 09/13/14 12/17/21 History capsule,extended release trazodone 100 mg tablet 100 mg PO QDAY PRN insomnia 09/13/14 12/17/21 History furosemide 20 mg tablet (Lasix) 20 mg PO QDAY 07/28/17 12/17/21 History atorvastatin 80 mg tablet (Lipitor) 40 mg PO QDAY 05/25/18 12/17/21 History digoxin 125 mcg (0.125 mg) tablet 0.125 mg PO QDAY 05/25/18 12/17/21 History fosinopril 20 mg tablet 10 mg PO QDAY 05/25/18 12/17/21 History omeprazole 20 mg capsule,delayed 20 mg PO BID 05/25/18 12/17/21 History release gabapentin 300 mg capsule 300 mg PO BID 08/28/20 12/17/21 History Transport Chair #1 ea 11/21/20 12/17/21 Rx calcium carb-vit D3-minerals 600 1 tab PO BID 05/27/21 12/17/21 History mg calcium-400 unit tablet cyanocobalamin (vitamin B-12) 500 500 mcg PO QDAY 05/27/21 12/17/21 History mcg tablet metformin 500 mg tablet 250 mg PO BID 05/27/21 12/17/21 History metoprolol succinate 50 mg 50 mg PO QDAY 05/27/21 12/17/21 History tablet,extended release 24 hr rivaroxaban 20 mg tablet 20 mg PO QDAY 05/27/21 12/17/21 History terazosin 2 mg tablet 2 mg PO QHS 05/27/21 12/17/21 History amoxicillin 500 mg-potassium 1 tab PO BID #14 tabs 05/30/21 12/17/21 Rx clavulanate 125 mg tablet (Augmentin) levothyroxine 150 mcg tablet 150 mcg PO QDAY #90 tabs 12/24/21 Rx Allergies Allergy/AdvReac Type Severity Reaction Status Date / Time No Known Drug Allergies Allergy Unknown Unknown Verified 12/26/21 16:38 EXAM Constitutional Vitals: Temp Pulse Resp BP Pulse Ox O2 Del Method 96.9 F L 96 H 18 110/56 95 12/26/21 16:39 12/26/21 19:34 12/26/21 19:34 12/26/21 19:34 12/26/21 19:34 12/26/21 16:39 Exam: General: Awake but lethargic Eyes/N/T: EOMI, PERRL, Head/Neck: neck supple, normocephalic atraumatic CV: RRR, No murmurs, normal s1/s2 Pulm: Clear b/l, no wheezing/rhonchi/rales Abd: soft, nontender, +BS x4 Ext: no clubbing/cyanosis, nonpitting edema b/l LE's Neuro: Lethargic and answers questions appropriately, difficult to understand at times as appears he is so weak , CN 2-12 grossly intact, sensations intact b/l upper/lower Skin: warm/dry DATA Data Completed and Pending Labs: Labs from last 24 hours 12/26/21 12/26/21 12/26/21 19:55 16:54 16:47 WBC RBC Hgb Hct POC Hct MCV MCH MCHC RDW Plt Count MPV Immature Gran % (Auto) Neut % (Auto) Lymph % (Auto) Hinds % (Auto) Eos % (Auto) Baso % (Auto) Lymph # (Auto) Hinds # (Auto) Eos # (Auto) Baso # (Auto) Immature Gran # Absolute Neutrophils POC VBG pH 7.41 7.35 POC VBG pCO2 at Temp 58.8 H 57.4 H POC VBG pO2 21 L 38 POC VBG HCO3 37.6 H 31.7 H POC VBG Total CO2 39.0 H 33.0 H POC Venous O2 Sat 34.0 L 68.0 POC VBG Base Excess 13.0 H* 6.0 H* VBG Lactic Acid 2.1 H 5.6 H* POC Sodium POC Potassium POC Chloride POC Total CO2 POC BUN POC Creatinine POC Glucose POC WB Ioniz Calcium TSH Free T4 Free T3 pg/mL Pending Random Cortisol 12/26/21 12/26/21 12/26/21 16:47 16:47 16:47 WBC 9.0 RBC 4.17 L Hgb 13.5 L Hct 41.8 POC Hct MCV 100.2 H MCH 32.4 MCHC 32.3 RDW 15.3 H Plt Count 182 MPV 9.8 Immature Gran % (Auto) 0.8 H Neut % (Auto) 59.2 Lymph % (Auto) 28.3 Hinds % (Auto) 7.5 Eos % (Auto) 3.8 Baso % (Auto) 0.4 Lymph # (Auto) 2.56 Hinds # (Auto) 0.68 Eos # (Auto) 0.34 Baso # (Auto) 0.04 Immature Gran # 0.07 H Absolute Neutrophils 5.34 POC VBG pH POC VBG pCO2 at Temp POC VBG pO2 POC VBG HCO3 POC VBG Total CO2 POC Venous O2 Sat POC VBG Base Excess VBG Lactic Acid POC Sodium POC Potassium POC Chloride POC Total CO2 POC BUN POC Creatinine POC Glucose POC WB Ioniz Calcium TSH > 100 H Free T4 < 0.10 L Free T3 pg/mL Random Cortisol Pending 12/26/21 16:46 WBC RBC Hgb Hct POC Hct 43.0 MCV MCH MCHC RDW Plt Count MPV Immature Gran % (Auto) Neut % (Auto) Lymph % (Auto) Hinds % (Auto) Eos % (Auto) Baso % (Auto) Lymph # (Auto) Hinds # (Auto) Eos # (Auto) Baso # (Auto) Immature Gran # Absolute Neutrophils POC VBG pH POC VBG pCO2 at Temp POC VBG pO2 POC VBG HCO3 POC VBG Total CO2 POC Venous O2 Sat POC VBG Base Excess VBG Lactic Acid POC Sodium 138 POC Potassium 3.9 POC Chloride 96 POC Total CO2 30.0 POC BUN 25 H POC Creatinine 2.3 H POC Glucose 61 L POC WB Ioniz Calcium 1.20 TSH Free T4 Free T3 pg/mL Random Cortisol A/P Narrative A/P Narrative: A: *Severe hypothyroidism borderline myxedema coma (h/o Hypothyroidism): -TSH>100 & T4 <0.10 on admit *Generalized weakness/lethargy: 2/2 above *LOW on CKD III: *Lactic acidosis: 2/2 hypovolemia, rapidly improved in ED with IV fluid *DM: a1c 6.1, down from 6.6 in 2019, on metformin -Hypoglycemia on admit *CAD w/cabg: on statin/bb/xaralto *Chronic atrial fibrillation/flutter: On Xarelto/BB/Dig *HTN/HLD: *Macrocytic Anemia, chronic: *GERD: *Tobacco abuse: P: -T4 & T3 -IVF -check cortisol, hydrocortisone -D5NS -monitor in pcu -Continue home BB, hold ACEI for low -cont Dig, check level -ssi -Smoking cessation counseling >3minutes -PT/OT -Home medication reconciliation -ppx: Xarelto Time Spent With Patient Time: Total time spent is greater than 50% in coordination of care (as documented) at patient's floor/unit and/or counseling patient: Total time spent with greater than 50% in coordination of care (as documented) at patient's floor/unit and/or counseling patient:: Greater than 70 minutes
[2021-12-26 20:57] LABS: Appearance,Urine HAZY (Clear); Bilirubin,Urine Negative (Negative); Color,Urine YELLOW; Culture Indicated,Urine No; Glucose,Urine (UA) Negative (Negative); Ketones,Urine Negative (Negative); Leukocyte Esterase,Urine Negative /uL (Negative); Nitrate,Urine Negative (Negative); Protein,Urine Negative (Negative); Urine Blood Negative (Negative); Urobilinogen,Urine Negative
[2021-12-26] MEDS ORDERED: DEXTROSE 50% 50 ML VIAL IV PRN (21:28)
[2021-12-26] MEDS ORDERED: [UNRECOGNIZED DRUG - OTHER] IV ONE (21:28)
[2021-12-26] MEDS ORDERED: ONDANSETRON 4 MG/2 ML VIAL IV PRN (21:28)
[2021-12-26] MEDS ORDERED: DEXTROSE 5% IV ONE (21:28)
[2021-12-26] MEDS ORDERED: SENNOSIDES 1 TABLET PO PRN (21:28)
[2021-12-26] MEDS ORDERED: IPRATROPIUM/ALBUTEROL 3 ML AMPUL.NEB NEB PRN (21:28)
[2021-12-26] MEDS ORDERED: POTASSIUM CHLORIDE 40 MEQ in DEXTROSE 5% IN WATER 500 ML IV PRN (21:28)
[2021-12-26] MEDS ORDERED: METOPROLOL TARTRATE 5 MG/5 ML VIAL IV PRN (21:28)
[2021-12-26] MEDS ORDERED: MAGNESIUM SULFATE 2 GM/50 ML BAG IV PRN (21:28)
[2021-12-26] MEDS ORDERED: POTASSIUM CHLORIDE 20 MEQ TABLET PO PRN ×2 (21:28)
[2021-12-26] MEDS ORDERED: POLYETHYLENE GLYCOL 3350 17 GM PACKET PO PRN (21:28)
[2021-12-26] MEDS ORDERED: DEXTROSE 31 GM ORAL.SUSP PO PRN (21:28)
[2021-12-26] MEDS ORDERED: ACETAMINOPHEN 325 MG TABLET PO PRN (21:28)
[2021-12-26] MEDS: HYDROCORTISONE SOD SUCC 100 MG VIAL IV SCH (22:10)
[2021-12-26] MEDS: DOCUSATE SODIUM 100 MG CAPSULE PO SCH (22:11)
[2021-12-26] MEDS: INSULIN LISPRO 1 UNIT/0.01 ML UNIT SQ SCH (22:11)
[2021-12-26] MEDS: 0.9 % SODIUM CHLORIDE 10 ML SYRINGE IV SCH (22:12)
[2021-12-26 23:59] LABS: Digoxin 0.8 ng/mL
[2021-12-27] MEDS: HYDROCORTISONE SOD SUCC 100 MG VIAL IV SCH ×2 (05:44→14:44)
[2021-12-27] MEDS: 0.9 % SODIUM CHLORIDE 10 ML SYRINGE IV SCH ×3 (05:44→22:02)
[2021-12-27 07:10] LABS: Basophils # (Auto) 0.02 K/mcL (0.00-0.30); Basophils % (Auto) 0.3 % (0.0-2.0); Eosinophils % (Auto) 1.4 % (0.0-7.0); Hematocrit 40.2 % (40.1-51.0); Hemoglobin 12.9 g/dL (13.7-17.5); Lymphocytes # (Auto) 1.17 K/mcL (1.50-4.80); Lymphocytes % (Auto) 16.3 % (15.5-49.0); Mean Cell Volume 101.8 fL (80.0-100.0); Mean Corpuscular HGB Conc 32.1 g/dL (31.0-36.0); Mean Platelet Volume 10.1 fL (8.8-12.5); Monocytes # (Auto) 0.24 K/mcL (0.10-0.90); Monocytes % (Auto) 3.3 % (1.0-12.0); Neutrophils % (Auto) 77.9 % (38.0-78.0); Platelet Count 158 K/mcL (140-440); RBC 3.95 M/mcL (4.63-6.08); Red Cell Distribution Width 15.4 % (11.5-14.5); WBC 7.2 K/mcL (4.5-11.0)
[2021-12-27] MEDS ORDERED: PANTOPRAZOLE 40 MG TABLET PO SCH (07:30)
--- NOTE | 2021-12-27 07:53 | Internal Med Progress Note ---
SUBJECTIVE Subjective Patient information: Note initiated : 12/27/21 at 7:51 am Service Date, if different from initiated Date: [] Patient: Abhi Randle 81 y/o M admitted on 12/26/21 for Weakness. Chief Complaint: [] Interval history: History of present illness: Mr. Randle is a 81 year old M Patient brought in by his son who says the patient has become significantly weak sleeping most of the day lately and especially this morning seems acutely weak. Patient is normally ambulatory with a walker. The patient is a poor historian. He denies any fever chills nausea vomiting. He thinks he has been out of his thyroid medication for 1 to 2 weeks. In the ER was noted to have a TSH >100 and a free T4 <0.10. Patient appears to be severely hypothyroid possibly borderline myxedema coma with a borderline low temperature, mild Hypercapnia of 57 by vbg, hypoglycemia of 61 on arrival, and depressed mental state. Heart rate and sodium are within normal limits. He also has nonpitting edema to the lower extremities. He also had several blood pressures in the ED with systolic of mid-80's. He admits to feeling severely weak and sleepy. He also had a lactate of 5.6 with a follow-up after fluids of 2.1. And acute on chronic kidney disease with a creatinine 2.3. 12/27 Patient feeling little better today. More alert and not as weak. Continue thyroid supplementation. Creatinine mildly improved. Patient having urinary retention. Postvoid residual high, no pain or discomfort per the patient. Start Flomax and follow-up with urology. Review of Systems: denies headache/fever/chills/nausea/vomiting/chest or abdominal pain/cough/dyspnea/diarrhea. Otherwise see above. Constitutional Vitals: Vital Signs Temp Pulse Resp BP Pulse Ox O2 Del Method O2 Flow Rate 97.6 F 84 11 L 109/65 97 0 12/27/21 02:01 12/26/21 21:18 12/27/21 06:06 12/27/21 06:01 12/27/21 06:06 12/27/21 06:01 12/27/21 02:01 Period Temp Pulse Resp BP Sys/Sagastume Pulse Ox O2 Del Method O2 Flow Rate Last 24 Hr 96.9 F-97.6 F 63-103 9-28 82-119/43-91 90-99 Room Air-Room Air 0 Intake and Output 12/26/21 12/27/21 12/27/21 21:59 05:59 13:59 Intake Total 1500 50 Output Total 325 Balance 1500 -275 Weight 107.683 kg Intake & Output: Intake & Output 12/26/21 12/27/21 12/27/21 21:59 05:59 13:59 Intake Total 1500 50 Output Total 325 Balance 1500 -275 Weight 107.683 kg Intake: IV 1500 0 Sodium Chloride 0.9% 1,000 ml @ 1000 Wide Open IV .Q0M ONE Rx#: [id number] Dextrose 5%-1/2Ns IV Solution 1 500 0 ,000 ml @ 100 mls/hr IV .Q10H SANJUANA Rx#:[id number] Oral 50 Output: Void Amount 325 # of times incontinent of urine 0 Other: Urine Appearance Clear Clear Urine Color Yellow Yellow Urine Odor Normal Normal Exam: General: Awake, no acute distress Eyes/N/T: EOMI, Head/Neck: neck supple, CV: RRR, No murmurs, Pulm: Clear b/l, no wheezing/rhonchi/rales Abd: soft, nontender, +BS x4 Ext: no clubbing/cyanosis, nonpitting edema b/l LE's Neuro: More alert today, still a little difficult to understand but improving Skin: warm/dry OBJ DATA Labs CBC & Chem 7: 12/27/21 05:33 12/27/21 05:33 Labs: Abnormal Lab Results 12/27/21 12/26/21 12/26/21 05:33 20:15 19:55 RBC 3.95 L Hgb 12.9 L MCV 101.8 H RDW 15.4 H Immature Gran % (Auto) 0.8 H Lymph # (Auto) 1.17 L Immature Gran # 0.06 H POC VBG pCO2 at Temp 58.8 H POC VBG pO2 21 L POC VBG HCO3 37.6 H POC VBG Total CO2 39.0 H POC Venous O2 Sat 34.0 L POC VBG Base Excess 13.0 H* VBG Lactic Acid 2.1 H POC BUN POC Creatinine POC Glucose TSH Free T4 Free T3 pg/mL Urine Appearance Hazy A 12/26/21 12/26/21 12/26/21 16:54 16:47 16:47 RBC 4.17 L Hgb 13.5 L MCV 100.2 H RDW 15.3 H Immature Gran % (Auto) 0.8 H Lymph # (Auto) Immature Gran # 0.07 H POC VBG pCO2 at Temp 57.4 H POC VBG pO2 POC VBG HCO3 31.7 H POC VBG Total CO2 33.0 H POC Venous O2 Sat POC VBG Base Excess 6.0 H* VBG Lactic Acid 5.6 H* POC BUN POC Creatinine POC Glucose TSH Free T4 Free T3 pg/mL < 0.4 L Urine Appearance 12/26/21 12/26/21 16:47 16:46 RBC Hgb MCV RDW Immature Gran % (Auto) Lymph # (Auto) Immature Gran # POC VBG pCO2 at Temp POC VBG pO2 POC VBG HCO3 POC VBG Total CO2 POC Venous O2 Sat POC VBG Base Excess VBG Lactic Acid POC BUN 25 H POC Creatinine 2.3 H POC Glucose 61 L TSH > 100 H Free T4 < 0.10 L Free T3 pg/mL Urine Appearance Meds: Medications Acetaminophen (Acetaminophen 325 Mg Tablet) 650 mg PO Q6HP PRN; Protocol PRN Reason: Per Pain Protocol/Fever > 101 Albuterol/Ipratropium (Ipratropium/Albuterol 3 Ml Ampul.Neb) 3 ml NEB Q4HP PRN PRN Reason: Shortness Of Breath Dextrose (Dextrose 50% 50 Ml Vial) 0 ml IV UD PRN PRN Reason: Per Sliding Scale Diagnostic Test (Pha) (Accu-Chek 1 Each Strip) 1 each FS ACHS [facility] Last Admin: 12/26/21 21:53 Dose: 1 each Docusate Sodium (Docusate Sodium 100 Mg Capsule) 100 mg PO BID [facility] Last Admin: 12/26/21 22:11 Dose: 100 mg Glucose (Dextrose 31 Gm Oral.Susp) 15 gm PO PRN PRN PRN Reason: Hypoglycemia Hydrocortisone Sodium Succinate (Hydrocortisone Sod Succ 100 Mg Vial) 50 mg IV Q8 [facility] Stop: 12/27/21 14:01 Last Admin: 12/27/21 05:44 Dose: 50 mg Potassium Chloride 40 meq/ (Dextrose) 520 mls @ 130 mls/hr IV UD PRN PRN Reason: Potassium < 3 Magnesium Sulfate (Magnesium Sulfate) 2 gm in 50 mls @ 50 mls/hr IV UD PRN PRN Reason: Magnesium </= 1.6 Dextrose/Sodium Chloride (Dextrose 5%-Ns Iv Solution) 1,500 mls @ 100 mls/hr IV .Q15H ONE Stop: 12/27/21 12:27 Last Admin: 12/26/21 21:51 Dose: 100 mls/hr Insulin Human Lispro (Insulin Lispro 1 Unit/0.01 Ml Unit) 0 unit SQ ACHS [facility]; Protocol Last Admin: 12/26/21 22:11 Dose: 2 units Metoprolol Tartrate (Metoprolol Tartrate 5 Mg/5 Ml Vial) 5 mg IV Q2HP PRN PRN Reason: Tachyarrhythmias HR>110 Ondansetron HCl (Ondansetron 4 Mg/2 Ml Vial) 4 mg IV Q4HP PRN PRN Reason: Nausea And Vomiting Pantoprazole Sodium (Pantoprazole 40 Mg Tablet) 40 mg PO QAMAC [facility] Polyethylene Glycol (Polyethylene Glycol 3350 17 Gm Packet) 17 gm PO DAILYP PRN PRN Reason: Constipation Potassium Chloride (Potassium Chloride 20 Meq Tablet) 40 meq PO UD PRN PRN Reason: Potssium is 3-3.5 Potassium Chloride (Potassium Chloride 20 Meq Tablet) 40 meq PO UD PRN PRN Reason: Potassium < 3 Senna (Sennosides 1 Tablet) 2 tab PO DAILYP PRN PRN Reason: Constipation Sodium Chloride (0.9 % Sodium Chloride 10 Ml Syringe) 10 ml IV Q8 SANJUANA Last Admin: 12/27/21 05:44 Dose: 10 ml A/P Narrative A/P Narrative: A: *Severe hypothyroidism borderline myxedema coma (h/o Hypothyroidism): -TSH>100 & T4 <0.10 on admit T3 <0.4 -Has been off his thyroid medications for least several weeks *Generalized weakness/lethargy: 2/2 above *LOW on CKD III: mild improvement overnight *Lactic acidosis: 2/2 hypovolemia, rapidly improved in ED with IV fluid *DM: a1c 6.1, down from 6.6 in 2019, on metformin -Hypoglycemia on admit *CAD w/cabg: on statin/bb/xaralto *Chronic atrial fibrillation/flutter: On Xarelto/BB/Dig *HTN/HLD: *Macrocytic Anemia, chronic: *GERD: *Tobacco abuse: *Urinary retention: P: -IV T4 & T3 today, transition back to home oral dose tomorrow -IVF, D5NS finish -Continue home BB, hold ACEI for low -cont Dig -Start Flomax and follow-up with urology outpatient -ssi -Smoking cessation counseling -PT/OT -Home medication reconciliation -ppx: Xarelto Time Spent With Patient Time: Total time spent is greater than 50% in coordination of care (as documented) at patient's floor/unit and/or counseling patient: Total time spent with greater than 50% in coordination of care (as documented) at patient's floor/unit and/or counseling patient:: 25 - 35 minutes
--- NOTE | 2021-12-27 07:53 | EKG ---
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
[2021-12-27 07:54] LABS: ALT/SGPT 11 U/L (<40); AST/SGOT 32 U/L (<40); Albumin 3.4 gm/dL (3.2-5.2); Albumin/Globulin Ratio 1.4 (1.0-2.3); Alkaline Phosphatase 45 U/L (39-117); Bilirubin,Direct < 0.2 mg/dL (0-0.3); Bilirubin,Total 0.3 mg/dL (0.1-1.0); Blood Urea Nitrogen 23 mg/dL (8-23); Calcium 9.6 mg/dL (8.6-10.4); Carbon Dioxide 30 mmol/L (22-30); Chloride 99 mmol/L (96-108); Globulin 2.5 gm/dL (2.2-3.7); Glomerular Filtration Rate 34; Glucose 128 mg/dL (70-105); Lactate Dehydrogenase 244 U/L (135-225); Phosphorous 4.4 mg/dL (2.5-4.5); Triglycerides 66 mg/dL (<150); Uric Acid 7.6 mg/dL (2.5-8.0)
[2021-12-27] MEDS ORDERED: LEVOTHYROXINE 100 MCG VIAL IV STA (07:55)
[2021-12-27] MEDS: INSULIN LISPRO 1 UNIT/0.01 ML UNIT SQ SCH ×3 (08:01→17:12)
[2021-12-27] MEDS: DOCUSATE SODIUM 100 MG CAPSULE PO SCH (08:32)
[2021-12-27] MEDS: FOLIC ACID 1 MG TABLET PO SCH (08:32)
[2021-12-27] MEDS: LIOTHYRONINE 5 MCG TABLET PO SCH ×2 (08:33→17:10)
[2021-12-27] MEDS ORDERED: TAMSULOSIN 0.4 MG CAPSULE PO ONE (09:23)
[2021-12-27] MEDS ORDERED: OMEPRAZOLE 20 MG CAPSULE PO SCH (10:00)
[2021-12-27] MEDS ORDERED: FLU VACC QS2022-23(6MOS UP)/PF 60 MCG/0.5 ML SYRINGE IM ONE (10:00)
[2021-12-27] MEDS: METOPROLOL SUCCINATE 50 MG TAB.XL.24H PO SCH (11:10)
[2021-12-27] MEDS: DIGOXIN 125 MCG TABLET PO SCH (14:44)
[2021-12-27] MEDS: OMEPRAZOLE 20 MG CAPSULE PO SCH (17:10)
[2021-12-27] MEDS ORDERED: RIVAROXABAN 15 MG TABLET PO SCH (17:30)
[2021-12-27] MEDS ORDERED: TAMSULOSIN 0.4 MG CAPSULE PO SCH (21:00)
[2021-12-27] MEDS ORDERED: traZODone HCL 100 MG TABLET PO SCH (21:00)
[2021-12-27] MEDS ORDERED: TERAZOSIN 1 MG CAPSULE PO SCH (21:00)
[2021-12-28] MEDS: INSULIN LISPRO 1 UNIT/0.01 ML UNIT SQ SCH ×3 (00:33→11:56)
[2021-12-28] MEDS: DOCUSATE SODIUM 100 MG CAPSULE PO SCH ×2 (00:33→10:21)
[2021-12-28] MEDS: LIOTHYRONINE 5 MCG TABLET PO SCH (00:48)
[2021-12-28 06:46] LABS: Basophils # (Auto) 0.02 K/mcL (0.00-0.30); Basophils % (Auto) 0.2 % (0.0-2.0); Eosinophils # (Auto) 0.07 K/mcL (0.00-0.70); Eosinophils % (Auto) 0.8 % (0.0-7.0); Hematocrit 41.2 % (40.1-51.0); Hemoglobin 12.9 g/dL (13.7-17.5); Lymphocytes # (Auto) 1.84 K/mcL (1.50-4.80); Mean Cell Volume 104.6 fL (80.0-100.0); Mean Corpuscular HGB Conc 31.3 g/dL (31.0-36.0); Mean Platelet Volume 9.8 fL (8.8-12.5); Monocytes # (Auto) 0.49 K/mcL (0.10-0.90); Monocytes % (Auto) 5.8 % (1.0-12.0); Neutrophils % (Auto) 70.7 % (38.0-78.0); Platelet Count 148 K/mcL (140-440); RBC 3.94 M/mcL (4.63-6.08); Red Cell Distribution Width 15.3 % (11.5-14.5); WBC 8.4 K/mcL (4.5-11.0)
[2021-12-28 07:07] LABS: Blood Urea Nitrogen 22 mg/dL (8-23); Calcium 9.5 mg/dL (8.6-10.4); Carbon Dioxide 28 mmol/L (22-30); Chloride 101 mmol/L (96-108); Glomerular Filtration Rate 42; Glucose 95 mg/dL (70-105); HDL Cholesterol 51 mg/dL (>40); LDL Cholesterol,Calculated 117 mg/dL (<100); Non-HDL Cholesterol 138 mg/dL (<130); Phosphorous 3.9 mg/dL (2.5-4.5); Triglycerides 108 mg/dL (<150)
[2021-12-28] MEDS: 0.9 % SODIUM CHLORIDE 10 ML SYRINGE IV SCH (07:21)
[2021-12-28] MEDS ORDERED: LEVOTHYROXINE 150 MCG TABLET PO SCH (07:30)
[2021-12-28] MEDS: OMEPRAZOLE 20 MG CAPSULE PO SCH (07:55)
[2021-12-28] MEDS: METOPROLOL SUCCINATE 50 MG TAB.XL.24H PO SCH (08:14)
[2021-12-28] MEDS: FOLIC ACID 1 MG TABLET PO SCH (08:15)
[2021-12-28] MEDS ORDERED: ATORVASTATIN 40 MG TABLET PO SCH (09:00)
[2021-12-28] MEDS ORDERED: FUROSEMIDE 20 MG TABLET PO SCH (09:00)
--- NOTE | 2021-12-28 12:28 | Discharge Summary ---
Discharge Provider Provider IMPORTANT FOLLOW-UP INFORMATION FOR PCP: Patient information: Note initiated : 12/28/21 at 12:24 pm Service Date, if different from initiated Date: [] Patient: Abhi Randle 81 y/o M admitted on 12/26/21 for Weakness. Chief Complaint: [] Date of admission: 12/26/21 21:18 Discharge date: 12/28/21 Primary care physician: Raudel Murphy MD Attending physician on admission: Kiran Angelo Consults: 12/26/21 Consult to Physician [CONS] Stat Comment: Consulting Provider: Kiran Angelo Reason For Exam: Physician to Consult Attending physician on discharge: Chi [facility] Pui COURSE Hospital Course Hospital course: Mr. Randle is a 81 year old M Patient brought in by his son who says the patient has become significantly weak sleeping most of the day lately and especially this morning seems acutely weak. Patient is normally ambulatory with a walker. The patient is a poor historian. He denies any fever chills nausea vomiting. He thinks he has been out of his thyroid medication for 1 to 2 weeks. In the ER was noted to have a TSH >100 and a free T4 <0.10. Patient appears to be severely hypothyroid possibly borderline myxedema coma with a borderline low temperature, mild Hypercapnia of 57 by vbg, hypoglycemia of 61 on arrival, and depressed mental state. Heart rate and sodium are within normal limits. He also has nonpitting edema to the lower extremities. He also had several blood pressures in the ED with systolic of mid-80's. He admits to feeling severely weak and sleepy. He also had a lactate of 5.6 with a follow-up after fluids of 2.1. And acute on chronic kidney disease with a creatinine 2.3. 12/27 Patient feeling little better today. More alert and not as weak. Continue thyroid supplementation. Creatinine mildly improved. Patient having urinary retention. Postvoid residual high, no pain or discomfort per the patient. Start Flomax and follow-up with urology. 12/28: Reached clinical stability, decision made to discharge home with home health nursing, PT, OT. Follow up appointment with PCP and with Urology made for him. Rx given/sent to pharmacy. All questions were answered prior to patient being physically discharged. Discharge diagnosis: hypothyroidism Time Spent with Patient Time attestation: Total time spent providing and/or coordinating discharge services: Time spent: Greater than 30 minutes EXAM Constitutional Vitals: Temp Pulse Resp BP Pulse Ox O2 Del Method O2 Flow Rate 36.4 C 46 L 17 106/59 91 0 12/28/21 12:01 12/28/21 12:14 12/28/21 12:14 12/28/21 12:13 12/28/21 12:14 12/28/21 08:00 12/27/21 02:01 General appearance: cooperative and no acute distress Head Head exam: Present atraumatic and normocephalic Eye Eye exam: Present EOMI and PERRL ENT ENT exam: Present mucous membranes moist, normal exam and normal external ear exam Neck Neck exam: Present normal inspection; Absent lymphadenopathy, tenderness or thyromegaly Respiratory Respiratory exam: Absent accessory muscle use, respiratory distress or wheezes Cardiovascular Cardiovascular exam: Present irregular rhythm; Absent JVD GI/Abdominal GI/Abdominal exam: Present normal bowel sounds and soft; Absent organomegaly or tenderness Rectal Rectal exam: Present deferred Extremities Exam Extremities exam: Present full ROM, normal capillary refill and normal inspection; Absent tenderness Neurological Exam Neurological exam: Present alert, CN II-XII intact and oriented X3; Absent motor sensory deficit Psychiatric Psychiatric exam: Present normal affect and normal mood; Absent anxious or depressed Skin Skin exam: Present dry and intact Discharge Data Data Completed and Pending Labs on day of discharge: Labs from last 24 hours 12/28/21 12/28/21 06:02 06:02 WBC 8.4 RBC 3.94 L Hgb 12.9 L Hct 41.2 MCV 104.6 H MCH 32.7 MCHC 31.3 RDW 15.3 H Plt Count 148 MPV 9.8 Immature Gran % (Auto) 0.5 Neut % (Auto) 70.7 Lymph % (Auto) 22.0 [place] % (Auto) 5.8 Eos % (Auto) 0.8 Baso % (Auto) 0.2 Lymph # (Auto) 1.84 [place] # (Auto) 0.49 Eos # (Auto) 0.07 Baso # (Auto) 0.02 Immature Gran # 0.04 Absolute Neutrophils 5.92 Sodium 137 Potassium 4.5 Chloride 101 Carbon Dioxide 28 Anion Gap 8.0 BUN 22 Creatinine 1.5 H GFR Calculation 42 Glucose 95 Calcium 9.5 Phosphorus 3.9 Magnesium 2.2 Triglycerides 108 Cholesterol 189 LDL Cholesterol, Calc 117 H Non-HDL Cholesterol 138 H HDL Cholesterol 51 Discharge Plan Patient/Caregiver Discharge Instructions Activity: increase activity as tolerated Diet: Consistent Carbohydrate Prescriptions: Continued (DME) Transport Chair See Rx Instructions .Route .MEDSUPPLY Qty: 1 0RF Rx Instructions: As directed levothyroxine 150 mcg tablet 150 mcg PO QDAY Qty: 90 0RF Rx Instructions: Recheck TSH lab in 2 months trazodone 100 mg tablet 100 mg PO QHS Label Comments: At bedtime ascorbic acid (vitamin C) 500 mg capsule, extended release 1,000 mg PO DAILY albuterol sulfate 90 mcg/actuation HFA aerosol inhaler 180 mcg INHALATION Q4H PRN (Reason: shortness of breath) Rx Instructions: administer with spacer furosemide [Lasix] 20 mg tablet 20 mg PO QDAY atorvastatin [Lipitor] 80 mg tablet 40 mg PO QDAY digoxin 125 mcg tablet 0.125 mg PO QDAY fosinopril 20 mg tablet 10 mg PO QDAY omeprazole 20 mg capsule,delayed release(DR/EC) 20 mg PO BID metoprolol succinate 50 mg Tablet Extended Release 24 Hr 25 mg PO QDAY terazosin 2 mg Tablet 2 mg PO QHS metformin 500 mg Tablet 250 mg PO BID cyanocobalamin (vitamin B-12) 500 mcg Tablet 500 mcg PO QDAY rivaroxaban 20 mg Tablet 15 mg PO QDAY Rx Instructions: must administer with evening meal calcium carbonate-vit D3-min 600 mg calcium- 400 unit Tablet 1 tab PO BID Follow Up Plan Follow up with: Fernie Sherman MD [Physician] - Raudel Murphy MD [Primary Care Provider] - Patient Disposition: Home Health Service Rehab Potential: Good I certify that the patient requires SNF services: No Overall status at discharge: patient is back to baseline Discharge Orders: Discharge Order (Routine); Ordered 12/28/21 Ordered By: Indra Cruz
[2021-12-28] MEDS: DIGOXIN 125 MCG TABLET PO SCH (13:50)
== END 2021-12-28 14:10 | disposition home health service (06) | DRG 643 ==
LOC: ED 16:38 → ICU 21:18
PROVIDERS: ADMIT Internal Medicine; ATTEND Internal Medicine

== ENCOUNTER 2022-10-09 20:20 | Inpatient (IN) ==
[2022-10-09] MEDS ORDERED: FUROSEMIDE 40 MG/4 ML VIAL IV ONE (20:24)
--- NOTE | 2022-10-09 20:24 | Emergency Department Note ---
HPI <Jose Mattson MD - Last Filed: 10/10/22 01:37> General Chief complaint: Shortness of Breath/Dyspnea Stated complaint: shortness of breath Time Seen by Provider: 10/09/22 20:24 Source: patient, family (Caregiver) and EMS Mode of arrival: EMS Limitations: no limitations and other (Poor communication ability at this time.) History of Present Illness HPI Narrative: Narrative: History is obtained from the EMS as well as the caregiver and a bit from the patient. 82-year-old male was at his residence sitting in his chair. His caregiver walked in and about 5 minutes later the patient asked for water. Caregiver gave him some water and then he heard some gurgling. He went back to the patient patient said that it just gone down the wrong pipe. Caregiver stepped out of the room again but started to hear noises came over and saw convulsions. Said the patient was unresponsive. He was breathing poorly. Caregiver called 911. 911 advised him to bring the patient to the floor so I dried the patient out of the chair and put him on the floor. 911 arrived shortly thereafter. Caregiver describes a shaking. Of his upper extremities with his eyes "rolled back" he was unable to observe the lower extremities as patient was under blankets. He used the word convulsion to describe what he saw. 911 reports the patient was poorly breathing when they arrived. Put on 15 L via nonrebreather mask. Patient was transported to our facility. Caregiver reports the patient was discharged from the [place] care facility about 4 months ago. He had been in the care facility where an he had a code and went to [place] where he was there for 5 days and then went back to the [facility] for another couple weeks before coming back to his residence. Patient has a long complex history of multiple medical problems including prior CABG, congestive heart failure, stage II renal insufficiency, indwelling Virgen catheter etc. Please see complete problem list. Patient is able to provide good history at this time. He does follow commands including moving both his arms and both his legs. He does indicate when he has pain. Able to answer some simple yes and no questions. Related Data Home Medications Medication Instructions Recorded Confirmed acetaminophen 500 mg PO TID 08/06/22 10/10/22 apixaban 5 mg tablet (Eliquis) 2.5 mg PO BID 09/11/22 10/10/22 finasteride 5 mg tablet 5 mg PO QHS 09/11/22 10/10/22 levothyroxine 150 mcg PO QAM 09/11/22 10/10/22 lidocaine 5 % topical patch 1 patch topical QDAY 09/11/22 10/10/22 metoprolol succinate 25 mg 12.5 mg PO BID 09/11/22 10/10/22 tablet,extended release 24 hr midodrine 5 mg tablet 5 mg PO TIDWMEAL 09/11/22 10/10/22 amiodarone 100 mg tablet 100 mg PO BID 09/12/22 10/10/22 albuterol sulfate 90 mcg/actuation 2 inh inhalation PRN PRN Shortness 10/10/22 10/10/22 breath activated powder inhaler Of Breath ascorbate calcium (vitamin C) 500 1,000 mg PO QDAY 10/10/22 10/10/22 mg tablet atorvastatin 40 mg tablet 40 mg PO QDAY 10/10/22 10/10/22 calcium carbonate 600 mg-vitamin 1 cap PO QAM 10/10/22 10/10/22 D3 10 mcg (400 unit) capsule cyanocobalamin (vitamin B-12) 500 500 mcg PO QDAY 10/10/22 10/10/22 mcg tablet digoxin 125 mcg (0.125 mg) tablet 125 mcg PO QDAY 10/10/22 10/10/22 fosinopril 20 mg tablet 10 mg PO QDAY 10/10/22 10/10/22 furosemide 20 mg tablet 20 mg PO QAM 10/10/22 10/10/22 gabapentin 300 mg capsule 300 mg PO QHS 10/10/22 10/10/22 metformin 500 mg tablet 500 mg PO BID 10/10/22 10/10/22 Previous Rx's Medication Instructions Recorded Transport Chair #1 ea 11/21/20 Stand-assist lift #1 ea 04/16/22 Roho Cushion #1 ea 10/08/22 zinc oxide 24 % topical cream See Rx Instructions topical 10/08/22 .COMPLEX #113 grams Allergies Allergy/AdvReac Type Severity Reaction Status Date / Time No Known Drug Allergies Allergy Unknown Unknown Verified 10/08/22 16:53 <Acosta Tillman MD - Last Filed: 10/10/22 10:10> History of Present Illness HPI Narrative: History is obtained from the EMS as well as the caregiver and a bit from the patient. 82-year-old male was at his residence sitting in his chair. His caregiver walked in and about 5 minutes later the patient asked for water. Caregiver gave him some water and then he heard some gurgling. He went back to the patient patient said that it just gone down the wrong pipe. Caregiver stepped out of the room again but started to hear noises came over and saw convulsions. Said the patient was unresponsive. He was breathing poorly. Caregiver called 911. 911 advised him to bring the patient to the floor so I dried the patient out of the chair and put him on the floor. 911 arrived shortly thereafter. Caregiver describes a shaking. Of his upper extremities with his eyes "rolled back" he was unable to observe the lower extremities as patient was under blankets. He used the word convulsion to describe what he saw. 911 reports the patient was poorly breathing when they arrived. Put on 15 L via nonrebreather mask. Patient was transported to our facility. Caregiver reports the patient was discharged from the [facility] about 4 months ago. He had been in the care facility where an he had a code and went to [place] where he was there for 5 days and then went back to the [facility] for another couple weeks before coming back to his residence. Patient has a long complex history of multiple medical problems including prior CABG, congestive heart failure, stage II renal insufficiency, indwelling Virgen catheter etc. Please see complete problem list. Patient is able to provide good history at this time. He does follow commands including moving both his arms and both his legs. He does indicate when he has pain. Able to answer some simple yes and no questions. Review of Systems <Jose Mattson MD - Last Filed: 10/10/22 01:37> ROS ROS Narrative: Narrative: Limitations: ROS unobtainable due to patients medical condition [facility] <Jose Mattson MD - Last Filed: 10/10/22 01:37> Narrative Patient History Narrative: Narrative: Medical/Surgical/Family History All Active Problems (Updated 10/10/22 @ 01:37 by Jose Mattson MD) Sepsis (Acute) Acute dehydration (Acute) Urinary tract infection (Acute) Dependent edema (Acute) Acute alteration in mental status (Acute) Indwelling Virgen catheter present (Acute) Buttock wound (Acute) Convulsion (Acute) Stage II pressure sore (Acute) Bladder neck obstruction (Acute) CAD (coronary artery disease) (Acute) Coronary atherosclerosis (Acute) Degenerative joint disease (Acute) Edema (Acute) Gastroesophageal reflux (Acute) Hyperlipemia (Acute) Hypertension (Acute) Hypothyroidism (acquired) (Acute) Leg pain (Acute 05/26/14) Mitral valve disorder (Acute) Osteoporosis (Acute) Peripheral vascular disease (Acute) Renal calculi (Acute) Chronic renal insufficiency (Acute) Shoulder pain, left (Acute 05/26/14) Spinal stenosis of lumbar region (Acute) History of tobacco use (Acute) Stasis dermatitis of both legs (Chronic) Anemia (Acute) Hematuria (Acute) High risk medication use (Acute) Atrial fibrillation (Acute) Terra firma-forme dermatosis (Acute) DMII (diabetes mellitus, type 2) (Acute) Intermittent diarrhea (Acute) Acute chest wall pain (Acute) Cough (Acute) Lab test positive for detection of COVID-19 virus (Acute) Sprain of toe, fifth, left (Acute) Toe pain, left (Acute) Purpura (Acute) Senile purpura (Acute) Diarrhea (Acute) Weight gain (Acute) Lower extremity weakness (Acute) Acute dehydration (Acute) Hematoma of right lower leg (Acute) Annual physical exam (Acute) Acute kidney injury (Acute) Syncope (Acute) Sepsis (Acute) COVID-19 (Acute) Hypovolemic shock (Acute) Septic shock (Acute) Stage 2 acute kidney injury (Acute) Chronic kidney disease (CKD) stage G2/A1, mildly decreased glomerular filtration rate (GFR) between 60-89 mL/min/1.73 square meter and albuminuria creatinine ratio less than 30 mg/g (Acute) Troponin level elevated (Acute) Anemia of chronic renal failure, stage 2 (mild) (Acute) Hypomagnesemia (Acute) UTI (urinary tract infection) (Acute) Gram-positive cocci bacteremia (Acute) Hospital discharge follow-up (Acute) Elevated TSH (Acute) Abdominal pain (Acute) Acute UTI (Acute) Calculus of right kidney (Acute) Bilateral wheezing (Acute) Dehydration (Acute) Medicare annual wellness visit, subsequent (Acute) Annual physical exam (Acute) Infectious colitis (Acute) Hypothyroidism (Acute) Weakness (Acute) Acidosis, lactic (Acute) Acute urinary retention (Acute) Nail disorder (onychogryphosis) (Acute) Bilateral leg weakness (Acute) Encounter for wound care (Acute) Acute UTI (Acute) General weakness (Acute) CHF exacerbation (Acute) Shock (Acute) Elevated brain natriuretic peptide (BNP) level (Acute) Catheter (urine) change required (Acute) Encounter for medication review (Acute) Hypotension (Acute) Medical History Acute kidney injury Acute renal failure Acute retention of urine Annual physical exam Atrial fibrillation Bladder neck obstruction CAD (coronary artery disease) Post CABG Chronic renal insufficiency 02/02/2014 [facility] H&P Coronary atherosclerosis Post CABG Degenerative joint disease Osteoarthrosis NOS 02/02/2014 [facility] H&P Diarrhea DMII (diabetes mellitus, type 2) Edema Elevated TSH Gastroesophageal reflux High risk medication use History of tobacco use 02/13/2012- [facility] discharge follow-up Hyperlipemia Hypertension Essential Hypothyroidism (acquired) Intermittent diarrhea Leg pain (05/26/14) Leg Lower extremity weakness Medicare annual wellness visit, initial Medicare annual wellness visit, subsequent Mitral valve disorder With Repair Osteoporosis Peripheral vascular disease Unspecified Purpura Renal calculi Rhabdomyolysis Senile purpura Sepsis Shoulder pain, left (05/26/14) Left Spinal stenosis of lumbar region Lumbar Spine Sprain of toe, fifth, left Terra firma-forme dermatosis Toe pain, left Weight gain Surgical History History of arthroscopy of left knee History of carpal tunnel repair Bilateral History of coronary artery bypass graft x 3 3 Vessel History of evacuation of hematoma 11/07/2020-drainage and evacuation of hematoma right calf History of inguinal hernia repair History of open heart surgery Mitral Valve Repair History of shoulder surgery Bilateral, rt redo 4 months History of surgery 11/12/2020-secondary closure of surgical incisiona of right calf with drain placement History of total right knee replacement Nail avulsion of toe Family History Mother Malignant neoplasm of uterus Social History Smoking Status: Current some day smoker Alcohol Intake Frequency: does not drink Substance Use: does not use Exam <Jose Mattson MD - Last Filed: 10/10/22 01:37> Narrative Narrative: Narrative: General Limitations: no limitations and other (Poor communication ability at this time.) General appearance: Present in distress, obese and obtunded Head Head: Present atraumatic and normocephalic Eye Eye: Present PERRL, EOMI, miosis (constriction) and other (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 Junctional rhythm by EKG.) and systolic murmur (3/6 systolic murmur) Adbominal Abdominal: Present soft; Absent distention or tenderness : Present other (Virgen catheter in place. ) Extremities Extremities: Present pedal edema (4+ pedal edema up to the proximal leg.) Neurological Neurological: Present other (Poorly responsive but able to answer some yes/no questions. Facial symmetry. Able to lift his eyebrows. Able to smile. Able to frown. States that sensation is the same when I touched both sides of his face. Able to drawer in stitch bonding machine with both hands equally. Able to move both ankles and to his toes.) Skin Skin: Present warm (WNL), dry and other (Skin breakdown buttock area being treated with zinc oxide) Course <Jose Mattson MD - Last Filed: 10/10/22 01:37> Vital Signs Vital signs: Vital Signs Temperature 97.9 F 10/09/22 20:21 Pulse Rate 67 10/09/22 20:21 Respiratory Rate 18 10/09/22 20:21 Blood Pressure 138/54 10/09/22 20:21 Pulse Oximetry (%) 98 10/09/22 20:21 Oxygen Delivery Method Non-Rebreather Mask 10/09/22 20:21 Oxygen Flow Rate (L/min) 15 10/09/22 20:21 Temperature 98.4 F 10/10/22 08:05 Pulse Rate 84 10/10/22 08:05 Respiratory Rate 19 10/10/22 08:05 Blood Pressure 98/48 10/10/22 08:05 Pulse Oximetry (%) 91 10/10/22 08:05 Oxygen Delivery Method Nasal Cannula 10/10/22 08:05 Oxygen Flow Rate (L/min) 2 10/10/22 08:05 <Acosta Tillman MD - Last Filed: 10/10/22 10:10> Vital Signs Vital signs: Vital Signs Temperature 97.9 F 10/09/22 20:21 Pulse Rate 67 10/09/22 20:21 Respiratory Rate 18 10/09/22 20:21 Blood Pressure 138/54 10/09/22 20:21 Pulse Oximetry (%) 98 10/09/22 20:21 Oxygen Delivery Method Non-Rebreather Mask 10/09/22 20:21 Oxygen Flow Rate (L/min) 15 10/09/22 20:21 Temperature 98.4 F 10/10/22 08:05 Pulse Rate 84 10/10/22 08:05 Respiratory Rate 19 10/10/22 08:05 Blood Pressure 98/48 10/10/22 08:05 Pulse Oximetry (%) 91 10/10/22 08:05 Oxygen Delivery Method Nasal Cannula 10/10/22 08:05 Oxygen Flow Rate (L/min) 2 10/10/22 08:05 MDM <Jose Mattson MD - Last Filed: 10/10/22 01:37> MDM Narrative Medical decision making narrative: Narrative: Elderly male brought in by ambulance because of altered mental status and apparent poor respirations. Differential diagnosis includes sepsis, congestive heart failure, pneumonia, pyelonephritis, urinary tract infection, electrolyte abnormality, stroke, intracranial bleed, encephalopathy, other. EKG shows a rate of 66. Rhythm appears regular and I do believe I see P waves. Machine reads out as junctional rhythm. Right bundle branch block. No acute ischemic changes. Sodium 141. Potassium 3.9. Chloride 96. Bicarb 34. Glucose 151. BUN 46. Creatinine elevated at 2.6. Hematocrit 39%. VBG pH 7.31. PCO2 68. PaO2 96. HCO3 34. Bicarb 36. Lactic acid elevated at 3.47. Chest x-ray shows no CHF. Patient has borderline cardiomegaly. Prior sternotomy. 2044: Lactic acid level elevated at 3.47. Patient has a Virgen catheter. Patient had a urinary tract infection that he was treated for antibiotics until 4 days ago. 1 pill once a day. I am ordering 30 mL/kg bolus because of possible sepsis though I am cautious that the patient has a history of CHF and has 4+ edema in his lower extremities which I believe is dependent edema [facility]. I ordered ceftriaxone 1 g IV along with azithromycin 1000 mg IV because of possibility of sepsis secondary to urinary tract infection. 8: Pulse ox is 91% on room air. I will place him on 2 L via nasal cannula. CT of the head without contrast ordered at this time because of acute altered mental status and reported convulsion. Patient does not show signs of stroke to me as he has motor function upper extremities lower extremities bilaterally and no facial asymmetry. Patient has fallen 3 times in the past week including twice when he hit his head. Patient is on apixaban 5 mg tablets twice a day so is at risk for intracranial bleed. 2120: Urine dip showed large amounts of blood, large amount of white cells and nitrite positive. Consult placed to speak to the hospitalist for admission of this septic patient. Patient has 1 SIRS criteria which is respiratory rate of 26 measured at 1 point. The pulse and the temperature did not qualify. I do not have a white count back. Nevertheless patient does have an elevated lactic acid level 3.47. 2140: CT head impression no acute intracranial abnormality. 2320: White count elevated at 14.0 with a hemoglobin mildly low at 12.2. MCV is high at 103.4 suggesting macrocytic anemia due to either folate or B12 deficiency. Hepatic panel was unremarkable. BNP was high at 3732. TSH was high at 7.33 Urinalysis showed greater than 182 WBCs per high-powered field and 48 RBCs per high-powered field with many bacteria consistent with a urinary tract infection. Troponin was 0.09 which was just slightly above normal. Previous values were frequently above normal. Discussed with Dr. Tillman who is a hospitalist. He came down to evaluate the patient. He will admit to the patient for further care. This may represent seizure disorder with demargination of the white cells as opposed to sepsis. Lactic acid level could be elevated secondary to seizure. Patient has been treated for sepsis in case that was the diagnosis although the patient's not been febrile. Sepsis Date Sepsis Identified: 10/09/22 Time Sepsis Identified: 20:20 Comments: Suspect Sepsis 2019. hx of CHF so concerned about fluid bolus. Lab Data 10/10/22 05:04 10/10/22 05:04 Labs: Lab Results 10/09/22 10/09/22 10/09/22 Range/Units 20:30 20:34 20:37 WBC (4.5-11.0) K/mcL RBC (4.63-6.08) M/mcL Hgb (13.7-17.5) g/dL Hct (40.1-51.0) % POC Hct 39.0 L (41-55) MCV (80.0-100.0) fL MCH (26.0-34.0) pg MCHC (31.0-36.0) g/dL RDW (11.5-14.5) % Plt Count (140-440) K/mcL MPV (8.8-12.5) fL Immature Gran % (Auto) (0.0-0.5) % Neut % (Auto) (38.0-78.0) % Lymph % (Auto) (15.5-49.0) % Hudspeth % (Auto) (1.0-12.0) % Eos % (Auto) (0.0-7.0) % Baso % (Auto) (0.0-2.0) % Lymph # (Auto) (1.50-4.80) K/mcL Hudspeth # (Auto) (0.10-0.90) K/mcL Eos # (Auto) (0.00-0.70) K/mcL Baso # (Auto) (0.00-0.30) K/mcL Immature Gran # (0.00-0.05) K/mcl Absolute Neutrophils (1.80-8.00) K/mcL POC VBG pH 7.31 L (7.32-7.42) POC VBG pCO2 at Temp 67.7 H* (41-51) POC VBG pO2 96 H (25-40) POC VBG HCO3 34.2 H (24-28) POC VBG Total CO2 36.0 H (25-29) POC Venous O2 Sat 96.0 H (40-70) POC VBG Base Excess 8.0 H* (-2-2) VBG Lactic Acid 3.5 H (0.5-2) POC Sodium 141 (133-145) POC Potassium 3.9 (3.3-5.1) POC Chloride 96 (96-108) POC Total CO2 34.0 H (22-30) POC Anion Gap 17.0 H (8.0-16.0) POC BUN 46 H (6-20) POC Creatinine 2.6 H (0.6-1.2) POC Glucose 151 H (70-105) POC WB Ioniz Calcium 1.24 (1.16-1.32) Total Bilirubin (0.1-1.0) mg/dL Direct Bilirubin (0-0.3) mg/dL AST (<40) U/L ALT (<40) U/L Alkaline Phosphatase (39-117) U/L Ammonia (16-60) umol/L NT-Pro-B Natriuret Pep (<450.0) pg/mL Total Protein (5.9-8.4) gm/dL Albumin (3.2-5.2) gm/dL Globulin (2.2-3.7) gm/dL Procalcitonin (<0.10) ng/mL TSH (0.27-5.01) uIU/mL Prolactin (4.0-15.2) ng/mL Urine Color Urine Appearance (Clear) Urine pH (5.0-9.0) Ur Specific Paia (1.000-1.035) Urine Protein (Negative) mg/dL Urine Glucose (UA) (Negative) mg/dL Urine Ketones (Negative) mg/dL Urine Occult Blood (Negative) mg/dL Urine Nitrate (Negative) Urine Bilirubin (Negative) mg/dL Urine Urobilinogen mg/dL Ur Leukocyte Esterase (Negative) /uL Urine RBC (0-3) /hpf Urine WBC (0-4) /hpf Ur Squamous Epith Cells (0-4) /hpf Urine Bacteria (0) /hpf Hyaline Casts (0-2) /lph Urine Mucus (None) /hpf Ur Culture Indicated? POC Troponin I 0.09 H (0.00-0.08) 10/09/22 10/09/22 10/09/22 Range/Units 20:55 20:55 20:55 WBC 14.0 H (4.5-11.0) K/mcL RBC 3.78 L (4.63-6.08) M/mcL Hgb 12.2 L (13.7-17.5) g/dL Hct 39.1 L (40.1-51.0) % POC Hct (41-55) MCV 103.4 H (80.0-100.0) fL MCH 32.3 (26.0-34.0) pg MCHC 31.2 (31.0-36.0) g/dL RDW 14.6 H (11.5-14.5) % Plt Count 295 (140-440) K/mcL MPV 10.0 (8.8-12.5) fL Immature Gran % (Auto) 1.4 H (0.0-0.5) % Neut % (Auto) 54.9 (38.0-78.0) % Lymph % (Auto) 31.1 (15.5-49.0) % Hudspeth % (Auto) 9.4 (1.0-12.0) % Eos % (Auto) 2.8 (0.0-7.0) % Baso % (Auto) 0.4 (0.0-2.0) % Lymph # (Auto) 4.36 (1.50-4.80) K/mcL Hudspeth # (Auto) 1.32 H (0.10-0.90) K/mcL Eos # (Auto) 0.39 (0.00-0.70) K/mcL Baso # (Auto) 0.06 (0.00-0.30) K/mcL Immature Gran # 0.20 H (0.00-0.05) K/mcl Absolute Neutrophils 7.68 (1.80-8.00) K/mcL POC VBG pH (7.32-7.42) POC VBG pCO2 at Temp (41-51) POC VBG pO2 (25-40) POC VBG HCO3 (24-28) POC VBG Total CO2 (25-29) POC Venous O2 Sat (40-70) POC VBG Base Excess (-2-2) VBG Lactic Acid 2.4 H (0.5-2) POC Sodium (133-145) POC Potassium (3.3-5.1) POC Chloride (96-108) POC Total CO2 (22-30) POC Anion Gap (8.0-16.0) POC BUN (6-20) POC Creatinine (0.6-1.2) POC Glucose (70-105) POC WB Ioniz Calcium (1.16-1.32) Total Bilirubin 0.3 (0.1-1.0) mg/dL Direct Bilirubin < 0.2 (0-0.3) mg/dL AST 26 (<40) U/L ALT 16 (<40) U/L Alkaline Phosphatase 53 (39-117) U/L Ammonia (16-60) umol/L NT-Pro-B Natriuret Pep 3512.0 H (<450.0) pg/mL Total Protein 6.8 (5.9-8.4) gm/dL Albumin 3.2 (3.2-5.2) gm/dL Globulin 3.6 (2.2-3.7) gm/dL Procalcitonin (<0.10) ng/mL TSH 7.33 H (0.27-5.01) uIU/mL Prolactin (4.0-15.2) ng/mL Urine Color Urine Appearance (Clear) Urine pH (5.0-9.0) Ur Specific Paia (1.000-1.035) Urine Protein (Negative) mg/dL Urine Glucose (UA) (Negative) mg/dL Urine Ketones (Negative) mg/dL Urine Occult Blood (Negative) mg/dL Urine Nitrate (Negative) Urine Bilirubin (Negative) mg/dL Urine Urobilinogen mg/dL Ur Leukocyte Esterase (Negative) /uL Urine RBC (0-3) /hpf Urine WBC (0-4) /hpf Ur Squamous Epith Cells (0-4) /hpf Urine Bacteria (0) /hpf Hyaline Casts (0-2) /lph Urine Mucus (None) /hpf Ur Culture Indicated? POC Troponin I (0.00-0.08) 10/09/22 10/09/22 10/09/22 Range/Units 20:55 20:55 20:55 WBC (4.5-11.0) K/mcL RBC (4.63-6.08) M/mcL Hgb (13.7-17.5) g/dL Hct (40.1-51.0) % POC Hct (41-55) MCV (80.0-100.0) fL MCH (26.0-34.0) pg MCHC (31.0-36.0) g/dL RDW (11.5-14.5) % Plt Count (140-440) K/mcL MPV (8.8-12.5) fL Immature Gran % (Auto) (0.0-0.5) % Neut % (Auto) (38.0-78.0) % Lymph % (Auto) (15.5-49.0) % Hudspeth % (Auto) (1.0-12.0) % Eos % (Auto) (0.0-7.0) % Baso % (Auto) (0.0-2.0) % Lymph # (Auto) (1.50-4.80) K/mcL [place]eth # (Auto) (0.10-0.90) K/mcL Eos # (Auto) (0.00-0.70) K/mcL Baso # (Auto) (0.00-0.30) K/mcL Immature Gran # (0.00-0.05) K/mcl Absolute Neutrophils (1.80-8.00) K/mcL POC VBG pH (7.32-7.42) POC VBG pCO2 at Temp (41-51) POC VBG pO2 (25-40) POC VBG HCO3 (24-28) POC VBG Total CO2 (25-29) POC Venous O2 Sat (40-70) POC VBG Base Excess (-2-2) VBG Lactic Acid (0.5-2) POC Sodium (133-145) POC Potassium (3.3-5.1) POC Chloride (96-108) POC Total CO2 (22-30) POC Anion Gap (8.0-16.0) POC BUN (6-20) POC Creatinine (0.6-1.2) POC Glucose (70-105) POC WB Ioniz Calcium (1.16-1.32) Total Bilirubin (0.1-1.0) mg/dL Direct Bilirubin (0-0.3) mg/dL AST (<40) U/L ALT (<40) U/L Alkaline Phosphatase (39-117) U/L Ammonia (16-60) umol/L NT-Pro-B Natriuret Pep 3732.0 H (<450.0) pg/mL Total Protein (5.9-8.4) gm/dL Albumin (3.2-5.2) gm/dL Globulin (2.2-3.7) gm/dL Procalcitonin 0.54 H (<0.10) ng/mL TSH (0.27-5.01) uIU/mL Prolactin 51.6 H (4.0-15.2) ng/mL Urine Color Urine Appearance (Clear) Urine pH (5.0-9.0) Ur Specific Paia (1.000-1.035) Urine Protein (Negative) mg/dL Urine Glucose (UA) (Negative) mg/dL Urine Ketones (Negative) mg/dL Urine Occult Blood (Negative) mg/dL Urine Nitrate (Negative) Urine Bilirubin (Negative) mg/dL Urine Urobilinogen mg/dL Ur Leukocyte Esterase (Negative) /uL Urine RBC (0-3) /hpf Urine WBC (0-4) /hpf Ur Squamous Epith Cells (0-4) /hpf Urine Bacteria (0) /hpf Hyaline Casts (0-2) /lph Urine Mucus (None) /hpf Ur Culture Indicated? POC Troponin I (0.00-0.08) 10/09/22 10/09/22 Range/Units 20:58 21:30 WBC (4.5-11.0) K/mcL RBC (4.63-6.08) M/mcL Hgb (13.7-17.5) g/dL Hct (40.1-51.0) % POC Hct (41-55) MCV (80.0-100.0) fL MCH (26.0-34.0) pg MCHC (31.0-36.0) g/dL RDW (11.5-14.5) % Plt Count (140-440) K/mcL MPV (8.8-12.5) fL Immature Gran % (Auto) (0.0-0.5) % Neut % (Auto) (38.0-78.0) % Lymph % (Auto) (15.5-49.0) % [place] % (Auto) (1.0-12.0) % Eos % (Auto) (0.0-7.0) % Baso % (Auto) (0.0-2.0) % Lymph # (Auto) (1.50-4.80) K/mcL [place] # (Auto) (0.10-0.90) K/mcL Eos # (Auto) (0.00-0.70) K/mcL Baso # (Auto) (0.00-0.30) K/mcL Immature Gran # (0.00-0.05) K/mcl Absolute Neutrophils (1.80-8.00) K/mcL POC VBG pH (7.32-7.42) POC VBG pCO2 at Temp (41-51) POC VBG pO2 (25-40) POC VBG HCO3 (24-28) POC VBG Total CO2 (25-29) POC Venous O2 Sat (40-70) POC VBG Base Excess (-2-2) VBG Lactic Acid (0.5-2) POC Sodium (133-145) POC Potassium (3.3-5.1) POC Chloride (96-108) POC Total CO2 (22-30) POC Anion Gap (8.0-16.0) POC BUN (6-20) POC Creatinine (0.6-1.2) POC Glucose (70-105) POC WB Ioniz Calcium (1.16-1.32) Total Bilirubin (0.1-1.0) mg/dL Direct Bilirubin (0-0.3) mg/dL AST (<40) U/L ALT (<40) U/L Alkaline Phosphatase (39-117) U/L Ammonia 29 (16-60) umol/L NT-Pro-B Natriuret Pep (<450.0) pg/mL Total Protein (5.9-8.4) gm/dL Albumin (3.2-5.2) gm/dL Globulin (2.2-3.7) gm/dL Procalcitonin (<0.10) ng/mL TSH (0.27-5.01) uIU/mL Prolactin (4.0-15.2) ng/mL Urine Color Jonna Urine Appearance Cloudy A (Clear) Urine pH 5.0 (5.0-9.0) Ur Specific Paia 1.017 (1.000-1.035) Urine Protein 30 A (Negative) mg/dL Urine Glucose (UA) Negative (Negative) mg/dL Urine Ketones Negative (Negative) mg/dL Urine Occult Blood >=1.0 A (Negative) mg/dL Urine Nitrate Negative (Negative) Urine Bilirubin Negative (Negative) mg/dL Urine Urobilinogen Negative mg/dL Ur Leukocyte Esterase 500 A (Negative) /uL Urine RBC 48 H (0-3) /hpf Urine WBC > 182 H (0-4) /hpf Ur Squamous Epith Cells 0 (0-4) /hpf Urine Bacteria Many A (0) /hpf Hyaline Casts 8 H (0-2) /lph Urine Mucus Few A (None) /hpf Ur Culture Indicated? yes POC Troponin I (0.00-0.08) EKG Data EKG #1: EKG attestation: Yes I reviewed and interpreted this EKG. EKG shows normal: sinus rhythm Rate: normal [place]/QRS: RBBB ST segment elevation in: None ST segment depression in: None Interpretation: other (Abnormal EKG. Right bundle branch block.) <Acosta Tillman MD - Last Filed: 10/10/22 10:10> Lab Data Labs: Lab Results 10/09/22 10/09/22 10/09/22 Range/Units 20:30 20:34 20:37 WBC (4.5-11.0) K/mcL RBC (4.63-6.08) M/mcL Hgb (13.7-17.5) g/dL Hct (40.1-51.0) % POC Hct 39.0 L (41-55) MCV (80.0-100.0) fL MCH (26.0-34.0) pg MCHC (31.0-36.0) g/dL RDW (11.5-14.5) % Plt Count (140-440) K/mcL MPV (8.8-12.5) fL Immature Gran % (Auto) (0.0-0.5) % Neut % (Auto) (38.0-78.0) % Lymph % (Auto) (15.5-49.0) % [place] % (Auto) (1.0-12.0) % Eos % (Auto) (0.0-7.0) % Baso % (Auto) (0.0-2.0) % Lymph # (Auto) (1.50-4.80) K/mcL [place] # (Auto) (0.10-0.90) K/mcL Eos # (Auto) (0.00-0.70) K/mcL Baso # (Auto) (0.00-0.30) K/mcL Immature Gran # (0.00-0.05) K/mcl Absolute Neutrophils (1.80-8.00) K/mcL POC VBG pH 7.31 L (7.32-7.42) POC VBG pCO2 at Temp 67.7 H* (41-51) POC VBG pO2 96 H (25-40) POC VBG HCO3 34.2 H (24-28) POC VBG Total CO2 36.0 H (25-29) POC Venous O2 Sat 96.0 H (40-70) POC VBG Base Excess 8.0 H* (-2-2) VBG Lactic Acid 3.5 H (0.5-2) POC Sodium 141 (133-145) POC Potassium 3.9 (3.3-5.1) POC Chloride 96 (96-108) POC Total CO2 34.0 H (22-30) POC Anion Gap 17.0 H (8.0-16.0) POC BUN 46 H (6-20) POC Creatinine 2.6 H (0.6-1.2) POC Glucose 151 H (70-105) POC WB Ioniz Calcium 1.24 (1.16-1.32) Total Bilirubin (0.1-1.0) mg/dL Direct Bilirubin (0-0.3) mg/dL AST (<40) U/L ALT (<40) U/L Alkaline Phosphatase (39-117) U/L Ammonia (16-60) umol/L NT-Pro-B Natriuret Pep (<450.0) pg/mL Total Protein (5.9-8.4) gm/dL Albumin (3.2-5.2) gm/dL Globulin (2.2-3.7) gm/dL Procalcitonin (<0.10) ng/mL TSH (0.27-5.01) uIU/mL Prolactin (4.0-15.2) ng/mL Urine Color Urine Appearance (Clear) Urine pH (5.0-9.0) Ur Specific Pa[place] (1.000-1.035) Urine Protein (Negative) mg/dL Urine Glucose (UA) (Negative) mg/dL Urine Ketones (Negative) mg/dL Urine Occult Blood (Negative) mg/dL Urine Nitrate (Negative) Urine Bilirubin (Negative) mg/dL Urine Urobilinogen mg/dL Ur Leukocyte Esterase (Negative) /uL Urine RBC (0-3) /hpf Urine WBC (0-4) /hpf Ur Squamous Epith Cells (0-4) /hpf Urine Bacteria (0) /hpf Hyaline Casts (0-2) /lph Urine Mucus (None) /hpf Ur Culture Indicated? POC Troponin I 0.09 H (0.00-0.08) 10/09/22 10/09/22 10/09/22 Range/Units 20:55 20:55 20:55 WBC 14.0 H (4.5-11.0) K/mcL RBC 3.78 L (4.63-6.08) M/mcL Hgb 12.2 L (13.7-17.5) g/dL Hct 39.1 L (40.1-51.0) % POC Hct (41-55) MCV 103.4 H (80.0-100.0) fL MCH 32.3 (26.0-34.0) pg MCHC 31.2 (31.0-36.0) g/dL RDW 14.6 H (11.5-14.5) % Plt Count 295 (140-440) K/mcL MPV 10.0 (8.8-12.5) fL Immature Gran % (Auto) 1.4 H (0.0-0.5) % Neut % (Auto) 54.9 (38.0-78.0) % Lymph % (Auto) 31.1 (15.5-49.0) % [place] % (Auto) 9.4 (1.0-12.0) % Eos % (Auto) 2.8 (0.0-7.0) % Baso % (Auto) 0.4 (0.0-2.0) % Lymph # (Auto) 4.36 (1.50-4.80) K/mcL [place] # (Auto) 1.32 H (0.10-0.90) K/mcL Eos # (Auto) 0.39 (0.00-0.70) K/mcL Baso # (Auto) 0.06 (0.00-0.30) K/mcL Immature Gran # 0.20 H (0.00-0.05) K/mcl Absolute Neutrophils 7.68 (1.80-8.00) K/mcL POC VBG pH (7.32-7.42) POC VBG pCO2 at Temp (41-51) POC VBG pO2 (25-40) POC VBG HCO3 (24-28) POC VBG Total CO2 (25-29) POC Venous O2 Sat (40-70) POC VBG Base Excess (-2-2) VBG Lactic Acid 2.4 H (0.5-2) POC Sodium (133-145) POC Potassium (3.3-5.1) POC Chloride (96-108) POC Total CO2 (22-30) POC Anion Gap (8.0-16.0) POC BUN (6-20) POC Creatinine (0.6-1.2) POC Glucose (70-105) POC WB Ioniz Calcium (1.16-1.32) Total Bilirubin 0.3 (0.1-1.0) mg/dL Direct Bilirubin < 0.2 (0-0.3) mg/dL AST 26 (<40) U/L ALT 16 (<40) U/L Alkaline Phosphatase 53 (39-117) U/L Ammonia (16-60) umol/L NT-Pro-B Natriuret Pep 3512.0 H (<450.0) pg/mL Total Protein 6.8 (5.9-8.4) gm/dL Albumin 3.2 (3.2-5.2) gm/dL Globulin 3.6 (2.2-3.7) gm/dL Procalcitonin (<0.10) ng/mL TSH 7.33 H (0.27-5.01) uIU/mL Prolactin (4.0-15.2) ng/mL Urine Color Urine Appearance (Clear) Urine pH (5.0-9.0) Ur Specific [place] (1.000-1.035) Urine Protein (Negative) mg/dL Urine Glucose (UA) (Negative) mg/dL Urine Ketones (Negative) mg/dL Urine Occult Blood (Negative) mg/dL Urine Nitrate (Negative) Urine Bilirubin (Negative) mg/dL Urine Urobilinogen mg/dL Ur Leukocyte Esterase (Negative) /uL Urine RBC (0-3) /hpf Urine WBC (0-4) /hpf Ur Squamous Epith Cells (0-4) /hpf Urine Bacteria (0) /hpf Hyaline Casts (0-2) /lph Urine Mucus (None) /hpf Ur Culture Indicated? POC Troponin I (0.00-0.08) 10/09/22 10/09/22 10/09/22 Range/Units 20:55 20:55 20:55 WBC (4.5-11.0) K/mcL RBC (4.63-6.08) M/mcL Hgb (13.7-17.5) g/dL Hct (40.1-51.0) % POC Hct (41-55) MCV (80.0-100.0) fL MCH (26.0-34.0) pg MCHC (31.0-36.0) g/dL RDW (11.5-14.5) % Plt Count (140-440) K/mcL MPV (8.8-12.5) fL Immature Gran % (Auto) (0.0-0.5) % Neut % (Auto) (38.0-78.0) % Lymph % (Auto) (15.5-49.0) % [place] % (Auto) (1.0-12.0) % Eos % (Auto) (0.0-7.0) % Baso % (Auto) (0.0-2.0) % Lymph # (Auto) (1.50-4.80) K/mcL [place] # (Auto) (0.10-0.90) K/mcL Eos # (Auto) (0.00-0.70) K/mcL Baso # (Auto) (0.00-0.30) K/mcL Immature Gran # (0.00-0.05) K/mcl Absolute Neutrophils (1.80-8.00) K/mcL POC VBG pH (7.32-7.42) POC VBG pCO2 at Temp (41-51) POC VBG pO2 (25-40) POC VBG HCO3 (24-28) POC VBG Total CO2 (25-29) POC Venous O2 Sat (40-70) POC VBG Base Excess (-2-2) VBG Lactic Acid (0.5-2) POC Sodium (133-145) POC Potassium (3.3-5.1) POC Chloride (96-108) POC Total CO2 (22-30) POC Anion Gap (8.0-16.0) POC BUN (6-20) POC Creatinine (0.6-1.2) POC Glucose (70-105) POC WB Ioniz Calcium (1.16-1.32) Total Bilirubin (0.1-1.0) mg/dL Direct Bilirubin (0-0.3) mg/dL AST (<40) U/L ALT (<40) U/L Alkaline Phosphatase (39-117) U/L Ammonia (16-60) umol/L NT-Pro-B Natriuret Pep 3732.0 H (<450.0) pg/mL Total Protein (5.9-8.4) gm/dL Albumin (3.2-5.2) gm/dL Globulin (2.2-3.7) gm/dL Procalcitonin 0.54 H (<0.10) ng/mL TSH (0.27-5.01) uIU/mL Prolactin 51.6 H (4.0-15.2) ng/mL Urine Color Urine Appearance (Clear) Urine pH (5.0-9.0) Ur Specific [place] (1.000-1.035) Urine Protein (Negative) mg/dL Urine Glucose (UA) (Negative) mg/dL Urine Ketones (Negative) mg/dL Urine Occult Blood (Negative) mg/dL Urine Nitrate (Negative) Urine Bilirubin (Negative) mg/dL Urine Urobilinogen mg/dL Ur Leukocyte Esterase (Negative) /uL Urine RBC (0-3) /hpf Urine WBC (0-4) /hpf Ur Squamous Epith Cells (0-4) /hpf Urine Bacteria (0) /hpf Hyaline Casts (0-2) /lph Urine Mucus (None) /hpf Ur Culture Indicated? POC Troponin I (0.00-0.08) 10/09/22 10/09/22 Range/Units 20:58 21:30 WBC (4.5-11.0) K/mcL RBC (4.63-6.08) M/mcL Hgb (13.7-17.5) g/dL Hct (40.1-51.0) % POC Hct (41-55) MCV (80.0-100.0) fL MCH (26.0-34.0) pg MCHC (31.0-36.0) g/dL RDW (11.5-14.5) % Plt Count (140-440) K/mcL MPV (8.8-12.5) fL Immature Gran % (Auto) (0.0-0.5) % Neut % (Auto) (38.0-78.0) % Lymph % (Auto) (15.5-49.0) % [place] % (Auto) (1.0-12.0) % Eos % (Auto) (0.0-7.0) % Baso % (Auto) (0.0-2.0) % Lymph # (Auto) (1.50-4.80) K/mcL [place] # (Auto) (0.10-0.90) K/mcL Eos # (Auto) (0.00-0.70) K/mcL Baso # (Auto) (0.00-0.30) K/mcL Immature Gran # (0.00-0.05) K/mcl Absolute Neutrophils (1.80-8.00) K/mcL POC VBG pH (7.32-7.42) POC VBG pCO2 at Temp (41-51) POC VBG pO2 (25-40) POC VBG HCO3 (24-28) POC VBG Total CO2 (25-29) POC Venous O2 Sat (40-70) POC VBG Base Excess (-2-2) VBG Lactic Acid (0.5-2) POC Sodium (133-145) POC Potassium (3.3-5.1) POC Chloride (96-108) POC Total CO2 (22-30) POC Anion Gap (8.0-16.0) POC BUN (6-20) POC Creatinine (0.6-1.2) POC Glucose (70-105) POC WB Ioniz Calcium (1.16-1.32) Total Bilirubin (0.1-1.0) mg/dL Direct Bilirubin (0-0.3) mg/dL AST (<40) U/L ALT (<40) U/L Alkaline Phosphatase (39-117) U/L Ammonia 29 (16-60) umol/L NT-Pro-B Natriuret Pep (<450.0) pg/mL Total Protein (5.9-8.4) gm/dL Albumin (3.2-5.2) gm/dL Globulin (2.2-3.7) gm/dL Procalcitonin (<0.10) ng/mL TSH (0.27-5.01) uIU/mL Prolactin (4.0-15.2) ng/mL Urine Color Jonna Urine Appearance Cloudy A (Clear) Urine pH 5.0 (5.0-9.0) Ur Specific [place] 1.017 (1.000-1.035) Urine Protein 30 A (Negative) mg/dL Urine Glucose (UA) Negative (Negative) mg/dL Urine Ketones Negative (Negative) mg/dL Urine Occult Blood >=1.0 A (Negative) mg/dL Urine Nitrate Negative (Negative) Urine Bilirubin Negative (Negative) mg/dL Urine Urobilinogen Negative mg/dL Ur Leukocyte Esterase 500 A (Negative) /uL Urine RBC 48 H (0-3) /hpf Urine WBC > 182 H (0-4) /hpf Ur Squamous Epith Cells 0 (0-4) /hpf Urine Bacteria Many A (0) /hpf Hyaline Casts 8 H (0-2) /lph Urine Mucus Few A (None) /hpf Ur Culture Indicated? yes POC Troponin I (0.00-0.08) CC TIME <Jose Mattson MD - Last Filed: 10/10/22 01:37> Critical Care Time Total Critical Care Time: 45 Attestation: Greater than 45 minutes of critical care time was provided to this patient exclusive of all procedures. Critical care because of his acute altered mental status, initial appearance of respiratory failure, and diagnosis of sepsis. Patient required critical care management due to possible CHF initially as a cause of his respiratory failure while also potentially sepsis requiring IV fluid boluses and IV antibiotics. Discharge Plan Patient/Caregiver Discharge Instructions Pt seen by [employer] OFFICER/PA only: No Clinical Impression: Acute dehydration, Dependent edema, Acute alteration in mental status, Indwelling Virgen catheter present Sepsis Qualifiers: Sepsis type: sepsis due to unspecified organism Hepatic coma status: without hepatic coma Severe sepsis shock status: without septic shock Urinary tract infection Qualifiers: Urinary tract infection type: acute cystitis Hematuria presence: with hematuria Qualified Code(s): N30.01 - Acute cystitis with hematuria Buttock wound Qualifiers: Encounter type: initial encounter Laterality: unspecified laterality Qualified Code(s): S31.809A - Unspecified open wound of unspecified buttock, initial encounter Convulsion Qualifiers: Convulsion type: unspecified Qualified Code(s): R56.9 - Unspecified convulsions Patient Disposition: Xfer As Inpt ([facility]) Condition: Serious
[2022-10-09] MEDS ORDERED: AZITHROMYCIN 500 MG in DEXTROSE 5% IN WATER 250 ML IV ONE (20:36)
[2022-10-09] MEDS ORDERED: cefTRIAXone 1 GM VIAL IV ONE (20:36)
[2022-10-09] MEDS ORDERED: 0.9 % SODIUM CHLORIDE 2,190 ML IV ONE (20:47)
[2022-10-09 20:50] LABS: POC Calcium, Ionized 1.24 (1.16-1.32); POC Creatinine 2.6 (0.6-1.2); POC Potassium 3.9 (3.3-5.1)
[2022-10-09 21:44] LABS: Basophils # (Auto) 0.06 K/mcL (0.00-0.30); Basophils % (Auto) 0.4 % (0.0-2.0); Eosinophils # (Auto) 0.39 K/mcL (0.00-0.70); Eosinophils % (Auto) 2.8 % (0.0-7.0); Hematocrit 39.1 % (40.1-51.0); Hemoglobin 12.2 g/dL (13.7-17.5); Lymphocytes # (Auto) 4.36 K/mcL (1.50-4.80); Lymphocytes % (Auto) 31.1 % (15.5-49.0); Mean Cell Volume 103.4 fL (80.0-100.0); Mean Corpuscular HGB Conc 31.2 g/dL (31.0-36.0); Monocytes # (Auto) 1.32 K/mcL (0.10-0.90); Monocytes % (Auto) 9.4 % (1.0-12.0); Neutrophils % (Auto) 54.9 % (38.0-78.0); Platelet Count 295 K/mcL (140-440); RBC 3.78 M/mcL (4.63-6.08); Red Cell Distribution Width 14.6 % (11.5-14.5)
--- NOTE | 2022-10-09 21:59 | Internal Med History&Physical ---
HPI History of Present Illness Patient information: Note initiated : 10/09/22 at 9:58 pm Service Date, if different from initiated Date: [] Patient: Abhi Randle 82 y/o M admitted on . Chief Complaint: [] History of present illness: Patient is an 82 years old male with history of cardiomyopathy EF 35%, CAD status post CABGx3, mitral valve repair, atrial fibrillation on anticoagulation, hypotension on midodrine, hyperlipidemia, diabetes mellitus 2, CKD stage II- III, hypothyroidism, BPH with urinary retention requiring Virgen catheter since 3 months ago presented with concerns of possible aspiration, seizure-like activity and altered mental status. Patient is a limited historian, most of the history was given by caregiver and from previous record patient was with a caregiver who gave him some water and heard gurgling/choking, patient stated to his caregiver that it is gone down the wrong pipe. Case medication care manager stepped out of the room and again heard some noises and saw patient was having seizure-like activity and was shaking his arms. He called his name few times and patient did not respond. He was breathing poor. He also noted patient eyes were rolling back. He was unable to observe the lower extremities as these were covered with blanket. Patient has fallen 3 times in the past 2 week EMS noted patient was breathing poorly and put him on 15 L nonrebreather mask. On presentation patient is pulse rate 58, respiratory rate 27, blood pressure 106/44. He was satting 91% on room air and was placed on 2 L nasal cannula oxygen. EKG shows a rate of 66. Rhythm appears regular. P waves not obvious. Reads out as junctional rhythm. Right bundle branch block. No acute ischemic changes. Labs showed WBC 14,000, hemoglobin 12.2. Sodium 141. Potassium 3.9. Chloride 96. Bicarb 34. Glucose 151. BUN 46. Creatinine elevated at 2.6. Troponin 0.09 down from 0.29 two months ago. Patient has chronically elevated troponin. VBG pH 7.31. PCO2 68. PaO2 96. HCO3 34. Bicarb 36. Lactic acid elevated at 3.47. UA with presence of leukocyte esterase, RBC, WBC, bacteria. Chest x-ray shows no CHF. Patient has borderline cardiomegaly. CT head showed no acute intracranial abnormality. Admission was requested Review of system 14 point review of system was completed. 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 ENT ENT: Present normal oropharynx, mucous membranes dry,, TM's normal bilaterally and normal external ear exam Chest Chest: Present symmetric chest wall rise Respiratory Respiratory: Present globally reduced air entry however no rhonchi or wheezing heard; on 2 L nasal cannula oxygen, no respiratory distress Cardiovascular Cardiovascular: Present regular rate, normal rhythm systolic murmur heard Adbominal Abdominal: Present soft; Absent distention or tenderness : Present other (Virgen catheter in place and draining dark-colored urine Extremities Extremities: Present chronic venous stasis changes, trace edema Neurological Neurological: Alert, appears confused, poor response to questions, would say yes or no. Facial symmetry. Able to frown. Moving limbs but not cooperative with exam. No numbness. 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 Able to move both ankles and to his toes.) Skin Skin: Present warm (WNL), dry and other (Skin breakdown buttock area being treated with zinc oxide) Assessment and plan Possible syncope, etiology unclear, patient apparently choked on water. He is also somewhat bradycardic, he is on amiodarone and metoprolol. These will be held overnight. Will monitor him on telemetry. Echocardiogram ordered. CT head without any acute finding. Aspiration pneumonitis/aspiration pneumonia. Chest x-ray without acute finding. Will obtain CT chest. Supplemental oxygen as needed. Procalcitonin is slightly elevated at 0.5 ceftriaxone will cover. Acute hypoxic respiratory failure. Secondary to above. Wean oxygen as tolerated. Seizure-like activity, prolactin is elevated 3-4 fold at 51. As needed Ativan for seizure activity. Monitor closely in PCU. Neurochecks Acute encephalopathy, altered mental status likely secondary to above Sepsis, patient presented with tachypnea with respiratory rate 26, leukocytosis of 14,000 and possible UTI UTI. UA with presence of leukocyte esterase, RBC, WBC, bacteria. Type II NSTEMI versus mild chronic troponin elevation, troponin 0.09 down from 0.29 couple months ago. EKG without any acute ischemic changes. Will monitor on telemetry CAD status post CABG, continue home meds when med rec is completed Hypotension, continue midodrine Hyperlipidemia, on statins Hypothyroidism, TSH elevated at 7.33 but improved from before Diabetes mellitus 2, obtain A1c LARRY on CKD stage II-III, creatinine 2.6 up from 1.8 last best known creatinine per discharge summary from [facility]. Will give gentle fluid overnight. Will monitor for volume overload Severe cardiomyopathy, EF 35%. We will continue with cardiac regimen. Echocardiogram ordered Echocardiogram from 07/16/2022 reviewed. EF 35%, global hypokinesis, severe biatrial enlargement, mild aortic insufficiency, mitral valve repaired. Mild residual insufficiency. Moderate tricuspid insufficiency. Moderately elevated RVSP estimated at 50 mmHg. Elevated CVP estimated at 15 mmHg. Atrial fibrillation, anticoagulated with Eliquis. On amiodarone and metoprolol, will hold overnight Hypotension, on midodrine Admit patient to PCU DVT and GI prophylaxis in place Full code Total time taken 70 minutes PFSH PFSH All Active Problems (Updated 10/10/22 @ 01:37 by Jose Mattson MD) Sepsis (Acute) Acute dehydration (Acute) Urinary tract infection (Acute) Dependent edema (Acute) Acute alteration in mental status (Acute) Indwelling Virgen catheter present (Acute) Buttock wound (Acute) Convulsion (Acute) Stage II pressure sore (Acute) Bladder neck obstruction (Acute) CAD (coronary artery disease) (Acute) Coronary atherosclerosis (Acute) Degenerative joint disease (Acute) Edema (Acute) Gastroesophageal reflux (Acute) Hyperlipemia (Acute) Hypertension (Acute) Hypothyroidism (acquired) (Acute) Leg pain (Acute 05/26/14) Mitral valve disorder (Acute) Osteoporosis (Acute) Peripheral vascular disease (Acute) Renal calculi (Acute) Chronic renal insufficiency (Acute) Shoulder pain, left (Acute 05/26/14) Spinal stenosis of lumbar region (Acute) History of tobacco use (Acute) Stasis dermatitis of both legs (Chronic) Anemia (Acute) Hematuria (Acute) High risk medication use (Acute) Atrial fibrillation (Acute) [place]ra firma-forme dermatosis (Acute) DMII (diabetes mellitus, type 2) (Acute) Intermittent diarrhea (Acute) Acute chest wall pain (Acute) Cough (Acute) Lab test positive for detection of COVID-19 virus (Acute) Sprain of toe, fifth, left (Acute) Toe pain, left (Acute) Purpura (Acute) Senile purpura (Acute) Diarrhea (Acute) Weight gain (Acute) Lower extremity weakness (Acute) Acute dehydration (Acute) Hematoma of right lower leg (Acute) Annual physical exam (Acute) Acute kidney injury (Acute) Syncope (Acute) Sepsis (Acute) COVID-19 (Acute) Hypovolemic shock (Acute) Septic shock (Acute) Stage 2 acute kidney injury (Acute) Chronic kidney disease (CKD) stage G2/A1, mildly decreased glomerular filtration rate (GFR) between 60-89 mL/min/1.73 square meter and albuminuria creatinine ratio less than 30 mg/g (Acute) Troponin level elevated (Acute) Anemia of chronic renal failure, stage 2 (mild) (Acute) Hypomagnesemia (Acute) UTI (urinary tract infection) (Acute) Gram-positive cocci bacteremia (Acute) Hospital discharge follow-up (Acute) Elevated TSH (Acute) Abdominal pain (Acute) Acute UTI (Acute) Calculus of right kidney (Acute) Bilateral wheezing (Acute) Dehydration (Acute) Medicare annual wellness visit, subsequent (Acute) Annual physical exam (Acute) Infectious colitis (Acute) Hypothyroidism (Acute) Weakness (Acute) Acidosis, lactic (Acute) Acute urinary retention (Acute) Nail disorder (onychogryphosis) (Acute) Bilateral leg weakness (Acute) Encounter for wound care (Acute) Acute UTI (Acute) General weakness (Acute) CHF exacerbation (Acute) Shock (Acute) Elevated brain natriuretic peptide (BNP) level (Acute) Catheter (urine) change required (Acute) Encounter for medication review (Acute) Hypotension (Acute) Medical History Acute kidney injury Acute renal failure Acute retention of urine Annual physical exam Atrial fibrillation Bladder neck obstruction CAD (coronary artery disease) Post CABG Chronic renal insufficiency 02/02/2014 [facility] Coronary atherosclerosis Post CABG Degenerative joint disease Osteoarthrosis NOS 02/02/2014 [facility] H&P Diarrhea DMII (diabetes mellitus, type 2) Edema Elevated TSH Gastroesophageal reflux High risk medication use History of tobacco use 02/13/2012[facility] follow-up Hyperlipemia Hypertension Essential Hypothyroidism (acquired) Intermittent diarrhea Leg pain (05/26/14) Leg Lower extremity weakness Medicare annual wellness visit, initial Medicare annual wellness visit, subsequent Mitral valve disorder With Repair Osteoporosis Peripheral vascular disease Unspecified Purpura Renal calculi Rhabdomyolysis Senile purpura Sepsis Shoulder pain, left (05/26/14) Left Spinal stenosis of lumbar region Lumbar Spine Sprain of toe, fifth, left [place]ra firma-forme dermatosis Toe pain, left Weight gain Surgical History History of arthroscopy of left knee History of carpal tunnel repair Bilateral History of coronary artery bypass graft x 3 3 Vessel History of evacuation of hematoma 11/07/2020-drainage and evacuation of hematoma right calf History of inguinal hernia repair History of open heart surgery Mitral Valve Repair History of shoulder surgery Bilateral, rt redo 4 months History of surgery 11/12/2020-secondary closure of surgical incisiona of right calf with drain placement History of total right knee replacement Nail avulsion of toe Family History Mother Malignant neoplasm of uterus Social History household members: other marital status: education level: high school occupational status: retired smoking status: Current some day smoker alcohol intake frequency: does not drink substance use type: does not use MEDS/ALLERGIES Home Medications and Allergies Home Medications Medication Instructions Recorded Confirmed Type Transport Chair #1 ea 11/21/20 10/10/22 Rx Stand-assist lift #1 ea 04/16/22 10/10/22 Rx acetaminophen 500 mg PO TID 08/06/22 10/10/22 History apixaban 5 mg tablet (Eliquis) 2.5 mg PO BID 09/11/22 10/10/22 History finasteride 5 mg tablet 5 mg PO QHS 09/11/22 10/10/22 History levothyroxine 150 mcg PO QAM 09/11/22 10/10/22 History lidocaine 5 % topical patch 1 patch topical QDAY 09/11/22 10/10/22 History metoprolol succinate 25 mg 12.5 mg PO BID 09/11/22 10/10/22 History tablet,extended release 24 hr midodrine 5 mg tablet 5 mg PO TIDWMEAL 09/11/22 10/10/22 History amiodarone 100 mg tablet 100 mg PO BID 09/12/22 10/10/22 History Deneen Raza #1 ea 10/08/22 10/10/22 Rx zinc oxide 24 % topical cream See Rx Instructions topical 10/08/22 10/10/22 Rx .COMPLEX #113 grams albuterol sulfate 90 mcg/actuation 2 inh inhalation PRN PRN Shortness 10/10/22 10/10/22 History breath activated powder inhaler Of Breath ascorbate calcium (vitamin C) 500 1,000 mg PO QDAY 10/10/22 10/10/22 History mg tablet atorvastatin 40 mg tablet 40 mg PO QDAY 10/10/22 10/10/22 History calcium carbonate 600 mg-vitamin 1 cap PO QAM 10/10/22 10/10/22 History D3 10 mcg (400 unit) capsule cyanocobalamin (vitamin B-12) 500 500 mcg PO QDAY 10/10/22 10/10/22 History mcg tablet digoxin 125 mcg (0.125 mg) tablet 125 mcg PO QDAY 10/10/22 10/10/22 History fosinopril 20 mg tablet 10 mg PO QDAY 10/10/22 10/10/22 History furosemide 20 mg tablet 20 mg PO QAM 10/10/22 10/10/22 History gabapentin 300 mg capsule 300 mg PO QHS 10/10/22 10/10/22 History metformin 500 mg tablet 500 mg PO BID 10/10/22 10/10/22 History Allergies Allergy/AdvReac Type Severity Reaction Status Date / Time No Known Drug Allergies Allergy Unknown Unknown Verified 10/08/22 16:53 EXAM Constitutional Vitals: Temp Pulse Resp BP Pulse Ox O2 Del Method O2 Flow Rate 97.9 F 77 16 113/89 97 Non-Rebreather Mask 15 10/09/22 20:21 10/09/22 21:46 10/09/22 21:46 10/09/22 21:46 10/09/22 21:46 10/09/22 20:21 10/09/22 20:21 DATA Data Completed and Pending Labs: Labs from last 24 hours 10/09/22 10/09/22 10/09/22 21:30 20:58 20:55 WBC RBC Hgb Hct POC Hct MCV MCH MCHC RDW Plt Count MPV Immature Gran % (Auto) Neut % (Auto) Lymph % (Auto) Walker % (Auto) Eos % (Auto) Baso % (Auto) Lymph # (Auto) Walker # (Auto) Eos # (Auto) Baso # (Auto) Immature Gran # Absolute Neutrophils POC VBG pH POC VBG pCO2 at Temp POC VBG pO2 POC VBG HCO3 POC VBG Total CO2 POC Venous O2 Sat POC VBG Base Excess VBG Lactic Acid POC Sodium POC Potassium POC Chloride POC Total CO2 POC Anion Gap POC BUN POC Creatinine POC Glucose POC WB Ioniz Calcium Total Bilirubin Direct Bilirubin AST ALT Alkaline Phosphatase Ammonia 29 NT-Pro-B Natriuret Pep Total Protein Albumin Globulin Procalcitonin Pending TSH Urine Color Pending Urine Appearance Pending Urine pH Pending Ur Specific [place] Pending Urine Protein Pending Urine Glucose (UA) Pending Urine Ketones Pending Urine Occult Blood Pending Urine Nitrate Pending Urine Bilirubin Pending Urine Urobilinogen Pending Ur Leukocyte Esterase Pending POC Troponin I 10/09/22 10/09/22 10/09/22 20:55 20:55 20:55 WBC 14.0 H RBC 3.78 L Hgb 12.2 L Hct 39.1 L POC Hct MCV 103.4 H MCH 32.3 MCHC 31.2 RDW 14.6 H Plt Count 295 MPV 10.0 Immature Gran % (Auto) 1.4 H Neut % (Auto) 54.9 Lymph % (Auto) 31.1 Walker % (Auto) 9.4 Eos % (Auto) 2.8 Baso % (Auto) 0.4 Lymph # (Auto) 4.36 Walker # (Auto) 1.32 H Eos # (Auto) 0.39 Baso # (Auto) 0.06 Immature Gran # 0.20 H Absolute Neutrophils 7.68 POC VBG pH POC VBG pCO2 at Temp POC VBG pO2 POC VBG HCO3 POC VBG Total CO2 POC Venous O2 Sat POC VBG Base Excess VBG Lactic Acid 2.4 H POC Sodium POC Potassium POC Chloride POC Total CO2 POC Anion Gap POC BUN POC Creatinine POC Glucose POC WB Ioniz Calcium Total Bilirubin Pending Direct Bilirubin Pending AST Pending ALT Pending Alkaline Phosphatase Pending Ammonia NT-Pro-B Natriuret Pep Pending Total Protein Pending Albumin Pending Globulin Pending Procalcitonin TSH Pending Urine Color Urine Appearance Urine pH Ur Specific [place] Urine Protein Urine Glucose (UA) Urine Ketones Urine Occult Blood Urine Nitrate Urine Bilirubin Urine Urobilinogen Ur Leukocyte Esterase POC Troponin I 10/09/22 10/09/22 10/09/22 20:37 20:34 20:30 WBC RBC Hgb Hct POC Hct 39.0 L MCV MCH MCHC RDW Plt Count MPV Immature Gran % (Auto) Neut % (Auto) Lymph % (Auto) Walker % (Auto) Eos % (Auto) Baso % (Auto) Lymph # (Auto) Walker # (Auto) Eos # (Auto) Baso # (Auto) Immature Gran # Absolute Neutrophils POC VBG pH 7.31 L POC VBG pCO2 at Temp 67.7 H* POC VBG pO2 96 H POC VBG HCO3 34.2 H POC VBG Total CO2 36.0 H POC Venous O2 Sat 96.0 H POC VBG Base Excess 8.0 H* VBG Lactic Acid 3.5 H POC Sodium 141 POC Potassium 3.9 POC Chloride 96 POC Total CO2 34.0 H POC Anion Gap 17.0 H POC BUN 46 H POC Creatinine 2.6 H POC Glucose 151 H POC WB Ioniz Calcium 1.24 Total Bilirubin Direct Bilirubin AST ALT Alkaline Phosphatase Ammonia NT-Pro-B Natriuret Pep Total Protein Albumin Globulin Procalcitonin TSH Urine Color Urine Appearance Urine pH Ur Specific [place] Urine Protein Urine Glucose (UA) Urine Ketones Urine Occult Blood Urine Nitrate Urine Bilirubin Urine Urobilinogen Ur Leukocyte Esterase POC Troponin I 0.09 H A/P Time Spent With Patient Time: Total time spent is greater than 50% in coordination of care (as documented) at patient's floor/unit and/or counseling patient:
[2022-10-09 22:07] LABS: Appearance,Urine CLOUDY (Clear); Bacteria,Urine MANY /hpf (0); Bilirubin,Urine Negative (Negative); Color,Urine AMBER; Culture Indicated,Urine yes; Glucose,Urine (UA) Negative (Negative); Ketones,Urine Negative (Negative); Leukocyte Esterase,Urine 500 /uL (Negative); Mucus,Urine FEW /hpf; Nitrate,Urine Negative (Negative); Protein,Urine 30 mg/dL (Negative); Specific Gravity,Urine 1.017 (1.000-1.035); Urine Blood >=1.0 mg/dL (Negative); Urine Hyaline Cast 8 /lph (0-2); Urine RBC 48 /hpf (0-3); Urine Squamous Epithelial Cell 0 /hpf (0-4); Urine WBC > 182 /hpf (0-4); Urobilinogen,Urine Negative
[2022-10-09 22:20] LABS: ALT/SGPT 16 U/L (<40); AST/SGOT 26 U/L (<40); Albumin 3.2 gm/dL (3.2-5.2); Alkaline Phosphatase 53 U/L (39-117); Bilirubin,Direct < 0.2 mg/dL (0-0.3); Bilirubin,Total 0.3 mg/dL (0.1-1.0); Globulin 3.6 gm/dL (2.2-3.7)
[2022-10-09 23:00] LABS: Prolactin 51.6 ng/mL (4.0-15.2)
[2022-10-10] MEDS ORDERED: BISACODYL 10 MG SUPP.RECT PR PRN (00:22)
[2022-10-10] MEDS ORDERED: SENNOSIDES 1 TABLET PO PRN (00:22)
[2022-10-10] MEDS ORDERED: MAGNESIUM HYDROXIDE 30 ML ORAL.SUSP PO PRN (00:22)
[2022-10-10] MEDS ORDERED: LACTULOSE 20 GM/30 ML ORAL.SOL PO PRN (00:22)
[2022-10-10] MEDS ORDERED: ONDANSETRON 4 MG/2 ML VIAL IV PRN (00:22)
[2022-10-10] MEDS: LACTATED RINGERS 1,000 ML IV SCH ×2 (00:30→20:29)
[2022-10-10] MEDS: LORazepam 2 MG/ML VIAL IV PRN ×2 (00:30→20:29)
[2022-10-10] MEDS ORDERED: LORazepam 2 MG/ML VIAL ONE (00:32)
[2022-10-10] MEDS: 0.9 % SODIUM CHLORIDE 10 ML SYRINGE IV SCH ×3 (05:53→20:37)
[2022-10-10 07:32] LABS: ALT/SGPT 12 U/L (<40); AST/SGOT 27 U/L (<40); Albumin 2.7 gm/dL (3.2-5.2); Albumin/Globulin Ratio 0.9 (1.0-2.3); Alkaline Phosphatase 43 U/L (39-117); Bilirubin,Total 0.3 mg/dL (0.1-1.0); Blood Urea Nitrogen 42 mg/dL (8-23); Calcium 8.8 mg/dL (8.6-10.4); Carbon Dioxide 28 mmol/L (22-30); Chloride 100 mmol/L (96-108); Globulin 3.1 gm/dL (2.2-3.7); Glomerular Filtration Rate 30; Glucose 60 mg/dL (70-105)
[2022-10-10 07:35] LABS: Basophils # (Auto) 0.05 K/mcL (0.00-0.30); Basophils % (Auto) 0.5 % (0.0-2.0); Eosinophils % (Auto) 2.1 % (0.0-7.0); Hematocrit 34.5 % (40.1-51.0); Hemoglobin 10.8 g/dL (13.7-17.5); Lymphocytes # (Auto) 1.28 K/mcL (1.50-4.80); Lymphocytes % (Auto) 13.5 % (15.5-49.0); Mean Cell Volume 104.9 fL (80.0-100.0); Mean Corpuscular HGB Conc 31.3 g/dL (31.0-36.0); Mean Platelet Volume 10.1 fL (8.8-12.5); Monocytes # (Auto) 0.67 K/mcL (0.10-0.90); Monocytes % (Auto) 7.1 % (1.0-12.0); Neutrophils % (Auto) 75.9 % (38.0-78.0); Platelet Count 201 K/mcL (140-440); RBC 3.29 M/mcL (4.63-6.08); Red Cell Distribution Width 14.5 % (11.5-14.5); WBC 9.5 K/mcL (4.5-11.0)
--- NOTE | 2022-10-10 07:49 | XRay Report ---
HISTORY: Short of breath, history congestive heart failure and smoking FINDINGS: Heart is mildly enlarged. There is no congestive heart failure or pleural effusion. There has been a prior sternotomy. And there is a prosthetic mitral valve. The lungs are clear. There is no pleural effusion. There are postoperative changes in both shoulders. Comparison with the prior CT from 08/17/22 shows resolution of previously seen pleural effusions and bibasilar atelectasis. IMPRESSION: Stable mild cardiomegaly and no acute abnormality Interpreted and Authenticated by: Hector Redd 10/10/22
--- NOTE | 2022-10-10 07:53 | Cat Scan Report ---
History: Altered mental status TECHNIQUE: The brain was imaged without contrast in axial plane at 2.5 mm intervals. Sagittal and coronal reformats were created. The radiation exposure was limited using dose reduction technology. FINDINGS: There is mild generalized cerebral atrophy both above and below the tentorium. Subtle areas of decreased attenuation are present in the centrum semiovale in the frontal and parietal lobes. This may be due to age-related ischemia or degeneration. There is no evidence of an infarct. No hemorrhage, edema or mass effect are present. The ventricles are prominent but proportionate to the atrophy. There is no abnormal extra-axial fluid collection. Bone windows show no skull lesion. The visualized sinuses and orbits are normal. Comparison the prior exam from 12/26/21 shows no change. IMPRESSION: Stable mild age-related degenerative changes and no acute abnormality Interpreted and Authenticated by: Hector Redd 10/10/22
--- NOTE | 2022-10-10 08:03 | Cat Scan Report ---
History: Hypoxia short of breath, smoker, history of congestive heart failure TECHNIQUE: The chest was imaged without contrast in axial plane at 2.5 mm intervals. Sagittal, coronal and axial MIPS images were created. The radiation exposure was limited using dose reduction technology. FINDINGS: There is minor emphysema in both lung apices. Patient does have significant bronchial wall inflammation in both lower lobes. There is severe narrowing of the left lower lobe and moderate narrowing of the right lower lobe bronchi. Mild consolidation is present adjacent to the pleural surface in the posterior basal segments of both lower lobes. There are also tiny bilateral pleural effusions. Mid and upper lung stephenson are clear. No lung mass is present. There are no abnormally enlarged lymph nodes. The heart is mildly enlarged and there has been prior coronary bypass surgery and insertion of a prosthetic mitral valve. There are thick calcified pericardial plaques along the inferior border of the heart. This is probably related to prior surgery. No pericardial effusion is present. Bilateral gynecomastia is noted. Aorta is normal in caliber and contains a moderate amount of plaque. Large amount of plaque is present in the coronary arteries. Spine has a kyphotic curvature and there are large bridging spurs throughout the entire thoracic spine as well as the lower cervical and upper lumbar spine. There is a moderate size cyst in the upper pole of the left kidney. Measures 4.7 cm in diameter. IMPRESSION: Severe bronchitis in both lower lobes with narrowing of the lumen, thickening of the stephenson and mild peripheral atelectasis or pneumonia in the posterior basal segments of both lower lobes. Mild cardiomegaly without congestive heart failure Interpreted and Authenticated by: Hector Redd 10/10/22
[2022-10-10] MEDS: DOCUSATE SODIUM 100 MG CAPSULE PO SCH ×2 (08:32→20:37)
[2022-10-10] MEDS: MIDODRINE 5 MG TABLET PO SCH ×3 (08:53→16:56)
[2022-10-10] MEDS: cefTRIAXone 1 GM VIAL IV SCH (08:54)
--- NOTE | 2022-10-10 10:19 | Internal Med Progress Note ---
SUBJECTIVE Subjective Patient information: Note initiated : 10/10/22 at 10:10 am Service Date, if different from initiated Date: [] Patient: Abhi Randle 82 y/o M admitted on 10/09/22. Chief Complaint: [] Additional PMFSH (Level 3 Only): Patient is an 82 years old male with history of cardiomyopathy EF 35%, CAD status post CABGx3, mitral valve repair, atrial fibrillation on anticoagulation, hypotension on midodrine, hyperlipidemia, diabetes mellitus 2, CKD stage II-III, hypothyroidism, BPH with urinary retention requiring Virgen catheter since 3 months ago presented with concerns of possible aspiration, seizure-like activity and altered mental status. Patient is a limited historian, most of the history was given by caregiver and from previous record patient was with a caregiver who gave him some water and heard gurgling/choking, patient stated to his caregiver that it is gone down the wrong pipe. Case medical lab technician stepped out of the room and again heard some noises and saw patient was having seizure-like activity and was shaking his arms. He called his name few times and patient did not respond. He was breathing poor. He also noted patient eyes were rolling back. He was unable to observe the lower extremities as these were covered with blanket. Patient has fallen 3 times in the past 2 week EMS noted patient was breathing poorly and put him on 15 L nonrebreather mask. On presentation patient is pulse rate 58, respiratory rate 27, blood pressure 106/44. He was satting 91% on room air and was placed on 2 L nasal cannula oxygen. EKG shows a rate of 66. Rhythm appears regular. P waves not obvious. Reads out as junctional rhythm. Right bundle branch block. No acute ischemic changes. Labs showed WBC 14,000, hemoglobin 12.2. Sodium 141. Potassium 3.9. Chloride 96. Bicarb 34. Glucose 151. BUN 46. Creatinine elevated at 2.6. Troponin 0.09 down from 0.29 two months ago. Patient has chronically elevated troponin. VBG pH 7.31. PCO2 68. PaO2 96. HCO3 34. Bicarb 36. Lactic acid elevated at 3.47. UA with presence of leukocyte esterase, RBC, WBC, bacteria. Chest x-ray shows no CHF. Patient has borderline cardiomegaly. CT head showed no acute intracranial abnormality. Admission was requested 10/10. Patient reports he does not feel very good, unable to elaborate. He had no seizures overnight. No significant tachycardia however had small pauses less than 2 seconds. Amiodarone and metoprolol on hold. Blood pressure somewhat low with systolic in high 90s, asked RN to give midodrine. Patient is just having his echocardiogram done. He denies any pain. Leukocytosis resolved to 9.5. Hemoglobin down to 10.8 from 12.2. He is on IV fluids. Electrolytes stable. Creatinine 2.0, [id number] creatinine was 2.6 yesterday. HbA1c is pending. Liver profile stable. BNP 3700 down from 4702 months ago Review of system 14 point review of system was completed. 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 ENT ENT: Present normal oropharynx, mucous membrane less dry Chest Chest: Present symmetric chest wall rise Respiratory Respiratory: Present globally reduced air entry however no rhonchi or wheezing heard; on 2 L nasal cannula oxygen, no respiratory distress Cardiovascular Cardiovascular: Present regular rate, normal rhythm systolic murmur heard Adbominal Abdominal: Present soft; Absent distention or tenderness : Present other (Virgen catheter in place and draining dark-colored urine Extremities Extremities: Present chronic venous stasis changes, trace edema Neurological Neurological: Alert, becoming more oriented, conversing more. Less confused. Nonfocal exam. Skin Skin: Present warm (WNL), dry and other (Skin breakdown buttock area being treated with zinc oxide) Assessment and plan Possible syncope, etiology unclear, patient apparently choked on water. Telemetry with short pauses but patient is asymptomatic. Hold amiodarone and metoprolol. 2D echocardiogram with LVEF 50-55%. Trace mitral regurgitation, mild mitral stenosis, estimated pulmonary artery pressure is 45-50 mmHg. Mild to moderate aortic stenosis. The aortic valve area is 1.3 cm Aspiration pneumonitis/aspiration pneumonia. Chest x-ray without acute finding. CT chest with severe bronchitis in both lower lobe with narrowing of lumen and mild peripheral atelectasis or pneumonia in the posterior basal segments of both lower lobes. Procal slightly elevated at 0.5. Patient is requiring 2 L supplemental oxygen. Continue with ceftriaxone. Acute hypoxic respiratory failure. Secondary to above. Wean oxygen as tolera vonda. Seizure-like activity, prolactin is elevated 3-4 fold at 51. No seizure activity since admission. PRN Ativan for seizure activity. Continue to monitor closely Acute encephalopathy, altered mental status likely secondary to above, improving Sepsis, patient presented with tachypnea with respiratory rate 26, leukocytosis of 14,000 and possible UTI/Pneumonia UTI. UA with presence of leukocyte esterase, RBC, WBC, bacteria. Urine culture growing gram-negative bacillus, follow final culture. Patient is covered with ceftriaxone Type II NSTEMI versus mild chronic troponin elevation, troponin 0.09 down from 0.29 couple months ago. EKG without any acute ischemic changes. Will monitor on telemetry CAD status post CABG, continue home meds when med rec is completed Hypotension, continue midodrine Hyperlipidemia, on statins Hypothyroidism, TSH elevated at 7.33 but improved from before Diabetes mellitus 2, obtain A1c LARRY on CKD stage II-III, creatinine 2.6 up from 1.8 last best known creatinine per discharge summary from [facility]. Patient received gentle IV fluid. Creatinine improved to 2.0 today Severe cardiomyopathy previously EF 35%. Now improved. 2D echocardiogram with LVEF 50-55%. Trace mitral regurgitation, mild mitral stenosis, estimated pulmonary artery pressure is 45-50 mmHg. Mild to moderate aortic stenosis. The aortic valve area is 1.3 cm Atrial fibrillation, anticoagulated with Eliquis. Hold amiodarone and metoprolol due to pauses Hypotension, on midodrine Admit patient to PCU DVT and GI prophylaxis in place Full code Total time taken 50 minutes Constitutional Vitals: Vital Signs Temp Pulse Resp BP Pulse Ox O2 Del Method O2 Flow Rate 98.4 F 84 19 98/48 91 Nasal Cannula 2 10/10/22 08:05 10/10/22 08:05 10/10/22 08:05 10/10/22 08:05 10/10/22 08:05 10/10/22 08:05 10/10/22 08:05 Period Temp Pulse Resp BP Sys/Sagastume Pulse Ox O2 Del Method O2 Flow Rate Last 24 Hr 97.4 F-98.4 F 58-88 13-27 76-138/40-89 91-100 Nasal [id number]-[id number]-Uczrebxcpi Mask 2-15 Intake and Output 10/09/22 10/10/2223 19:59 03:59 11:59 Intake Total 2440 480 Output Total 260 185 Balance 2180 295 Weight 95.889 kg Intake & Output: Intake & Output 10/09/22 10/10/22 10/10/22 19:59 03:59 11:59 Intake Total 2440 480 Output Total 260 185 Balance 2180 295 Weight 95.889 kg Intake: IV 2440 Sodium Chloride 0.9% 2,190 ml @ 2190 4380 mls/hr IV .Q30M ONE Rx#: [id number] Zithromax 500 mg In Dextrose 5% 250 in Water 250 ml @ 250 mls/hr IV ONCE ONE Rx#:[id number] Oral 480 Output: Urine Catheter Amount 260 185 Other: Meal Breakfast Percent of Meal Consumed 75% Feeding Ability Assist with Tray Set Up Urine Appearance Cloudy Clear Uretheral (Virgen) Cloudy Urine Color Light Jonna Yellow Uretheral (Virgen) Dark Yellow Urine Odor Foul Stool Size Smear Stool Color Green Hitchcock Stool Consistency Soft OBJ DATA Labs 10/10/22 05:04 10/10/22 05:04 Labs: Abnormal Lab Results 10/10/22 10/10/22 10/09/22 05:04 05:04 21:30 WBC RBC 3.29 L Hgb 10.8 L Hct 34.5 L POC Hct MCV 104.9 H RDW Immature Gran % (Auto) 0.9 H Lymph % (Auto) 13.5 L Lymph # (Auto) 1.28 L Duc[place]ne # (Auto) Immature Gran # 0.09 H POC VBG pH POC VBG pCO2 at Temp POC VBG pO2 POC VBG HCO3 POC VBG Total CO2 POC Venous O2 Sat POC VBG Base Excess VBG Lactic Acid POC Total CO2 POC Anion Gap POC BUN BUN 42 H Creatinine 2.0 H POC Creatinine Glucose 60 L POC Glucose NT-Pro-B Natriuret Pep Total Protein 5.8 L Albumin 2.7 L Albumin/Globulin Ratio 0.9 L Procalcitonin TSH Prolactin Urine Appearance Cloudy A Urine Protein 30 A Urine Occult Blood >=1.0 A Ur Leukocyte Esterase 500 A Urine RBC 48 H Urine WBC > 182 H Urine Bacteria Many A Hyaline Casts 8 H Urine Mucus Few A POC Troponin I 10/09/22 10/09/22 10/09/22 20:55 20:55 20:55 WBC RBC Hgb Hct POC Hct MCV RDW Immature Gran % (Auto) Lymph % (Auto) Lymph # (Auto) [place]ne # (Auto) Immature Gran # POC VBG pH POC VBG pCO2 at Temp POC VBG pO2 POC VBG HCO3 POC VBG Total CO2 POC Venous O2 Sat POC VBG Base Excess VBG Lactic Acid POC Total CO2 POC Anion Gap POC BUN BUN Creatinine POC Creatinine Glucose POC Glucose NT-Pro-B Natriuret Pep 3732.0 H Total Protein Albumin Albumin/Globulin Ratio Procalcitonin 0.54 H TSH Prolactin 51.6 H Urine Appearance Urine Protein Urine Occult Blood Ur Leukocyte Esterase Urine RBC Urine WBC Urine Bacteria Hyaline Casts Urine Mucus POC Troponin I 10/09/22 10/09/22 10/09/22 20:55 20:55 20:55 WBC 14.0 H RBC 3.78 L Hgb 12.2 L Hct 39.1 L POC Hct MCV 103.4 H RDW 14.6 H Immature Gran % (Auto) 1.4 H Lymph % (Auto) Lymph # (Auto) [place]ne # (Auto) 1.32 H Immature Gran # 0.20 H POC VBG pH POC VBG pCO2 at Temp POC VBG pO2 POC VBG HCO3 POC VBG Total CO2 POC Venous O2 Sat POC VBG Base Excess VBG Lactic Acid 2.4 H POC Total CO2 POC Anion Gap POC BUN BUN Creatinine POC Creatinine Glucose POC Glucose NT-Pro-B Natriuret Pep 3512.0 H Total Protein Albumin Albumin/Globulin Ratio Procalcitonin TSH 7.33 H Prolactin Urine Appearance Urine Protein Urine Occult Blood Ur Leukocyte Esterase Urine RBC Urine WBC Urine Bacteria Hyaline Casts Urine Mucus POC Troponin I 10/09/22 10/09/22 10/09/22 20:37 20:34 20:30 WBC RBC Hgb Hct POC Hct 39.0 L MCV RDW Immature Gran % (Auto) Lymph % (Auto) Lymph # (Auto) [place]ne # (Auto) Immature Gran # POC VBG pH 7.31 L POC VBG pCO2 at Temp 67.7 H* POC VBG pO2 96 H POC VBG HCO3 34.2 H POC VBG Total CO2 36.0 H POC Venous O2 Sat 96.0 H POC VBG Base Excess 8.0 H* VBG Lactic Acid 3.5 H POC Total CO2 34.0 H POC Anion Gap 17.0 H POC BUN 46 H BUN Creatinine POC Creatinine 2.6 H Glucose POC Glucose 151 H NT-Pro-B Natriuret Pep Total Protein Albumin Albumin/Globulin Ratio Procalcitonin TSH Prolactin Urine Appearance Urine Protein Urine Occult Blood Ur Leukocyte Esterase Urine RBC Urine WBC Urine Bacteria Hyaline Casts Urine Mucus POC Troponin I 0.09 H Meds: Medications Acetaminophen (Acetaminophen 325 Mg Tablet) 650 mg PO Q6HP PRN; Protocol PRN Reason: Per Pain Protocol/Fever > 101 Bisacodyl (Bisacodyl 10 Mg Supp.Rect) 10 mg NH Q3DP PRN PRN Reason: Constipation Ceftriaxone Sodium (Ceftriaxone 1 Gm Vial) 1 gm IV Q24H [facility] Last Admin: 10/10/22 08:54 Dose: 1 gm Docusate Sodium (Docusate Sodium 100 Mg Capsule) 100 mg PO BID [facility] Last Admin: 10/10/22 08:32 Dose: Not Given Lactated Ringer's (Lactated Ringers) 1,000 mls @ 50 mls/hr IV .Q20H [facility] Last Admin: 10/10/22 00:30 Dose: 50 mls/hr Lactulose (Lactulose 20 Gm/30 Ml Oral.Kelli) 10 gm PO DAILYP PRN PRN Reason: Constipation Lorazepam (Lorazepam 2 Mg/Ml Vial) 1 mg IV Q2-4HP PRN PRN Reason: seizure Last Admin: 10/10/22 00:30 Dose: 1 mg Magnesium Hydroxide (Magnesium Hydroxide 30 Ml Oral.Susp) 30 ml PO DAILYP PRN PRN Reason: Constipation Midodrine (Midodrine 5 Mg Tablet) 5 mg PO TID@0800,1200,1700 [facility] Last Admin: 10/10/22 08:53 Dose: 5 mg Ondansetron HCl (Ondansetron 4 Mg/2 Ml Vial) 4 mg IV Q4HP PRN; Protocol PRN Reason: Nausea And Vomiting Senna (Sennosides 1 Tablet) 2 tab PO HSP PRN PRN Reason: Constipation Sodium Chloride (0.9 % Sodium Chloride 10 Ml Syringe) 10 ml IV Q8 [facility] Last Admin: 10/10/22 05:53 Dose: Not Given A/P Time Spent With Patient Time: Total time spent is greater than 50% in coordination of care (as documented) at patient's floor/unit and/or counseling patient: QUALITY VTE Deep Vein Thrombosis/Pulmonary Embolism Present on Admission: No
[2022-10-10 10:24] LABS: Estimated Average Glucose(eAG) 97 mg/dL
[2022-10-10] MEDS: ACETAMINOPHEN 325 MG TABLET PO PRN (13:58)
[2022-10-10] MEDS ORDERED: cefTRIAXone 1 GM in DEXTROSE 5% IN WATER 50 ML IV SCH (22:30)
[2022-10-11] MEDS: LORazepam 2 MG/ML VIAL IV PRN (02:23)
[2022-10-11] MEDS: ACETAMINOPHEN 325 MG TABLET PO PRN (03:36)
[2022-10-11 05:55] LABS: Basophils # (Auto) 0.02 K/mcL (0.00-0.30); Basophils % (Auto) 0.4 % (0.0-2.0); Eosinophils # (Auto) 0.22 K/mcL (0.00-0.70); Eosinophils % (Auto) 4.2 % (0.0-7.0); Hematocrit 49.9 % (40.1-51.0); Lymphocytes # (Auto) 0.74 K/mcL (1.50-4.80); Lymphocytes % (Auto) 14.1 % (15.5-49.0); Mean Cell Volume 102.7 fL (80.0-100.0); Mean Corpuscular HGB Conc 32.1 g/dL (31.0-36.0); Mean Platelet Volume 10.3 fL (8.8-12.5); Monocytes # (Auto) 0.41 K/mcL (0.10-0.90); Monocytes % (Auto) 7.8 % (1.0-12.0); Neutrophils % (Auto) 72.9 % (38.0-78.0); Platelet Count 117 K/mcL (140-440); RBC 4.86 M/mcL (4.63-6.08); Red Cell Distribution Width 14.6 % (11.5-14.5); WBC 5.3 K/mcL (4.5-11.0)
[2022-10-11] MEDS: 0.9 % SODIUM CHLORIDE 10 ML SYRINGE IV SCH ×3 (06:02→23:05)
[2022-10-11 06:03] LABS: ALT/SGPT 13 U/L (<40); AST/SGOT 24 U/L (<40); Albumin 2.9 gm/dL (3.2-5.2); Alkaline Phosphatase 43 U/L (39-117); Bilirubin,Total 0.3 mg/dL (0.1-1.0); Blood Urea Nitrogen 40 mg/dL (8-23); Calcium 9.1 mg/dL (8.6-10.4); Carbon Dioxide 31 mmol/L (22-30); Chloride 101 mmol/L (96-108); Glomerular Filtration Rate 30; Glucose 75 mg/dL (70-105)
[2022-10-11] MEDS: MIDODRINE 5 MG TABLET PO SCH ×3 (09:14→17:31)
[2022-10-11] MEDS: DOCUSATE SODIUM 100 MG CAPSULE PO SCH ×2 (09:15→19:53)
[2022-10-11] MEDS: cefTRIAXone 1 GM VIAL IV SCH (10:13)
--- NOTE | 2022-10-11 15:29 | Internal Med Progress Note ---
SUBJECTIVE Subjective Patient information: Note initiated : 10/11/22 at 3:25 pm Service Date, if different from initiated Date: [] Patient: Abhi Randle 82 y/o M admitted on 10/09/22. Chief Complaint: [] Additional PMFSH (Level 3 Only): Patient is an 82 years old male with history of cardiomyopathy EF 35%, CAD status post CABGx3, mitral valve repair, atrial fibrillation on anticoagulation, hypotension on midodrine, hyperlipidemia, diabetes mellitus 2, CKD stage II-III, hypothyroidism, BPH with urinary retention requiring Virgen catheter since 3 months ago presented with concerns of possible aspiration, seizure-like activity and altered mental status. Patient is a limited historian, most of the history was given by caregiver and from previous record patient was with a caregiver who gave him some water and heard gurgling/choking, patient stated to his caregiver that it is gone down the wrong pipe. Case nematologist stepped out of the room and again heard some noises and saw patient was having seizure-like activity and was shaking his arms. He called his name few times and patient did not respond. He was breathing poor. He also noted patient eyes were rolling back. He was unable to observe the lower extremities as these were covered with blanket. Patient has fallen 3 times in the past 2 week EMS noted patient was breathing poorly and put him on 15 L nonrebreather mask. On presentation patient is pulse rate 58, respiratory rate 27, blood pressure 106/44. He was satting 91% on room air and was placed on 2 L nasal cannula o xygen. EKG shows a rate of 66. Rhythm appears regular. P waves not obvious. Reads out as junctional rhythm. Right bundle branch block. No acute ischemic changes. Labs showed WBC 14,000, hemoglobin 12.2. Sodium 141. Potassium 3.9. Chloride 96. Bicarb 34. Glucose 151. BUN 46. Creatinine elevated at 2.6. Troponin 0.09 down from 0.29 two months ago. Patient has chronically elevated troponin. VBG pH 7.31. PCO2 68. PaO2 96. HCO3 34. Bicarb 36. Lactic acid elevated at 3.47. UA with presence of leukocyte esterase, RBC, WBC, bacteria. Chest x-ray shows no CHF. Patient has borderline cardiomegaly. CT head showed no acute intracranial abnormality. Admission was requested 10/10. Patient reports he does not feel very good, unable to elaborate. He had no seizures overnight. No significant tachycardia however had small pauses less than 2 seconds. Amiodarone and metoprolol on hold. Blood pressure somewhat low with systolic in high 90s, asked RN to give midodrine. Patient is just having his echocardiogram done. He denies any pain. Leukocytosis resolved to 9.5. Hemoglobin down to 10.8 from 12.2. He is on IV fluids. Electrolytes stable. Creatinine 2.0, [id number] creatinine was 2.6 yesterday. HbA1c is pending. Liver profile stable. BNP 3700 down from 4702 months ago 10/11. No acute event. Remains afebrile. WBC within normal range. Creatinine 2.0 stable. Urine culture from 10/09 is growing Klebsiella Variicola. Blood cultures to date are negative Review of system 14 point review of system was completed. 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 Nonfocal exam. Skin Skin: Present warm (WNL), dry Assessment and plan Possible syncope, etiology unclear, patient apparently choked on water. Telemetry with short pauses but patient is asymptomatic. Hold amiodarone and metoprolol. 2D echocardiogram with LVEF 50-55%. Trace mitral regurgitation, mild mitral stenosis, estimated pulmonary artery pressure is 45-50 mmHg. Mild t o moderate aortic stenosis. The aortic valve area is 1.3 cm Aspiration pneumonitis/aspiration pneumonia. CT chest with severe bronchitis in both lower lobe with narrowing of lumen and mild peripheral atelectasis or pneumonia in the posterior basal segments of both lower lobes. Procal slightly elevated at 0.5. Patient is requiring 2 L supplemental oxygen. Continue with ceftriaxone. Acute hypoxic respiratory failure. Secondary to above. Wean oxygen as tolerated. Seizure-like activity, prolactin is elevated 3-4 fold at 51. No seizure activity since admission. PRN Ativan for seizure activity. Continue to monitor closely Acute encephalopathy, altered mental status likely secondary to above, improving Sepsis, patient presented with tachypnea with respiratory rate 26, leukocytosis of 14,000 and possible UTI/Pneumonia UTI. UA with presence of leukocyte esterase, RBC, WBC, bacteria. Urine culture from 10/09 is growing Klebsiella Variicola. Patient is covered with ceftriaxone. Type II NSTEMI versus mild chronic troponin elevation, troponin 0.09 down from 0.29 couple months ago. EKG without any acute ischemic changes. Will monitor on telemetry CAD status post CABG, continue home meds Hypotension, continue midodrine Hyperlipidemia, on statins Hypothyroidism, TSH elevated at 7.33 but improved from before Diabetes mellitus 2, stable LARRY on CKD stage II-III, creatinine 2.6 up from 1.8 last best known creatinine per discharge summary from [facility]. Patient received gentle IV fluid. Creatinine improved to 2.0 Severe cardiomyopathy previously EF 35%. Now improved. 2D echocardiogram with LVEF 50-55%. Trace mitral regurgitation, mild mitral stenosis, estimated pulmonary artery pressure is 45-50 mmHg. Mild to moderate aortic stenosis. The aortic valve area is 1.3 cm Atrial fibrillation, anticoagulated with Eliquis. Resume amiodarone at 100 mg daily and metoprolol home dose Hypotension, on midodrine DVT and GI prophylaxis in place Full code Total time taken 50 minutes Constitutional Vitals: Vital Signs Temp Pulse Resp BP Pulse Ox O2 Del Method O2 Flow Rate 98.4 F 78 25 H 160/69 95 Nasal Cannula 2 10/11/22 12:43 10/11/22 12:43 10/11/22 12:43 10/11/22 12:43 10/11/22 12:43 10/11/22 12:43 10/11/22 12:43 Period Temp Pulse Resp BP Sys/Sagastume Pulse Ox O2 Del Method O2 Flow Rate Last 24 Hr 98.4 F-98.9 F 68-89 16-29 81-160/35-69 90-98 Nasal Cannula- Oxymask 2-2 Intake and Output 10/11/22 10/11/22 10/11/22 03:59 11:59 19:59 Intake Total 998 200 50 Output Total 400 580 Balance 598 -380 50 Weight 98.112 kg Intake & Output: Intake & Output 10/11/22 10/11/22 10/11/22 03:59 11:59 19:59 Intake Total 998 200 50 Output Total 400 580 Balance 598 -380 50 Weight 98.112 kg Intake: IV 998 Lactated Ringers 1,000 ml @ 50 998 mls/hr IV .Q20H [facility] Rx#: [id number] Oral 200 50 Output: Urine Catheter Amount 400 580 Other: Meal snack Lunch Percent of Meal Consumed 100% 5 Feeding Ability Assist with Tray Set Up Nourishment/Supplement name Vanilla yogurt Urine Appearance Cloudy Clear Uretheral (Virgen) Cloudy Urine Color Light Jonna Yellow Uretheral (Virgen) Light Jonna # Bowel Movements 0 0 OBJ DATA Labs 10/11/22 04:48 10/11/22 04:48 Labs: Abnormal Lab Results 10/11/22 10/11/22 10/10/22 04:48 04:48 05:04 WBC RBC 3.29 L Hgb 10.8 L Hct 34.5 L POC Hct MCV 102.7 H 104.9 H RDW 14.6 H Plt Count 117 L Immature Gran % (Auto) 0.6 H 0.9 H Lymph % (Auto) 14.1 L 13.5 L Lymph # (Auto) 0.74 L 1.28 L [place] # (Auto) Immature Gran # 0.09 H POC VBG pH POC VBG pCO2 at Temp POC VBG pO2 POC VBG HCO3 POC VBG Total CO2 POC Venous O2 Sat POC VBG Base Excess VBG Lactic Acid Carbon Dioxide 31 H POC Total CO2 POC Anion Gap POC BUN BUN 40 H Creatinine 2.0 H POC Creatinine Glucose POC Glucose NT-Pro-B Natriuret Pep Total Protein Albumin 2.9 L Albumin/Globulin Ratio Procalcitonin TSH Prolactin Urine Appearance Urine Protein Urine Occult Blood Ur Leukocyte Esterase Urine RBC Urine WBC Urine Bacteria Hyaline Casts Urine Mucus POC Troponin I 10/10/22 10/09/22 10/09/22 05:04 21:30 20:55 WBC RBC Hgb Hct POC Hct MCV RDW Plt Count Immature Gran % (Auto) Lymph % (Auto) Lymph # (Auto) [place] # (Auto) Immature Gran # POC VBG pH POC VBG pCO2 at Temp POC VBG pO2 POC VBG HCO3 POC VBG Total CO2 POC Venous O2 Sat POC VBG Base Excess VBG Lactic Acid Carbon Dioxide POC Total CO2 POC Anion Gap POC BUN BUN 42 H Creatinine 2.0 H POC Creatinine Glucose 60 L POC Glucose NT-Pro-B Natriuret Pep Total Protein 5.8 L Albumin 2.7 L Albumin/Globulin Ratio 0.9 L Procalcitonin TSH Prolactin 51.6 H Urine Appearance Cloudy A Urine Protein 30 A Urine Occult Blood >=1.0 A Ur Leukocyte Esterase 500 A Urine RBC 48 H Urine WBC > 182 H Urine Bacteria Many A Hyaline Casts 8 H Urine Mucus Few A POC Troponin I 10/09/22 10/09/22 10/09/22 20:55 20:55 20:55 WBC RBC Hgb Hct POC Hct MCV RDW Plt Count Immature Gran % (Auto) Lymph % (Auto) Lymph # (Auto) [place] # (Auto) Immature Gran # POC VBG pH POC VBG pCO2 at Temp POC VBG pO2 POC VBG HCO3 POC VBG Total CO2 POC Venous O2 Sat POC VBG Base Excess VBG Lactic Acid Carbon Dioxide POC Total CO2 POC Anion Gap POC BUN BUN Creatinine POC Creatinine Glucose POC Glucose NT-Pro-B Natriuret Pep 3732.0 H Total Protein Albumin Albumin/Globulin Ratio Procalcitonin 0.54 H TSH 7.33 H Prolactin Urine Appearance Urine Protein Urine Occult Blood Ur Leukocyte Esterase Urine RBC Urine WBC Urine Bacteria Hyaline Casts Urine Mucus POC Troponin I 10/09/22 10/09/22 10/09/22 20:55 20:55 20:37 WBC 14.0 H RBC 3.78 L Hgb 12.2 L Hct 39.1 L POC Hct MCV 103.4 H RDW 14.6 H Plt Count Immature Gran % (Auto) 1.4 H Lymph % (Auto) Lymph # (Auto) [place] # (Auto) 1.32 H Immature Gran # 0.20 H POC VBG pH POC VBG pCO2 at Temp POC VBG pO2 POC VBG HCO3 POC VBG Total CO2 POC Venous O2 Sat POC VBG Base Excess VBG Lactic Acid 2.4 H Carbon Dioxide POC Total CO2 POC Anion Gap POC BUN BUN Creatinine POC Creatinine Glucose POC Glucose NT-Pro-B Natriuret Pep 3512.0 H Total Protein Albumin Albumin/Globulin Ratio Procalcitonin TSH Prolactin Urine Appearance Urine Protein Urine Occult Blood Ur Leukocyte Esterase Urine RBC Urine WBC Urine Bacteria Hyaline Casts Urine Mucus POC Troponin I 0.09 H 10/09/22 10/09/22 20:34 20:30 WBC RBC Hgb Hct POC Hct 39.0 L MCV RDW Plt Count Immature Gran % (Auto) Lymph % (Auto) Lymph # (Auto) [place] # (Auto) Immature Gran # POC VBG pH 7.31 L POC VBG pCO2 at Temp 67.7 H* POC VBG pO2 96 H POC VBG HCO3 34.2 H POC VBG Total CO2 36.0 H POC Venous O2 Sat 96.0 H POC VBG Base Excess 8.0 H* VBG Lactic Acid 3.5 H Carbon Dioxide POC Total CO2 34.0 H POC Anion Gap 17.0 H POC BUN 46 H BUN Creatinine POC Creatinine 2.6 H Glucose POC Glucose 151 H NT-Pro-B Natriuret Pep Total Protein Albumin Albumin/Globulin Ratio Procalcitonin TSH Prolactin Urine Appearance Urine Protein Urine Occult Blood Ur Leukocyte Esterase Urine RBC Urine WBC Urine Bacteria Hyaline Casts Urine Mucus POC Troponin I Meds: Medications Acetaminophen (Acetaminophen 325 Mg Tablet) 650 mg PO Q6HP PRN; Protocol PRN Reason: Per Pain Protocol/Fever > 101 Last Admin: 10/11/22 03:36 Dose: 650 mg Bisacodyl (Bisacodyl 10 Mg Supp.Rect) 10 mg [place] Q3DP PRN PRN Reason: Constipation Ceftriaxone Sodium (Ceftriaxone 1 Gm Vial) 1 gm IV Q24H [facility] Last Admin: 10/11/22 10:13 Dose: 1 gm Docusate Sodium (Docusate Sodium 100 Mg Capsule) 100 mg PO BID [facility] Last Admin: 10/11/22 09:15 Dose: Not Given Lactated Ringer's (Lactated Ringers) 1,000 mls @ 50 mls/hr IV .Q20H [facility] Last Admin: 10/10/22 20:29 Dose: 50 mls/hr Lactulose (Lactulose 20 Gm/30 Ml Oral.Kelli) 10 gm PO DAILYP PRN PRN Reason: Constipation Lorazepam (Lorazepam 2 Mg/Ml Vial) 1 mg IV Q2-4HP PRN PRN Reason: seizure Last Admin: 10/11/22 02:23 Dose: 1 mg Magnesium Hydroxide (Magnesium Hydroxide 30 Ml Oral.Susp) 30 ml PO DAILYP PRN PRN Reason: Constipation Midodrine (Midodrine 5 Mg Tablet) 5 mg PO TID@0800,1200,1700 [facility] Last Admin: 10/11/22 14:19 Dose: 5 mg Ondansetron HCl (Ondansetron 4 Mg/2 Ml Vial) 4 mg IV Q4HP PRN; Protocol PRN Reason: Nausea And Vomiting Senna (Sennosides 1 Tablet) 2 tab PO HSP PRN PRN Reason: Constipation Sodium Chloride (0.9 % Sodium Chloride 10 Ml Syringe) 10 ml IV Q8 [facility] Last Admin: 10/11/22 14:20 Dose: Not Given A/P Time Spent With Patient Time: Total time spent is greater than 50% in coordination of care (as documented) at patient's floor/unit and/or counseling patient: QUALITY VTE Deep Vein Thrombosis/Pulmonary Embolism Present on Admission: No
[2022-10-11] MEDS: metFORMIN 500 MG TABLET PO SCH (17:31)
[2022-10-11] MEDS: FINASTERIDE 5 MG TABLET PO SCH (19:53)
[2022-10-11] MEDS: APIXABAN 5 MG TABLET PO SCH (19:53)
[2022-10-11] MEDS: GABAPENTIN 300 MG CAPSULE PO SCH (19:55)
[2022-10-11] MEDS: LIDOCAINE 5% OINT TUBE 35GM TOPICAL SCH (19:55)
[2022-10-11] MEDS: METOPROLOL SUCCINATE 25 MG TAB.XL.24H PO SCH (19:56)
[2022-10-11] MEDS ORDERED: AMIODARONE HCL 200 MG TABLET PO ONE (21:00)
[2022-10-12] MEDS: ACETAMINOPHEN 325 MG TABLET PO PRN ×2 (03:15→21:14)
[2022-10-12] MEDS: 0.9 % SODIUM CHLORIDE 10 ML SYRINGE IV SCH ×3 (05:29→22:08)
[2022-10-12 06:18] LABS: Basophils # (Auto) 0.04 K/mcL (0.00-0.30); Basophils % (Auto) 0.5 % (0.0-2.0); Eosinophils # (Auto) 0.33 K/mcL (0.00-0.70); Eosinophils % (Auto) 4.2 % (0.0-7.0); Hematocrit 32.8 % (40.1-51.0); Lymphocytes # (Auto) 1.25 K/mcL (1.50-4.80); Lymphocytes % (Auto) 15.9 % (15.5-49.0); Mean Cell Volume 106.5 fL (80.0-100.0); Mean Corpuscular HGB Conc 30.5 g/dL (31.0-36.0); Mean Platelet Volume 9.5 fL (8.8-12.5); Monocytes # (Auto) 0.75 K/mcL (0.10-0.90); Monocytes % (Auto) 9.6 % (1.0-12.0); Neutrophils % (Auto) 69.2 % (38.0-78.0); Platelet Count 187 K/mcL (140-440); RBC 3.08 M/mcL (4.63-6.08); Red Cell Distribution Width 14.5 % (11.5-14.5); WBC 7.8 K/mcL (4.5-11.0)
[2022-10-12 06:53] LABS: ALT/SGPT 11 U/L (<40); AST/SGOT 21 U/L (<40); Albumin 2.7 gm/dL (3.2-5.2); Albumin/Globulin Ratio 0.9 (1.0-2.3); Alkaline Phosphatase 42 U/L (39-117); Bilirubin,Total 0.3 mg/dL (0.1-1.0); Blood Urea Nitrogen 28 mg/dL (8-23); Carbon Dioxide 31 mmol/L (22-30); Chloride 103 mmol/L (96-108); Globulin 3.1 gm/dL (2.2-3.7); Glomerular Filtration Rate 50; Glucose 71 mg/dL (70-105)
[2022-10-12] MEDS: MIDODRINE 5 MG TABLET PO SCH ×3 (07:42→16:47)
[2022-10-12] MEDS: metFORMIN 500 MG TABLET PO SCH ×2 (07:42→16:47)
[2022-10-12] MEDS: AMIODARONE HCL 200 MG TABLET PO SCH (07:42)
[2022-10-12] MEDS: LEVOTHYROXINE 150 MCG TABLET PO SCH (07:43)
[2022-10-12] MEDS: LIDOCAINE 5% OINT TUBE 35GM TOPICAL SCH ×2 (08:54→21:11)
[2022-10-12] MEDS: cefTRIAXone 1 GM VIAL IV SCH (08:54)
[2022-10-12] MEDS: CYANOCOBALAMIN (VITAMIN B-12) 500 MCG TABLET PO SCH (08:55)
[2022-10-12] MEDS: CALCIUM W/VIT D3 500 MG TABLET PO SCH (08:55)
[2022-10-12] MEDS: APIXABAN 5 MG TABLET PO SCH ×2 (08:55→21:13)
[2022-10-12] MEDS: ATORVASTATIN 40 MG TABLET PO SCH (08:55)
[2022-10-12] MEDS: LISINOPRIL 5 MG TABLET PO SCH (08:55)
[2022-10-12] MEDS: FUROSEMIDE 20 MG TABLET PO SCH (08:55)
[2022-10-12] MEDS: ASCORBIC ACID 500 MG TABLET PO SCH (08:56)
[2022-10-12] MEDS: METOPROLOL SUCCINATE 25 MG TAB.XL.24H PO SCH ×2 (08:56→21:15)
[2022-10-12] MEDS: DOCUSATE SODIUM 100 MG CAPSULE PO SCH ×2 (08:56→21:15)
[2022-10-12] MEDS ORDERED: LIDOCAINE PATCH TOPICAL SCH (09:00)
--- NOTE | 2022-10-12 10:47 | Internal Med Progress Note ---
SUBJECTIVE Subjective Patient information: Note initiated : 10/12/22 at 10:44 am Service Date, if different from initiated Date: [] Patient: Abhi Randle 82 y/o M admitted on 10/09/22. Chief Complaint: [] Additional PMFSH (Level 3 Only): Patient is an 82 years old male with history of cardiomyopathy EF 35%, CAD status post CABGx3, mitral valve repair, atrial fibrillation on anticoagulation, hypotension on midodrine, hyperlipidemia, diabetes mellitus 2, CKD stage II-III, hypothyroidism, BPH with urinary retention requiring Virgen catheter since 3 months ago presented with concerns of possible aspiration, seizure-like activity and altered mental status. Patient is a limited historian, most of the history was given by caregiver and from previous record patient was with a caregiver who gave him some water and heard gurgling/choking, patient stated to his caregiver that it is gone down the wrong pipe. Case instrumental music teacher stepped out of the room and again heard some noises and saw patient was having seizure-like activity and was shaking his arms. He called his name few times and patient did not respond. He was breathing poor. He also noted patient eyes were rolling back. He was unable to observe the lower extremities as these were covered with blanket. Patient has fallen 3 times in the past 2 week EMS noted patient was breathing poorly and put him on 15 L nonrebreather mask. On presentation patient is pulse rate 58, respiratory rate 27, blood pressure 106/44. He was satting 91% on room air and was placed on 2 L nasal cannula oxygen. EKG shows a rate of 66. Rhythm appears regular. P waves not obvious. Reads out as junctional rhythm. Right bundle branch block. No acute ischemic changes. Labs showed WBC 14,000, hemoglobin 12.2. Sodium 141. Potassium 3.9. Chloride 96. Bicarb 34. Glucose 151. BUN 46. Creatinine elevated at 2.6. Troponin 0.09 down from 0.29 two months ago. Patient has chronically elevated troponin. VBG pH 7.31. PCO2 68. PaO2 96. HCO3 34. Bicarb 36. Lactic acid elevated at 3.47. UA with presence of leukocyte esterase, RBC, WBC, bacteria. Chest x-ray shows no CHF. Patient has borderline cardiomegaly. CT head showed no acute intracranial abnormality. Admission was requested 10/10. Patient reports he does not feel very good, unable to elaborate. He had no seizures overnight. No significant tachycardia however had small pauses less than 2 seconds. Amiodarone and metoprolol on hold. Blood pressure somewhat low with systolic in high 90s, asked RN to give midodrine. Patient is just having his echocardiogram done. He denies any pain. Leukocytosis resolved to 9.5. Hemoglobin down to 10.8 from 12.2. He is on IV fluids. Electrolytes stable. Creatinine 2.0, [id number] creatinine was 2.6 yesterday. HbA1c is pending. Liver profile stable. BNP 3700 down from 4702 months ago 10/11. No acute event. Remains afebrile. WBC within normal range. Creatinine 2.0 stable. Urine culture from 10/09 is growing Klebsiella Variicola. Blood cultures to date are negative 10/12. Intermittently weak. No fever overnight. Leukocytosis remains resolved. Serum creatinine down to 1.3 from 2.0 yesterday. Urine culture positive for Klebsiella Variicola. Review of system 14 point review of system was completed. 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 Nonfocal exam. Skin Skin: Present warm (WNL), dry Assessment and plan Possible syncope, etiology unclear, patient apparently choked on water. Telemetry with short pauses but patient is asymptomatic. Hold amiodarone and metoprolol. 2D echocardiogram with LVEF 50-55%. Trace mitral regurgitation, mild mitral stenosis, estimated pulmonary artery pressure is 45-50 mmHg. Mild to moderate aortic stenosis. The aortic valve area is 1.3 cm Aspiration pneumonitis/aspiration pneumonia. CT chest with severe bronchitis in both lower lobe with narrowing of lumen and mild peripheral atelectasis or pneumonia in the posterior basal segments of both lower lobes. Procal slightly elevated at 0.5. Patient is requiring 1 L supplemental oxygen. Continue with ceftriaxone. Wean oxygen as tolerated Acute hypoxic respiratory failure. Secondary to above. Wean oxygen as tolerated. Seizure-like activity, prolactin is elevated 3-4 fold at 51. No seizure activity since admission. PRN Ativan for seizure activity. Continue to monitor closely Acute encephalopathy, altered mental status likely secondary to above, improving Sepsis, patient presented with tachypnea with respiratory rate 26, leukocytosis of 14,000 and UTI/Pneumonia UTI. UA with presence of leukocyte esterase, RBC, WBC, bacteria. Urine culture from 10/09 growing Klebsiella Variicola. Patient is covered with ceftriaxone. Type II NSTEMI versus mild chronic troponin elevation, troponin 0.09 down from 0.29 couple months ago. EKG without any acute ischemic changes. Will monitor on telemetry CAD status post CABG, continue home meds Hypotension, continue midodrine Hyperlipidemia, on statins Hypothyroidism, TSH elevated at 7.33 but improved from before Diabetes mellitus 2, stable LARRY on CKD stage II-III, creatinine down to 1.3 from 2.6 on admission. Last best known creatinine 1.8 per discharge summary from [facility]. Patient received gentle IV fluid. Severe cardiomyopathy previously EF 35%. Now improved. 2D echocardiogram with LVEF 50-55%. Trace mitral regurgitation, mild mitral stenosis, estimated pulmonary artery pressure is 45-50 mmHg. Mild to moderate aortic stenosis. The aortic valve area is 1.3 cm Atrial fibrillation, anticoagulated with Eliquis. Resume amiodarone at 100 mg daily and metoprolol home dose Hypotension, on midodrine DVT and GI prophylaxis in place Full code Transfer out to [facility] Total time taken 50 minutes Constitutional Vitals: Vital Signs Temp Pulse Resp BP Pulse Ox O2 Del Method O2 Flow Rate 97.6 F 65 23 H 114/64 97 Nasal Cannula 1 10/12/22 10:10/12/22 10:10/12/22 10:10/12/22 10:00 10/12/22 10:10/12/22 10:10/12/22 10:00 Period Temp Pulse Resp BP Sys/Sagastume Pulse Ox O2 Del Method O2 Flow Rate Last 24 Hr 97.6 F-98.5 F 65-85 17-34 94-160/44-80 92-99 Nasal Cannula-Na azul Cannula 1-2 Intake and Output 10/11/22 10/12/22 10/12/22 19:59 03:59 11:59 Intake Total 1050 640 Output Total 240 750 125 Balance 810 -750 515 Weight 98.52 kg Intake & Output: Intake & Output 10/11/22 10/12/22 10/12/22 19:59 03:59 11:59 Intake Total 1050 640 Output Total 240 750 125 Balance 810 -750 515 Weight 98.52 kg Intake: Nourishment/Supplement quantity 120 (ml) IV 1000 Lactated Ringers 1,000 ml @ 50 1000 mls/hr IV .Q20H [facility] Rx#: [id number] Oral 50 320 GI Tube Flush 200 Output: Urine Catheter Amount 240 750 125 Other: Meal Lunch Breakfast Percent of Meal Consumed 5 50% Feeding Ability Assist with Tray Set Up Needs Supervision Nourishment/Supplement name vanilla protein carnation high Urine Appearance Clear Clear Clear Urine Color Dark Yellow Dark Yellow Yellow Stool Size Small Small OBJ DATA Labs 10/12/22 05:18 10/12/22 05:18 Labs: Abnormal Lab Results 10/12/22 10/12/22 10/11/22 05:18 05:18 04:48 WBC RBC 3.08 L Hgb 10.0 L Hct 32.8 L POC Hct MCV 106.5 H 102.7 H MCHC 30.5 L RDW 14.6 H Plt Count 117 L Immature Gran % (Auto) 0.6 H 0.6 H Lymph % (Auto) 14.1 L Lymph # (Auto) 1.25 L 0.74 L [place] # (Auto) Immature Gran # POC VBG pH POC VBG pCO2 at Temp POC VBG pO2 POC VBG HCO3 POC VBG Total CO2 POC Venous O2 Sat POC VBG Base Excess VBG Lactic Acid Carbon Dioxide 31 H POC Total CO2 Anion Gap 6.0 L POC Anion Gap POC BUN BUN 28 H Creatinine 1.3 H POC Creatinine Glucose POC Glucose NT-Pro-B Natriuret Pep Total Protein 5.8 L Albumin 2.7 L Albumin/Globulin Ratio 0.9 L Procalcitonin TSH Prolactin Urine Appearance Urine Protein Urine Occult Blood Ur Leukocyte Esterase Urine RBC Urine WBC Urine Bacteria Hyaline Casts Urine Mucus POC Troponin I 10/11/22 10/10/22 10/10/22 04:48 05:04 05:04 WBC RBC 3.29 L Hgb 10.8 L Hct 34.5 L POC Hct MCV 104.9 H MCHC RDW Plt Count Immature Gran % (Auto) 0.9 H Lymph % (Auto) 13.5 L Lymph # (Auto) 1.28 L [place] # (Auto) Immature Gran # 0.09 H POC VBG pH POC VBG pCO2 at Temp POC VBG pO2 POC VBG HCO3 POC VBG Total CO2 POC Venous O2 Sat POC VBG Base Excess VBG Lactic Acid Carbon Dioxide 31 H POC Total CO2 Anion Gap POC Anion Gap POC BUN BUN 40 H 42 H Creatinine 2.0 H 2.0 H POC Creatinine Glucose 60 L POC Glucose NT-Pro-B Natriuret Pep Total Protein 5.8 L Albumin 2.9 L 2.7 L Albumin/Globulin Ratio 0.9 L Procalcitonin TSH Prolactin Urine Appearance Urine Protein Urine Occult Blood Ur Leukocyte Esterase Urine RBC Urine WBC Urine Bacteria Hyaline Casts Urine Mucus POC Troponin I 10/09/22 10/09/22 10/09/22 21:30 20:55 20:55 WBC RBC Hgb Hct POC Hct MCV MCHC RDW Plt Count Immature Gran % (Auto) Lymph % (Auto) Lymph # (Auto) [place] # (Auto) Immature Gran # POC VBG pH POC VBG pCO2 at Temp POC VBG pO2 POC VBG HCO3 POC VBG Total CO2 POC Venous O2 Sat POC VBG Base Excess VBG Lactic Acid Carbon Dioxide POC Total CO2 Anion Gap POC Anion Gap POC BUN BUN Creatinine POC Creatinine Glucose POC Glucose NT-Pro-B Natriuret Pep 3732.0 H Total Protein Albumin Albumin/Globulin Ratio Procalcitonin TSH Prolactin 51.6 H Urine Appearance Cloudy A Urine Protein 30 A Urine Occult Blood >=1.0 A Ur Leukocyte Esterase 500 A Urine RBC 48 H Urine WBC > 182 H Urine Bacteria Many A Hyaline Casts 8 H Urine Mucus Few A POC Troponin I 10/09/22 10/09/22 10/09/22 20:55 20:55 20:55 WBC RBC Hgb Hct POC Hct MCV MCHC RDW Plt Count Immature Gran % (Auto) Lymph % (Auto) Lymph # (Auto) [place] # (Auto) Immature Gran # POC VBG pH POC VBG pCO2 at Temp POC VBG pO2 POC VBG HCO3 POC VBG Total CO2 POC Venous O2 Sat POC VBG Base Excess VBG Lactic Acid 2.4 H Carbon Dioxide POC Total CO2 Anion Gap POC Anion Gap POC BUN BUN Creatinine POC Creatinine Glucose POC Glucose NT-Pro-B Natriuret Pep 3512.0 H Total Protein Albumin Albumin/Globulin Ratio Procalcitonin 0.54 H TSH 7.33 H Prolactin Urine Appearance Urine Protein Urine Occult Blood Ur Leukocyte Esterase Urine RBC Urine WBC Urine Bacteria Hyaline Casts Urine Mucus POC Troponin I 10/09/22 10/09/22 10/09/22 20:55 20:37 20:34 WBC 14.0 H RBC 3.78 L Hgb 12.2 L Hct 39.1 L POC Hct MCV 103.4 H MCHC RDW 14.6 H Plt Count Immature Gran % (Auto) 1.4 H Lymph % (Auto) Lymph # (Auto) [place] # (Auto) 1.32 H Immature Gran # 0.20 H POC VBG pH 7.31 L POC VBG pCO2 at Temp 67.7 H* POC VBG pO2 96 H POC VBG HCO3 34.2 H POC VBG Total CO2 36.0 H POC Venous O2 Sat 96.0 H POC VBG Base Excess 8.0 H* VBG Lactic Acid 3.5 H Carbon Dioxide POC Total CO2 Anion Gap POC Anion Gap POC BUN BUN Creatinine POC Creatinine Glucose POC Glucose NT-Pro-B Natriuret Pep Total Protein Albumin Albumin/Globulin Ratio Procalcitonin TSH Prolactin Urine Appearance Urine Protein Urine Occult Blood Ur Leukocyte Esterase Urine RBC Urine WBC Urine Bacteria Hyaline Casts Urine Mucus POC Troponin I 0.09 H 10/09/22 20:30 WBC RBC Hgb Hct POC Hct 39.0 L MCV MCHC RDW Plt Count Immature Gran % (Auto) Lymph % (Auto) Lymph # (Auto) [place] # (Auto) Immature Gran # POC VBG pH POC VBG pCO2 at Temp POC VBG pO2 POC VBG HCO3 POC VBG Total CO2 POC Venous O2 Sat POC VBG Base Excess VBG Lactic Acid Carbon Dioxide POC Total CO2 34.0 H Anion Gap POC Anion Gap 17.0 H POC BUN 46 H BUN Creatinine POC Creatinine 2.6 H Glucose POC Glucose 151 H NT-Pro-B Natriuret Pep Total Protein Albumin Albumin/Globulin Ratio Procalcitonin TSH Prolactin Urine Appearance Urine Protein Urine Occult Blood Ur Leukocyte Esterase Urine RBC Urine WBC Urine Bacteria Hyaline Casts Urine Mucus POC Troponin I Meds: Medications Acetaminophen (Acetaminophen 325 Mg Tablet) 650 mg PO Q6HP PRN; Protocol PRN Reason: Per Pain Protocol/Fever > 101 Last Admin: 10/12/22 03:15 Dose: 650 mg [facility]iodarone HCl ([facility] Hcl 200 Mg Tablet) [facility] Last Admin: 10/12/22 07:42 Dose: 100 mg Apixaban (Apixaban 5 Mg Tablet) 2.5 mg PO BID [facility] Last Admin: 10/12/22 08:55 Dose: 2.5 mg Ascorbic Acid (Ascorbic Acid 500 Mg Tablet) 1,000 mg PO DAILY [facility] Last Admin: 10/12/22 08:56 Dose: 1,000 mg Atorvastatin Calcium (Atorvastatin 40 Mg Tablet) 40 mg PO QDAY [facility] Last Admin: 10/12/22 08:55 Dose: 40 mg Bisacodyl (Bisacodyl 10 Mg Supp.Rect) 10 mg MI Q3DP PRN PRN Reason: Constipation Calcium/Vitamin D (Calcium W/Vit D3 500 Mg Tablet) 500 mg PO DAILY [facility] Last Admin: 10/12/22 08:55 Dose: 500 mg Ceftriaxone Sodium (Ceftriaxone 1 Gm Vial) 1 gm IV Q24H [facility] Last Admin: 10/12/22 08:54 Dose: 1 gm Cyanocobalamin (Cyanocobalamin (Vitamin B-12) 500 Mcg Tablet) 500 mcg PO QDAY [facility] Last Admin: 10/12/22 08:55 Dose: 500 mcg Digoxin (Digoxin 125 Mcg Tablet) 125 mcg PO DAILY@1400 [facility] Docusate Sodium (Docusate Sodium 100 Mg Capsule) 100 mg PO BID [facility] Last Admin: 10/12/22 08:56 Dose: 100 mg Finasteride (Finasteride 5 Mg Tablet) 5 mg PO HS [facility] Last Admin: 10/11/22 19:53 Dose: 5 mg Furosemide (Furosemide 20 Mg Tablet) [facility] [place] Admin: 10/12/22 08:55 Dose: 20 mg Gabapentin (Gabapentin 300 Mg Capsule) 300 mg PO QHS [facility] Last Admin: 10/11/22 19:55 Dose: 300 mg Lactulose (Lactulose 20 Gm/30 Ml Oral.Kelli) 10 gm PO DAILYP PRN PRN Reason: Constipation Levothyroxine Sodium ([facility]othy[facility]ine 150 Mcg Tablet) [facility] Last Admin: 10/12/22 07:43 Dose: 150 mcg Lidocaine (Lidocaine 5% Oint Tube 35gm) 1 dose TOPICAL BID [facility] Last Admin: 10/12/22 08:54 Dose: 1 dose Lisinopril (Lisinopril 5 Mg Tablet) 5 mg PO DAILY [facility] Last Admin: 10/12/22 08:55 Dose: 5 mg Lorazepam (Lorazepam 2 Mg/Ml Vial) 1 mg IV Q2-4HP PRN PRN Reason: seizure Last Admin: 10/11/22 02:23 Dose: 1 mg Magnesium Hydroxide (Magnesium Hydroxide 30 Ml Oral.Susp) 30 ml PO DAILYP PRN PRN Reason: Constipation Metformin HCl (Metformin 500 Mg Tablet) 500 mg PO BIDCC [facility] Last Admin: 10/12/22 07:42 Dose: 500 mg Metoprolol Succinate (Metoprolol Succinate 25 Mg Tab.Xl.24h) 12.5 mg PO BID [facility] Last Admin: 10/12/22 08:56 Dose: 12.5 mg Midodrine (Midodrine 5 Mg Tablet) 5 mg PO TID@0800,1200,1700 [facility] Last Admin: 10/12/22 07:42 Dose: 5 mg Ondansetron HCl (Ondansetron 4 Mg/2 Ml Vial) 4 mg IV Q4HP PRN; Protocol PRN Reason: Nausea And Vomiting Last Admin: 10/12/22 03:47 Dose: 4 mg Senna (Sennosides 1 Tablet) 2 tab PO HSP PRN PRN Reason: Constipation Sodium Chloride (0.9 % Sodium Chloride 10 Ml Syringe) 10 ml IV Q8 [facility] Last Admin: 10/12/22 05:29 Dose: 10 ml A/P Time Spent With Patient Time: Total time spent is greater than 50% in coordination of care (as documented) at patient's floor/unit and/or counseling patient: QUALITY VTE Deep Vein Thrombosis/Pulmonary Embolism Present on Admission: No
[2022-10-12] MEDS ORDERED: IPRATROPIUM/ALBUTEROL 3 ML AMPUL.NEB NEB PRN (10:52)
[2022-10-12] MEDS ORDERED: DIGOXIN 125 MCG TABLET PO SCH (14:00)
[2022-10-12] MEDS: IPRATROPIUM/ALBUTEROL 3 ML AMPUL.NEB NEB SCH ×2 (15:34→22:08)
[2022-10-12] MEDS: FINASTERIDE 5 MG TABLET PO SCH (21:14)
[2022-10-12] MEDS: GABAPENTIN 300 MG CAPSULE PO SCH (21:14)
[2022-10-13] MEDS: 0.9 % SODIUM CHLORIDE 10 ML SYRINGE IV SCH (04:12)
[2022-10-13 06:57] LABS: Basophils # (Auto) 0.05 K/mcL (0.00-0.30); Basophils % (Auto) 0.6 % (0.0-2.0); Eosinophils # (Auto) 0.33 K/mcL (0.00-0.70); Hematocrit 35.9 % (40.1-51.0); Hemoglobin 10.5 g/dL (13.7-17.5); Lymphocytes # (Auto) 1.51 K/mcL (1.50-4.80); Lymphocytes % (Auto) 18.3 % (15.5-49.0); Mean Cell Volume 110.1 fL (80.0-100.0); Mean Corpuscular HGB Conc 29.2 g/dL (31.0-36.0); Mean Platelet Volume 9.9 fL (8.8-12.5); Monocytes # (Auto) 0.92 K/mcL (0.10-0.90); Monocytes % (Auto) 11.2 % (1.0-12.0); Neutrophils % (Auto) 65.2 % (38.0-78.0); Platelet Count 172 K/mcL (140-440); RBC 3.26 M/mcL (4.63-6.08); Red Cell Distribution Width 14.7 % (11.5-14.5); WBC 8.2 K/mcL (4.5-11.0)
[2022-10-13 07:10] LABS: ALT/SGPT 10 U/L (<40); AST/SGOT 18 U/L (<40); Albumin 2.6 gm/dL (3.2-5.2); Albumin/Globulin Ratio 0.8 (1.0-2.3); Alkaline Phosphatase 41 U/L (39-117); Bilirubin,Total 0.3 mg/dL (0.1-1.0); Blood Urea Nitrogen 33 mg/dL (8-23); Carbon Dioxide 32 mmol/L (22-30); Chloride 102 mmol/L (96-108); Globulin 3.3 gm/dL (2.2-3.7); Glomerular Filtration Rate 32; Glucose 68 mg/dL (70-105)
[2022-10-13] MEDS: MIDODRINE 5 MG TABLET PO SCH ×2 (07:46→11:55)
[2022-10-13] MEDS: LEVOTHYROXINE 150 MCG TABLET PO SCH (07:46)
[2022-10-13] MEDS: metFORMIN 500 MG TABLET PO SCH (07:47)
[2022-10-13] MEDS: AMIODARONE HCL 200 MG TABLET PO SCH (07:47)
[2022-10-13] MEDS: IPRATROPIUM/ALBUTEROL 3 ML AMPUL.NEB NEB SCH ×2 (08:03→14:38)
[2022-10-13] MEDS: LIDOCAINE 5% OINT TUBE 35GM TOPICAL SCH (08:54)
[2022-10-13] MEDS: CYANOCOBALAMIN (VITAMIN B-12) 500 MCG TABLET PO SCH (08:54)
[2022-10-13] MEDS: CALCIUM W/VIT D3 500 MG TABLET PO SCH (08:55)
[2022-10-13] MEDS: LISINOPRIL 5 MG TABLET PO SCH (08:55)
[2022-10-13] MEDS: APIXABAN 5 MG TABLET PO SCH (08:55)
[2022-10-13] MEDS: ASCORBIC ACID 500 MG TABLET PO SCH (08:55)
[2022-10-13] MEDS: ATORVASTATIN 40 MG TABLET PO SCH (08:55)
[2022-10-13] MEDS: METOPROLOL SUCCINATE 25 MG TAB.XL.24H PO SCH (08:55)
[2022-10-13] MEDS: FUROSEMIDE 20 MG TABLET PO SCH (08:56)
[2022-10-13] MEDS: DOCUSATE SODIUM 100 MG CAPSULE PO SCH (08:56)
[2022-10-13] MEDS ORDERED: LEVOFLOXACIN 750 MG/150 ML BAG IV SCH (09:00)
--- NOTE | 2022-10-13 11:24 | Discharge Summary ---
Discharge Provider Provider IMPORTANT FOLLOW-UP INFORMATION FOR PCP: Patient information: Note initiated : 10/13/22 at 11:20 am Service Date, if different from initiated Date: [] Patient: Abhi Randle 82 y/o M admitted on 10/09/22. Chief Complaint: [] Date of admission: 10/09/22 23:37 Discharge date: 10/13/22 Primary care physician: Raudel Murphy MD Consults: 10/09/22 Consult to Physician [CONS] Stat Comment: admission T-1 sepsis Consulting Provider: Acosta Tillman Reason For Exam: Physician to Consult 10/09/22 22:10 Consult to Physician [CONS] Routine Comment: Consulting Provider: Acosta Tillman Reason For Exam: Physician to Consult COURSE Hospital Course Hospital course: Abhi Randle is an 82 years old male with history of cardiomyopathy EF 35%, CAD status post CABGx3, mitral valve repair, atrial fibrillation on anticoagulation, hypotension on midodrine, hyperlipidemia, diabetes mellitus 2, CKD stage II-III, hypothyroidism, BPH with urinary retention requiring Virgen catheter since 3 months ago presented with concerns of possible aspiration, seizure-like activity and altered mental status. Patient is a limited historian, most of the history was given by caregiver and from previous record patient was with a caregiver who gave him some water and heard gurgling/choking, patient stated to his caregiver that it is gone down the wrong pipe. Case patient day coordinator stepped out of the room and again heard some noises and saw patient was having seizure-like activity and was shaking his arms. He called his name few times and patient did not respond. He was breathing poor. He also noted patient eyes were rolling back. He was unable to observe the lower extremities as these were covered with blanket. Patient has fallen 3 times in the past 2 week EMS noted patient was breathing poorly and put him on 15 L nonrebreather mask. On presentation patient is pulse rate 58, respiratory rate 27, blood pressure 106/44. He was satting 91% on room air and was placed on 2 L nasal cannula oxygen. EKG shows a rate of 66. Rhythm appears regular. P waves not obvious. Reads out as junctional rhythm. Right bundle branch block. No acute ischemic changes. Labs showed WBC 14,000, hemoglobin 12.2. Sodium 141. Potassium 3.9. Chloride 96. Bicarb 34. Glucose 151. BUN 46. Creatinine elevated at 2.6. Troponin 0.09 down from 0.29 two months ago. Patient has chronically elevated troponin. VBG pH 7.31. PCO2 68. PaO2 96. HCO3 34. Bicarb 36. Lactic acid elevated at 3.47. UA with presence of leukocyte esterase, RBC, WBC, bacteria. Chest x-ray shows no CHF. Patient has borderline cardiomegaly. CT head showed no acute intracranial abnormality. Admission was requested 10/10. Patient reports he does not feel very good, unable to elaborate. He had no seizures overnight. No significant tachycardia however had small pauses less than 2 seconds. Amiodarone and metoprolol on hold. Blood pressure somewhat low with systolic in high 90s, asked RN to give midodrine. Patient is just having his echocardiogram done. He denies any pain. Leukocytosis resolved to 9.5. Hemoglobin down to 10.8 from 12.2. He is on IV fluids. Electrolytes stable. Creatinine 2.0, [id number] creatinine was 2.6 yesterday. HbA1c is pending. Liver profile stable. BNP 3700 down from 4702 months ago 10/11. No acute event. Remains afebrile. WBC within normal range. Creatinine 2.0 stable. Urine culture from 10/09 is growing Klebsiella Variicola. Blood cultures to date are negative 10/12. Intermittently weak. No fever overnight. Leukocytosis remains resolved. Serum creatinine down to 1.3 from 2.0 yesterday. Urine culture positive for Klebsiella Variicola. 10/13. The patient continues to require oxygen supplementation, 2 L/min today. His caregiver came to evaluate the patient yesterday and felt that the patient was back to his baseline and was comfortable taking him home. Home oxygen evaluation completed, the patient will require supplemental oxygen at home. Patient is discharged to home with home health, complete 5 more days of levofloxacin which will cover for the UTI as well as possible pneumonia. The patient will be at higher risk for hospital readmission given his multiple comorbidities. Follow-up with primary care provider in clinic. Discharge diagnosis: UTI secondary to Klebsiella Variicola Secondary discharge diagnosis: Aspiration pneumonitis, possible pneumonia Acute hypoxic respiratory failure Sepsis probably secondary to UTI Possible syncope Possible seizure Time Spent with Patient Time attestation: Total time spent providing and/or coordinating discharge services: Time spent: Greater than 30 minutes EXAM Constitutional Vitals: Temp Pulse Resp BP Pulse Ox O2 Del Method O2 Flow Rate 99.3 F H 76 16 109/40 95 Nasal Cannula 2 10/13/22 07:26 10/13/22 08:11 10/13/22 08:11 10/13/22 07:26 10/13/22 08:22 10/13/22 08:22 10/13/22 08:22 Discharge Data Data Completed and Pending Labs on day of discharge: Labs from last 24 hours 10/13/22 10/13/22 05:53 05:53 WBC 8.2 RBC 3.26 L Hgb 10.5 L Hct 35.9 L MCV 110.1 H MCH 32.2 MCHC 29.2 L RDW 14.7 H Plt Count 172 MPV 9.9 Immature Gran % (Auto) 0.7 H Neut % (Auto) 65.2 Lymph % (Auto) 18.3 Johnson % (Auto) 11.2 Eos % (Auto) 4.0 Baso % (Auto) 0.6 Lymph # (Auto) 1.51 Johnson # (Auto) 0.92 H Eos # (Auto) 0.33 Baso # (Auto) 0.05 Immature Gran # 0.06 H Absolute Neutrophils 5.36 Sodium 141 Potassium 5.0 Chloride 102 Carbon Dioxide 32 H Anion Gap 7.0 L BUN 33 H Creatinine 1.9 H GFR Calculation 32 Glucose 68 L Calcium 9.0 Total Bilirubin 0.3 AST 18 ALT 10 Alkaline Phosphatase 41 Total Protein 5.9 Albumin 2.6 L Globulin 3.3 Albumin/Globulin Ratio 0.8 L Preliminary micro results at discharge 10/09/22 20:58 Blood Culture - Preliminary Blood 10/09/22 20:55 Blood Culture - Preliminary Blood Discharge Plan Patient/Caregiver Discharge Instructions Activity: as per physical therapy Diet: Consistent Carbohydrate Prescriptions: New levofloxacin 250 mg tablet 250 mg PO Q24H 5 Days Qty: 5 0RF Continued (DME) Transport Chair See Rx Instructions .Route .MEDSUPPLY Qty: 1 0RF Rx Instructions: As directed (DME) Stand-assist lift See Rx Instructions .Route .MEDSUPPLY Qty: 1 0RF Rx Instructions: As directed levothyroxine 150 mcg tablet 150 mcg PO QAM Eliquis 5 mg tablet 2.5 mg PO BID finasteride 5 mg tablet 5 mg PO QHS metoprolol succinate 25 mg tablet extended release 24 hr 12.5 mg PO BID midodrine 5 mg tablet 5 mg PO TIDWMEAL Rx Instructions: do not give last dose of day after 6PM or within 4 hrs of bedtime HOLD for SBP >130 amiodarone 100 mg tablet 100 mg PO BID zinc oxide 24 % cream See Rx Instructions topical .COMPLEX Qty: 113 0RF Rx Instructions: Apply to affected areas on back side in morning and evening as well as after showering. topically; (DME) Deneen Raza See Rx Instructions .Route .MEDSUPPLY Qty: 1 0RF Rx Instructions: As directed atorvastatin 40 mg Tablet 40 mg PO QDAY metformin 500 mg Tablet 500 mg PO BID fosinopril 20 mg Tablet 10 mg PO QDAY cyanocobalamin (vitamin B-12) 500 mcg Tablet 500 mcg PO QDAY digoxin 125 mcg (0.125 mg) Tablet 125 mcg PO QDAY furosemide 20 mg Tablet 20 mg PO QAM albuterol sulfate 90 mcg/actuation Aerosol Powdr Breath Activated 2 inh INHALATION PRN PRN (Reason: Shortness Of Breath) ascorbate calcium (vitamin C) 500 mg Tablet 1,000 mg PO QDAY gabapentin 300 mg Capsule 300 mg PO QHS calcium carbonate-vitamin D3 600 mg-10 mcg (400 unit) Capsule 1 cap PO QAM lidocaine 5 % Ointment 1 applic TOPICAL BID acetaminophen 500 ng tablet 500 mg PO TID Follow Up Plan Follow up with: Chad Perez MD [Physician] - (You are scheduled for a Cystoscopy October 20 @ 3:15 PM) Raudel Murphy MD [Primary Care Provider] - Patient Disposition: Home Health Service Prognosis: Serious Overall status at discharge: patient is progressing back to baseline Discharge Orders: Discharge Order (Routine); Ordered 10/13/22 Ordered By: Ryan GABRIEL VTE Deep Vein Thrombosis/Pulmonary Embolism Present on Admission: No
[2022-10-13 16:09] VITALS: TEMP 99; O2SAT 96
--- NOTE | 2022-10-20 07:16 | EKG ---
[facility] Test Date: 2022-10-09 Pat Name: Abhi Randle Department: ED Room: Gender: Male [employer] Specialist: CS : [id number] Requested By: Jose Mattson Order Number: [id number] Reading MD: Da Redd M.D. Measurements Intervals [place] Rate: 66 P: [place]: QRS: 70 QRSD: 169 T: 46 QT: 529 QTc: 555 Interpretive Statements SINUS RHYTHM Right bundle branch block Electronically Signed On 10-20-2022 7:16:28 PDT by Da Redd M.D. /[id number]
== END 2022-10-13 14:45 | disposition home health service (06) | DRG 871 ==
LOC: ED 20:20 → ICU 23:37 → MEDSUR 10-12 13:58
PROVIDERS: ADMIT Internal Medicine; ATTEND Internal Medicine